=== PATIENT | male | born 1945 | race Caucasian/White ===

== ENCOUNTER 2020-08-18 21:23 | Emergency (ER) | payer MEDICARE, SELFPAY ==
[2020-03-16 08:31] VITALS: BMI 34.7
[2020-08-18 21:24] VITALS: BP 112/66; PULSE 85; RESP 18; TEMP 36.1; O2SAT 96; BMI 34.0
--- NOTE | 2020-08-18 22:04 | CT_ITS ---
STUDY: CT BRAIN WITHOUT CONTRAST REASON FOR EXAM: Male, 75 years old. Pain RADIATION DOSAGE (If Supplied By Facility): CTDIvol = ( 44.99 ) mGy, DLP = ( 914.22 ) mGycm TECHNIQUE: Transaxial CT imaging of the brain was performed without administration of intravenous contrast material. Individualized dose optimization techniques were used for this CT. COMPARISON: No relevant priors. FINDINGS: Normal soft tissue structures. Status post left-sided craniotomy. There is mild cerebral atrophy with widening of the extra-axial spaces and ventricular dilatation. There are areas of decreased attenuation within the white matter tracts of the supratentorial brain, consistent with microvascular disease changes. A small focus of encephalomalacia at the level of the left temporal lobe which may be related to prior surgery. Normal basal ganglia and thalami. Normal brainstem. Normal cerebellum. There is no intracranial hemorrhage. There are no findings of an acute ischemic infarction. There is near complete opacification of the sphenoid sinuses with mucosal thickening of the right maxillary sinus suggestive of sequela of sinusitis. CT/Brain/Head without Contrast IMPRESSION: Chronic changes as described. No acute intracranial hemorrhage or space-occupying lesion. Electronically Signed: Sandra Escobedo MD at 23:13 EDT , Service support ,
[2020-08-18] MEDS: Metoclopramide 10 MG/2 ML Vial IV (23:04)
[2020-08-18] MEDS: 0.9% Normal Saline 1,000 ML 999 ML IV (23:04)
[2020-08-18] MEDS: DiphenhydrAMINE 50 MG/ML Syringe 25 MG IV (23:04)
[2020-08-18] MEDS: Morphine 4 MG/ML Syringe IV (23:32)
[2020-08-18 23:33] VITALS: PULSE 80; RESP 16; O2SAT 95
--- NOTE | 2020-08-19 00:19 | ED.VISSUMM ---
- ER Visit Summary Date of Service: 08/19/20 Chief Complaint: Headache History of Present Illness: The patient is a 75 M [place] with a headache that has been getting worse over the past week. Patient states she is scheduled for an outpatient CT scan next week. Patient states that his primary care physician told him that if his headache gets too severe to come to the emergency department. Patient describes his headache as throbbing. Patient states it is a generalized headache. Patient denies any fevers or chills. Patient denies any nausea or vomiting. Patient denies any sore throat or sinus pressure. Patient denies any visual changes. Patient does admit to some mild photophobia. Patient also admits to recent cough. Physical Examination: Vital signs are stable. Patient is afebrile. Patient is in no acute distress. Oral mucosa is pink and moist. Neck is supple. Trachea is midline. There is no JVD noted. Heart was regular rate and rhythm. Lungs are clear and equal bilaterally. Abdomen is soft. Bowel sounds are normal. There is no tenderness. There is no rebound or guarding noted. Skin is warm dry. Cranial nerves II through XII are intact. There are no focal motor or sensory deficits noted. Test Results: CT scan of the brain was obtained. There is no acute intracranial abnormality. This was interpreted by the radiologist and reviewed by myself. Emergency Department Course and Treatment: Patient was given IV fluids, Reglan, and Benadryl. Patient had minimal relief of his headache with this. Patient was given a dose of morphine. Patient states his headache improved after this. Patient was instructed to rest in a dark quiet room. Patient was instructed to follow-up with his primary care physician in 3 to 5 days. Patient understood and was agreeable with the plan. All questions were answered. Disposition: Discharge home Impression: 1. Headache This note was generated with [employer] software. It may contain incorrect words, spelling, and punctuation that were not noted in review of the chart prior to signing ED Disposition - Plan for ED Patient: Disposition: Home or Assisted Living Diagnosis: Headache Instructions: ED Headache Unspecified Referrals: Damien Harman MD [Primary Care Provider] - 3-5 Days
[2020-08-19 00:31] VITALS: RESP 16
== END 2020-08-19 00:32 | disposition home or self-care (01) ==
PROVIDERS: Emergency Provider Emergency Medicine; PCP Internal Medicine
DX: R51.9 Headache, unspecified (principal); M54.2 Cervicalgia; M54.9 Dorsalgia, unspecified; R05 Cough; E11.9 Type 2 diabetes mellitus without complications; I10 Essential (primary) hypertension; Z87.820 Personal history of traumatic brain injury
CPT/HCPCS: 70450; 96361; 96374; 96375; 99282; J7030; A4216

== ENCOUNTER → 2020-11-01 05:41 | Outpatient (CLI) | payer MEDICARE, SELFPAY ==
[2020-10-25 09:12] VITALS: BMI 34.0
--- NOTE | 2020-11-01 05:59 | ECHOCS_ITS ---
Reason For Study: Chest Pain Procedure This was a 2D Doppler, Color Flow transthoracic echocardiogram. Contrast injection was performed. Exam performed in department. Left Ventricle Normal LV size. Left ventricular systolic function is normal. The estimated ejection fraction is 60 %. Stage 1 diastolic dysfunction. No regional wall motion abnormalities noted. Right Ventricle Normal RV size. Normal systolic function. Atria Normal left atrium. Normal right atrium. Mitral Valve Normal mitral valve. Tricuspid Valve Normal tricuspid valve. Mild (1+) tricuspid valve insufficiency. Pulmonary artery systolic pressure is 40 mmHg. Aortic Valve Trisinus/trileaflet aortic valve. Mild focal aortic valve calcification. Pulmonic Valve Normal pulmonic valve. Great Vessels Normal aortic root. The pulmonary artery is normal size. Normal inferior vena cava. Pericardium/Pleural No pericardial effusion. Medication Diluted definity 3ml given slow IV push to enhance endocardial definition. MMode/2D Measurements & Calculations LVIDd: 4.6 cm IVSd: 1.3 cm Ao root diam: 3.2 cm LVIDs: 3.3 cm LVPWd: 1.1 cm RVDd: 4.4 cm FS: 29.0 % LAV(MOD-bp): 51.2 ml LVAd ap4: 30.2 cm2 SV(MOD-sp4): 63.9 ml LAV(MOD-bp) Indexed: 23.0 ml/m2 LVLd ap4: 7.6 cm LAV(MOD-sp2): 50.3 ml EDV(MOD-sp4): 98.1 ml LAV(MOD-sp4): 51.0 ml EDV(sp4-el): 101.7 ml LVAs ap4: 16.6 cm2 LVLs ap4: 6.9 cm ESV(MOD-sp4): 34.2 ml ESV(sp4-el): 33.9 ml EF(MOD-sp4): 65.1 % EF(sp4-el): 66.7 % SV(sp4-el): 67.8 ml LA A4 area: 19.2 cm2 LA dimension(2D): 5.2 cm RA A4 area: 15.7 cm2 Doppler Measurements & Calculations MV E max ernie: 96.6 cm/sec Lat Peak E' Ernie: 8.7 cm/sec Med Peak E' Ernie: 4.8 cm/sec MV A max ernie: 126.1 cm/sec E/E' lat: 11.1 E/E' med: 20.0 MV E/A: 0.77 Ao V2 max: 165.5 cm/sec LV V1 max: 108.7 cm/sec PA V2 max: 126.2 cm/sec Ao max P.0 mmHg LV V1 max P.7 mmHg Ao V2 mean: 115.4 cm/sec Ao mean P.9 mmHg Ao V2 VTI: 35.3 cm TR max ernie: 295.9 cm/sec TR max P.0 mmHg ECHO/Echo Complete W/ Contrast Interpretation Summary Normal LV size. Left ventricular systolic function is normal. The estimated ejection fraction is 60 %. Stage 1 diastolic dysfunction. Contrast injection was performed. Ordering Physician: Damien Harman Referring Physician: Damien Harman Performed By: Yary Garcia, KENYA, RVT
--- NOTE | 2020-11-01 17:29 | STRESSREP_ITS ---
Stress Test Report Pharmacologic myocardial perfusion stress test. 75-year-old man with a history of chest pain. Stress protocol: Resting EKG demonstrates normal sinus rhythm with a rate of 68 bpm. Normal blood pressure is 142/78 mmHg. 0.4 mg of regadenoson was infused per usual protocol followed by rapid intravenous saline flush injection. The maximum hea rt rate attained was 90 bpm which was 62% of maximum predicted heart rate the maximum workload was 1 metabolic equivalent. At rest there were no ST or T wave changes noted to suggest ischemia and at peak infusion nonspecific ST changes were noted with did not meet the criteria for ischemia. No clinical angina was noted. Myocardial perfusion protocol. 14.5 mCi of technetium 99m sestamibi was injected at rest. 0.4 mg of regadenoson was infused per usual protocol. At peak infusion 44.7 mCi of technetium 99m sestamibi was injected stress images were obtained stress and resting images were reconstructed and compared in the short axis vertical long and horizontal long axis. Gated images were also obtained. Perfusion SPECT analysis: Review of the stress images demonstrate normal uptake of tracer noted in all areas of the myocardium. The resting images similarly demonstrate normal uptake of tracer noted in all areas of the myocardium. No evidence of reversibility is noted to suggest ischemia and no previous infarct is noted. Gated SPECT analysis: The gated ejection fraction is 70%. Conclusion: Normal pharmacologic myocardial perfusion stress test. Preserved ejection fraction.
== END ==
PROVIDERS: PCP Internal Medicine; Referring Provider Internal Medicine; Visit Provider Internal Medicine
DX: R06.02 Shortness of breath (principal); R07.9 Chest pain, unspecified
CPT/HCPCS: 78452; 93017; 93306; A9500; Q9957; A4216; C8929; J2785; J3490

== ENCOUNTER → 2020-11-04 09:57 | Outpatient (CLI) | payer MEDICARE, SELFPAY ==
[2020-10-25 09:12] VITALS: BMI 34.0
--- NOTE | 2020-11-04 09:58 | US_ITS ---
EXAM: US ABDOMEN COMPLETE CLINICAL INDICATION: INCREASED ABD PAIN -- RULE OUT HERNIA AND ASCITES, HAS GLOBULAR ABD TECHNIQUE: Real-time ultrasound of the abdomen with image documentation. This report was created using [employer] report generation technology. COMPARISON: None. FINDINGS: LIVER: Liver is enlarged measuring 24 cm with diffusely increased echogenicity. No intrahepatic biliary ductal dilation. GALLBLADDER: Multiple gallstones measure up to 1.1 cm. No gallbladder wall thickening is demonstrated. No pericholecystic fluid. Negative sonographic Diaz''s sign. COMMON BILE DUCT: Unremarkable as visualized. The proximal common bile duct is within normal limits for the patient''s age. PANCREAS: Unremarkable as visualized. No focal abnormality is demonstrated in the pancreas. No pancreatic ductal dilatation. KIDNEYS: Unremarkable. There is no hydronephrosis. No shadowing calculus. No focal lesion or perinephric collection is demonstrated. SPLEEN: Unremarkable. The spleen is normal in size (12.3 cm) and homogeneous in echotexture. AORTA: See below. INFERIOR VENA CAVA: Limited evaluation of the IVC and aorta due to bowel gas. SOFT TISSUES: No abdominal wall hernia demonstrated. FREE FLUID: There is no free fluid. US/Abdomen Complete IMPRESSION: 1. Hepatomegaly. Increased echogenicity of the liver is nonspecific but most commonly associated with hepatic steatosis. 2. Cholelithiasis. Electronically Signed: Marcio Jose MD ([place]) at 18:42 EDT , Service support ,
== END ==
PROVIDERS: PCP Internal Medicine
DX: R19.8 Other specified symptoms and signs involving the digestive system and abdomen (principal)
CPT/HCPCS: 76700

== ENCOUNTER → 2020-12-09 08:09 | Outpatient (CLI) | payer MEDICARE, SELFPAY ==
[2020-10-25 09:12] VITALS: BMI 34.0
[2020-12-09 08:51] LABS: Absolute Lymphocyte Count 1.78 X10^3/uL (0.83-4.51); Basophil# 0.04 X10^3/uL; Basophil% 0.5 % (0-1); Eosinophil# 0.17 X10^3/uL; Hematocrit 38.6 % (40-54); Lymphocyte # 1.78 X10^3/ul (0.83-4.51); Lymphocyte % 20.5 % (19-41); Mean Corp Hgb Conc 33.7 g/dL (32-36); Mean Corpuscular Hgb 29.8 pg (27.0-32.0); Mean Corpuscular Volume 88.5 fL (80-94); Mean Platelet Vol. 9.8 fl (6.2-12.0); Monocyte# 0.67 X10^3/uL; Monocyte% 7.7 % (0-10); NRBC Flagged by Analyzer 0 % (0-5); Neutrophil # 5.96 X10^3/uL (2.7-7.7); Neutrophil % 68.5 % (47-70); Platelet Count 311 K/mm3 (150-450); RBC Distribution Width CV 13.7 % (11.6-14.6); RBC Distribution Width SD 44.6 fl (35.1-43.9); Red Blood Count 4.36 M/mm3 (4.6-6.2); White Blood Count 8.7 K/mm3 (4.4-11.0)
[2020-12-09 09:23] LABS: AST(SGOT) 9 U/L (15-37); Alanine Aminotransfer ALT/SGPT 25 U/L (16-61); Albumin, Serum 3.8 g/dL (3.2-5.0); Alkaline Phosphatase 80 U/L (45-117); Anion Gap 8 (5-15); BUN 16 mg/dL (7-18); Chloride 102 mmol/L (98-107); Creatinine, Serum 1.14 mg/dL (0.70-1.30); EST Glomerular Filtration Rate 66 mL/min (>60); Est Glom Filt Rate - Afr Amer 80 mL/min (>60); Globulin 3.7 g/dL (2.2-4.2); Glucose 221 mg/dL (74-106); PSA,Total- Diagnostic 5.64 ng/mL (0.0-4.0); Potassium 3.8 mmol/L (3.5-5.1); Protein, Total 7.5 g/dL (6.4-8.2); Sodium Level 135 mmol/L (136-145); Thyroid Stim Hormone (TSH) 1.04 uIU/mL (0.358-3.74)
[2020-12-11 09:36] LABS: Vitamin B12 405 pg/mL (211-911)
== END ==
PROVIDERS: PCP Internal Medicine; Referring Provider Internal Medicine; Visit Provider Internal Medicine
DX: R53.83 Other fatigue (principal); R97.20 Elevated prostate specific antigen [PSA]
CPT/HCPCS: 36415; 80053; 82607; 84153; 84443; 85025

== ENCOUNTER → 2021-02-23 08:52 | Outpatient (CLI) | payer MEDICARE, SELFPAY ==
[2021-02-23 09:53] LABS: PSA,Total - Annual Screen 7.37 ng/mL (0.00-4.00)
--- NOTE | 2021-02-23 15:48 | PFTCOMP ---
COMPLETE PULMONARY FUNCTION TEST INTERPRETATION Brief HPI: Patient is a 75 year old male, currently under the care of Dr. Harman, who presents to [facility] for complete pulmonary function tests secondary to diagnosis of dyspnea. Respiratory therapist reports good effort and reproducible results. Interpretation: Forced expiration spirometry shows no large airways obstructive ventilatory defect with an FEV1 of 75% predicted. There is no significant bronchodilator response by strict ATS criteria. Spirograms are of poor quality and plateau slowly, indicating slowly emptying areas of the lungs. Patient did have significant improvement in exhalation time on postbronchodilator response leading to an artificially elevated FVC. The respiratory flow volume loop shows decreased expiratory flow rates at high lung volumes consistent with small airways obstruction. Lung volumes by body plethysmography show a normal total lung capacity at 5.74 L, 96% predicted. All other lung volumes are within normal limits. Diffusion capacity by carbon monoxide is normal at 75% predicted. The airway resistance is elevated. No previous pulmonary function tests were available for review. Impression: Grossly normal pulmonary function testing with some stigmata of small airways disease
== END ==
PROVIDERS: PCP Internal Medicine; Referring Provider Internal Medicine; Visit Provider Internal Medicine
DX: R06.00 Dyspnea, unspecified (principal); Z12.5 Encounter for screening for malignant neoplasm of prostate
CPT/HCPCS: 36415; 84153; 94060; 94726; 94729; G0103

== ENCOUNTER → 2021-03-12 16:24 | Outpatient (CLI) | payer MEDICARE, SELFPAY ==
[2021-03-12 17:16] LABS: Absolute Neutrophil Count 7.6 X10^3/uL (2.0-7.7); Basophil# 0.06 X10^3/uL; Basophil% 0.5 % (0-1); Eosinophil# 0.23 X10^3/uL; Eosinophils% 2.1 % (0-5); Hematocrit 39.2 % (40-54); Hemoglobin 13.2 g/dL (13.0-16.5); Lymphocyte % 18.3 % (19-41); Mean Corp Hgb Conc 33.7 g/dL (32-36); Mean Corpuscular Hgb 29.6 pg (27.0-32.0); Mean Corpuscular Volume 87.9 fL (80-94); Mean Platelet Vol. 10.1 fl (6.2-12.0); Monocyte# 0.91 X10^3/uL; Monocyte% 8.3 % (0-10); NRBC Flagged by Analyzer 0 % (0-5); Neutrophil # 7.57 X10^3/uL (2.7-7.7); Neutrophil % 69.4 % (47-70); Platelet Count 356 K/mm3 (150-450); RBC Distribution Width CV 14.6 % (11.6-14.6); RBC Distribution Width SD 47.4 fl (35.1-43.9); Red Blood Count 4.46 M/mm3 (4.6-6.2); White Blood Count 10.9 K/mm3 (4.4-11.0)
[2021-03-12 17:36] LABS: ALB/GLOB Ratio 0.8 RATIO (0.9-2.4); AST(SGOT) 7 U/L (15-37); Alanine Aminotransfer ALT/SGPT 19 U/L (16-61); Albumin, Serum 3.7 g/dL (3.2-5.0); Alkaline Phosphatase 122 U/L (45-117); Anion Gap 7 (5-15); BUN 30 mg/dL (7-18); BUN/Creat Ratio 21.1 RATIO (10-20); Calcium,Total 9.4 mg/dL (8.5-10.1); Chloride 103 mmol/L (98-107); Creatinine, Serum 1.42 mg/dL (0.70-1.30); EST Glomerular Filtration Rate 52 mL/min (>60); Est Glom Filt Rate - Afr Amer 62 mL/min (>60); Globulin 4.4 g/dL (2.2-4.2); Glucose 192 mg/dL (74-106); Potassium 4.1 mmol/L (3.5-5.1); Protein, Total 8.1 g/dL (6.4-8.2); Sodium Level 133 mmol/L (136-145); Thyroid Stim Hormone (TSH) 2.06 uIU/mL (0.358-3.74)
[2021-03-13 09:13] LABS: Hepatitis C Antibody Non-Reactive (Nonreactive)
== END ==
PROVIDERS: PCP Family Medicine Geriatric Medicine; Visit Provider Family Medicine Geriatric Medicine
DX: R53.83 Other fatigue (principal); Z13.89 Encounter for screening for other disorder
CPT/HCPCS: 36415; 80053; 84443; 85025; 86803

== ENCOUNTER 2021-05-17 10:10 | Outpatient (CLI) | payer MEDICARE, SELFPAY ==
[2021-05-17 11:41] LABS: Absolute Lymphocyte Count 1.76 X10^3/uL (0.83-4.51); Absolute Neutrophil Count 6.6 X10^3/uL (2.0-7.7); Basophil# 0.03 X10^3/uL; Basophil% 0.3 % (0-1); Eosinophil# 0.17 X10^3/uL; Eosinophils% 1.8 % (0-5); Hematocrit 42.4 % (40-54); Hemoglobin 13.9 g/dL (13.0-16.5); Lymphocyte # 1.76 X10^3/ul (0.83-4.51); Lymphocyte % 18.9 % (19-41); Mean Corp Hgb Conc 32.8 g/dL (32-36); Mean Corpuscular Volume 85.5 fL (80-94); Mean Platelet Vol. 10.1 fl (6.2-12.0); Monocyte# 0.71 X10^3/uL; Monocyte% 7.6 % (0-10); NRBC Flagged by Analyzer 0 % (0-5); Neutrophil # 6.59 X10^3/uL (2.7-7.7); Neutrophil % 70.8 % (47-70); Platelet Count 336 K/mm3 (150-450); RBC Distribution Width CV 15.2 % (11.6-14.6); RBC Distribution Width SD 47.8 fl (35.1-43.9); Red Blood Count 4.96 M/mm3 (4.6-6.2); White Blood Count 9.3 K/mm3 (4.4-11.0)
[2021-05-17 11:53] LABS: Anion Gap 7 (5-15); BUN 17 mg/dL (7-18); BUN/Creat Ratio 15.6 RATIO (10-20); Calcium,Total 9.6 mg/dL (8.5-10.1); Chloride 101 mmol/L (98-107); Creatinine, Serum 1.09 mg/dL (0.70-1.30); EST Glomerular Filtration Rate 70 mL/min (>60); Est Glom Filt Rate - Afr Amer 85 mL/min (>60); Glucose 258 mg/dL (74-106); Potassium 4.3 mmol/L (3.5-5.1); Sodium Level 134 mmol/L (136-145)
[2021-05-17 11:55] LABS: BNP,B-Type NATRIURETIC PEPTIDE 144.8 pg/mL (0-100)
== END 2021-05-17 23:59 | disposition short-term general hospital (02) ==
LOC: POLAB3 10:15
PROVIDERS: PCP Family Medicine Geriatric Medicine; Visit Provider Family Medicine Geriatric Medicine
DX: R06.02 Shortness of breath (principal)
CPT/HCPCS: 36415; 80048; 83880; 85025

== ENCOUNTER 2021-05-29 13:12 | Outpatient (CLI) | payer MEDICARE, SELFPAY ==
--- NOTE | 2021-05-29 13:31 | ECHOCS_ITS ---
Reason For Study: SOB Procedure This was a 2D Doppler, Color Flow transthoracic echocardiogram. The study was technically difficult. Due to body habitus. Contrast injection was performed. Exam performed in department. Left Ventricle Normal LV size. Left ventricular systolic function is normal. The estimated ejection fraction is 65 %. Septal bounce. Diastolic function is indeterminate. Right Ventricle Based upon the 2D echocardiographic and contrast enhanced images obtained there appears to be grossly normal right ventricular size and systolic function. Atria The left atrium is mildly enlarged. Normal right atrium. No doppler evidence for ASD. Mitral Valve There is no mitral annular calcification. Normal mitral valve. Trivial mitral valve insufficiency. Tricuspid Valve Normal tricuspid valve. Trivial tricuspid valve insufficiency. Unable to estimate RV systolic pressure/pulmonary artery pressure due to technically difficult study. Aortic Valve Trisinus/trileaflet aortic valve. Moderate focal aortic valve calcification. Pulmonic Valve The pulmonic valve is not well visualized. Great Vessels Calcified aortic root. Pericardium/Pleural No pericardial effusion. Medication 22 gauge I.V. with prn adaptor inserted into right arm. Diluted definity 3.0ml given slow IV push to enhance endocardial definition. MMode/2D Measurements & Calculations LVIDd: 5.2 cm IVSd: 1.1 cm Ao root diam: 3.9 cm LVIDs: 3.4 cm LVPWd: 1.1 cm FS: 34.7 % LAV(MOD-bp): 53.3 ml LA A4 area: 19.3 cm2 LA dimension(2D): 5.0 cm LAV(MOD-bp) Indexed: 64.7 ml/m2 LAV(MOD-sp2): 54.7 ml LAV(MOD-sp4): 52.5 ml RA A4 area: 14.8 cm2 Time Measurements MV dec time: 0.22 sec Doppler Measurements & Calculations MV E max ernie: 57.7 cm/sec Lat Peak E' Ernie: 10.4 cm/sec Med Peak E' Ernie: 4.5 cm/sec MV A max ernie: 118.0 cm/sec E/E' lat: 5.6 E/E' med: 13.0 MV E/A: 0.49 Ao V2 max: 151.7 cm/sec LV V1 max: 89.9 cm/sec PA V2 max: 125.4 cm/sec Ao max P.2 mmHg LV V1 max P.2 mmHg ECHO/Echo Complete W/ Contrast Interpretation Summary The study was technically difficult. Contrast injection was performed. Left ventricular systolic function is normal. The estimated ejection fraction is 65 %. Septal bounce. The left atrium is mildly enlarged. Trivial mitral valve insufficiency. Trivial tricuspid valve insufficiency. Moderate focal aortic valve calcification. Calcified aortic root. Unable to estimate RV systolic pressure/pulmonary artery pressure due to techni irish difficult study. Diastolic function is indeterminate. Ordering Physician: Frankie Shaver Referring Physician: Frankie Shaver Chi Performed By: Jolene Hylton, KENYA, RVT
== END 2021-05-29 23:59 | disposition short-term general hospital (02) ==
PROVIDERS: PCP Family Medicine Geriatric Medicine; Referring Provider Family Medicine Geriatric Medicine; Visit Provider Family Medicine Geriatric Medicine
DX: R06.02 Shortness of breath (principal)
CPT/HCPCS: 93306; Q9957; A4216; C8929

== ENCOUNTER 2021-06-13 09:24 | Outpatient (CLI) | payer MEDICARE, SELFPAY ==
[2021-06-13 12:42] LABS: Absolute Lymphocyte Count 2.15 X10^3/uL (0.83-4.51); Absolute Neutrophil Count 7.5 X10^3/uL (2.0-7.7); Basophil# 0.05 X10^3/uL; Basophil% 0.5 % (0-1); Eosinophil# 0.18 X10^3/uL; Eosinophils% 1.7 % (0-5); Hematocrit 40.9 % (40-54); Hemoglobin 13.5 g/dL (13.0-16.5); Lymphocyte # 2.15 X10^3/ul (0.83-4.51); Lymphocyte % 19.7 % (19-41); Mean Corpuscular Hgb 28.3 pg (27.0-32.0); Mean Corpuscular Volume 85.7 fL (80-94); Mean Platelet Vol. 10.1 fl (6.2-12.0); Monocyte# 0.93 X10^3/uL; Monocyte% 8.5 % (0-10); NRBC Flagged by Analyzer 0 % (0-5); Neutrophil # 7.49 X10^3/uL (2.7-7.7); Neutrophil % 68.8 % (47-70); Platelet Count 393 K/mm3 (150-450); RBC Distribution Width SD 47.2 fl (35.1-43.9); Red Blood Count 4.77 M/mm3 (4.6-6.2); White Blood Count 10.9 K/mm3 (4.4-11.0)
[2021-06-13 13:07] LABS: ALB/GLOB Ratio 0.8 RATIO (0.9-2.4); AST(SGOT) 11 U/L (15-37); Alanine Aminotransfer ALT/SGPT 20 U/L (16-61); Albumin, Serum 3.4 g/dL (3.2-5.0); Alkaline Phosphatase 132 U/L (45-117); Anion Gap 10 (5-15); BUN 22 mg/dL (7-18); BUN/Creat Ratio 16.8 RATIO (10-20); Calcium,Total 9.4 mg/dL (8.5-10.1); Chloride 100 mmol/L (98-107); Creatinine, Serum 1.31 mg/dL (0.70-1.30); EST Glomerular Filtration Rate 57 mL/min (>60); Est Glom Filt Rate - Afr Amer 68 mL/min (>60); Globulin 4.4 g/dL (2.2-4.2); Glucose 276 mg/dL (74-106); Potassium 4.5 mmol/L (3.5-5.1); Protein, Total 7.8 g/dL (6.4-8.2); Sodium Level 134 mmol/L (136-145); Thyroid Stim Hormone (TSH) 1.44 uIU/mL (0.358-3.74)
== END 2021-06-13 23:59 | disposition short-term general hospital (02) ==
LOC: POLAB3 09:25
PROVIDERS: PCP Family Medicine Geriatric Medicine; Visit Provider Family Medicine Geriatric Medicine
DX: E11.65 Type 2 diabetes mellitus with hyperglycemia (principal); I10 Essential (primary) hypertension
CPT/HCPCS: 36415; 80053; 84443; 85025

== ENCOUNTER → 2021-09-03 | Outpatient (CLI) | payer MEDICARE, SELFPAY ==
--- NOTE | 2021-09-03 14:04 | RAD_ITS ---
INDICATION: LOW BACK PAIN EXAMINATION/TECHNIQUE: X-RAY - XR Spine Lumbar Min 4 Views COMPARISON: CT abdomen and pelvis from 05/16/2011 FINDINGS/ RAD/L/S Spine Min 4 Views IMPRESSION: Large multilevel flowing degenerative anterior and lateral syndesmophytes. Multilevel degenerative disc disease most prominent at L5-S1. Multilevel facet arthropathy is most prominent with moderate changes at the L4-L5 and severe changes at the L5-S1 level. No acute fracture or malalignment. Bilateral sacroiliac joints are unremarkable. Normal nonobstructive bowel gas pattern in the partially visualized abdomen. No radiopaque foreign bodies. Electronically Signed: Paramjit Whalen, at 16:28 EDT ,
== END | disposition home or self-care (01) ==
LOC: RAD 13:52
PROVIDERS: PCP Family Medicine Geriatric Medicine; Referring Provider Family Medicine Geriatric Medicine; Visit Provider Family Medicine Geriatric Medicine
DX: M54.50 Low back pain, unspecified (principal)
CPT/HCPCS: 72110

== ENCOUNTER 2021-09-08 14:35 | Emergency (ER) | payer MEDICARE, SELFPAY ==
[2021-09-08 14:35] VITALS: BP 129/69; PULSE 104; RESP 16; TEMP 36; O2SAT 96; BMI 36.2
--- NOTE | 2021-09-08 15:06 | ED.VIS.GI ---
HPI HPI - GI History of Present Illness Chief Complaint: GI Bleed Informant: patient and spouse/S.O. Narrative Narrative: Patient presents with bright red blood per rectum. Patient states that he had a bowel movement yesterday that was normal. Today he moved his bowels. Does sound like he had bright red blood separate from the stool. He has had a couple episodes of this. He does not feel lightheaded weak or dizzy. He takes aspirin but no other anticoagulation. He has had no fevers chills. He has had some mild discomfort in his left lateral abdomen for about 2 weeks. But he has been eating and drinking normally and generally moving his bowels well. He does have a history of diverticulitis. 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 No further problems. He has a history of heart disease but is not having chest pain or palpitations. He has had CABG also. [facility] Medical History Adjustment disorder with depressed mood CAD (coronary artery disease) Chewing tobacco use Disturbance of memory DM w/o complication type II Essential hypertension Generalized osteoarthritis Heartburn Obstructive sleep apnea Pain in thoracic spine Peripheral vascular disease, unspecified Pure hypercholesterolemia, unspecified Transient cerebral ischemic attack, unspecified Home Medications aspirin 81 mg tablet,delayed release 81 mg PO DAILY 09/15/19 [History Last Taken Unknown] atorvastatin 40 mg tablet 40 mg PO DAILY 09/15/19 [History Last Taken Unknown] furosemide 20 mg tablet 20 mg PO QAM 09/15/19 [History Last Taken Unknown] glipizide 10 mg tablet 10 mg PO BID 09/15/19 [History Last Taken Unknown] isosorbide mononitrate 30 mg tablet,extended release 24 hr 30 mg PO DAILY 09/15/19 [History Last Taken Unknown] lisinopril 40 mg tablet 40 mg PO DAILY 09/15/19 [History Last Taken Unknown] metformin 1,000 mg tablet 1,000 mg PO BID 09/15/19 [History Last Taken Unknown] omeprazole 40 mg capsule,delayed release 40 mg PO DAILY 09/15/19 [History Last Taken Unknown] sertraline 100 mg tablet 100 mg PO DAILY 09/15/19 [History Last Taken Unknown] amlodipine 10 mg tablet 5 mg PO DAILY tab 11/11/19 [History Last Taken Unknown] carvedilol 25 mg tablet 12.5 mg PO BID tab 10/25/20 [History Last Taken Unknown] folic acid 1 mg tablet ea PO 10/25/20 [History Last Taken Unknown] vitamin B complex 1 tab PO DAILY 10/25/20 [History Last Taken Unknown] amlodipine 5 mg tablet 5 mg PO DAILY tab 12/28/20 [History Last Taken Unknown] dapagliflozin 10 mg tablet 10 mg PO DAILY #90 tab 12/28/20 [Rx Last Taken Unknown] glipizide 10 mg tablet, extended release 24 hr 10 mg PO BID tab 12/28/20 [History Last Taken Unknown] nitroglycerin 0.4 mg sublingual tablet 0.4 mg BUCCAL ONCE tab 12/28/20 [History Last Taken Unknown] Allergy/AdvReac Type Severity Reaction Status Date / Time No Known Allergies Allergy Unverified 12/28/20 09:01 Family History Mother Heart disease Father Heart disease Surgical History H/O coronary artery bypass surgery Social History Smoking Status: Never smoker Smokeless tobacco user: chewing tobacco alcohol intake: former year quit: h/o substance use type: does not use ROS ROS ED Constitutional Constitutional ED: Denies chills or fever(s) ENT ENT ED: Denies rhinorrhea Cardiovascular Cardiovascular: Denies chest pain or palpitations Respiratory/Chest Respiratory/Chest: Denies cough or dyspnea Gastrointestinal Gastrointestinal: Reports abdominal pain and other Details: See history of present illness. ; Denies constipation, diarrhea, melena or nausea Genitourinary Genitourinary ED: Denies hematuria Musculoskeletal Musculoskeletal: Denies myalgias Integumentary Denies rash Neurologic Neurologic: Denies headache(s), paresthesias or weakness Endocrine Endocrinology: Denies polydipsia or polyuria Hematologic/Lymphatic Hematologic/Lymphatic: Denies easy bleeding or easy bruising Allergic/Immunologic Allergic/Immunologic ED: Denies urticaria EXAM Physical Exam Const Vital Signs: 09/08/21 14:35 09/08/21 17:16 Temperature 96.8 F L Temperature Source Temporal Pulse Rate 104 H Pulse Rate [Lying] 94 Pulse Rate [Sitting (for 1 minute prior to obtaining)] 100 Pulse Rate [Standing (for 1 minute prior to obtaining)] 100 Respiratory Rate 16 Blood Pressure 129/69 H Blood Pressure [Lying] 118/70 Blood Pressure [Sitting (for 1 minute prior to obtaining)] 134/71 H Blood Pressure [Standing (for 1 minute prior to obtaining)] 108/71 Blood Pressure Mean 89 Blood Pressure Mean [Lying] 86 Blood Pressure Mean [Sitting (for 1 minute prior to obtaining)] 92 Blood Pressure Mean [Standing (for 1 minute prior to obtaining)] 83 Pulse Ox 96 Oxygen Delivery Method Room Air Positive well nourished and well developed General Appearance ED: well developed and NAD; Negative for pallor HEENT Reports moist mucous membranes normocephalic Eyes General Eye ED: Negative for pale conjunctiva or scleral icterus Neck no JVD Resp normal respiratory effort and clear to auscultation bilaterally Cardio regular rate and regular rhythm GI non-tender and non-distended Palpation: soft Back/Spine no CVA tenderness Neuro moves all extremities Sensorium / Orientation: alert; Negative for confused, lethargic or stuporous Psych mental status grossly normal Skin Skin Narrative: No petechiae or purpura. General Skin Exam: Negative for jaundice or pallor Rashes: no rashes MDM MDM MDM Narrative Medical decision making narrative: Patient's blood work showed minimal elevation of white count. He has a minimally low hemoglobin. Platelets are normal. Coagulation studies are normal. Electrolytes show mild elevation in creatinine at 1.6. Glucose is 289 but this is not uncommon for him. Lactate is minimally elevated. CAT scan is not showing any acute abnormality. Patient had a bowel movement a little after 6 AM was some red blood. Had another 1 shortly after that. He had a third 1 at 1 but had much less blood. He has not had any for the last 5 hours. Patient does not want to stay in the hospital. He really wants to go home. He feels well. We got him up and walked and he feels fine. We stood him. There is no massive change in blood pressure or heart rate. Patient does live with his of 58 years. They are comfortable going home. I explained that I have concerns with his age level of illness, lactate and being on aspirin. But he is not having any further bleeding at this time. He states he will come back if he has any other bleeding or problems. I explained if he has fevers pain lightheadedness or any symptoms he should have a low threshold to return. Because of his overall age and medical illness aspirin I would certainly be willing to admit him to the hospital for further observation. He does not want to stay in the hospital. So we have talked about the best options and reasons to return. We will also have him hold his aspirin for a few days. He already has an appointment with his primary physician on Friday or Friday. I will give him the phone number for gastroenterology. Lab Data Attestation: I reviewed the patient's lab results. Labs: Laboratory Results - last 24 hr 09/08/21 09/08/21 09/08/21 15:15 15:15 15:15 WBC 12.9 H RBC 4.04 L Hgb 12.0 L Hct 35.1 L MCV 86.9 MCH 29.7 MCHC 34.2 RDW Std Deviation 49.8 H RDW Coeff of Myron 15.6 H Plt Count 363 MPV 9.8 Immature Gran % (Auto) 2.400 H Neut % (Auto) 66.4 Lymph % (Auto) 19.3 [place] % (Auto) 10.6 H Eos % (Auto) 0.9 Baso % (Auto) 0.4 Absolute Neuts (auto) 8.5 H Absolute Lymphs (auto) 2.48 Nucleated RBC % 0 PT 13.7 INR 1.1 APTT 33.0 Sodium 132 L Potassium 4.2 Chloride 99 Carbon Dioxide 24.0 Anion Gap 9 BUN 36 H Creatinine 1.64 H Estim Creat Clear Calc 37.07 Est GFR (MDRD) Af Amer 53 L Est GFR (MDRD) Non-Af 44 L BUN/Creatinine Ratio 22.0 H Glucose 289 H Lactic Acid Calcium 8.8 Total Bilirubin 0.70 AST 10 L ALT 20 Alkaline Phosphatase 97 Total Protein 6.6 Albumin 3.5 Globulin 3.1 Albumin/Globulin Ratio 1.1 09/08/21 15:15 WBC RBC Hgb Hct MCV MCH MCHC RDW Std Deviation RDW Coeff of Myron Plt Count MPV Immature Gran % (Auto) Neut % (Auto) Lymph % (Auto) [place] % (Auto) Eos % (Auto) Baso % (Auto) Absolute Neuts (auto) Absolute Lymphs (auto) Nucleated RBC % PT INR APTT Sodium Potassium Chloride Carbon Dioxide Anion Gap BUN Creatinine Estim Creat Clear Calc Est GFR (MDRD) Af Amer Est GFR (MDRD) Non-Af BUN/Creatinine Ratio Glucose Lactic Acid 2.2 H* Calcium Total Bilirubin AST ALT Alkaline Phosphatase Total Protein Albumin Globulin Albumin/Globulin Ratio Radiography Diagnostic Testing: Clinical Impression(s) from Imaging Studies Abdomen/Pelvis CT 09/08/21 16:15 IMPRESSION: 1. Small left pleural effusion with some left lower lobe atelectasis. 2. Cholelithiasis. 3. Diverticulosis without diverticulitis. Electronically Signed: Freddy Omer MD at 17:12 EDT , Discharge Plan Triage Chief Complaint: GI Bleed ED Provider: Dave Gongora Dx/Rx/DC Orders Clinical Impression: Bright red rectal bleeding, Anemia, mild Instructions: ED Lower GI Bleeding (Stable) Prescriptions: No Action metformin 1,000 mg tablet 1,000 mg PO BID RF: 0 furosemide [Lasix] 20 mg tablet 20 mg PO QAM RF: 0 atorvastatin 40 mg tablet 40 mg PO DAILY RF: 0 lisinopril 40 mg tablet 40 mg PO DAILY RF: 0 glipizide 10 mg tablet 10 mg PO BID RF: 0 sertraline 100 mg tablet 100 mg PO DAILY RF: 0 omeprazole 40 mg capsule,delayed release(DR/EC) 40 mg PO DAILY RF: 0 isosorbide mononitrate 30 mg tablet extended release 24 hr 30 mg PO DAILY RF: 0 aspirin 81 mg tablet,delayed release (DR/EC) 81 mg PO DAILY RF: 0 amlodipine 10 mg tablet 5 mg PO DAILY RF: 0 folic acid 1 mg tablet PO RF: 0 vitamin B complex [B Complex-Vitamin B12] Tablet 1 tab PO DAILY RF: 0 carvedilol 25 mg tablet 12.5 mg PO BID RF: 0 amlodipine 5 mg tablet 5 mg PO DAILY RF: 0 glipizide 10 mg tablet extended release 24hr 10 mg PO BID RF: 0 nitroglycerin 0.4 mg tablet, sublingual 0.4 mg buccal ONCE RF: 0 Farxiga 10 mg tablet 10 mg PO DAILY Qty: 90 RF: 1 Primary Care Provider: Frankie Shaver Chi Referrals: Valentin Panda DO [STAFF PHYSICIAN] - As soon as possible Frankie Shaver Chi, MD [Primary Care Provider] - Keep Erik appointment Disposition Disposition: Home, Self Care
[2021-09-08 15:39] LABS: International Normalized Ratio 1.1; Prothrombin Time (Protime)PT. 13.7 SECONDS (11.7-14.9)
[2021-09-08 16:02] LABS: ALB/GLOB Ratio 1.1 RATIO (0.9-2.4); AST(SGOT) 10 U/L (15-37); Absolute Lymphocyte Count 2.48 X10^3/uL (0.83-4.51); Absolute Neutrophil Count 8.5 X10^3/uL (2.0-7.7); Alanine Aminotransfer ALT/SGPT 20 U/L (16-61); Albumin, Serum 3.5 g/dL (3.2-5.0); Alkaline Phosphatase 97 U/L (45-117); Anion Gap 9 (5-15); BUN 36 mg/dL (7-18); Basophil# 0.05 X10^3/uL; Basophil% 0.4 % (0-1); Calcium,Total 8.8 mg/dL (8.5-10.1); Chloride 99 mmol/L (98-107); Creatinine, Serum 1.64 mg/dL (0.70-1.30); EST Glomerular Filtration Rate 44 mL/min (>60); Eosinophil# 0.12 X10^3/uL; Eosinophils% 0.9 % (0-5); Est Glom Filt Rate - Afr Amer 53 mL/min (>60); Estimated Creatinine Clearance 37.07 ml/min; Globulin 3.1 g/dL (2.2-4.2); Glucose 289 mg/dL (74-106); Hematocrit 35.1 % (40-54); Lymphocyte # 2.48 X10^3/ul (0.83-4.51); Lymphocyte % 19.3 % (19-41); Mean Corp Hgb Conc 34.2 g/dL (32-36); Mean Corpuscular Hgb 29.7 pg (27.0-32.0); Mean Corpuscular Volume 86.9 fL (80-94); Mean Platelet Vol. 9.8 fl (6.2-12.0); Monocyte# 1.37 X10^3/uL; Monocyte% 10.6 % (0-10); NRBC Flagged by Analyzer 0 % (0-5); Neutrophil # 8.54 X10^3/uL (2.7-7.7); Neutrophil % 66.4 % (47-70); Platelet Count 363 K/mm3 (150-450); Potassium 4.2 mmol/L (3.5-5.1); Protein, Total 6.6 g/dL (6.4-8.2); RBC Distribution Width CV 15.6 % (11.6-14.6); RBC Distribution Width SD 49.8 fl (35.1-43.9); Red Blood Count 4.04 M/mm3 (4.6-6.2); Sodium Level 132 mmol/L (136-145); White Blood Count 12.9 K/mm3 (4.4-11.0)
[2021-09-08 16:06] LABS: Lactic Acid 2.2 mmol/L (0.4-1.9)
--- NOTE | 2021-09-08 16:15 | CT_ITS ---
STUDY: CT ABDOMEN AND PELVIS WITH CONTRAST REASON FOR EXAM: Male, 76 years old. abd pain RADIATION DOSAGE (If Supplied By Facility): CTDIvol = ( 16.61 ) mGy, DLP = ( 1265.79 ) mGycm TECHNIQUE: Transaxial images were obtained from the dome of the diaphragm to the symphysis pubis without oral contrast. IV 100mL Isovue-300 was administered. Sagittal and coronal images were reconstructed. Individualized dose optimization techniques were used for this CT. COMPARISON: None. FINDINGS: Small left pleural effusion with some left lower lobe atelectasis. The visualized portions of the heart are within normal limits. Normal liver. There are multiple gallstones. Normal spleen. Normal pancreas. Normal bilateral adrenal glands. Normal right kidney. Normal left kidney. Normal visualized stomach. Small diverticulum of second portion the duodenum. There are multiple colonic diverticula consistent with diverticulosis. The appendix is visualized and appears normal. Normal abdominal aorta. Normal inferior vena cava. Normal retroperitoneum. Normal urinary bladder. Normal abdominal wall. There are diffuse degenerative changes of the visualized lumbar spine. CT/Abdomen/Pelvis W IV Cont ONLY IMPRESSION: 1. Small left pleural effusion with some left lower lobe atelectasis. 2. Cholelithiasis. 3. Diverticulosis without diverticulitis. Electronically Signed: Freddy Omer MD at 17:12 EDT ,
[2021-09-08 17:16] VITALS: BP 108/71; BP 118/70; BP 134/71; PULSE 100; PULSE 94
[2021-09-08 18:19] VITALS: PULSE 84
[2021-09-08 19:24] LABS: Reflex Lactate? Y
== END 2021-09-08 18:19 | disposition home or self-care (01) ==
PROVIDERS: Emergency Provider Emergency Medicine; PCP Family Medicine Geriatric Medicine; Visit Provider Emergency Medicine
DX: K92.2 Gastrointestinal hemorrhage, unspecified (principal); E11.9 Type 2 diabetes mellitus without complications; I25.10 Atherosclerotic heart disease of native coronary artery without angina pectoris; I10 Essential (primary) hypertension; E78.00 Pure hypercholesterolemia, unspecified; D64.9 Anemia, unspecified; G47.33 Obstructive sleep apnea (adult) (pediatric); Z86.73 Personal history of transient ischemic attack (TIA), and cerebral infarction without residual deficits; Z79.82 Long term (current) use of aspirin; Z95.1 Presence of aortocoronary bypass graft; K57.30 Diverticulosis of large intestine without perforation or abscess without bleeding; J90 Pleural effusion, not elsewhere classified
CPT/HCPCS: 74177; 80053; 82274; 83605; 85025; 85610; 85730; 99284; J7030; Q9967; A4216

== ENCOUNTER → 2021-09-10 | Outpatient (CLI) | payer MEDICARE, SELFPAY ==
[2021-09-10 12:21] LABS: Absolute Lymphocyte Count 2.11 X10^3/uL (0.83-4.51); Absolute Neutrophil Count 5.7 X10^3/uL (2.0-7.7); Basophil# 0.05 X10^3/uL; Basophil% 0.5 % (0-1); Eosinophil# 0.09 X10^3/uL; Lymphocyte # 2.11 X10^3/ul (0.83-4.51); Mean Corp Hgb Conc 33.3 g/dL (32-36); Mean Corpuscular Hgb 29.3 pg (27.0-32.0); Mean Platelet Vol. 9.9 fl (6.2-12.0); Monocyte# 0.82 X10^3/uL; Monocyte% 8.9 % (0-10); NRBC Flagged by Analyzer 0 % (0-5); Neutrophil # 5.74 X10^3/uL (2.7-7.7); Neutrophil % 62.7 % (47-70); Platelet Count 325 K/mm3 (150-450); RBC Distribution Width SD 50.3 fl (35.1-43.9); Red Blood Count 3.41 M/mm3 (4.6-6.2); White Blood Count 9.2 K/mm3 (4.4-11.0)
[2021-09-10 12:58] LABS: Anion Gap 7 (5-15); BUN 36 mg/dL (7-18); Calcium,Total 9.4 mg/dL (8.5-10.1); Chloride 99 mmol/L (98-107); Creatinine, Serum 1.44 mg/dL (0.70-1.30); EST Glomerular Filtration Rate 51 mL/min (>60); Est Glom Filt Rate - Afr Amer 61 mL/min (>60); Glucose 261 mg/dL (74-106); Potassium 4.5 mmol/L (3.5-5.1); Sodium Level 133 mmol/L (136-145)
== END | disposition home or self-care (01) ==
LOC: POLAB3 12:07
PROVIDERS: PCP Family Medicine Geriatric Medicine; Visit Provider Family Medicine Geriatric Medicine
DX: I10 Essential (primary) hypertension (principal)
CPT/HCPCS: 36415; 80048; 85025

== ENCOUNTER → 2021-09-12 | Outpatient (CLI) | payer MEDICARE, SELFPAY ==
[2021-09-12 12:48] LABS: Absolute Lymphocyte Count 2.32 X10^3/uL (0.83-4.51); Absolute Neutrophil Count 6.7 X10^3/uL (2.0-7.7); Basophil# 0.07 X10^3/uL; Basophil% 0.7 % (0-1); Eosinophil# 0.09 X10^3/uL; Eosinophils% 0.8 % (0-5); Hematocrit 30.7 % (40-54); Hemoglobin 10.2 g/dL (13.0-16.5); Lymphocyte # 2.32 X10^3/ul (0.83-4.51); Lymphocyte % 21.8 % (19-41); Mean Corp Hgb Conc 33.2 g/dL (32-36); Mean Corpuscular Hgb 29.5 pg (27.0-32.0); Mean Corpuscular Volume 88.7 fL (80-94); Mean Platelet Vol. 10.2 fl (6.2-12.0); Monocyte# 0.96 X10^3/uL; NRBC Flagged by Analyzer 0.3 % (0-5); Neutrophil % 62.9 % (47-70); Platelet Count 388 K/mm3 (150-450); RBC Distribution Width CV 16.3 % (11.6-14.6); RBC Distribution Width SD 52.7 fl (35.1-43.9); Red Blood Count 3.46 M/mm3 (4.6-6.2); White Blood Count 10.7 K/mm3 (4.4-11.0)
[2021-09-12 13:03] LABS: Vitamin D,25 Hydroxy 23.2 ng/mL
[2021-09-12 13:13] LABS: ALB/GLOB Ratio 0.9 RATIO (0.9-2.4); AST(SGOT) 10 U/L (15-37); Alanine Aminotransfer ALT/SGPT 22 U/L (16-61); Albumin, Serum 3.7 g/dL (3.2-5.0); Alkaline Phosphatase 101 U/L (45-117); Anion Gap 11 (5-15); BUN 27 mg/dL (7-18); Calcium,Total 9.3 mg/dL (8.5-10.1); Chloride 95 mmol/L (98-107); Creatinine, Serum 1.42 mg/dL (0.70-1.30); EST Glomerular Filtration Rate 52 mL/min (>60); Est Glom Filt Rate - Afr Amer 62 mL/min (>60); Globulin 3.9 g/dL (2.2-4.2); Glucose 216 mg/dL (74-106); Potassium 4.2 mmol/L (3.5-5.1); Protein, Total 7.6 g/dL (6.4-8.2); Sodium Level 132 mmol/L (136-145); Thyroid Stim Hormone (TSH) 3.53 uIU/mL (0.358-3.74)
== END | disposition home or self-care (01) ==
LOC: POLAB3 12:17
PROVIDERS: PCP Family Medicine Geriatric Medicine; Visit Provider Family Medicine Geriatric Medicine
DX: E11.65 Type 2 diabetes mellitus with hyperglycemia (principal); E55.9 Vitamin D deficiency, unspecified; R53.83 Other fatigue
CPT/HCPCS: 36415; 80053; 82306; 84443; 85025

== ENCOUNTER → 2021-09-19 | Outpatient (CLI) | payer MEDICARE, SELFPAY ==
[2021-09-19 12:33] LABS: Absolute Neutrophil Count 7.7 X10^3/uL (2.0-7.7); Basophil# 0.04 X10^3/uL; Basophil% 0.4 % (0-1); Eosinophil# 0.05 X10^3/uL; Eosinophils% 0.5 % (0-5); Hematocrit 32.3 % (40-54); Hemoglobin 10.8 g/dL (13.0-16.5); Lymphocyte % 19.4 % (19-41); Mean Corp Hgb Conc 33.4 g/dL (32-36); Mean Corpuscular Volume 89.7 fL (80-94); Mean Platelet Vol. 9.7 fl (6.2-12.0); Monocyte# 0.85 X10^3/uL; Monocyte% 7.9 % (0-10); NRBC Flagged by Analyzer 0 % (0-5); Neutrophil # 7.66 X10^3/uL (2.7-7.7); Neutrophil % 70.7 % (47-70); Platelet Count 403 K/mm3 (150-450); RBC Distribution Width CV 17.6 % (11.6-14.6); RBC Distribution Width SD 57.4 fl (35.1-43.9); White Blood Count 10.8 K/mm3 (4.4-11.0)
== END | disposition home or self-care (01) ==
LOC: POLAB3 11:15
PROVIDERS: PCP Family Medicine Geriatric Medicine; Visit Provider Family Medicine Geriatric Medicine
DX: D50.9 Iron deficiency anemia, unspecified (principal)
CPT/HCPCS: 36415; 85025

== ENCOUNTER → 2021-11-05 | Outpatient (CLI) | payer MEDICARE, SELFPAY ==
[2021-11-05 12:44] LABS: Absolute Lymphocyte Count 1.92 X10^3/uL (0.83-4.51); Absolute Neutrophil Count 7.1 X10^3/uL (2.0-7.7); Basophil# 0.06 X10^3/uL; Basophil% 0.6 % (0-1); Eosinophil# 0.17 X10^3/uL; Eosinophils% 1.6 % (0-5); Hematocrit 40.1 % (40-54); Hemoglobin 13.3 g/dL (13.0-16.5); Lymphocyte # 1.92 X10^3/ul (0.83-4.51); Lymphocyte % 18.6 % (19-41); Mean Corp Hgb Conc 33.2 g/dL (32-36); Mean Corpuscular Volume 90.3 fL (80-94); Mean Platelet Vol. 9.7 fl (6.2-12.0); Monocyte# 0.88 X10^3/uL; Monocyte% 8.5 % (0-10); NRBC Flagged by Analyzer 0 % (0-5); Neutrophil # 7.12 X10^3/uL (2.7-7.7); Neutrophil % 69.1 % (47-70); Platelet Count 349 K/mm3 (150-450); RBC Distribution Width CV 15.1 % (11.6-14.6); RBC Distribution Width SD 49.9 fl (35.1-43.9); RET-HE 30.9 pg (30-35); Red Blood Count 4.44 M/mm3 (4.6-6.2); Reticulocyte Count 2.29 % (0.5-1.5); White Blood Count 10.3 K/mm3 (4.4-11.0)
[2021-11-05 13:24] LABS: Ferritin 52 ng/mL (26-388); Iron 51 ug/dL (65-175); Iron Binding Capacity,Total 337 ug/dL (250-450); LDH 159 U/L (87-241); PERCENT IRON SATURATION 15.1 % (15.0-55.0)
[2021-11-06 14:08] LABS: Albumin 3.5 g/dL (2.9-4.4); Alpha-1-Globulins 0.2 g/dL (0.0-0.4); Alpha-2-Globulins 1.2 g/dL (0.4-1.0); Gamma Globulin 0.9 g/dL (0.4-1.8); Immunoglobulin A 196 mg/dL (61-437); Immunoglobulin G 915 mg/dL (603-1613); Immunoglobulin M 29 mg/dL (15-143)
[2021-11-08 16:35] LABS: Haptoglobin 331 mg/dL (34-355)
== END | disposition home or self-care (01) ==
LOC: LAB 11:41
PROVIDERS: Internal Medicine Gastroenterology; PCP Family Medicine Geriatric Medicine; Referring Provider Family Medicine Geriatric Medicine; Visit Provider Family Medicine Geriatric Medicine
DX: D50.9 Iron deficiency anemia, unspecified (principal)
CPT/HCPCS: 36415; 82728; 82784; 83010; 83540; 83550; 83615; 84165; 85025; 85045; 86334

== ENCOUNTER → 2021-12-10 | Outpatient (CLI) | payer MEDICARE, SELFPAY ==
[2021-12-10 12:52] LABS: Absolute Lymphocyte Count 2.03 X10^3/uL (0.83-4.51); Absolute Neutrophil Count 6.9 X10^3/uL (2.0-7.7); Basophil# 0.05 X10^3/uL; Basophil% 0.5 % (0-1); Eosinophil# 0.11 X10^3/uL; Eosinophils% 1.1 % (0-5); Hematocrit 40.9 % (40-54); Hemoglobin 13.7 g/dL (13.0-16.5); Lymphocyte # 2.03 X10^3/ul (0.83-4.51); Lymphocyte % 20.4 % (19-41); Mean Corp Hgb Conc 33.5 g/dL (32-36); Mean Corpuscular Hgb 30.2 pg (27.0-32.0); Mean Corpuscular Volume 90.1 fL (80-94); Mean Platelet Vol. 9.9 fl (6.2-12.0); Monocyte# 0.74 X10^3/uL; Monocyte% 7.4 % (0-10); NRBC Flagged by Analyzer 0 % (0-5); Neutrophil # 6.93 X10^3/uL (2.7-7.7); Neutrophil % 69.6 % (47-70); Platelet Count 324 K/mm3 (150-450); RBC Distribution Width CV 15.6 % (11.6-14.6); RBC Distribution Width SD 51.7 fl (35.1-43.9); Red Blood Count 4.54 M/mm3 (4.6-6.2)
[2021-12-10 13:15] LABS: ALB/GLOB Ratio 0.9 RATIO (0.9-2.4); AST(SGOT) 11 U/L (15-37); Alanine Aminotransfer ALT/SGPT 25 U/L (16-61); Albumin, Serum 3.6 g/dL (3.2-5.0); Alkaline Phosphatase 93 U/L (45-117); Anion Gap 9 (5-15); BUN 20 mg/dL (7-18); BUN/Creat Ratio 15.7 RATIO (10-20); Calcium,Total 9.4 mg/dL (8.5-10.1); Chloride 101 mmol/L (98-107); Cholesterol 139 mg/dL (200); Creatinine, Serum 1.27 mg/dL (0.70-1.30); EST Glomerular Filtration Rate 59 mL/min (>60); Est Glom Filt Rate - Afr Amer 71 mL/min (>60); Globulin 3.9 g/dL (2.2-4.2); Glucose 104 mg/dL (74-106); High Density Lipoprotein 31 mg/dL; Potassium 4.1 mmol/L (3.5-5.1); Protein, Total 7.5 g/dL (6.4-8.2); Sodium Level 136 mmol/L (136-145); Thyroid Stim Hormone (TSH) 0.83 uIU/mL (0.358-3.74); Triglycerides 258 mg/dL; Very Low Density Lipoprotein 52 mg/dL (5-40)
== END | disposition home or self-care (01) ==
LOC: POLAB3 09:14
PROVIDERS: PCP Family Medicine Geriatric Medicine; Visit Provider Family Medicine Geriatric Medicine
DX: I10 Essential (primary) hypertension (principal); E11.65 Type 2 diabetes mellitus with hyperglycemia; E78.5 Hyperlipidemia, unspecified; E55.9 Vitamin D deficiency, unspecified
CPT/HCPCS: 36415; 80053; 80061; 82306; 84443; 85025

== ENCOUNTER → 2021-12-27 | Outpatient (CLI) | payer MEDICARE, SELFPAY | END | disposition home or self-care (01) | LOC: PSN 12:34 | PROVIDERS: PCP Family Medicine Geriatric Medicine; Referring Provider Family Medicine Geriatric Medicine; Visit Provider Family Medicine Geriatric Medicine | DX: R68.83 Chills (without fever) (principal) | CPT/HCPCS: 87635; 87804; 87807; C9803; U0003; U0005 ==

== ENCOUNTER → 2022-01-08 | Outpatient (CLI) | payer MEDICARE, SELFPAY ==
[2022-01-08 12:03] LABS: Hemoglobin 13.8 g/dL (13.0-16.5); Mean Corp Hgb Conc 32.9 g/dL (32-36); Mean Corpuscular Hgb 29.9 pg (27.0-32.0); Mean Corpuscular Volume 91.1 fL (80-94); Mean Platelet Vol. 9.9 fl (6.2-12.0); Platelet Count 303 K/mm3 (150-450); RBC Distribution Width CV 15.9 % (11.6-14.6); RBC Distribution Width SD 52.4 fl (35.1-43.9); Red Blood Count 4.61 M/mm3 (4.6-6.2); White Blood Count 10.1 K/mm3 (4.4-11.0)
[2022-01-08 12:17] LABS: Protein, Urine (Random) 64.2 mg/dL (<11.9); Protein:Creat Ratio 472 mg/g CRE (0-200)
[2022-01-08 12:20] LABS: Albumin, Serum 3.7 g/dL (3.2-5.0); BUN 16 mg/dL (7-18); BUN/Creat Ratio 12.8 RATIO (10-20); Chloride 101 mmol/L (98-107); Creatinine, Serum 1.25 mg/dL (0.70-1.30); EST Glomerular Filtration Rate 60 mL/min (>60); Est Glom Filt Rate - Afr Amer 72 mL/min (>60); Ferritin 39 ng/mL (26-388); Glucose 117 mg/dL (74-106); Iron 59 ug/dL (65-175); Iron Binding Capacity,Total 328 ug/dL (250-450); Phosphorus 3.5 mg/dL (2.5-4.9); Potassium 4.6 mmol/L (3.5-5.1); Sodium Level 137 mmol/L (136-145)
== END | disposition home or self-care (01) ==
LOC: POLAB3 10:12
PROVIDERS: PCP Family Medicine Geriatric Medicine; Visit Provider Internal Medicine Nephrology
DX: N18.32 Chronic kidney disease, stage 3b (principal); D50.9 Iron deficiency anemia, unspecified
CPT/HCPCS: 36415; 80069; 82570; 82728; 83540; 83550; 83970; 84156; 85027

== ENCOUNTER 2022-01-10 13:25 | Inpatient (IN) | payer MEDICARE, SELFPAY ==
[2022-01-10] VITALS (7 sets, daily range): BP systolic 135–194; BP diastolic 81–98; PULSE 90–113; RESP 18–22; TEMP 36.4–37.8; O2SAT 91–96; BMI 36.1
--- NOTE | 2022-01-10 13:23 | PCM.HP.STD ---
HPI - General General Date of Admission: 01/10/22 HPI Narrative JONY MELENDEZ, is a 76 M who for acute cholecystitis, reflux. Patient went to [facility] ER this morning due to increased epigastric abdominal pain starting last night about 3 in the morning. Patient eats about 5:55 PM. Patient also admits to having some abdominal pain again epigastric after eating for the last couple days. Patient does have a history of a CVA and is not the best historian but patient is accompanied with by his who helps corroborate the story. Patient is also scheduled see Dr. Panda in February for an upper and lower scope due to previous issue of bright red blood per rectum per family. That has resolved per patient/. Patient ultrasound at [place] called a thickened gallbladder wall at 4.2 mm common bile duct was normal at 4.2 mm no pericholecystic fluid, gallstones were seen. Patient also had a CT abdomen pelvis which again just showed some gallstones no inflammation at the gallbladder. Patient's white blood cell count was 10.9 with starting of a shift. Patient's LFTs were normal. Has has past medical history of hypertension, history of a CABG 2019, diabetes, CVA and is only on aspirin 81 mg for anticoagulation. Previous abdominal surgeries include perforated diverticulitis with Benjamin's and reversal of Benjamin's about 17 years ago. [facility] Medical History (Updated 01/10/22 @ 13:34 by Queenie Guerra) (HFpEF) heart failure with preserved ejection fraction Adjustment disorder with depressed mood Anemia Atherosclerosis of coronary artery without angina pectoris Chewing tobacco use CPAP (continuous positive airway pressure) dependence Disturbance of memory Essential hypertension Generalized osteoarthritis GIB (gastrointestinal bleeding) History of CVA (cerebrovascular accident) (03/31/18) Hyperlipidemia Kidney disease Obstructive sleep apnea Pain in thoracic spine Peripheral vascular disease, unspecified Pure hypercholesterolemia, unspecified Restless legs Seizures Home Medications aspirin 81 mg tablet,delayed release 81 mg PO DAILY 09/15/19 [History Last Taken Unknown] atorvastatin 40 mg tablet 40 mg PO DAILY 09/15/19 [History Last Taken Unknown] isosorbide mononitrate 30 mg tablet,extended release 24 hr 30 mg PO DAILY 09/15/19 [History Last Taken Unknown] metformin 1,000 mg tablet 1,000 mg PO BID 09/15/19 [History Last Taken Unknown] glipizide 10 mg tablet, extended release 24 hr 10 mg PO BID 12/28/20 [History Last Taken Unknown] nitroglycerin 0.4 mg sublingual tablet 0.4 mg sublingual ONCE PRN Chest Pain 12/28/20 [History Last Taken Unknown] furosemide 40 mg tablet 40 mg PO DAILY 11/27/21 [History Last Taken Unknown] potassium chloride 20 mEq tablet,extended release(part/cryst) 20 meq PO DAILY 11/27/21 [History Last Taken Unknown] venlafaxine 75 mg tablet 75 mg PO DAILY 11/27/21 [History Last Taken Unknown] carvedilol 25 mg tablet 25 mg PO BID #90 tabs 11/28/21 [Rx Last Taken Unknown] polysaccharide iron complex 150 mg iron capsule (Ferrex) 150 mg PO DAILY 11/28/21 [History Last Taken Unknown] semaglutide 14 mg tablet (Rybelsus) 14 mg PO DAILY 11/28/21 [History Last Taken Unknown] Allergy/AdvReac Type Severity Reaction Status Date / Time dapagliflozin [From [facility]] Allergy Rash Verified 11/28/21 09:13 Family History Mother Heart disease Father Heart disease Surgical History H/O arthroscopic knee surgery H/O coronary artery bypass surgery (10/25/18) H/O resection of small bowel H/O varicose vein ligation History of appendectomy History of cataract surgery History of colonoscopy History of craniotomy (1990) History of left heart catheterization (10/13/18) Social History Smoking Status: Never smoker Smokeless tobacco user: chewing tobacco alcohol intake: former year quit: h/o substance use type: does not use ROS Constitutional Constitutional: Reports anorexia; Denies fever(s) Cardiovascular Cardiovascular: Denies chest pain Respiratory/Chest Respiratory/Chest: Denies cough Gastrointestinal Gastrointestinal: Reports abdominal pain, anorexia and heartburn; Denies melena or rectal bleeding Genitourinary Genitourinary: Denies burning urination Integumentary Integumentary: Denies rash Neurologic Neurologic: Reports other Details: History of CVA Hematologic/Lymphatic Hematologic/Lymphatic: Reports anemia Vital Signs Vital Signs Vital Signs: Weight Weight: 241 lb 2.971 oz Body Mass Index (BMI) 36.1 Physical Exam Const alert, oriented x3 and no apparent distress HEENT normocephalic and head/scalp atraumatic Resp normal respiratory effort Cardio regular rate GI Inspection: abdominal distention, incision other (Well-healed midline incision and previous colostomy site in the left lower quadrant.) and central obesity Palpation: firm and tender epigastric and RUQ; Negative for guarding Extremity General Extremity: Negative for clubbing or cyanosis Skin Rashes: no rashes Neuro CN's II-XII intact bilaterally Psych mental status grossly normal Assessment & Plan Assessment/Plan (1) Cholelithiasis and acute cholecystitis without obstruction: (2) GERD (gastroesophageal reflux disease): (3) Diabetes: QUALIFIERS: Diabetes mellitus complication status: with hyperglycemia Diabetes mellitus senior living insulin use: without senior living use Diabetes mellitus type: type 2 Qualified Code(s): E11.65 - Type 2 diabetes mellitus with hyperglycemia (4) Essential hypertension: PLAN: Plan We will start patient on Protonix as it does also sound like he does have an element of reflux/gastritis. On exam patient also has right upper quadrant pain and does give a story pain after eating months follow-up questions were asked. Patient does have a previous midline incision due to perforated diverticulitis/Benjamin's and reversal. Discussed with patient that surgery may take longer due to adhesions or higher chance of needing to go open as well. Reviewed the anatomy with the patient and discussed the procedure: laparoscopic cholecystectomy with possible cholangiograms, possible open. Review risks including but not limited to bleeding, infection, hernia, bile leak, retained gallstones requiring another procedure ERCP- Endoscopic Retrograde Cholangiopancreatography, injury to another organ (bile ducts, common bile duct, small bowel, etc.) and conversion to an open procedure or subtotal procedure with drain placement. All questions were answered. Sahra Lancaster M.D. Pager: [phone] [facility] [address] [place] [address] [address] [place] [address] Office: [phone] Procedure Criteria Type of Procedure Procedure Type: Elective Elective Risks - COVID COVID Risk Discussion: The surgeon/proceduralist and patient have discussed in detail the risk of exposure to and/or potential harm posed by the COVID-19 virus with having a surgery/procedure at this time versus the risk of delaying the surgery/procedure. It is not possible to know either the risk of delaying the surgery or procedure or chance of getting an infection with perfect accuracy, but a joint decision was made between the patient and the surgeon/proceduralist to proceed at this time with the scheduled surgery/procedure as indicated on the consent form.
--- NOTE | 2022-01-10 13:57 | PN.HOSP_ITS ---
Subjective Subjective 76-year-old male with a history of stroke, diastolic heart failure, CABG, CAD, hypertension, hyperlipidemia presents to the outside hospital with increased abdominal pain. He says that it started around 2 or 3 in the morning. He has noticed that he has been having some abdominal pain after meals for the last several days. He had an ultrasound done at the [facility] that demonstrated a thickened gallbladder wall as well as a normal common bile duct. This is consistent with an acute cholecystitis so general surgery admitted the patient and is requesting medicine assistance. He currently is denying any chest pain or shortness of breath and given the acuity of his symptoms would recommend proceeding with laparoscopic cholecystectomy if appropriate. 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 HEENT: Atraumatic, PERRLA, EOMI, Normocephalic Oral: Moist Mucosa Neck: Supple, No JVD Lungs: Clear to auscultation, Normal air movement, No rhonchi, No wheeze, No rales Cardiovascular: Regular rate, Regular Rhythm, Normal S1, Normal S2, No murmurs Abdomen: Soft, RUQ tender, Non-Distended, No Hepato-splenomegaly, obese Extremities: No edema, Capillary Refill Less than 3 Seconds Skin: No rashes, No breakdown Musculoskeletal: No Tenderness to Palpation of Joints or Extremities Neurological: Cranial nerves II-XII grossly intact, Motor Exam 5/5 strength throughout, Sensory exam intact to light touch and pain Psych/Mental Status: Normal Affect, Appropriate Assessment & Plan Assessment/Plan (1) Cholelithiasis and acute cholecystitis without obstruction: PLAN: Plan 1. Acute cholecystitis with cholelithiasis ? Pain management per primary ? Plan for operative treatment ? Given his history of diastolic heart failure and his other cardiac illnesses would provide gentle hydration ? Given his medical history he is likely moderate risk for surgery, he does have significant obstructive sleep apnea that he wears a CPAP for 2. CAD status post CABG/HTN/HLD/chronic diastolic CHF ?Continue with his home oral medications while n.p.o. okay to hold his aspirin ? Would hold his Lasix given the IV fluids ? He did have an echo in May of this year with an EF of 65% unfortunately diastolic dysfunction and pulmonary artery pressures were not obtainable 3. DM2 ? Hold metformin, glipizide and semaglutide ? Place him on sliding scale insulin ? We will monitor and make adjustments 4. Anxiety/depression ? Stable ? continue with Effexor 5. GERD/history of a GI bleed ? Continue with his iron replacement as well as a PPI ? She will need to follow-up with GI in February as previously scheduled for an upper and lower scope secondary to bright red blood per rectum even though this has resolved DVT: Per primary Charges/Coding Visit Charges Inpatient E&M: 16197 Subs Hosp L3
[2022-01-10] MEDS: 0.9% Saline Lock 10 ML Syringe IV ×2 (14:27→22:28)
[2022-01-10] MEDS: 0.9% Normal Saline 1,000 ML 120 ML IV (14:27)
--- NOTE | 2022-01-10 14:38 | CPS ---
Pt wears a CPAP at home which family will bring in tomorrow akaykay James did let pt know he could use one of [facility] CPAP's tonight if he'd like and if not, will put some O2 via [place] on him @.
[2022-01-10] MEDS: Carvedilol 25 MG Tablet PO (17:10)
[2022-01-10 17:41] LABS: Bedside Glucose 111 mg/dL (74-106)
--- NOTE | 2022-01-10 20:00 | CPS ---
Pt stated that his family will bring in his home CPAP machine tomorrow, and that he's OK with using just oxygen for tonight.
[2022-01-10 23:01] LABS: Bedside Glucose 123 mg/dL (74-106)
[2022-01-10] MEDS: 0.9% Normal Saline 1,000 ML 100 ML IV (23:40)
[2022-01-11] VITALS (14 sets, daily range): BP systolic 88–157; BP diastolic 62–81; PULSE 93–110; RESP 17–20; TEMP 36.5–37.2; O2SAT 91–95; BMI 36.1
--- NOTE | 2022-01-11 | GALL_PTH ---
PATIENT: JONY MELENDEZ LOC: MS3 U#:[id number] AGE/SX: 76/M ROOM: IA321 RE01/10/[address]: Dr. Sahra Lancaster MD : 1945 BED: 1 DIS: 01/16/2022 SPEC #: [id number] RECD: 01/11/22 17:38 STATUS: VERO GONZALEZ #: [id number] JUVENAL: 01/11/22 00:[address]: Sahra Lancaster DEPT: SURGICAL PATHOLOGY RECD BY: Noel Trivedi ENTERED: 01/15/22 08:48 SP TYPE: LO AGUIRRE DR: MD Dr. Frankie Lawson Chi, MD Tissues: Gallbladder, NOS Procedures: Surgery Specimen Level III HEADER OPERATION: Laparoscopic cholecystectomy PRE-OP DIAGNOSIS: Cholelithiasis and acute cholecystitis TISSUE SUBMITTED: Gallbladder and gallstones MICROSCOPIC DIAGNOSIS Gallbladder and contents, cholecystectomy: Acute and chronic ulcerated and hemorrhagic cholecystitis and cholelithiasis. LEOLA:angel 01/16/2022 MICROSCOPIC DESCRIPTION Slides are reviewed. GROSS DESCRIPTION Received is one container labeled with the patient's name and designated gallbladder and contents. The specimen consists of a previously opened gallbladder measuring 8.5 cm in length and 3.5 cm in diameter. No obvious cystic duct is noted. Also present in the container are Two detached pieces of soft tissue measuring 1 x 0.5 x 0.2 cm and 1.5 x 1 x 0.5 cm. The gallbladder contains a small amount of hemorrhagic material. Present in the container are two fragments of brownish-black stone measuring 0.6 and 1 cm in greatest dimension. Sludge material is also noted in the container. The mucosa is congested and hemorrhagic. The gallbladder wall measures up to 0.8 cm in thickness. Commercial Real Estate Paralegal sections from the gallbladder are submitted in two cassettes including detached fragments of tissue. / LEOLA:angel 01/15/2022 TC:2 CPT: 64993
[2022-01-11] MEDS: Morphine 2 MG/ML Syringe IV ×3 (04:11→08:23)
[2022-01-11 06:15] LABS: Absolute Lymphocyte Count 1.13 X10^3/uL (0.83-4.51); Basophil# 0.04 X10^3/uL; Basophil% 0.2 % (0-1); Eosinophil# 0.01 X10^3/uL; Eosinophils% 0.1 % (0-5); Hematocrit 39.7 % (40-54); Hemoglobin 13.1 g/dL (13.0-16.5); Lymphocyte # 1.13 X10^3/ul (0.83-4.51); Mean Corpuscular Hgb 29.8 pg (27.0-32.0); Mean Corpuscular Volume 90.2 fL (80-94); Mean Platelet Vol. 9.8 fl (6.2-12.0); Monocyte% 7.9 % (0-10); NRBC Flagged by Analyzer 0 % (0-5); Neutrophil # 16.01 X10^3/uL (2.7-7.7); Neutrophil % 84.6 % (47-70); Platelet Count 255 K/mm3 (150-450); RBC Distribution Width CV 16.2 % (11.6-14.6); RBC Distribution Width SD 53.5 fl (35.1-43.9); White Blood Count 18.9 K/mm3 (4.4-11.0)
[2022-01-11] MEDS: 0.9% Saline Lock 10 ML Syringe IV (06:18)
[2022-01-11 06:45] LABS: Bedside Glucose 129 mg/dL (74-106)
[2022-01-11 06:46] LABS: AST(SGOT) 31 U/L (15-37); Alanine Aminotransfer ALT/SGPT 23 U/L (16-61); Albumin, Serum 2.9 g/dL (3.2-5.0); Alkaline Phosphatase 73 U/L (45-117); Anion Gap 7 (5-15); BUN 16 mg/dL (7-18); BUN/Creat Ratio 11.2 RATIO (10-20); Bilirubin, Direct 0.12 mg/dL (0.00-0.30); Calcium,Total 8.6 mg/dL (8.5-10.1); Chloride 107 mmol/L (98-107); Creatinine, Serum 1.43 mg/dL (0.70-1.30); EST Glomerular Filtration Rate 51 mL/min (>60); Est Glom Filt Rate - Afr Amer 62 mL/min (>60); Estimated Creatinine Clearance 42.52 ml/min; Glucose 134 mg/dL (74-106); Potassium 4.4 mmol/L (3.5-5.1); Protein, Total 6.9 g/dL (6.4-8.2); Sodium Level 138 mmol/L (136-145)
[2022-01-11 07:42] LABS: Hemoglobin A1c 6.6 % (3.8-5.6)
--- NOTE | 2022-01-11 07:56 | PN.SURG_ITS ---
Subjective Subjective Patient complains of right upper quadrant pain. Patient's white blood count increased to 19. Patient is on IV Zosyn. Objective Data Objective Data Vital Signs: Vital Signs Temp Pulse Resp BP Pulse Ox O2 Del Method O2 Flow Rate 98.1 F 103 H 20 H 157/81 H 94 Nasal Cannula 2 01/11/22 03:41 01/11/22 03:41 01/11/22 03:41 01/11/22 03:41 01/11/22 03:41 01/11/22 03:41 01/11/22 03:41 Oxygen Flow Rate (L/min) 2 Oxygen Delivery Method Nasal Cannula Weight: 241 lb 2.971 oz Body Mass Index (BMI) 36.1 Intake & Output: Intake and Output for Last 24 Hours 01/09/22 01/10/22 01/11/22 23:59 23:59 23:59 Intake Total 1207.17 / 1240.50 731.33 / 731.33 Balance 1207.17 / 1240.50 731.33 / 731.33 Lab / Micro Data Result Diagrams: 01/11/22 05:55 01/11/22 05:55 Labs: Laboratory Results - last 24 hr 01/10/22 16:57: POC Glucose 111 H 01/10/22 22:25: POC Glucose 123 H 01/11/22 05:55: Hemoglobin A1c 6.6 H 01/11/22 05:55: WBC 18.9 H, RBC 4.40 L, Hgb 13.1, Hct 39.7 L, MCV 90.2, MCH 29.8, MCHC 33.0, RDW Std Deviation 53.5 H, RDW Coeff of Myron 16.2 H, Plt Count 255, MPV 9.8, Immature Gran % (Auto) 1.200 H, Neut % (Auto) 84.6 H, Lymph % (Auto) 6.0 L, [place] % (Auto) 7.9, Eos % (Auto) 0.1, Baso % (Auto) 0.2, Absolute Neuts (auto) 16.0 H, Absolute Lymphs (auto) 1.13, Nucleated RBC % 0 01/11/22 05:55: Sodium 138, Potassium 4.4, Chloride 107, Carbon Dioxide 24.0, Anion Gap 7, BUN 16, Creatinine 1.43 H, Estim Creat Clear Calc 42.52, Est GFR (MDRD) Af Amer 62, Est GFR (MDRD) Non-Af 51 L, BUN/Creatinine Ratio 11.2, Glucose 134 H, Calcium 8.6, Total Bilirubin 1.40 H, Direct Bilirubin 0.12, AST 31, ALT 23, Alkaline Phosphatase 73, Total Protein 6.9, Albumin 2.9 L, Globulin 4.0 01/11/22 06:21: POC Glucose 129 H Physical Exam Const oriented x3 Resp normal respiratory effort Cardio regular rate GI GI Narrative: Tender right upper quadrant -no guarding equivocal rebound, soft, mild distention Assessment & Plan Assessment/Plan (1) Cholelithiasis and acute cholecystitis without obstruction: (2) GERD (gastroesophageal reflux disease): (3) Diabetes: QUALIFIERS: Diabetes mellitus complication status: with hyperglycemia Diabetes mellitus retirement insulin use: without retirement use Diabetes mellitus type: type 2 Qualified Code(s): E11.65 - Type 2 diabetes mellitus with hyperglycemia (4) Essential hypertension: PLAN: Plan Patient is also aware that due to his sleep apnea there could be a chance of him staying intubated depending on anesthesia postoperatively and he would go to the ICU if that were to be the case. Reviewed the anatomy with the patient and discussed the procedure: laparoscopic cholecystectomy with possible cholangiograms, possible open. Review risks including but not limited to bleeding, infection, hernia, bile leak, retained gallstones requiring another procedure ERCP- Endoscopic Retrograde Cholangiopancreatography, injury to another organ (bile ducts, common bile duct, small bowel, etc.) and conversion to an open procedure or subtotal procedure with drain placement. All questions were answered. Sahra Lancaster M.D. Pager: [phone] [facility] [address] [place] [address], [address] [place] [address] Office: [phone]
[2022-01-11] MEDS: 0.9% Normal Saline 1,000 ML 100 ML IV ×2 (08:07→18:28)
[2022-01-11] MEDS: Carvedilol 25 MG Tablet PO (08:08)
[2022-01-11] MEDS: Ondansetron 4 MG/2 ML Vial IV (08:23)
--- NOTE | 2022-01-11 09:23 | PN.HOSP_ITS ---
Subjective Subjective Continues to have right upper quadrant abdominal pain. Plan for operative repair today. No issues overnight his will bring in his CPAP tonight Objective Data Objective Data Vital Signs: Vital Signs Temp Pulse Resp BP Pulse Ox O2 Del Method O2 Flow Rate 98.1 F 103 H 20 H 157/81 H 94 Nasal Cannula 2 01/11/22 03:41 01/11/22 03:41 01/11/22 03:41 01/11/22 03:41 01/11/22 03:41 01/11/22 03:41 01/11/22 03:41 Oxygen Flow Rate (L/min) 2 Oxygen Delivery Method Nasal Cannula Weight: 241 lb 2.971 oz Body Mass Index (BMI) 36.1 Intake & Output: Intake and Output for Last 24 Hours 01/10/22 01/11/22 01/12/22 03:59 03:59 03:59 Intake Total 1290.50 / 1290.50 859.67 / 859.67 Balance 1290.50 / 1290.50 859.67 / 859.67 Lab / Micro Data Result Diagrams: 01/11/22 05:55 01/11/22 05:55 Labs: Laboratory Results - last 24 hr 01/10/22 16:57: POC Glucose 111 H 01/10/22 22:25: POC Glucose 123 H 01/11/22 05:55: Hemoglobin A1c 6.6 H 01/11/22 05:55: WBC 18.9 H, RBC 4.40 L, Hgb 13.1, Hct 39.7 L, MCV 90.2, MCH 29.8, MCHC 33.0, RDW Std Deviation 53.5 H, RDW Coeff of Myron 16.2 H, Plt Count 255, MPV 9.8, Immature Gran % (Auto) 1.200 H, Neut % (Auto) 84.6 H, Lymph % (Auto) 6.0 L, [place] % (Auto) 7.9, Eos % (Auto) 0.1, Baso % (Auto) 0.2, Absolute Neuts (auto) 16.0 H, Absolute Lymphs (auto) 1.13, Nucleated RBC % 0 01/11/22 05:55: Sodium 138, Potassium 4.4, Chloride 107, Carbon Dioxide 24.0, Anion Gap 7, BUN 16, Creatinine 1.43 H, Estim Creat Clear Calc 42.52, Est GFR (MDRD) Af Amer 62, Est GFR (MDRD) Non-Af 51 L, BUN/Creatinine Ratio 11.2, Glucose 134 H, Calcium 8.6, Total Bilirubin 1.40 H, Direct Bilirubin 0.12, AST 31, ALT 23, Alkaline Phosphatase 73, Total Protein 6.9, Albumin 2.9 L, Globulin 4.0 01/11/22 06:21: POC Glucose 129 H Physical Exam Narrative General: Alert, Oriented x3, Cooperative, No apparent distress, responses are little bit slow but this is 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 HEENT: Atraumatic, PERRLA, EOMI, Normocephalic Oral: Moist Mucosa Neck: Supple, No JVD Lungs: Diminished, Normal air movement, No rhonchi, No wheeze, No rales Cardiovascular: Regular rate, Regular Rhythm, Normal S1, Normal S2, No murmurs Abdomen: Soft, RUQ tender, Non-Distended, No Hepato-splenomegaly, obese Extremities: No edema, Capillary Refill Less than 3 Seconds Skin: No rashes, No breakdown Musculoskeletal: No Tenderness to Palpation of Joints or Extremities Neurological: Cranial nerves II-XII grossly intact, Motor Exam 5/5 strength throughout, Sensory exam intact to light touch and pain Psych/Mental Status: Flat affect, Appropriate Assessment & Plan Assessment/Plan (1) Cholelithiasis and acute cholecystitis without obstruction: PLAN: Plan 1. Acute cholecystitis with cholelithiasis ? Pain management per primary ? Plan for operative treatment ? Given his history of diastolic heart failure and his other cardiac illnesses would provide gentle hydration ? Given his medical history he is likely moderate risk for surgery, he does have significant obstructive sleep apnea that he wears a CPAP for 2. CAD status post CABG/HTN/HLD/chronic diastolic CHF ?Continue with his home oral medications while n.p.o. okay to hold his aspirin ? Would hold his Lasix given the IV fluids ? He did have an echo in May of this year with an EF of 65% unfortunately diastolic dysfunction and pulmonary artery pressures were not obtainable 3. DM2 ? Hold metformin, glipizide and semaglutide ? Place him on sliding scale insulin ? We will monitor and make adjustments 4. Anxiety/depression ? Stable ? continue with Effexor 5. GERD/history of a GI bleed ? Continue with his iron replacement as well as a PPI ? She will need to follow-up with GI in February as previously scheduled for an upper and lower scope secondary to bright red blood per rectum even though this has resolved DVT: Per primary Charges/Coding Visit Charges Inpatient E&M: 23927 Subs Hosp L2
--- NOTE | 2022-01-11 11:30 | CASEMGMT ---
RN CM [employer]O SELF SERVICE STATION ATTENDANT CM to room to meet with patient for initial transition planning/care coordination assessment. Pt sleepin soundly. Pt's and dtr, Halie, @ bedside. RN VILLA introduced self and role at [facility]. Family agreeable to talking w/RN VILLA for assessment. Care providers, pharmacy, and demographics verified/updated at this time. PCP: Dr Shaver Specialists: Dr Bruno-cardiology, Dr Bowers-nephrology, Dr Panda-GI Preferred [facility]acy: [facility] Insurance: [employer] [facility] Prescription Benefit: Yes Living Will/HPOA: Pt does not currently have LW/HCPOA LNOK: Kathie. One daughter, Halie Living Arrangements: Lives w/ in one-story home w/3 steps to enter. assists pt w/shower (SBA) and dressing. Pt able to shave himself and checks his own blood sugars. manages home mgmt tasks and pt's medications and appts. Transportation: DME: States has the following DME: comfort height commode, functioning glucometer w/supplies, lift chair, CPAP Pt states no need for further DME at this time. HHC/SNF: No hx of SNF. thinks pt has had HHC in the past, but is unsure. Discussed HHC and homebound requirements. Pt is not homebound at this time. and dtr made aware, if in the future he would be homebound and if they are interested in HHC, to discuss this w/pt's PCP. They voice understanding. wishes for pt to return home and states has no concerns with him going home at time of discharge. CM to follow for any further discharge planning/needs. and dtr voice no further concerns/needs at this time. Advised them to ask for CM if any further questions/concerns/needs arise. They voice understanding. PLAN: Home w/family support and discharge plans in place. Ariel CLAYTON RN, CM
[2022-01-11 12:20] LABS: Bedside Glucose 146 mg/dL (74-106)
[2022-01-11] MEDS: Bupivacaine 0.25% 30 ML Vial (14:09)
--- NOTE | 2022-01-11 14:31 | CHAPLAIN ---
Type of Pastoral Visit ___ Initial Visit ___ Follow-up Visit ___ On-call Visit ___ General Patient Visit ___ Spiritual Assessment ___ Family Conference ___ Bereavement ___ Rapid Response ___ Code Blue ___ Other (describe below) Pastoral Care Referral From ___ Patient ___ Family ___ Nurse ___ Physician ___ Bulb Assembler ___ Pony Ride Operator ___ Other (describe below) Sacrament/Intervention ___ Active listening ___ Anointing ___ Church ___ Bereavement ___ Communion ___ Debra exploration ___ ___ Life review ___ Prayer ___ Reconciliation ___ Sacrament of Sick ___ Supportive presence ___ Wedding ___ Other (describe below) Pastoral Comments patient and bed were not in the room; left a calling card
--- NOTE | 2022-01-11 16:00 | PCM.OPRPT ---
Report of Operation Date of Procedure: 01/11/22 Pre-Operative Diagnosis: Acute cholecystitis, cholelithiasis Post-Operative Diagnosis: Acute necrotizing cholecystitis, cholelithiasis Surgery/Procedure Performed:: Laparoscopic subtotal cholecystectomy with 15 Kyrgyz HOWARD drain placement Surgeon: Sahra Lancaster quarry equipment operator: Kitty Rapp Type of Anesthesia: General/Supplemental Anesthesiologist: Douglas Rangel Special Medications: Zosyn 3.375 g IV x1 Specimen's removed: Gallbladder wall and stones Drains: 15 Kyrgyz HOWARD right upper quadrant Estimated Blood Loss (mL): 20 cc Fluids Replaced: Per anesthesia Description of Procedure: Indications: this is a 76 year-old [] who developed abdominal pain/nausea/vomiting and on workup was found to have acute cholecystitis, cholelithiasis, with a normal common bile duct. Laparoscopic cholecystectomy was elected. Description procedure: The patient was placed on operating table in supine position. A timeout was completed verifying correct patient, procedure, site, position and special equipment prior to beginning procedure. General Anesthesia was induced. The abdomen was prepped and draped in usual sterile fashion. An incision was made in the natural skin line above the umbilicus. The fascia was elevated and incised. The peritoneum was elevated and incised. Entry into the peritoneum was confirmed visually and colon was noted near the incision however there is no injury to the colon as the finger was placed in the abdomen to gently take down adhesions. Tavares trocar was placed. The abdomen was insufflated with carbon dioxide to a pressure of 12-15 mmHg. Patient tolerated insufflation well. The laparoscope was then inserted and abdomen inspected. No injuries from initial trocar placement were noted. Additional trochars were then inserted in the following locations 5 mm trocar in the epigastrium and 2 more 5 mm trochars along the right costal margin. The abdomen was inspected no abnormalities were found. The table is placed in reverse Trendelenburg position with the right side up. Thick adhesions were able to be peeled back from the gallbladder from the omentum. Due to the tense and firm gallbladder aspiration needle was used to decompress. The dome of the gallbladder was grasped with atraumatic grasper passed through the lateral port and retracted over the dome of the liver. Infundibulum was then grasped with atraumatic grasper through the midclavicular port and retracted to the right lower quadrant. Due to dense adhesions cystic duct was not able to be clearly visualized as along with the cystic artery. Laparoscopic subtotal cholecystectomy was elected. Harmonic scalpel was used to divide the gallbladder wall near the neck and remove the anterior portion of the gallbladder wall. Gallbladder wall and stones were placed in endoscopic retrieval bag through the umbilical port. All stones were removed from the gallbladder. The [place] was used to coagulate the remaining posterior wall/neck gallbladder mucosa. No bile was seen. A 15 Kyrgyz round HOWARD was left in the gallbladder fossa and secured with 3-0 nylon to the skin. Secondary trochars removed under direct vision. No bleeding was noted the trocar sites. The laparoscope was withdrawn and umbilical trocar removed. The abdomen was allowed to collapse. The fascia of the 12 mm trocar was closed with a [id number] 0 Vicryl suture. The skin was closed with sutures of 4-0 Monocryl and Steri-Strips. The patient was extubated. The patient tolerated procedure well and was taken to the postanesthesia care unit in stable condition. Complications none
[2022-01-11 17:11] LABS: Bedside Glucose 198 mg/dL (74-106)
[2022-01-11] MEDS: oxyCODONE 5 MG Tablet PO (22:13)
[2022-01-11] MEDS: Acetaminophen 325 MG Tablet 650 MG PO (22:13)
[2022-01-11 22:20] LABS: Bedside Glucose 180 mg/dL (74-106)
[2022-01-12] VITALS (8 sets, daily range): BP systolic 119–141; BP diastolic 64–75; PULSE 88–94; RESP 16–18; TEMP 36.7–37.2; O2SAT 92–96
[2022-01-12] MEDS: 0.9% Normal Saline 1,000 ML 100 ML IV ×3 (04:47→21:09)
[2022-01-12] MEDS: oxyCODONE 5 MG Tablet PO ×3 (04:56→21:08)
[2022-01-12] MEDS: Acetaminophen 325 MG Tablet 650 MG PO ×2 (04:57→18:40)
[2022-01-12 06:26] LABS: Bedside Glucose 162 mg/dL (74-106)
[2022-01-12 07:29] LABS: Anion Gap 9 (5-15); BUN 20 mg/dL (7-18); BUN/Creat Ratio 13.5 RATIO (10-20); Calcium,Total 7.7 mg/dL (8.5-10.1); Chloride 108 mmol/L (98-107); Creatinine, Serum 1.48 mg/dL (0.70-1.30); EST Glomerular Filtration Rate 49 mL/min (>60); Est Glom Filt Rate - Afr Amer 59 mL/min (>60); Estimated Creatinine Clearance 41.08 ml/min; Glucose 169 mg/dL (74-106); Potassium 3.7 mmol/L (3.5-5.1); Sodium Level 139 mmol/L (136-145)
[2022-01-12] MEDS: Isosorbide Mononitrate 30 MG Tablet PO (09:07)
[2022-01-12] MEDS: Atorvastatin Calcium 40 MG Tablet PO (09:08)
[2022-01-12] MEDS: Venlafaxine HCl 75 MG Tablet PO (09:08)
[2022-01-12] MEDS: Carvedilol 25 MG Tablet PO ×2 (09:08→16:45)
--- NOTE | 2022-01-12 09:13 | PCM.PN.SRG ---
Subjective Subjective Patient still has significant amount of discomfort in his abdomen generally. No nausea or vomiting Objective Data Objective Data Obese abdomen no peritoneal signs are identified HOWARD drain is in place and has serous fluid in it Vital Signs: Vital Signs Temp Pulse Resp BP Pulse Ox O2 Del Method O2 Flow Rate 98.1 F 91 16 129/64 H 96 Nasal Cannula 5 01/12/22 08:58 01/12/22 08:58 01/12/22 08:58 01/12/22 08:58 01/12/22 08:58 01/12/22 08:58 01/12/22 08:58 Oxygen Flow Rate (L/min) 5 Oxygen Delivery Method Nasal Cannula Weight: 241 lb 2.971 oz Body Mass Index (BMI) 36.1 Intake & Output: Intake and Output for Last 24 Hours 01/10/22 01/11/22 01/12/22 23:59 23:59 23:59 Intake Total 1207.17 / 1240.50 3153.00 / 3153.00 1050 / 1050 Output Total 620 / 620 Balance 1207.17 / 1240.50 3133.00 / 3133.00 430 / 430 Lab / Micro Data Result Diagrams: 01/11/22 05:55 01/12/22 06:20 Labs: Laboratory Results - last 24 hr 01/11/22 11:55: POC Glucose 146 H 01/11/22 16:49: POC Glucose 198 H 01/11/22 20:22: POC Glucose 180 H 01/12/22 04:56: POC Glucose 162 H 01/12/22 06:20: Sodium 139, Potassium 3.7, Chloride 108 H, Carbon Dioxide 22.0, Anion Gap 9, BUN 20 H, Creatinine 1.48 H, Estim Creat Clear Calc 41.08, Est GFR (MDRD) Af Amer 59 L, Est GFR (MDRD) Non-Af 49 L, BUN/Creatinine Ratio 13.5, Glucose 169 H, Calcium 7.7 L Assessment & Plan Assessment/Plan (1) Cholelithiasis and acute cholecystitis without obstruction: PLAN: Postoperative day 1 Will encourage ambulation labs are not back as of yet. Wait for GI function. HOWARD drain working.
--- NOTE | 2022-01-12 09:23 | PN.HOSP_ITS ---
Subjective Subjective Doing well, tolerated surgery, still having some pain in his right upper quadrant but this is likely postsurgical. Drain is in place Objective Data Objective Data Vital Signs: Vital Signs Temp Pulse Resp BP Pulse Ox O2 Del Method O2 Flow Rate 98.1 F 91 16 129/64 H 96 Nasal Cannula 5 01/12/22 08:58 01/12/22 08:58 01/12/22 08:58 01/12/22 08:58 01/12/22 08:58 01/12/22 08:58 01/12/22 08:58 Oxygen Flow Rate (L/min) 5 Oxygen Delivery Method Nasal Cannula Weight: 241 lb 2.971 oz Body Mass Index (BMI) 36.1 Intake & Output: Intake and Output for Last 24 Hours 01/11/22 01/12/22 01/13/22 03:59 03:59 03:59 Intake Total 1290.50 / 1290.50 3119.67 / 3119.67 1000 / 1000 Output Total 620 / 620 Balance 1290.50 / 1290.50 3099.67 / 3099.67 380 / 380 Lab / Micro Data Result Diagrams: 01/11/22 05:55 01/12/22 06:20 Labs: Laboratory Results - last 24 hr 01/11/22 11:55: POC Glucose 146 H 01/11/22 16:49: POC Glucose 198 H 01/11/22 20:22: POC Glucose 180 H 01/12/22 04:56: POC Glucose 162 H 01/12/22 06:20: Sodium 139, Potassium 3.7, Chloride 108 H, Carbon Dioxide 22.0, Anion Gap 9, BUN 20 H, Creatinine 1.48 H, Estim Creat Clear Calc 41.08, Est GFR (MDRD) Af Amer 59 L, Est GFR (MDRD) Non-Af 49 L, BUN/Creatinine Ratio 13.5, Glucose 169 H, Calcium 7.7 L Physical Exam Narrative General: Alert, Oriented x3, Cooperative, No apparent distress, responses are little bit slow but this is 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 HEENT: Atraumatic, PERRLA, EOMI, Normocephalic Oral: Moist Mucosa Neck: Supple, No JVD Lungs: Diminished, Normal air movement, No rhonchi, No wheeze, No rales Cardiovascular: Regular rate, Regular Rhythm, Normal S1, Normal S2, No murmurs Abdomen: Soft, RUQ tender, HOWARD drain in place, Non-Distended, No Hepato- splenomegaly, obese Extremities: No edema, Capillary Refill Less than 3 Seconds Skin: No rashes, No breakdown Musculoskeletal: No Tenderness to Palpation of Joints or Extremities Neurological: Cranial nerves II-XII grossly intact, Motor Exam 5/5 strength throughout, Sensory exam intact to light touch and pain Psych/Mental Status: Flat affect, Appropriate Assessment & Plan Assessment/Plan (1) Cholelithiasis and acute cholecystitis without obstruction: PLAN: Plan 1. Acute cholecystitis with cholelithiasis status post lap cholecystectomy on 01/11/2022 ? Pain management per primary ? Given his history of diastolic heart failure and his other cardiac illnesses would provide gentle hydration ? Given his medical history he is likely moderate risk for surgery, he does have significant obstructive sleep apnea that he wears a CPAP for and given his obstructive sleep apnea would recommend wearing his CPAP whenever he sleeps during the day 2. CAD status post CABG/HTN/HLD/chronic diastolic CHF ?Continue with his home oral medications while n.p.o. okay to hold his aspirin ? Would hold his Lasix given the IV fluids ? He did have an echo in May of this year with an EF of 65% unfortunately diastolic dysfunction and pulmonary artery pressures were not obtainable 3. DM2 ? Hold metformin, glipizide and semaglutide ? Place him on sliding scale insulin ? We will monitor and make adjustments 4. Anxiety/depression ? Stable ? continue with Effexor 5. GERD/history of a GI bleed ? Continue with his iron replacement as well as a PPI ? She will need to follow-up with GI in February as previously scheduled for an upper and lower scope secondary to bright red blood per rectum even though this has resolved DVT: Per primary Charges/Coding Visit Charges Inpatient E&M: 39546 Subs Hosp L2
[2022-01-12] MEDS: Insulin Lispro 100 UNIT/ML INSULN.PEN SC ×3 (11:45→21:07)
[2022-01-12 12:05] LABS: Bedside Glucose 177 mg/dL (74-106)
[2022-01-12 12:30] LABS: Absolute Lymphocyte Count 1.17 X10^3/uL (0.83-4.51); Absolute Neutrophil Count 12.3 X10^3/uL (2.0-7.7); Basophil# 0.04 X10^3/uL; Basophil% 0.3 % (0-1); Eosinophil# 0.08 X10^3/uL; Eosinophils% 0.5 % (0-5); Hematocrit 35.9 % (40-54); Hemoglobin 11.4 g/dL (13.0-16.5); Lymphocyte # 1.17 X10^3/ul (0.83-4.51); Lymphocyte % 7.8 % (19-41); Mean Corp Hgb Conc 31.8 g/dL (32-36); Mean Corpuscular Hgb 29.7 pg (27.0-32.0); Mean Corpuscular Volume 93.5 fL (80-94); Mean Platelet Vol. 10.2 fl (6.2-12.0); Monocyte# 1.32 X10^3/uL; Monocyte% 8.8 % (0-10); NRBC Flagged by Analyzer 0 % (0-5); Neutrophil # 12.26 X10^3/uL (2.7-7.7); Neutrophil % 81.9 % (47-70); POSITIVE MORPHOLOGY YES; Platelet Count 229 K/mm3 (150-450); RBC Distribution Width CV 16.8 % (11.6-14.6); RBC Distribution Width SD 57.8 fl (35.1-43.9); Red Blood Count 3.84 M/mm3 (4.6-6.2)
[2022-01-12 12:47] LABS: Differential Indicated SCAN CRITERIA MET
[2022-01-12 13:47] LABS: Differential Comment SCANNED
[2022-01-12 17:30] LABS: Bedside Glucose 179 mg/dL (74-106)
[2022-01-12 21:50] LABS: Bedside Glucose 204 mg/dL (74-106)
[2022-01-13] VITALS (8 sets, daily range): BP systolic 117–146; BP diastolic 68–86; PULSE 78–88; RESP 18–20; TEMP 36.5–36.9; O2SAT 93–96
[2022-01-13] MEDS: Acetaminophen 325 MG Tablet 650 MG PO ×2 (03:27→14:34)
[2022-01-13] MEDS: 0.9% Normal Saline 1,000 ML 100 ML IV ×2 (05:31→14:49)
[2022-01-13 06:16] LABS: Bedside Glucose 132 mg/dL (74-106)
[2022-01-13 06:55] LABS: Absolute Lymphocyte Count 1.18 X10^3/uL (0.83-4.51); Absolute Neutrophil Count 7.1 X10^3/uL (2.0-7.7); Basophil# 0.02 X10^3/uL; Basophil% 0.2 % (0-1); Eosinophil# 0.15 X10^3/uL; Eosinophils% 1.6 % (0-5); Hematocrit 32.7 % (40-54); Hemoglobin 10.7 g/dL (13.0-16.5); Lymphocyte # 1.18 X10^3/ul (0.83-4.51); Lymphocyte % 12.7 % (19-41); Mean Corp Hgb Conc 32.7 g/dL (32-36); Mean Corpuscular Hgb 30.1 pg (27.0-32.0); Mean Corpuscular Volume 92.1 fL (80-94); Mean Platelet Vol. 9.9 fl (6.2-12.0); Monocyte% 8.6 % (0-10); NRBC Flagged by Analyzer 0 % (0-5); Neutrophil # 7.07 X10^3/uL (2.7-7.7); Neutrophil % 76.4 % (47-70); Platelet Count 235 K/mm3 (150-450); RBC Distribution Width CV 16.9 % (11.6-14.6); RBC Distribution Width SD 57.6 fl (35.1-43.9); Red Blood Count 3.55 M/mm3 (4.6-6.2); White Blood Count 9.3 K/mm3 (4.4-11.0)
--- NOTE | 2022-01-13 07:25 | PCM.PN.SRG ---
Subjective Subjective Feels significantly better today. Still no flatus or bowel movement as of yet. HOWARD drain still functioning with serous fluid. Objective Data Objective Data Distended abdomen hypoactive bowel sounds Less tender but still appropriately tender in the right upper quadrant with HOWARD drain. Vital Signs: Vital Signs Temp Pulse Resp BP Pulse Ox O2 Del Method O2 Flow Rate 98.4 F 88 18 143/76 H 93 Nasal Cannula 2 01/13/22 03:21 01/13/22 05:32 01/13/22 05:32 01/13/22 03:21 01/13/22 05:32 01/13/22 05:32 01/13/22 05:32 Oxygen Flow Rate (L/min) 2 Oxygen Delivery Method Nasal Cannula Weight: 241 lb 2.971 oz Body Mass Index (BMI) 36.1 Intake & Output: Intake and Output for Last 24 Hours 01/11/22 01/12/22 01/13/22 23:59 23:59 23:59 Intake Total 3153.00 / 3153.00 3536.66 / 3536.66 886.67 / 886.67 Output Total 640 / 640 Balance 3133.00 / 3133.00 2896.66 / 2896.66 866.67 / 866.67 Lab / Micro Data Result Diagrams: 01/13/22 06:10 01/12/22 06:20 Labs: Laboratory Results - last 24 hr 01/12/22 06:20: WBC 15.0 H, RBC 3.84 L, Hgb 11.4 L, Hct 35.9 L, MCV 93.5, MCH 29.7, MCHC 31.8 L, RDW Std Deviation 57.8 H, RDW Coeff of Myron 16.8 H, Plt Count 229, MPV 10.2, Immature Gran % (Auto) 0.700, Neut % (Auto) 81.9 H, Lymph % (Auto) 7.8 L, [place] % (Auto) 8.8, Eos % (Auto) 0.5, Baso % (Auto) 0.3, Absolute Neuts (auto) 12.3 H, Absolute Lymphs (auto) 1.17, Nucleated RBC % 0, Differential Comment SCANNED 01/12/22 06:20: Sodium 139, Potassium 3.7, Chloride 108 H, Carbon Dioxide 22.0, Anion Gap 9, BUN 20 H, Creatinine 1.48 H, Estim Creat Clear Calc 41.08, Est GFR (MDRD) Af Amer 59 L, Est GFR (MDRD) Non-Af 49 L, BUN/Creatinine Ratio 13.5, Glucose 169 H, Calcium 7.7 L 01/12/22 11:39: POC Glucose 177 H 01/12/22 16:39: POC Glucose 179 H 01/12/22 21:06: POC Glucose 204 H 01/13/22 05:30: POC Glucose 132 H 01/13/22 06:10: WBC 9.3, RBC 3.55 L, Hgb 10.7 L, Hct 32.7 L, MCV 92.1, MCH 30.1, MCHC 32.7, RDW Std Deviation 57.6 H, RDW Coeff of Myron 16.9 H, Plt Count 235, MPV 9.9, Immature Gran % (Auto) 0.500, Neut % (Auto) 76.4 H, Lymph % (Auto) 12.7 L, [place] % (Auto) 8.6, Eos % (Auto) 1.6, Baso % (Auto) 0.2, Absolute Neuts (auto) 7.1, Absolute Lymphs (auto) 1.18, Nucleated RBC % 0 Assessment & Plan Assessment/Plan (1) Cholelithiasis and acute cholecystitis without obstruction: PLAN: White count is encouragingly coming down. Await GI function. We will leave HOWARD in today. Patient not ready for discharge.
[2022-01-13 07:27] LABS: Anion Gap 7 (5-15); BUN 21 mg/dL (7-18); BUN/Creat Ratio 15.1 RATIO (10-20); Calcium,Total 7.8 mg/dL (8.5-10.1); Chloride 111 mmol/L (98-107); Creatinine, Serum 1.39 mg/dL (0.70-1.30); EST Glomerular Filtration Rate 53 mL/min (>60); Est Glom Filt Rate - Afr Amer 64 mL/min (>60); Estimated Creatinine Clearance 43.74 ml/min; Glucose 140 mg/dL (74-106); Potassium 3.6 mmol/L (3.5-5.1); Sodium Level 139 mmol/L (136-145)
[2022-01-13] MEDS: Atorvastatin Calcium 40 MG Tablet PO (08:00)
[2022-01-13] MEDS: Carvedilol 25 MG Tablet PO ×2 (08:00→17:52)
[2022-01-13] MEDS: Isosorbide Mononitrate 30 MG Tablet PO (08:00)
[2022-01-13] MEDS: Venlafaxine HCl 75 MG Tablet PO (08:00)
--- NOTE | 2022-01-13 08:38 | NURSING ---
Pt dangled at the edge of the bed and then walked to the doorway and back to the chair. Sitting in the chair at this time.
[2022-01-13] MEDS: Insulin Lispro 100 UNIT/ML INSULN.PEN SC ×3 (11:14→21:00)
[2022-01-13 12:20] LABS: Bedside Glucose 239 mg/dL (74-106)
[2022-01-13 16:45] LABS: Bedside Glucose 159 mg/dL (74-106)
[2022-01-13 22:21] LABS: Bedside Glucose 177 mg/dL (74-106)
--- NOTE | 2022-01-13 22:30 | DCINST_ITS ---
Discharge Instructions Diet Discharge Diet: Light diet - advance as tolerated Activity Discharge Activity: May Not Drive (while taking narcotic pain medications.) May shower in (days): 1 Lifting Restrictions: no lifting >20 lbs x 2 wks, no strenuous exercise for 4 wks Dressing / Incision Call your doctor if your incision/area has: Continuous Slow Oozing, Sudden Increased Bleeding, Increased Pain/ Swelling, Increased Redness, Foul Smelling Discharge and Swelling at the incision site Call your doctor if you observe: Fever of 101 or Higher Remove Dressing in: 2 days Cleanse incision/area with: Soap & Water Additional Dressing/Incision Instructions:: Steri-Strips will fall off in 7 to 10 days, if they do not fall off okay to remove after 10 days. Follow Up Care Please Follow Up With: Sahra Lancaster MD When: Call the office for a follow-up appointment 1 weeks; after 5 PM and on the weekends call [phone] with any concerns. Test Results: Test results from this visit will be discussed in further detail at your follow- up appointment, if applicable. Discharge Plan Admission Admit Date/Time: 01/10/22 13:25 Attending Provider: Sahra Lancaster Primary Care Provider: Frankie Shaver Chi Consulting Providers: Gene Mccarty Discharge Orders/Prescriptions Prescriptions: No Action metformin 1,000 mg tablet 1,000 mg PO BID atorvastatin 40 mg tablet 40 mg PO DAILY isosorbide mononitrate 30 mg tablet extended release 24 hr 30 mg PO DAILY aspirin 81 mg tablet,delayed release (DR/EC) 81 mg PO DAILY glipizide 10 mg tablet extended release 24hr 10 mg PO BID Label Comments: TAKE 1 TABLET BY MOUTH TWICE DAILY nitroglycerin 0.4 mg tablet, sublingual 0.4 mg sublingual ONCE PRN (Reason: Chest Pain) furosemide 40 mg tablet 40 mg PO DAILY Label Comments: TAKE 1 TABLET BY MOUTH ONCE DAILY IN THE MORNING FOR 30 DAYS venlafaxine 75 mg tablet 75 mg PO DAILY potassium chloride 20 mEq tablet,ER particles/crystals 20 meq PO DAILY Rybelsus 14 mg tablet 14 mg PO DAILY polysaccharide iron complex [Ferrex 150] 150 mg iron capsule 150 mg PO DAILY carvedilol 25 mg tablet 25 mg PO BID Qty: 90 3RF Rx Instructions: must administer with a meal/food Referrals / Follow Up: Frankie Shaver Chi, MD [Primary Care Provider] - Disposition Disposition (needs filled in before D/C Order can be placed): Home, Self Care
[2022-01-14] VITALS (7 sets, daily range): BP systolic 154–193; BP diastolic 80–90; PULSE 70–81; RESP 18–20; TEMP 35.7–37.1; O2SAT 93–97
[2022-01-14] MEDS: oxyCODONE 5 MG Tablet PO ×2 (05:27→22:20)
[2022-01-14] MEDS: Insulin Lispro 100 UNIT/ML INSULN.PEN SC ×2 (06:21→21:57)
[2022-01-14 06:56] LABS: Bedside Glucose 168 mg/dL (74-106)
--- NOTE | 2022-01-14 08:31 | PCM.PN.SRG ---
Subjective Subjective Patient sitting up in the chair this morning. Still states he has had no bowel movement very little if any flatus. Feels slightly distended. No nausea or vomiting. Starting to drink some prune juice. Objective Data Objective Data Obese distended dressings are dry. HOWARD drain is intact and draining serous fluid. Vital Signs: Vital Signs Temp Pulse Resp BP Pulse Ox O2 Del Method O2 Flow Rate 98.2 F 76 18 154/80 H 94 Nasal Cannula 2 01/14/22 03:25 01/14/22 03:25 01/14/22 03:25 01/14/22 03:25 01/14/22 03:25 01/14/22 03:25 01/14/22 03:25 Oxygen Flow Rate (L/min) 2 Oxygen Delivery Method Nasal Cannula Weight: 241 lb 2.971 oz Body Mass Index (BMI) 36.1 Intake & Output: Intake and Output for Last 24 Hours 01/12/22 01/13/22 01/14/22 23:59 23:59 23:59 Intake Total 3536.66 / 3536.66 2686.67 / 2686.67 1550 / 1550 Output Total 640 / 640 328 / 328 5 / 5 Balance 2896.66 / 2896.66 2358.67 / 2358.67 1545 / 1545 Lab / Micro Data Result Diagrams: 01/13/22 06:10 01/13/22 06:10 Labs: Laboratory Results - last 24 hr 01/13/22 11:12: POC Glucose 239 H 01/13/22 16:21: POC Glucose 159 H 01/13/22 20:59: POC Glucose 177 H 01/14/22 06:18: POC Glucose 168 H Assessment & Plan Assessment/Plan (1) Cholelithiasis and acute cholecystitis without obstruction: PLAN: Continues to make slow improvement. HOWARD drain has significantly slowed down. I think it is best we leave it in until he really starts to pass flatus and have bowel movements. He will need to stay another day but I anticipate probable discharge within 24 to 36 hours.
[2022-01-14] MEDS: Atorvastatin Calcium 40 MG Tablet PO (08:37)
[2022-01-14] MEDS: 0.9% Normal Saline 1,000 ML 100 ML IV (08:38)
[2022-01-14] MEDS: Carvedilol 25 MG Tablet PO ×2 (08:38→17:11)
[2022-01-14] MEDS: Isosorbide Mononitrate 30 MG Tablet PO (08:38)
[2022-01-14] MEDS: Venlafaxine HCl 75 MG Tablet PO (08:38)
[2022-01-14] MEDS: Polyethylene Glycol 3350 17 GM PACKET 34 GM PO (11:29)
[2022-01-14 12:30] LABS: Bedside Glucose 142 mg/dL (74-106)
[2022-01-14] MEDS: 0.9% Saline Lock 10 ML Syringe IV (13:57)
[2022-01-14 16:31] LABS: Bedside Glucose 145 mg/dL (74-106)
[2022-01-14] MEDS: Acetaminophen 325 MG Tablet 650 MG PO (22:20)
[2022-01-14 23:15] LABS: Bedside Glucose 171 mg/dL (74-106)
[2022-01-14] MEDS: hydrALAZINE 20 MG/ML Vial 5 MG IV (23:19)
[2022-01-15] VITALS (15 sets, daily range): BP systolic 139–176; BP diastolic 70–88; PULSE 68–76; RESP 16–20; TEMP 36.6–36.7; O2SAT 92–98; BMI 36.1
[2022-01-15 06:08] LABS: Anion Gap 8 (5-15); BUN 12 mg/dL (7-18); BUN/Creat Ratio 12.1 RATIO (10-20); Calcium,Total 8.2 mg/dL (8.5-10.1); Chloride 109 mmol/L (98-107); Creatinine, Serum 0.99 mg/dL (0.70-1.30); EST Glomerular Filtration Rate 78 mL/min (>60); Est Glom Filt Rate - Afr Amer 95 mL/min (>60); Estimated Creatinine Clearance 61.41 ml/min; Glucose 163 mg/dL (74-106); Potassium 3.4 mmol/L (3.5-5.1); Sodium Level 139 mmol/L (136-145)
[2022-01-15 06:41] LABS: Bedside Glucose 146 mg/dL (74-106)
--- NOTE | 2022-01-15 08:19 | PCM.PN.SRG ---
Subjective Subjective HOWARD bilious this AM Objective Data Objective Data Vital Signs: Vital Signs Temp Pulse Resp BP Pulse Ox O2 Del Method O2 Flow Rate 97.8 F 73 18 156/88 H 96 Nasal Cannula 2 01/15/22 03:41 01/15/22 03:41 01/15/22 03:41 01/15/22 03:41 01/15/22 03:41 01/15/22 03:44 01/15/22 03:44 Oxygen Flow Rate (L/min) 2 Oxygen Delivery Method Nasal Cannula Weight: 241 lb 2.971 oz Body Mass Index (BMI) 36.1 Intake & Output: Intake and Output for Last 24 Hours 01/13/22 01/14/22 01/15/22 23:59 23:59 23:59 Intake Total 2686.67 / 2686.67 3137.42 / 3137.42 116 / 116 Output Total 328 / 328 405 / 405 610 / 610 Balance 2358.67 / 2358.67 2732.42 / 2732.42 -494 / -494 Lab / Micro Data Result Diagrams: 01/13/22 06:10 01/15/22 05:00 Labs: Laboratory Results - last 24 hr 01/14/22 11:27: POC Glucose 142 H 01/14/22 15:57: POC Glucose 145 H 01/14/22 21:56: POC Glucose 171 H 01/15/22 05:00: Sodium 139, Potassium 3.4 L, Chloride 109 H, Carbon Dioxide 22.0, Anion Gap 8, BUN 12, Creatinine 0.99, Estim Creat Clear Calc 61.41, Est GFR (MDRD) Af Amer 95, Est GFR (MDRD) Non-Af 78, BUN/Creatinine Ratio 12.1, Glucose 163 H, Calcium 8.2 L 01/15/22 06:16: POC Glucose 146 H Physical Exam Resp normal respiratory effort Cardio regular rate GI GI Narrative: Abdomen: Soft, mild distended, tender near incision's dressed clean dry and intact, no peritoneal signs, HOWARD bilious Assessment & Plan Assessment/Plan (1) S/P laparoscopic cholecystectomy: (2) Bile leak, postoperative: PLAN: Plan Patient will go for an ERCP today with Dr. Panda. Continue HOWARD to suction. Encourage ambulation and continue pain control. Appreciate hospitalist assistance with medical management Sahra Lancaster M.D. Pager: [phone] [facility] [address] [place] [address], [address] [place] [address] Office: [phone]
--- NOTE | 2022-01-15 08:27 | PCM.CONS.GEN ---
Assessment & Plan Assessment/Plan (1) Bile leak, postoperative: PLAN: I went over risk and benefits of ERCP with the patient at the bedside. He will likely need stenting along with his sphincterotomy. Him and his were explained alternatives, risk and the benefits including not withstanding bleeding, infection, sepsis, perforation, need for emergent surgery . He will not need antibiotic therapy because he is on Zosyn. He will have an ASA of 3. HPI Consult Data Date of Consult: 01/15/22 HPI Narrative Reason for Consultation: bile leak HPI Narrative: JONY MELENDEZ, is a 76 M who presented with worsening abdominal pain 4 days ago. He has multiple medical problems including a history of diabetes, hypertension, obesity, hypercholesterolemia, CVA with short-term memory deficit. I saw him recently in the clinic for an episode of acute GI bleeding. He takes aspirin for CAD prophylaxis because of history of coronary artery bypass grafting in the past. His last echo showed ejection fraction of 65%. He was from an outside hospital with worsening abdominal pain that began after eating. He was diagnosed with acute cholecystitis. He had a CT scan of the abdomen pelvis which had shown gallstones but a normal CBD at 4.2 mm. He underwent a laparoscopic cholecystectomy of the gallbladder was noted to be removed due to multiple density lesions from multiple previous bowel surgeries. I was asked to see him for endoscopic treatment of a bile leak. At this time he is not have any abdominal pain. He is having some abdominal distention. He has been given stool softeners but he has not had much results. All other 16 review of systems are negative except those pertinent positive mentioned HPI. [facility] Medical History (Updated 01/15/22 @ 08:[address] Sahra Lancaster MD) (HFpEF) heart failure with preserved ejection fraction Adjustment disorder with depressed mood Anemia Atherosclerosis of coronary artery without angina pectoris Chewing tobacco use CPAP (continuous positive airway pressure) dependence Disturbance of memory Essential hypertension Generalized osteoarthritis GIB (gastrointestinal bleeding) History of CVA (cerebrovascular accident) (03/31/18) Hyperlipidemia Kidney disease Obstructive sleep apnea Pain in thoracic spine Peripheral vascular disease, unspecified Pure hypercholesterolemia, unspecified Restless legs Seizures Home Medications aspirin 81 mg tablet,delayed release 81 mg PO DAILY 09/15/19 [History Last Taken Unknown] atorvastatin 40 mg tablet 40 mg PO DAILY 09/15/19 [History Last Taken Unknown] isosorbide mononitrate 30 mg tablet,extended release 24 hr 30 mg PO DAILY 09/15/19 [History Last Taken Unknown] metformin 1,000 mg tablet 1,000 mg PO BID 09/15/19 [History Last Taken Unknown] glipizide 10 mg tablet, extended release 24 hr 10 mg PO BID 12/28/20 [History Last Taken Unknown] nitroglycerin 0.4 mg sublingual tablet 0.4 mg sublingual ONCE PRN Chest Pain 12/28/20 [History Last Taken Unknown] furosemide 40 mg tablet 40 mg PO DAILY 11/27/21 [History Last Taken Unknown] potassium chloride 20 mEq tablet,extended release(part/cryst) 20 meq PO DAILY 11/27/21 [History Last Taken Unknown] venlafaxine 75 mg tablet 75 mg PO DAILY 11/27/21 [History Last Taken Unknown] carvedilol 25 mg tablet 25 mg PO BID #90 tabs 11/28/21 [Rx Last Taken Unknown] polysaccharide iron complex 150 mg iron capsule (Ferrex) 150 mg PO DAILY 11/28/21 [History Last Taken Unknown] semaglutide 14 mg tablet (Rybelsus) 14 mg PO DAILY 11/28/21 [History Last Taken Unknown] Allergy/AdvReac Type Severity Reaction Status Date / Time dapagliflozin [From [facility]] Allergy Rash Verified 11/28/21 09:13 Family History Mother Heart disease Father Heart disease Surgical History (Updated 01/15/22 @ 08:[address] Sahra Lancaster MD) H/O arthroscopic knee surgery H/O coronary artery bypass surgery (10/25/18) H/O resection of small bowel H/O varicose vein ligation History of appendectomy History of cataract surgery History of colonoscopy History of craniotomy (1990) History of left heart catheterization (10/13/18) S/P laparoscopic cholecystectomy Social History Smoking Status: Never smoker Smokeless tobacco user: chewing tobacco alcohol intake: former year quit: h/o substance use type: does not use ROS Constitutional Constitutional: Reports anorexia; Denies fever(s) Cardiovascular Cardiovascular: Denies chest pain Respiratory/Chest Respiratory/Chest: Denies cough Gastrointestinal Gastrointestinal: Reports abdominal pain, anorexia and heartburn; Denies melena or rectal bleeding Genitourinary Genitourinary: Denies burning urination Integumentary Integumentary: Denies rash Neurologic Neurologic: Reports other Details: History of CVA Hematologic/Lymphatic Hematologic/Lymphatic: Reports anemia Physical Exam Resp normal respiratory effort Cardio regular rate GI GI Narrative: Abdomen: Soft, mild distended, tender near incision's dressed clean dry and intact, no peritoneal signs, HOWARD bilious Lab / Micro Data Result Diagrams: 01/13/22 06:10 01/15/22 05:00 Labs: Laboratory Results - last 24 hr 01/14/22 11:27: POC Glucose 142 H 01/14/22 15:57: POC Glucose 145 H 01/14/22 21:56: POC Glucose 171 H 01/15/22 05:00: Sodium 139, Potassium 3.4 L, Chloride 109 H, Carbon Dioxide 22.0, Anion Gap 8, BUN 12, Creatinine 0.99, Estim Creat Clear Calc 61.41, Est GFR (MDRD) Af Amer 95, Est GFR (MDRD) Non-Af 78, BUN/Creatinine Ratio 12.1, Glucose 163 H, Calcium 8.2 L 01/15/22 06:16: POC Glucose 146 H Charges/Coding Visit Charges Inpatient E&M: 23476 Init Hosp L2
[2022-01-15] MEDS: Potassium Chloride 10mEq/100mL 10 MEQ/100 ML IV.SOLN. 90 MEQ IV BOLUS (10:48)
[2022-01-15] MEDS: hydrALAZINE 20 MG/ML Vial 5 MG IV (11:31)
[2022-01-15] MEDS: 0.9% Saline Lock 10 ML Syringe IV (11:31)
[2022-01-15] MEDS: Furosemide 40 MG/4 ML Vial IV (12:00)
[2022-01-15] MEDS: 0.9% Normal Saline 1,000 ML 100 ML IV (12:00)
[2022-01-15 12:10] LABS: Bedside Glucose 155 mg/dL (74-106)
[2022-01-15] MEDS: Potassium Chloride 10mEq/100mL 10 MEQ/100 ML IV.SOLN. 80 MEQ IV BOLUS (12:54)
[2022-01-15] MEDS: Menthol/Lanolin/Calamine/Znox 113 GM Tube 1 APPLIC TOPICAL ×2 (12:56→21:38)
--- NOTE | 2022-01-15 14:53 | CASEMGMT ---
Social Work SW met with pt, pt and pt dgt to discuss discharge plan. SW reviewed pt's functional ability with therapy this morning. Pt's states she was here for therapy and feels pt moved better than he has in a while. adamantly refusing SNF placement and feels she can care for pt at home. SW discussed home health services with pt and and they are agreeable to this. A list of home health providers including quality and resource use data and consistent with the patient's preferred geographic region, medical needs, and insurance network were provided to pt from the [employer] Guide. Family requesting time to consider options. Pt does not have a walker at home and would need one. RNCM updated. SW returned to pt room a short time later and pt, and dgt out of room as pt went for a procedure. SW will followup for home health choice. NAYELY Coleman
--- NOTE | 2022-01-15 15:30 | CHAPLAIN ---
Type of Pastoral Visit _x__ Initial Visit ___ Follow-up Visit ___ On-call Visit ___ General Patient Visit ___ Spiritual Assessment ___ Family Conference ___ Bereavement ___ Rapid Response ___ Code Blue ___ Other (describe below) Pastoral Care Referral From _x__ Patient _x__ Family ___ Nurse ___ Physician ___ Chemical Plant Worker ___ Laundry Route Driver ___ Other (describe below) Sacrament/Intervention _x__ Active listening ___ Anointing ___ Rastafarian ___ Bereavement ___ Communion ___ Debra exploration ___ ___ Life review _x__ Prayer ___ Reconciliation ___ Sacrament of Sick _x__ Supportive presence ___ Wedding ___ Other (describe below) Pastoral Comments patient, spouse, and daughter in room; pt is to have second procedure today; pt states that he has been here longer than he expected or wanted; pt says he has no other concerns; pt's spouse says that prayer would be good and prayer is given;
--- NOTE | 2022-01-15 17:00 | RAD_ITS ---
ERCP UNDER FLUOROSCOPY OF 1712 HOURS ON 01/15/2022 CLINICAL: 76-year-old male with right upper quadrant pain. PROCEDURE: A single view ERCP was performed per protocol. FINDINGS: There is no dilatation of the intrahepatic biliary system. There is mild dilatation of distal common bile duct. There is an irregular rounded density in the distal common duct. RAD/ERCP Biliary Only IMPRESSION: 1. Normal intrahepatic persistent and proximal mid common duct. 2. Mild dilatation of distal common duct. 3. Irregular rounded density at distal common duct. Electronically Signed: Ventura Mccurdy MD at 2:01 EDT ,
--- NOTE | 2022-01-15 17:36 | OP.ERCP_ITS ---
Patient Name: Tor Longoria Procedure Date: 01/15/2022 4:27 PM Date of : 1945 Age: 76 Procedure: ERCP Indications: Bile leak Providers: Valentin Panda DO Medicines: Propofol per Anesthesia Patient Profile: This is a 76 year old male. Refer to note in patient chart for documentation of history and physical. Patient has symptoms of acute right upper quadrant abdominal pain and acute nausea. Complications: No immediate complications. Procedure: Pre-Anesthesia Assessment: - Prior to the procedure, a History and Physical was performed, and patient medications and allergies were reviewed. The risks and benefits of the procedure and the sedation options and risks were discussed with the patient. All questions were answered and informed consent was obtained. Patient identification and proposed procedure were verified by the physician in the pre-procedure area. Mental Status Examination: alert and oriented. Airway Examination: normal oropharyngeal airway and neck mobility. Respiratory Examination: clear to auscultation. CV Examination: normal. Prophylactic Antibiotics: The patient does not require prophylactic antibiotics. Prior Anticoagulants: The patient has taken no previous anticoagulant or antiplatelet agents. ASA Grade Assessment: II - A patient with mild systemic disease. After reviewing the risks and benefits, the patient was deemed in satisfactory condition to undergo the procedure. The anesthesia plan was to use moderate sedation / analgesia (conscious sedation). Immediately prior to administration of medications, the patient was re-assessed for adequacy to receive sedatives. The heart rate, respiratory rate, oxygen saturations, blood pressure, adequacy of pulmonary ventilation, and response to care were monitored throughout the procedure. The physical status of the patient was re-assessed after the procedure. After obtaining informed consent, the scope was passed under direct vision. Throughout the procedure, the patient's blood pressure, pulse, and oxygen saturations were monitored continuously. The Duodenoscope was introduced through the mouth, and advanced to the duodenum and used to inject contrast into the bile duct. The ERCP was accomplished without difficulty. The patient tolerated the procedure well. Scope In: 5:06:00 PM Scope Out: 5:25:36 PM Total Procedure Duration Time 0 hours 19 minutes 36 seconds Findings: The insurance sales agent film was normal. The esophagus was successfully intubated under direct vision. The scope was advanced to a normal major papilla in the descending duodenum without detailed examination of the pharynx, larynx and associated structures, and upper GI tract. The upper GI tract was grossly normal. The bile duct was deeply cannulated with the short-nosed traction sphincterotome. Contrast was injected. I personally interpreted the bile duct images. There was brisk flow of contrast through the ducts. The common bile duct contained two stones, the largest of which was 6 mm in diameter. The main bile duct was normal. A 0.025 inch x 450 cm angled Visiglide wire was passed into the biliary tree. A 5 mm biliary sphincterotomy was made with a monofilament traction (standard) sphincterotome using ERBE electrocautery. There was no post-sphincterotomy bleeding. The biliary tree was swept with a 15 mm balloon starting at the bifurcation. Sludge was swept from the duct. All stones were removed. Dilation of the common bile duct with a 6-7-8 mm balloon dilator was successful. One 10 Fr by 5 cm temporary stent with two external flaps and two internal flaps was placed 5 cm into the common bile duct. Bile flowed through the stent. The stent was in good position. Impression: - Choledocholithiasis was found. Complete removal was accomplished by biliary sphincterotomy and balloon extraction. - A biliary sphincterotomy was performed. - The biliary tree was swept. Procedure Code(s): --- Professional --- 97410, Endoscopic retrograde cholangiopancreatography (ERCP); with placement of endoscopic stent into biliary or pancreatic duct, including pre- and post-dilation and guide wire passage, when performed, including sphincterotomy, when performed, each stent 08115, Endoscopic retrograde cholangiopancreatography (ERCP); with removal of calculi/debris from biliary/pancreatic duct(s) 10239, 26, Endoscopic catheterization of the biliary ductal system, radiological supervision and interpretation CPT copyright 2017 [employer]. All rights reserved. The codes documented in this report are preliminary and upon terrazzo mechanic review may be revised to meet current compliance requirements. Valentin Panda DO 01/15/2022 5:35:45 PM This report has been signed electronically. Number of Addenda: 0 Note Initiated On: 01/15/2022 4:27 PM
--- NOTE | 2022-01-15 17:37 | OP.CCLET_ITS ---
01/15/2022 Frankie Shaver MD [address] [place] [address] Re : ERCP procedure for Tor Longoria Dear Dr. Shaver This procedure was performed on Saturday, January 15, 2022. My impressions and recommendations are as follows: Impressions : - Choledocholithiasis was found. Complete removal was accomplished by biliary sphincterotomy and balloon extraction. - A biliary sphincterotomy was performed. - The biliary tree was swept. Recommendations : My findings are described in the full procedure note, which is enclosed. If I can be of further assistance, please feel free to contact me at . Sincerely, Valentin Panda, 01/15/2022 5:35:45 PM This report has been signed electronically.
[2022-01-15 18:36] LABS: Bedside Glucose 156 mg/dL (74-106)
[2022-01-15] MEDS: Carvedilol 25 MG Tablet PO (18:43)
[2022-01-15] MEDS: Insulin Lispro 100 UNIT/ML INSULN.PEN SC (21:41)
[2022-01-15 22:16] LABS: Bedside Glucose 158 mg/dL (74-106)
[2022-01-16] VITALS (8 sets, daily range): BP systolic 134–180; BP diastolic 68–94; PULSE 70–81; RESP 16–18; TEMP 36.6–36.8; O2SAT 94–97; BMI 36.1
[2022-01-16] MEDS: hydrALAZINE 20 MG/ML Vial 5 MG IV (03:44)
[2022-01-16] MEDS: 0.9% Saline Lock 10 ML Syringe IV (03:45)
[2022-01-16 06:27] LABS: Absolute Lymphocyte Count 1.29 X10^3/uL (0.83-4.51); Absolute Neutrophil Count 5.7 X10^3/uL (2.0-7.7); Basophil# 0.03 X10^3/uL; Basophil% 0.4 % (0-1); Eosinophil# 0.12 X10^3/uL; Eosinophils% 1.5 % (0-5); Hematocrit 37.2 % (40-54); Hemoglobin 12.5 g/dL (13.0-16.5); Lymphocyte # 1.29 X10^3/ul (0.83-4.51); Lymphocyte % 16.2 % (19-41); Mean Corp Hgb Conc 33.6 g/dL (32-36); Mean Corpuscular Hgb 29.8 pg (27.0-32.0); Mean Corpuscular Volume 88.6 fL (80-94); Mean Platelet Vol. 9.7 fl (6.2-12.0); Monocyte# 0.73 X10^3/uL; Monocyte% 9.2 % (0-10); NRBC Flagged by Analyzer 0 % (0-5); Neutrophil # 5.72 X10^3/uL (2.7-7.7); Neutrophil % 71.8 % (47-70); Platelet Count 367 K/mm3 (150-450); RBC Distribution Width CV 16.1 % (11.6-14.6)
[2022-01-16] MEDS: Insulin Lispro 100 UNIT/ML INSULN.PEN SC ×2 (06:29→11:50)
[2022-01-16 07:04] LABS: AST(SGOT) 20 U/L (15-37); Alanine Aminotransfer ALT/SGPT 35 U/L (16-61); Albumin, Serum 2.5 g/dL (3.2-5.0); Alkaline Phosphatase 96 U/L (45-117); Anion Gap 13 (5-15); BUN 12 mg/dL (7-18); BUN/Creat Ratio 11.9 RATIO (10-20); Bilirubin, Direct 0.19 mg/dL (0.00-0.30); Calcium,Total 8.7 mg/dL (8.5-10.1); Chloride 103 mmol/L (98-107); Creatinine, Serum 1.01 mg/dL (0.70-1.30); EST Glomerular Filtration Rate 76 mL/min (>60); Est Glom Filt Rate - Afr Amer 92 mL/min (>60); Globulin 4.7 g/dL (2.2-4.2); Glucose 153 mg/dL (74-106); Potassium 2.9 mmol/L (3.5-5.1); Protein, Total 7.2 g/dL (6.4-8.2); Sodium Level 138 mmol/L (136-145)
--- NOTE | 2022-01-16 07:15 | PN.SURG_ITS ---
Subjective Subjective s/p ERCP-HOWARD is serous, pt is having issues with anxiety and wants to go home, jonathan clears, denies pain Objective Data Objective Data Vital Signs: Vital Signs Temp Pulse Resp BP Pulse Ox O2 Del Method O2 Flow Rate 97.9 F 79 16 157/78 H 94 Room Air 2 01/16/22 03:33 01/16/22 03:44 01/16/22 03:33 01/16/22 05:05 01/16/22 03:33 01/16/22 03:45 01/15/22 20:30 Oxygen Flow Rate (L/min) 2 Oxygen Delivery Method Room Air Weight: 241 lb 2.971 oz Body Mass Index (BMI) 36.1 Intake & Output: Intake and Output for Last 24 Hours 01/14/22 01/15/22 01/16/22 23:59 23:59 23:59 Intake Total 3137.42 / 3137.42 1526 / 1526 250 / 250 Output Total 405 / 405 5330 / 6530 1700 / 1700 Balance 2732.42 / 2732.42 -3804 / -5004 -1450 / -1450 Lab / Micro Data Result Diagrams: 01/16/22 05:30 01/16/22 05:30 Labs: Laboratory Results - last 24 hr 01/15/22 11:50: POC Glucose 155 H 01/15/22 18:14: POC Glucose 156 H 01/15/22 21:37: POC Glucose 158 H 01/16/22 05:30: WBC 8.0, RBC 4.20 L, Hgb 12.5 L, Hct 37.2 L, MCV 88.6, MCH 29.8, MCHC 33.6, RDW Std Deviation 52.0 H, RDW Coeff of Myron 16.1 H, Plt Count 367, MPV 9.7, Immature Gran % (Auto) 0.900, Neut % (Auto) 71.8 H, Lymph % (Auto) 16.2 L, [place] % (Auto) 9.2, Eos % (Auto) 1.5, Baso % (Auto) 0.4, Absolute Neuts (auto) 5.7, Absolute Lymphs (auto) 1.29, Nucleated RBC % 0 01/16/22 05:30: Sodium 138, Potassium 2.9 L, Chloride 103, Carbon Dioxide 22.0, Anion Gap 13, BUN 12, Creatinine 1.01, Estim Creat Clear Calc 60.20, Est GFR (MDRD) Af Amer 92, Est GFR (MDRD) Non-Af 76, BUN/Creatinine Ratio 11.9, Glucose 153 H, Calcium 8.7, Total Bilirubin 0.80, Direct Bilirubin 0.19, AST 20, ALT 35, Alkaline Phosphatase 96, Total Protein 7.2, Albumin 2.5 L, Globulin 4.7 H Radiography Diagnostic Testing: Radiology Impression ERCP X-Ray 01/15/22 17:00 IMPRESSION: 1. Normal intrahepatic persistent and proximal mid common duct. 2. Mild dilatation of distal common duct. 3. Irregular rounded density at distal common duct. Electronically Signed: Ventura Mccurdy MD at 2:01 EDT , Physical Exam Resp normal respiratory effort Cardio regular rate GI GI Narrative: Abdomen: Soft, mild distended, tender near incision's dressed clean dry and intact, no peritoneal signs, HOWARD serous Assessment & Plan Assessment/Plan (1) S/P ERCP: (2) S/P laparoscopic cholecystectomy: (3) Bile leak, postoperative: PLAN: Plan HOWARD back to serous--jonathan clears, will advance to diabetic for lunch if jonathan will d/c HOWARD if still serous and d/c home will stop zosyn continue pain control.
[2022-01-16 07:20] LABS: Bedside Glucose 157 mg/dL (74-106)
[2022-01-16] MEDS: Potassium Chloride Oral Tablet 20 MEQ 60 MEQ PO (08:31)
[2022-01-16] MEDS: Carvedilol 25 MG Tablet PO (08:34)
[2022-01-16] MEDS: Isosorbide Mononitrate 30 MG Tablet PO (08:35)
[2022-01-16] MEDS: Atorvastatin Calcium 40 MG Tablet PO (08:35)
[2022-01-16] MEDS: Venlafaxine HCl 75 MG Tablet PO (08:35)
[2022-01-16] MEDS: Furosemide 40 MG Tablet PO (08:35)
[2022-01-16] MEDS: Polyethylene Glycol 3350 17 GM PACKET 34 GM PO (08:35)
--- NOTE | 2022-01-16 09:58 | DS.PCM_ITS ---
Providers Date of Admission: 01/10/22 Primary Care Physician: Dr. Frankie Shaver MD Consultations 01/10/22 13:33 Consult: Hospitalist Routine Consulting Provider: Gene Mccarty Reason for Consult: med management EMERGENT Consult: No MD Notified: Yes Date Notified: 01/10/22 Time Notified: 13:26 Method of Notification: Verbal 01/15/22 8:00 Consult: Dr. Panda for ERCP Reason For Visit: ACUTE CHOLECYSTITIS Diagnosis Discharge Diagnosis (1) S/P ERCP: Status: Acute Code(s): Z98.890 - Other specified postprocedural states (2) S/P laparoscopic cholecystectomy: Status: Acute Code(s): Z90.49 - Acquired absence of other specified parts of digestive tract (3) Bile leak, postoperative: Status: Resolved Code(s): K91.89 - Other postprocedural complications and disorders of digestive system; K83.8 - Other specified diseases of biliary tract Plan HOWARD back to serous--jonathan clears, will advance to diabetic for lunch if jonathan will d/c HOWARD if still serous and d/c home will stop zosyn continue pain control. Medications at Discharge Home Medications aspirin 81 mg tablet,delayed release 81 mg PO DAILY 09/15/19 atorvastatin 40 mg tablet 40 mg PO DAILY 09/15/19 isosorbide mononitrate 30 mg tablet,extended release 24 hr 30 mg PO DAILY 09/15/19 metformin 1,000 mg tablet 1,000 mg PO BID 09/15/19 glipizide 10 mg tablet, extended release 24 hr 10 mg PO BID 12/28/20 nitroglycerin 0.4 mg sublingual tablet 0.4 mg sublingual ONCE PRN Chest Pain furosemide 40 mg tablet 40 mg PO DAILY 11/27/21 potassium chloride 20 mEq tablet,extended release(part/cryst) 20 meq PO DAILY 11/27/21 venlafaxine 75 mg tablet 75 mg PO DAILY 11/27/21 carvedilol 25 mg tablet 25 mg PO BID #90 tabs 11/28/21 polysaccharide iron complex 150 mg iron capsule (Ferrex) 150 mg PO DAILY 11/28/21 semaglutide 14 mg tablet (Rybelsus) 14 mg PO DAILY 11/28/21 oxycodone-acetaminophen 5 mg-325 mg tablet 1 tab PO Q6H PRN pain 3 days #7 tabs 01/16/22 pantoprazole 40 mg tablet,delayed release (Protonix) 40 mg PO DAILY #30 tabs 01/16/22 Hospital Course Operations cholecystecomy (lap subtotal 01/11) and ERCP (01/15/22) Procedures None Summary of Care Provided Minutes Spent on Discharge: 15 Hospital Course: Pt was transferred from [place] ER per pt request for acute cholecystitis, placed on zosyn IV/NPO/IVF. 01/11 pt underwent lap subtotal cholecystectomy with HOWARD placement. Post op pt took a couple of days for BF and then diet was advanced. 01/15 HOWARD became bilious and pt underwent ERCP with stones removed and stent placed by Dr. Panda. Pt HOWARD went back to serous and pt diet was able to be advanced and HOWARD removed at bedside. Pt was kept on home meds and hospitalists assisted with medical management. Physical Exam Const alert and no apparent distress Resp normal respiratory effort Cardio regular rate GI GI Narrative: Abdomen: Soft, mild distended, tender near incision's dressed clean dry and intact, no peritoneal signs, HOWARD serous Weight / BMI Weight Weight: 241 lb 2.971 oz Body Mass Index (BMI) 36.1 ABG / Lab / Microbiology Data Result Diagrams: 01/16/22 05:30 01/16/22 05:30 Laboratory: Laboratory Results - last 24 hr 01/15/22 11:50: POC Glucose 155 H 01/15/22 18:14: POC Glucose 156 H 01/15/22 21:37: POC Glucose 158 H 01/16/22 05:30: WBC 8.0, RBC 4.20 L, Hgb 12.5 L, Hct 37.2 L, MCV 88.6, MCH 29.8, MCHC 33.6, RDW Std Deviation 52.0 H, RDW Coeff of Myron 16.1 H, Plt Count 367, MPV 9.7, Immature Gran % (Auto) 0.900, Neut % (Auto) 71.8 H, Lymph % (Auto) 16.2 L, [place] % (Auto) 9.2, Eos % (Auto) 1.5, Baso % (Auto) 0.4, Absolute Neuts (auto) 5.7, Absolute Lymphs (auto) 1.29, Nucleated RBC % 0 01/16/22 05:30: Sodium 138, Potassium 2.9 L, Chloride 103, Carbon Dioxide 22.0, Anion Gap 13, BUN 12, Creatinine 1.01, Estim Creat Clear Calc 60.20, Est GFR (MDRD) Af Amer 92, Est GFR (MDRD) Non-Af 76, BUN/Creatinine Ratio 11.9, Glucose 153 H, Calcium 8.7, Total Bilirubin 0.80, Direct Bilirubin 0.19, AST 20, ALT 35, Alkaline Phosphatase 96, Total Protein 7.2, Albumin 2.5 L, Globulin 4.7 H 01/16/22 06:28: POC Glucose 157 H Radiography Diagnostic Testing: Radiology Impression ERCP X-Ray 01/15/22 17:00 IMPRESSION: 1. Normal intrahepatic persistent and proximal mid common duct. 2. Mild dilatation of distal common duct. 3. Irregular rounded density at distal common duct. Electronically Signed: Ventura Mccurdy MD at 2:01 EDT Reading Location ID and State: [facility] / [place] Tel , Service support , D/C Instructions Discharge Diet: Light diet - advance as tolerated (diabetic) Discharge Activity: May Shower Lifting Restrictions: no lifting >20 lb for 2 weeks Call your doctor if your incision/area has: Continuous Slow Oozing, Sudden Increased Bleeding, Increased Pain/ Swelling, Increased Redness, Foul Smelling Discharge and Swelling at the incision site Call your doctor if you observe: Fever of 101 or Higher Cleanse incision/area with: Soap & Water Additional Dressing/Incision Instructions: Steri-Strips will fall off in 7 to 10 days, if they do not fall off okay to remove after 10 days. Please Follow Up With: Sahra Lancaster MD When: Call the office for a follow-up appointment 1 weeks; after 5 PM and on the weekends call [phone] with any concerns. Meaningful Use Info Meaningful Use Diagnoses (Choose all that apply): None applicable Discharge Plan Admission Admit Date/Time: 01/10/22 13:25 Attending Provider: Sahra Lancaster Primary Care Provider: Frankie Shaver Chi Consulting Providers: Gene Mccarty Discharge Orders/Prescriptions Prescriptions: New oxycodone-acetaminophen 5-325 mg tablet 1 tab PO Q6H PRN (Reason: pain) 3 Days Qty: 7 0RF pantoprazole [Protonix] 40 mg tablet,delayed release (DR/EC) 40 mg PO DAILY Qty: 30 1RF Continued metformin 1,000 mg tablet 1,000 mg PO BID atorvastatin 40 mg tablet 40 mg PO DAILY isosorbide mononitrate 30 mg tablet extended release 24 hr 30 mg PO DAILY aspirin 81 mg tablet,delayed release (DR/EC) 81 mg PO DAILY glipizide 10 mg tablet extended release 24hr 10 mg PO BID Label Comments: TAKE 1 TABLET BY MOUTH TWICE DAILY nitroglycerin 0.4 mg tablet, sublingual 0.4 mg sublingual ONCE PRN (Reason: Chest Pain) furosemide 40 mg tablet 40 mg PO DAILY Label Comments: TAKE 1 TABLET BY MOUTH ONCE DAILY IN THE MORNING FOR 30 DAYS venlafaxine 75 mg tablet 75 mg PO DAILY potassium chloride 20 mEq tablet,ER particles/crystals 20 meq PO DAILY Rybelsus 14 mg tablet 14 mg PO DAILY polysaccharide iron complex [Ferrex 150] 150 mg iron capsule 150 mg PO DAILY carvedilol 25 mg tablet 25 mg PO BID Qty: 90 3RF Rx Instructions: must administer with a meal/food Referrals / Follow Up: Frankie Shaver Chi, MD [Primary Care Provider] - FriendValentin DO [Med Staff - Active Staff] - (Call office for F/U in 2 weeks) Disposition Disposition (needs filled in before D/C Order can be placed): Home, Self Care
--- NOTE | 2022-01-16 10:41 | CASEMGMT ---
Addendum entered by Aaliyah Gilmore 01/16/22 16:41: [id number] to [facility] to obtain answer for acceptance. Per staff member, all intake goes through a separate line. Made aware this line has already been called by STEFNAIE with no answer back. She states usually a message has to be left and a call will be returned. Received message via [employer] that the referral is out of service area and to contact the [place] or [place] branch. TC to Felicitas Caballero liagayle, left message to return call. TC to [place] at [place] who states they do not service [place]. SOLANGE DRIVER to continue to set up C tomorrow. Addendum entered by Aaliyah Gilmore 01/16/22 11:59: Referral for [facility] sent to [facility] via [employer], emailed liaison as well. Addendum entered by Aaliyah Gilmore 01/16/22 11:15: TC to pt second choice, [facility], they do not service [place], [place]. Addendum entered by Aaliyah Gilmore 01/16/22 11:07: Received tc back from [facility] at [facility], they cannot accept pt as the patient is out of their service area. Original Note: SOLANGE DRIVER in to pt room, pt present. They have chosen [facility] for the homecare. Discussed having SN, PT and OT. Pt and agreeable. Discussed HHC expectations. Discussed local in network options for DME and pt chose [facility] for [facility]. Referral sent to [facility] via [employer] at this time.
[2022-01-16] MEDS: Menthol/Lanolin/Calamine/Znox 113 GM Tube 1 APPLIC TOPICAL (10:44)
[2022-01-16] MEDS: Potassium Chloride Oral Tablet 20 MEQ PO (10:52)
--- NOTE | 2022-01-16 11:09 | CASEMGMT ---
Addendum entered by Kaur Alvarenga 01/16/22 14:48: SW placed called to [facility] and [facility] HH agencies to follow up on referrals. [facility] sent communication via [facility], not able to accept pt. SW called [facility] once again and left second message requesting call back. NAYELY Hutson Addendum entered by Kaur Alvarenga 01/16/22 11:46: SW in to inform choices given are unable to accept pt as the distance to travel for HH providers is to great. SW reviewed list with pt and pt once again. Pt and informed their second two preferred providers are [facility] and [facility]. Pt and stated no preference between either provider. SW sent referral to both agencies to await determination of acceptance. NAYELY Hutson Original Note: Social Work Sw in to pt room to discuss HHC choices. Pt stated choices are [facility] and second choice is [facility]. NAYELY Hutson
[2022-01-16 12:15] LABS: Bedside Glucose 273 mg/dL (74-106)
--- NOTE | 2022-01-16 15:38 | PHA.DC.MR ---
Pharmacy Service has performed discharge medication reconciliation for this patient. The patient's discharge medication list was reviewed for discrepancies and discrepancies were resolved. 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 Home Medications aspirin 81 mg tablet,delayed release 81 mg PO DAILY 09/15/19 atorvastatin 40 mg tablet 40 mg PO DAILY 09/15/19 isosorbide mononitrate 30 mg tablet,extended release 24 hr 30 mg PO DAILY 09/15/19 metformin 1,000 mg tablet 1,000 mg PO BID 09/15/19 glipizide 10 mg tablet, extended release 24 hr 10 mg PO BID 12/28/20 nitroglycerin 0.4 mg sublingual tablet 0.4 mg sublingual ONCE PRN Chest Pain 12/28/20 furosemide 40 mg tablet 40 mg PO DAILY 11/27/21 potassium chloride 20 mEq tablet,extended release(part/cryst) 20 meq PO DAILY 11/27/21 venlafaxine 75 mg tablet 75 mg PO DAILY 11/27/21 carvedilol 25 mg tablet 25 mg PO BID #90 tabs 11/28/21 polysaccharide iron complex 150 mg iron capsule (Ferrex) 150 mg PO DAILY 11/28/21 semaglutide 14 mg tablet (Rybelsus) 14 mg PO DAILY 11/28/21 oxycodone-acetaminophen 5 mg-325 mg tablet 1 tab PO Q6H PRN pain 3 days #7 tabs 01/16/22 pantoprazole 40 mg tablet,delayed release (Protonix) 40 mg PO DAILY #30 tabs 01/16/22
--- NOTE | 2022-01-17 15:08 | CASEMGMT ---
Referral sent to [facility] via [employer]. Received tc from Fanny at [facility] who accepts pt for services. TC to pt , she is aware of the info and denies further needs.
== END 2022-01-16 14:25 | disposition home health service (06) | DRG 418 ==
PROVIDERS: Anesthesiology; Family Medicine; Internal Medicine Gastroenterology; Admitting Provider Surgery; PCP Family Medicine Geriatric Medicine; Visit Provider Surgery
PROC: 0FB44ZZ Excision of Gallbladder, Percutaneous Endoscopic Approach (ICD-10-PCS; CPT 47610; principal; 2022-01-11 14:10)
PROC: 0FC98ZZ Extirpation of Matter from Common Bile Duct, Via Natural or Artificial Opening Endoscopic (ICD-10-PCS; CPT 43260; principal; 2022-01-15 15:40)
DX: K80.62 Calculus of gallbladder and bile duct with acute cholecystitis without obstruction (principal); I50.32 Chronic diastolic (congestive) heart failure; K91.89 Other postprocedural complications and disorders of digestive system; E11.51 Type 2 diabetes mellitus with diabetic peripheral angiopathy without gangrene; I11.0 Hypertensive heart disease with heart failure; E11.65 Type 2 diabetes mellitus with hyperglycemia; K83.8 Other specified diseases of biliary tract; E78.5 Hyperlipidemia, unspecified; K82.8 Other specified diseases of gallbladder; E78.00 Pure hypercholesterolemia, unspecified; K21.9 Gastro-esophageal reflux disease without esophagitis; I25.10 Atherosclerotic heart disease of native coronary artery without angina pectoris; G47.30 Sleep apnea, unspecified; G47.33 Obstructive sleep apnea (adult) (pediatric); F41.9 Anxiety disorder, unspecified; K80.00 Calculus of gallbladder with acute cholecystitis without obstruction; F32.A Depression, unspecified; Z86.73 Personal history of transient ischemic attack (TIA), and cerebral infarction without residual deficits; Z79.82 Long term (current) use of aspirin; Z53.39 Other specified procedure converted to open procedure; Z79.84 Long term (current) use of oral hypoglycemic drugs
CPT/HCPCS: 36415; 74328; 76000; 80048; 80069; 80076; 82570; 82728; 82962; 83036; 83540; 83550; 83970; 84156; 85025; 85027; 88304; 97110; 97116; 97162; 97166; 97530; 97535; 99251; 99406; J7030; J7050; A4216; G0463; J1940; J2405

== ENCOUNTER → 2022-01-21 | Outpatient (CLI) | payer MEDICARE, SELFPAY ==
--- NOTE | 2022-01-21 10:18 | RAD_ITS ---
EXAM: XR ABDOMEN, 2 VIEWS CLINICAL INDICATION: ABDOMINAL PAIN TECHNIQUE: Frontal view of the abdomen/pelvis with upright view of the abdomen. This report was created using [employer] report generation technology. COMPARISON: None. FINDINGS: LOWER THORAX: See below. INTRAPERITONEAL SPACE: No free air. GASTROINTESTINAL TRACT: Unremarkable. Non-obstructive. No bowel or stomach distention. ORGANS: There are multiple metallic clips in the right upper quadrant. This is consistent for a cholecystectomy. No organomegaly. No abnormal calcifications. BONES/JOINTS: Multiple median sternotomy wires are noted consistent for cardiac surgery. Degenerative findings in the lumbar spine. SOFT TISSUES: No acute pathology. VASCULATURE: Biliary stent in place. RAD/Abd Inc Decub and/or Erect IMPRESSION: No acute findings in the abdomen or pelvis. Electronically Signed: Morales Kelly MD at 19:35 EDT ,
== END | disposition home or self-care (01) ==
PROVIDERS: PCP Family Medicine Geriatric Medicine; Referring Provider Family Medicine Geriatric Medicine; Visit Provider Family Medicine Geriatric Medicine
DX: N39.0 Urinary tract infection, site not specified (principal); R10.9 Unspecified abdominal pain
CPT/HCPCS: 74019; 87086; 87088

== ENCOUNTER → 2022-02-06 | Outpatient (CLI) | payer MEDICARE, SELFPAY ==
--- NOTE | 2022-02-06 15:51 | RAD_ITS ---
EXAM: XR ABDOMEN, 2 VIEWS CLINICAL INDICATION: DECREASED APPETITE TECHNIQUE: Frontal view of the abdomen/pelvis with upright view of the abdomen. This report was created using [employer] report generation technology. COMPARISON: None. FINDINGS: LOWER THORAX: No acute pathology. INTRAPERITONEAL SPACE: No free air. GASTROINTESTINAL TRACT: Mild stool burden within the large bowel. ORGANS: Cholecystectomy clips are in place. No organomegaly. No abnormal calcifications. BONES/JOINTS: No acute abnormality. SOFT TISSUES: No acute pathology. TUBES, LINES AND DEVICES: Endobiliary stent catheter in place. RAD/Abd Inc Decub and/or Erect IMPRESSION: No acute abnormality. Postop changes. Electronically Signed: Amador Parish MD at 16:46 EDT ,
[2022-02-06 16:27] LABS: Absolute Lymphocyte Count 2.17 X10^3/uL (0.83-4.51); Absolute Neutrophil Count 7.4 X10^3/uL (2.0-7.7); Basophil# 0.06 X10^3/uL; Basophil% 0.6 % (0-1); Eosinophil# 0.24 X10^3/uL; Eosinophils% 2.2 % (0-5); Hematocrit 37.4 % (40-54); Hemoglobin 12.6 g/dL (13.0-16.5); Lymphocyte # 2.17 X10^3/ul (0.83-4.51); Lymphocyte % 19.9 % (19-41); Mean Corp Hgb Conc 33.7 g/dL (32-36); Mean Corpuscular Hgb 29.6 pg (27.0-32.0); Mean Corpuscular Volume 87.8 fL (80-94); Mean Platelet Vol. 10.3 fl (6.2-12.0); Monocyte# 0.78 X10^3/uL; Monocyte% 7.2 % (0-10); NRBC Flagged by Analyzer 0 % (0-5); Neutrophil # 7.41 X10^3/uL (2.7-7.7); Neutrophil % 67.9 % (47-70); Platelet Count 358 K/mm3 (150-450); RBC Distribution Width CV 15.6 % (11.6-14.6); RBC Distribution Width SD 49.5 fl (35.1-43.9); Red Blood Count 4.26 M/mm3 (4.6-6.2); White Blood Count 10.9 K/mm3 (4.4-11.0)
[2022-02-06 16:43] LABS: ALB/GLOB Ratio 0.7 RATIO (0.9-2.4); AST(SGOT) 9 U/L (15-37); Alanine Aminotransfer ALT/SGPT 22 U/L (16-61); Albumin, Serum 3.2 g/dL (3.2-5.0); Alkaline Phosphatase 118 U/L (45-117); Anion Gap 9 (5-15); BUN 22 mg/dL (7-18); BUN/Creat Ratio 17.9 RATIO (10-20); Calcium,Total 9.5 mg/dL (8.5-10.1); Chloride 100 mmol/L (98-107); Creatinine, Serum 1.23 mg/dL (0.70-1.30); EST Glomerular Filtration Rate 61 mL/min (>60); Est Glom Filt Rate - Afr Amer 73 mL/min (>60); Globulin 4.4 g/dL (2.2-4.2); Glucose 253 mg/dL (74-106); Potassium 4.3 mmol/L (3.5-5.1); Protein, Total 7.6 g/dL (6.4-8.2); Sodium Level 135 mmol/L (136-145)
== END | disposition home or self-care (01) ==
PROVIDERS: PCP Family Medicine Geriatric Medicine; Referring Provider Family Medicine Geriatric Medicine; Visit Provider Family Medicine Geriatric Medicine
DX: R53.1 Weakness (principal); R63.8 Other symptoms and signs concerning food and fluid intake
CPT/HCPCS: 36415; 74019; 80053; 85025

== ENCOUNTER → 2022-02-11 | Outpatient (CLI) | payer MEDICARE, SELFPAY ==
--- NOTE | 2022-02-11 12:23 | CT_ITS ---
STUDY: CT ABDOMEN AND PELVIS WITH CONTRAST REASON FOR EXAM: Male, 76 years old. ABDOMINAL PAIN. Status post cholecystectomy and postoperative bile leak. RADIATION DOSAGE (If Supplied By Facility): CTDIvol = ( 17.84 ) mGy, DLP = ( 1329.86 ) mGycm TECHNIQUE: Transaxial images were obtained from the dome of the diaphragm to the symphysis pubis with oral contrast. Oral and amp;amp; IV Gastrografin and amp;amp; 100mL Isovue-300 was administered. Sagittal and coronal images were reconstructed. Individualized dose optimization techniques were used for this CT. COMPARISON: Comparison is made with prior examination dated 09/08/2021. FINDINGS: Stable small left pleural effusion with left basilar atelectasis. The visualized portions of the heart are within normal limits. There is decreased attenuation of the liver consistent with steatosis. There are surgical clips in the gallbladder fossa consistent with a prior cholecystectomy. Minimal soft tissue density is seen in the gallbladder fossa in keeping with prior cholecystectomy. A stent is seen within the common bile duct. Normal spleen. Normal pancreas. Normal bilateral adrenal glands. Normal right kidney. Normal left kidney. Normal visualized stomach. Normal small intestine. There are multiple colonic diverticula consistent with diverticulosis. The patient is status post appendectomy. There is diffuse atherosclerotic calcification of the abdominal aorta and its major visceral branches, without a demonstrated aneurysm. Normal inferior vena cava. Normal retroperitoneum. Normal urinary bladder. There is enlargement of the prostate gland. It measures 4.3 cm x 4.5 cm. This causes indentation at the bladder base. Normal abdominal wall. There are diffuse degenerative changes of the visualized lumbar spine. CT/Abdomen/Pelvis WITH Contrast IMPRESSION: Status post cholecystectomy with postoperative changes in the gallbladder fossa. A biliary stent is seen within the common bile duct. Stable small left pleural effusion with the left basilar atelectasis. Fatty infiltration of the liver. Electronically Signed: Amanuel Day MD at 15:38 EDT ,
== END | disposition home or self-care (01) ==
LOC: CT 12:22
PROVIDERS: PCP Family Medicine Geriatric Medicine; Referring Provider Family Medicine Geriatric Medicine; Visit Provider Family Medicine Geriatric Medicine
DX: R10.9 Unspecified abdominal pain (principal)
CPT/HCPCS: 74177; Q9967

== ENCOUNTER → 2022-03-13 | Outpatient (CLI) | payer MEDICARE, SELFPAY ==
[2022-03-13 11:26] LABS: Absolute Lymphocyte Count 1.99 X10^3/uL (0.83-4.51); Absolute Neutrophil Count 7.3 X10^3/uL (2.0-7.7); Basophil# 0.05 X10^3/uL; Basophil% 0.5 % (0-1); Eosinophil# 0.09 X10^3/uL; Eosinophils% 0.9 % (0-5); Hematocrit 38.7 % (40-54); Hemoglobin 13.4 g/dL (13.0-16.5); Lymphocyte # 1.99 X10^3/ul (0.83-4.51); Lymphocyte % 19.3 % (19-41); Mean Corp Hgb Conc 34.6 g/dL (32-36); Mean Corpuscular Hgb 30.5 pg (27.0-32.0); Mean Corpuscular Volume 88.2 fL (80-94); Mean Platelet Vol. 10.3 fl (6.2-12.0); Monocyte% 7.8 % (0-10); NRBC Flagged by Analyzer 0 % (0-5); Neutrophil # 7.29 X10^3/uL (2.7-7.7); Neutrophil % 70.6 % (47-70); Platelet Count 350 K/mm3 (150-450); RBC Distribution Width CV 15.9 % (11.6-14.6); RBC Distribution Width SD 51.7 fl (35.1-43.9); Red Blood Count 4.39 M/mm3 (4.6-6.2); White Blood Count 10.3 K/mm3 (4.4-11.0)
[2022-03-13 12:49] LABS: ALB/GLOB Ratio 0.9 RATIO (0.9-2.4); AST(SGOT) 13 U/L (15-37); Alanine Aminotransfer ALT/SGPT 24 U/L (16-61); Albumin, Serum 3.5 g/dL (3.2-5.0); Alkaline Phosphatase 109 U/L (45-117); Anion Gap 12 (5-15); BUN 15 mg/dL (7-18); Calcium,Total 9.2 mg/dL (8.5-10.1); Chloride 100 mmol/L (98-107); Creatinine, Serum 1.07 mg/dL (0.70-1.30); EST Glomerular Filtration Rate 71 mL/min (>60); Est Glom Filt Rate - Afr Amer 86 mL/min (>60); Globulin 3.9 g/dL (2.2-4.2); Glucose 203 mg/dL (74-106); Potassium 3.9 mmol/L (3.5-5.1); Protein, Total 7.4 g/dL (6.4-8.2); Sodium Level 134 mmol/L (136-145); Thyroid Stim Hormone (TSH) 0.98 uIU/mL (0.358-3.74)
== END | disposition home or self-care (01) ==
LOC: POLAB3 10:39
PROVIDERS: PCP Family Medicine Geriatric Medicine; Visit Provider Family Medicine Geriatric Medicine
DX: I10 Essential (primary) hypertension (principal); E55.9 Vitamin D deficiency, unspecified
CPT/HCPCS: 36415; 80053; 82306; 84443; 85025

== ENCOUNTER 2022-05-01 09:08 | Day surgery (SDC) | payer MEDICARE, SELFPAY ==
--- NOTE | 2022-05-01 09:24 | HP.PCM_ITS ---
History and Physical Date of Admission: 05/01/22 JUAN A MELENDEZ, is a 76 M who presents to the office today for Follow up. Tor established with this clinic 11.01.21 following [facility] ED presentation 09.08.21 for evaluation of bright red blood from rectum with mild abdominal discomfort; takes aspirin. CT scan performed without acute abnormality. Hemoglobin 12.0. He was instructed to hold aspirin for several days, follow up with PCP as scheduled and call gastroenterology and was discharged in stable condition. Following visit PCP stopped aspirin and antibiotic and has not had any bleeding since. He has been taking aspirin for many years for open heart surgery many years past. Colonic surgery 17 years prior to address perforated diverticulum with surgery and diverting colostomy that was reversed [address] scan 09.08.21 finding cholelithiasis; diverticulosis without diverticulitis; small left pleural effusion with lower lobe atelectasis. Biochemical workup ferritin, iron binding, LDH, CBC, haptoglobin, GAME, globulin without pertinent abnormals. Retic H2.29, immature retic H25.60, Iron L51, [id number] WINDY H1.2 ED presentation 01.10.22 for abdominal/epigastric pain. contacted [facility] Dr. Lancaster who admitted him to [facility]. US at noted thickened gallbladder wall with normal CBD, no pericholecystic fluid or gallstones. CT did show gallstones. Dr. Lancaster performed laparoscopic cholecystectomy. Gastroenterology consulted 01.15.22 and performed ERCP with temporary stent placed. He was discharged 01.16.22. ERCP 01.15.22 noting choledocholithiasis with successful biliary sphincterotomy and balloon extraction; temporary stent placed in CBD to address bile leak. Plan last visit 11.01.21: GIB ? biochemical workup; EGD and colonoscopy. CAD ? ok to restart aspirin from gastroenterology standpoint. Continues to have fatigue with a decreased energy level since his cardiac surgery. Will have some intermittent weakness with cold sweat. Endoscopy delayed due to recent cholecystectomy. PCP prescribed Linzess for constipation; this is being taken thirty minutes prior to first meal. New LLQ pain. Denies bloody stools ROS Const Constitutional: No malaise, night sweats, weight change, sleep problems, abnormal sleep pattern or change in appetite ENT ENT: No difficulty swallowing, hoarseness or sore throat Cardio Cardiology: No chest pain at rest Gastro GI: No abdominal pain, belching, bloating, change in bowel habits, change in stool character, coffee ground emesis, cramping, diarrhea, heartburn, difficulty swallowing, feeling full early, excessive flatus, incontinent of stools, Vomiting blood/hematemesis, Blood in stool, loose stools, Black,tarry stools, nausea/dyspepsia, pain with swallowing, vomiting or other Musc Musculoskeletal: No joint pain Skin Skin: No yellowing of the eye or itchy eyes Neuro Neurology: No behavioral changes Psych Psychiatric: No abnormal sleep pattern, No anxiety, No behavioral changes, No change in appetite and No depression Endo Endocrine: No weight change Aller/Imm Allergy/Immunologic: No itchy eyes Vaughn/Lymp Hematologic/Lymphatic: No easy bleeding or easy bruising Exam Const General: cooperative, healthy appearing, comfortable and no acute distress Nutritional Appearance: obese Orientation: alert, awake and oriented x3 HENMT Head: normal to inspection Ears: hearing grossly normal bilaterally Eyes General: appearance normal, both eyes and all related structures Alignment and Position: alignment normal Sclera: sclerae normal Neck Neck: normal visual inspection and full ROM Neck mass: No Chest Chest palpation & inspection: normal inspection of the chest Resp Effort & Inspection: normal respiratory effort, able to speak in complete sentences, symmetric chest movement, no audible wheezes and no cough Auscultation: Bilateral: Clear to Auscultation Cardio Palpation: normal PMI Rate: regular rate Rhythm: regular rhythm Heart Sounds: S1 normal and S2 normal Bruits: no carotid bruits GI Inspection: normal to inspection Musc Cervical Spine: normal cervical lordosis Thoracic/Lumbar Spine: thoracic and lumbar spine normal to inspection Skin General: no rashes or lesions noted Lesions: no lesions Rashes: no rashes Trauma: no lacerations or abrasions Wounds: no wounds Neuro General: patient alert Cognition: normal cognition Speech: speech normal Gait: normal gait Extrem General: normal to inspection, full ROM and no pedal edema Psych Appearance: grossly normal Mental Status: mental status grossly normal Mood: congruent mood Affect: normal affect Speech and Movement: speech and movement normal Attitude: cooperative Thought Process: normal Thought Content: normal Judgment: judgment good Quality Reporting Tobacco Screening ([facility] 138) Smoking Status: Never smoker Assessment and Plan Assessment and Plan (1) GIB (gastrointestinal bleeding): Status: Chronic Plan: GI bleed secondary to peptic ulcer disease. Need to recheck his hemoglobin and iron studies including CBC, reticulocyte count, LDH, ferritin, iron, TIBC and reticulocyte count (2) Bile leak: Status: Chronic Plan: Complicated cholecystitis status post partial cholecystectomy with ERCP sphincterotomy and stent placement. He had multiple stones removed which I think contributed to bile leak. He will have repeat ERCP with stent removal or exchange. (3) S/P ERCP: Status: Chronic I have examined the patient and the H&P has been reviewed. There are no clinical changes since date of exam.
[2022-05-01 10:09] VITALS: BP 139/72; PULSE 88; RESP 18; TEMP 36.3; O2SAT 98; BMI 36.1
[2022-05-01] MEDS: Lactated Ringers 1,000 ML 15 ML IV (10:15)
[2022-05-01 10:36] LABS: Bedside Glucose 225 mg/dL (74-106)
--- NOTE | 2022-05-01 11:42 | RAD_ITS ---
STUDY: ERCP. REASON FOR EXAM: Male, 77 years old. STENT REMOVAL FLUOROSCOPY TIME (if supplied): ( 29.4 seconds ) minutes/seconds. 7 images were submitted. TECHNIQUE: An ERCP was performed by the diabetes education coordinator. Imaging was provided. COMPARISON: None. FINDINGS: Contrast was injected. The intra and extrahepatic biliary ducts are unremarkable. Biliary stent removal. RAD/ERCP Biliary Only IMPRESSION: Biliary stent removal. Electronically Signed: Amanuel Day MD at 9:45 EST ,
--- NOTE | 2022-05-01 12:27 | OP.ERCP_ITS ---
Patient Name: Tor Longoria Procedure Date: 05/01/2022 11:35 AM Date of : 1945 Age: 77 Procedure: ERCP Indications: Biliary stent removal Providers: Valentin Panda DO Referring MD: Frankie Shaver Md Medicines: Monitored Anesthesia Care Patient Profile: This is a 77 year old male. Refer to note in patient chart for documentation of history and physical. Patient has symptoms of acute right upper quadrant abdominal pain. Complications: No immediate complications. Procedure: Pre-Anesthesia Assessment: - Prior to the procedure, a History and Physical was performed, and patient medications and allergies were reviewed. The patient is competent. The risks and benefits of the procedure and the sedation options and risks were discussed with the patient. All questions were answered and informed consent was obtained. Patient identification and proposed procedure were verified by the physician in the pre-procedure area. Mental Status Examination: alert and oriented. Airway Examination: normal oropharyngeal airway and neck mobility. Respiratory Examination: clear to auscultation. CV Examination: normal. Prophylactic Antibiotics: The patient does not require prophylactic antibiotics. Prior Anticoagulants: The patient has taken no previous anticoagulant or antiplatelet agents. ASA Grade Assessment: II - A patient with mild systemic disease. After reviewing the risks and benefits, the patient was deemed in satisfactory condition to undergo the procedure. The anesthesia plan was to use monitored anesthesia care (MAC). Immediately prior to administration of medications, the patient was re-assessed for adequacy to receive sedatives. The heart rate, respiratory rate, oxygen saturations, blood pressure, adequacy of pulmonary ventilation, and response to care were monitored throughout the procedure. The physical status of the patient was re-assessed after the procedure. After obtaining informed consent, the scope was passed under direct vision. Throughout the procedure, the patient's blood pressure, pulse, and oxygen saturations were monitored continuously. The Duodenoscope was introduced through the mouth, and advanced to the duodenum and used to cannulate the bile duct. The ERCP was accomplished without difficulty. The patient tolerated the procedure well. Scope In: 11:53:07 AM Scope Out: 12:05:36 PM Total Procedure Duration Time 0 hours 12 minutes 29 seconds Findings: The maintenance trainer film was normal. The esophagus was successfully intubated under direct vision. The scope was advanced to a normal major papilla in the descending duodenum without detailed examination of the pharynx, larynx and associated structures, and upper GI tract. The upper GI tract was grossly normal. The bile duct was deeply cannulated with the 15 mm balloon. Contrast was injected. I personally interpreted the bile duct images. There was brisk flow of contrast through the ducts. Image quality was excellent. Placement of a 0.035 inch x 260 cm angled Hydra Jagwire into the biliary tree was attempted. This passed successfully. A 5 mm biliary sphincterotomy was made with a monofilament traction (standard) sphincterotome using ERBE electrocautery. The sphincterotomy oozed blood. The biliary tree was swept with a 15 mm balloon starting at the bifurcation. One stone was removed. One stone remained. One stent was removed from the biliary tree using a snare. The stent was found to be patent via the water column test. Impression: - Choledocholithiasis was found. Partial removal was accomplished by biliary sphincterotomy; no stent was inserted. - A biliary sphincterotomy was performed. - The biliary tree was swept. - One stent was removed from the biliary tree. Procedure Code(s): --- Professional --- 66947, Endoscopic retrograde cholangiopancreatography (ERCP); with removal of foreign body(s) or stent(s) from biliary/pancreatic duct(s) 88209, Endoscopic retrograde cholangiopancreatography (ERCP); with removal of calculi/debris from biliary/pancreatic duct(s) 65812, Endoscopic retrograde cholangiopancreatography (ERCP); with sphincterotomy/papillotomy 88024, Endoscopic catheterization of the biliary ductal system, radiological supervision and interpretation CPT copyright 2017 [employer]. All rights reserved. The codes documented in this report are preliminary and upon tenant coordinator review may be revised to meet current compliance requirements. Valentin Panda DO 05/01/2022 12:27:06 PM This report has been signed electronically. Number of Addenda: 0 Note Initiated On: 05/01/2022 11:35 AM
--- NOTE | 2022-05-01 12:28 | OP.CCLET_ITS ---
05/01/2022 Frankie Shaver MD [address] [place] [address] Re : ERCP procedure for Tor Longoria Dear Dr. Shaver This procedure was performed on Sunday, May 01, 2022. My impressions and recommendations are as follows: Impressions : - Choledocholithiasis was found. Partial removal was accomplished by biliary sphincterotomy; no stent was inserted. - A biliary sphincterotomy was performed. - The biliary tree was swept. - One stent was removed from the biliary tree. Recommendations : My findings are described in the full procedure note, which is enclosed. If I can be of further assistance, please feel free to contact me at . Sincerely, Valentin Panda, 05/01/2022 12:27:06 PM This report has been signed electronically.
[2022-05-01 12:30] VITALS: BP 139/72; BP 157/96; PULSE 94; RESP 16; TEMP 36.3; O2SAT 97
[2022-05-01 12:45] VITALS: BP 137/89; BP 139/72; PULSE 99; RESP 16; O2SAT 95
[2022-05-01 12:52] VITALS: BP 139/72; BP 142/94; PULSE 104; RESP 16; TEMP 36.2; O2SAT 94
[2022-05-01 13:40] VITALS: BP 139/72
== END 2022-05-01 13:56 | disposition home or self-care (01) ==
LOC: EN 09:13 → AC 09:13
PROVIDERS: PCP Family Medicine Geriatric Medicine; Referring Provider Family Medicine Geriatric Medicine; Visit Provider Internal Medicine Gastroenterology
PROC: (CPT 43260; principal; 2022-05-01 10:25)
DX: K80.50 Calculus of bile duct without cholangitis or cholecystitis without obstruction (principal); R53.83 Other fatigue; Z90.49 Acquired absence of other specified parts of digestive tract; Z79.82 Long term (current) use of aspirin
CPT/HCPCS: 43264; 43275; 43262; 74328; 76000; 82962; J7120; J2405

== ENCOUNTER → 2022-05-21 | Outpatient (CLI) | payer MEDICARE, SELFPAY ==
[2022-05-21 12:29] LABS: Absolute Lymphocyte Count 1.86 X10^3/uL (0.83-4.51); Absolute Neutrophil Count 5.7 X10^3/uL (2.0-7.7); Basophil# 0.04 X10^3/uL; Basophil% 0.5 % (0-1); Eosinophil# 0.09 X10^3/uL; Eosinophils% 1.1 % (0-5); Hematocrit 36.4 % (40-54); Hemoglobin 12.6 g/dL (13.0-16.5); Lymphocyte # 1.86 X10^3/ul (0.83-4.51); Lymphocyte % 22.1 % (19-41); Mean Corp Hgb Conc 34.6 g/dL (32-36); Mean Corpuscular Hgb 30.5 pg (27.0-32.0); Mean Corpuscular Volume 88.1 fL (80-94); Mean Platelet Vol. 9.8 fl (6.2-12.0); Monocyte% 8.3 % (0-10); NRBC Flagged by Analyzer 0 % (0-5); Neutrophil # 5.67 X10^3/uL (2.7-7.7); Neutrophil % 67.4 % (47-70); Platelet Count 346 K/mm3 (150-450); RBC Distribution Width SD 48.4 fl (35.1-43.9); Red Blood Count 4.13 M/mm3 (4.6-6.2); White Blood Count 8.4 K/mm3 (4.4-11.0)
[2022-05-21 13:00] LABS: BNP,B-Type NATRIURETIC PEPTIDE 98.5 pg/mL (0-100)
[2022-05-21 13:03] LABS: Anion Gap 11 (5-15); BUN 14 mg/dL (7-18); BUN/Creat Ratio 12.3 RATIO (10-20); Calcium,Total 8.9 mg/dL (8.5-10.1); Chloride 100 mmol/L (98-107); Creatinine, Serum 1.14 mg/dL (0.70-1.30); EST Glomerular Filtration Rate 66 mL/min (>60); Est Glom Filt Rate - Afr Amer 80 mL/min (>60); Glucose 175 mg/dL (74-106); Potassium 3.6 mmol/L (3.5-5.1); Sodium Level 135 mmol/L (136-145)
== END | disposition home or self-care (01) ==
LOC: LAB 11:38
PROVIDERS: PCP Family Medicine Geriatric Medicine; Referring Provider Nurse Practitioner Gerontology; Visit Provider Nurse Practitioner Gerontology
DX: R53.83 Other fatigue (principal); I50.30 Unspecified diastolic (congestive) heart failure
CPT/HCPCS: 36415; 80048; 83880; 85025

== ENCOUNTER → 2022-05-27 | Outpatient (CLI) | payer MEDICARE, SELFPAY ==
[2022-05-27 11:30] LABS: Absolute Lymphocyte Count 1.73 X10^3/uL (0.83-4.51); Absolute Neutrophil Count 5.4 X10^3/uL (2.0-7.7); Basophil# 0.03 X10^3/uL; Basophil% 0.4 % (0-1); Eosinophils% 1.2 % (0-5); Hematocrit 37.8 % (40-54); Hemoglobin 12.6 g/dL (13.0-16.5); Lymphocyte # 1.73 X10^3/ul (0.83-4.51); Lymphocyte % 21.4 % (19-41); Mean Corp Hgb Conc 33.3 g/dL (32-36); Mean Corpuscular Hgb 29.9 pg (27.0-32.0); Mean Corpuscular Volume 89.8 fL (80-94); Monocyte# 0.69 X10^3/uL; Monocyte% 8.6 % (0-10); NRBC Flagged by Analyzer 0 % (0-5); Neutrophil # 5.44 X10^3/uL (2.7-7.7); Neutrophil % 67.4 % (47-70); Platelet Count 327 K/mm3 (150-450); RBC Distribution Width CV 14.8 % (11.6-14.6); Red Blood Count 4.21 M/mm3 (4.6-6.2); White Blood Count 8.1 K/mm3 (4.4-11.0)
[2022-05-27 12:04] LABS: Vitamin B12 503 pg/mL (211-911)
[2022-05-27 12:49] LABS: ALB/GLOB Ratio 0.9 RATIO (0.9-2.4); AST(SGOT) 14 U/L (15-37); Alanine Aminotransfer ALT/SGPT 27 U/L (16-61); Albumin, Serum 3.5 g/dL (3.2-5.0); Alkaline Phosphatase 101 U/L (45-117); Anion Gap 15 (5-15); BUN 12 mg/dL (7-18); BUN/Creat Ratio 11.1 RATIO (10-20); Calcium,Total 8.8 mg/dL (8.5-10.1); Chloride 100 mmol/L (98-107); Creatinine, Serum 1.08 mg/dL (0.70-1.30); EST Glomerular Filtration Rate 71 mL/min (>60); Est Glom Filt Rate - Afr Amer 85 mL/min (>60); Globulin 3.7 g/dL (2.2-4.2); Glucose 159 mg/dL (74-106); Potassium 3.3 mmol/L (3.5-5.1); Protein, Total 7.2 g/dL (6.4-8.2); Sodium Level 140 mmol/L (136-145)
[2022-05-29 16:49] LABS: Vitamin D 1,25-Dihydroxy 33.1 pg/mL (24.8-81.5)
== END | disposition home or self-care (01) ==
LOC: LAB 10:33
PROVIDERS: PCP Family Medicine Geriatric Medicine; Referring Provider Internal Medicine Gastroenterology; Visit Provider Internal Medicine Gastroenterology
DX: I10 Essential (primary) hypertension (principal); K83.9 Disease of biliary tract, unspecified
CPT/HCPCS: 36415; 80053; 82607; 82652; 82746; 85025

== ENCOUNTER → 2022-06-12 | Outpatient (CLI) | payer MEDICARE, SELFPAY ==
--- NOTE | 2022-06-12 11:34 | RAD_ITS ---
STUDY: X-RAY - ABDOMEN/PELVIS REASON FOR EXAM: Male, 77 years old. FECAL IMPACTION TECHNIQUE: Frontal views COMPARISON: None. FINDINGS: Normal visualized lung bases. There is an unremarkable bowel gas pattern. There is no demonstrated free abdominal air. The visualized liver, spleen and kidneys are grossly normal in size and morphology. Normal soft tissue structures. Degenerative vertebral changes. RAD/Abdomen Single View IMPRESSION: No acute pathology of the abdomen and pelvis. Electronically Signed: Trent Quinones DO at 22:24 EST ,
[2022-06-12 13:10] LABS: Absolute Lymphocyte Count 1.81 X10^3/uL (0.83-4.51); Basophil# 0.04 X10^3/uL; Basophil% 0.4 % (0-1); Eosinophil# 0.11 X10^3/uL; Eosinophils% 1.1 % (0-5); Hemoglobin 13.1 g/dL (13.0-16.5); Lymphocyte # 1.81 X10^3/ul (0.83-4.51); Lymphocyte % 18.5 % (19-41); Mean Corp Hgb Conc 33.6 g/dL (32-36); Mean Corpuscular Hgb 29.6 pg (27.0-32.0); Mean Corpuscular Volume 88.2 fL (80-94); Mean Platelet Vol. 10.4 fl (6.2-12.0); Monocyte# 0.79 X10^3/uL; Monocyte% 8.1 % (0-10); NRBC Flagged by Analyzer 0 % (0-5); Neutrophil # 6.98 X10^3/uL (2.7-7.7); Neutrophil % 71.1 % (47-70); Platelet Count 348 K/mm3 (150-450); RBC Distribution Width CV 14.6 % (11.6-14.6); RBC Distribution Width SD 47.3 fl (35.1-43.9); Red Blood Count 4.42 M/mm3 (4.6-6.2); White Blood Count 9.8 K/mm3 (4.4-11.0)
[2022-06-12 13:25] LABS: Vitamin D,25 Hydroxy 31.8 ng/mL
[2022-06-12 13:34] LABS: ALB/GLOB Ratio 0.9 RATIO (0.9-2.4); AST(SGOT) 14 U/L (15-37); Alanine Aminotransfer ALT/SGPT 21 U/L (16-61); Albumin, Serum 3.5 g/dL (3.2-5.0); Alkaline Phosphatase 100 U/L (45-117); Anion Gap 14 (5-15); BUN 14 mg/dL (7-18); BUN/Creat Ratio 13.2 RATIO (10-20); Calcium,Total 8.8 mg/dL (8.5-10.1); Chloride 99 mmol/L (98-107); Cholesterol 146 mg/dL (200); Creatinine, Serum 1.06 mg/dL (0.70-1.30); EST Glomerular Filtration Rate 72 mL/min (>60); Est Glom Filt Rate - Afr Amer 87 mL/min (>60); Globulin 3.9 g/dL (2.2-4.2); Glucose 170 mg/dL (74-106); High Density Lipoprotein 36 mg/dL; Potassium 3.1 mmol/L (3.5-5.1); Protein, Total 7.4 g/dL (6.4-8.2); Sodium Level 136 mmol/L (136-145); Thyroid Stim Hormone (TSH) 1.34 uIU/mL (0.358-3.74); Triglycerides 350 mg/dL; Very Low Density Lipoprotein 70 mg/dL (5-40)
== END | disposition home or self-care (01) ==
PROVIDERS: PCP Family Medicine Geriatric Medicine; Visit Provider Family Medicine Geriatric Medicine
DX: K56.41 Fecal impaction (principal); E11.65 Type 2 diabetes mellitus with hyperglycemia; E55.9 Vitamin D deficiency, unspecified; I10 Essential (primary) hypertension
CPT/HCPCS: 36415; 74018; 80053; 80061; 82306; 84443; 85025

== ENCOUNTER → 2022-06-20 | Outpatient (CLI) | payer MEDICARE, SELFPAY ==
[2022-06-20 13:43] LABS: Anion Gap 11 (5-15); BUN 13 mg/dL (7-18); BUN/Creat Ratio 10.9 RATIO (10-20); Calcium,Total 9.2 mg/dL (8.5-10.1); Chloride 102 mmol/L (98-107); Creatinine, Serum 1.19 mg/dL (0.70-1.30); EST Glomerular Filtration Rate 63 mL/min (>60); Est Glom Filt Rate - Afr Amer 76 mL/min (>60); Glucose 165 mg/dL (74-106); Potassium 3.6 mmol/L (3.5-5.1); Sodium Level 137 mmol/L (136-145)
== END | disposition home or self-care (01) ==
LOC: POLAB3 10:54
PROVIDERS: PCP Family Medicine Geriatric Medicine; Visit Provider Family Medicine Geriatric Medicine
DX: E87.6 Hypokalemia (principal)
CPT/HCPCS: 36415; 80048

== ENCOUNTER → 2022-09-18 | Outpatient (CLI) | payer MEDICARE, SELFPAY ==
[2022-09-18 12:08] LABS: Absolute Lymphocyte Count 1.64 X10^3/uL (0.83-4.51); Basophil# 0.04 X10^3/uL; Basophil% 0.5 % (0-1); Eosinophil# 0.09 X10^3/uL; Eosinophils% 1.1 % (0-5); Hematocrit 38.9 % (40-54); Hemoglobin 12.8 g/dL (13.0-16.5); Lymphocyte # 1.64 X10^3/ul (0.83-4.51); Lymphocyte % 19.2 % (19-41); Mean Corp Hgb Conc 32.9 g/dL (32-36); Mean Corpuscular Hgb 29.6 pg (27.0-32.0); Mean Corpuscular Volume 89.8 fL (80-94); Mean Platelet Vol. 9.9 fl (6.2-12.0); Monocyte# 0.73 X10^3/uL; Monocyte% 8.6 % (0-10); NRBC Flagged by Analyzer 0 % (0-5); Neutrophil # 5.96 X10^3/uL (2.7-7.7); Neutrophil % 69.9 % (47-70); Platelet Count 311 K/mm3 (150-450); RBC Distribution Width CV 15.2 % (11.6-14.6); RBC Distribution Width SD 49.8 fl (35.1-43.9); Red Blood Count 4.33 M/mm3 (4.6-6.2); White Blood Count 8.5 K/mm3 (4.4-11.0)
[2022-09-18 12:24] LABS: ALB/GLOB Ratio 0.9 RATIO (0.9-2.4); AST(SGOT) 11 U/L (15-37); Alanine Aminotransfer ALT/SGPT 23 U/L (16-61); Albumin, Serum 3.5 g/dL (3.2-5.0); Alkaline Phosphatase 100 U/L (45-117); Anion Gap 9 (5-15); BUN 18 mg/dL (7-18); BUN/Creat Ratio 15.3 RATIO (10-20); Calcium,Total 9.1 mg/dL (8.5-10.1); Chloride 102 mmol/L (98-107); Cholesterol 139 mg/dL (200); Creatinine, Serum 1.18 mg/dL (0.70-1.30); EST Glomerular Filtration Rate 64 mL/min (>60); Est Glom Filt Rate - Afr Amer 77 mL/min (>60); Glucose 213 mg/dL (74-106); High Density Lipoprotein 32 mg/dL; Potassium 3.9 mmol/L (3.5-5.1); Protein, Total 7.5 g/dL (6.4-8.2); Sodium Level 134 mmol/L (136-145); Thyroid Stim Hormone (TSH) 1.51 uIU/mL (0.358-3.74); Triglycerides 295 mg/dL; Very Low Density Lipoprotein 59 mg/dL (5-40)
== END | disposition home or self-care (01) ==
LOC: POLAB3 10:23
PROVIDERS: PCP Family Medicine Geriatric Medicine; Visit Provider Family Medicine Geriatric Medicine
DX: E11.65 Type 2 diabetes mellitus with hyperglycemia (principal); I10 Essential (primary) hypertension; E55.9 Vitamin D deficiency, unspecified
CPT/HCPCS: 36415; 80053; 80061; 82306; 84443; 85025

== ENCOUNTER → 2022-11-20 | Outpatient (CLI) | payer MEDICARE, SELFPAY ==
[2022-11-20 11:23] LABS: Absolute Lymphocyte Count 1.86 X10^3/uL (0.83-4.51); Absolute Neutrophil Count 6.5 X10^3/uL (2.0-7.7); Basophil# 0.04 X10^3/uL; Basophil% 0.4 % (0-1); Eosinophil# 0.12 X10^3/uL; Eosinophils% 1.3 % (0-5); Hematocrit 39.1 % (40-54); Hemoglobin 12.5 g/dL (13.0-16.5); Lymphocyte # 1.86 X10^3/ul (0.83-4.51); Lymphocyte % 19.8 % (19-41); Mean Corpuscular Hgb 28.9 pg (27.0-32.0); Mean Corpuscular Volume 90.5 fL (80-94); Monocyte# 0.78 X10^3/uL; Monocyte% 8.3 % (0-10); NRBC Flagged by Analyzer 0 % (0-5); Neutrophil # 6.52 X10^3/uL (2.7-7.7); Neutrophil % 69.5 % (47-70); Platelet Count 338 K/mm3 (150-450); RBC Distribution Width CV 15.2 % (11.6-14.6); RBC Distribution Width SD 50.8 fl (35.1-43.9); Red Blood Count 4.32 M/mm3 (4.6-6.2); White Blood Count 9.4 K/mm3 (4.4-11.0)
[2022-11-20 11:59] LABS: Anion Gap 8 (5-15); BNP,B-Type NATRIURETIC PEPTIDE 55.1 pg/mL (0-100); BUN 16 mg/dL (7-18); BUN/Creat Ratio 13.3 RATIO (10-20); Calcium,Total 9.3 mg/dL (8.5-10.1); Chloride 103 mmol/L (98-107); EST Glomerular Filtration Rate 62 mL/min (>60); Est Glom Filt Rate - Afr Amer 75 mL/min (>60); Glucose 152 mg/dL (74-106); Sodium Level 135 mmol/L (136-145)
== END | disposition home or self-care (01) ==
LOC: LAB 10:35
PROVIDERS: PCP Family Medicine Geriatric Medicine; Referring Provider Nurse Practitioner Gerontology; Visit Provider Nurse Practitioner Gerontology
DX: R06.09 Other forms of dyspnea (principal); I50.30 Unspecified diastolic (congestive) heart failure
CPT/HCPCS: 36415; 80048; 83880; 85025

== ENCOUNTER → 2022-11-28 | Outpatient (CLI) | payer MEDICARE, SELFPAY ==
--- NOTE | 2022-11-28 12:17 | STRESSREP ---
Stress Test Report Pharmacologic myocardial perfusion stress test. 77-year-old man man with a history of chest pain Resting EKG demonstrates sinus rhythm with a rate of 75 bpm. Resting blood pressure is 128/80 mmHg. 0.4 mg of regadenoson was infused per usual protocol followed by rapid intravenous saline flush injection. Continuous EKG monitoring was performed. The maximum heart rate was 107 bpm which was 74% of max impacted heart rate the maximum workload was 1 metabolic equivalent. At rest there were no ST or T wave changes noted to suggest ischemia and at peak infusion nonspecific ST changes were noted which did not meet the criteria for ischemia. No clinical angina is noted. The final blood pressure was 142/82 mmHg. Myocardial perfusion protocol. 14.9 mCi of technetium 99m sestamibi was injected at rest. 0.4 mg of regadenoson was infused per usual protocol. At peak infusion 45 mCi of technetium 99m sestamibi was injected stress images were obtained stress and rest images were reconstructed and compared in the short axis vertical long and horizontal long axis. Gated images were also obtained. Perfusion SPECT analysis: Review of the stress images demonstrate normal uptake of tracer noted in all areas of the myocardium. The resting images similar demonstrated normal uptake of tracer noted in all areas of the myocardium. No areas of reversibility are noted to suggest ischemia and no previous infarct is noted. Gated SPECT analysis: The gated ejection fraction is 74%. Conclusion: Normal pharmacologic myocardial perfusion stress test. Preserved ejection fraction.
== END | disposition home or self-care (01) ==
PROVIDERS: PCP Family Medicine Geriatric Medicine; Referring Provider Nurse Practitioner Gerontology; Visit Provider Nurse Practitioner Gerontology
DX: R07.9 Chest pain, unspecified (principal)
CPT/HCPCS: 78452; 93017; A9500; A4216; J2785

== ENCOUNTER → 2022-12-18 | Outpatient (CLI) | payer MEDICARE, SELFPAY ==
[2022-12-18 12:07] LABS: Absolute Neutrophil Count 7.7 X10^3/uL (2.0-7.7); Basophil# 0.03 X10^3/uL; Basophil% 0.3 % (0-1); Eosinophil# 0.09 X10^3/uL; Eosinophils% 0.9 % (0-5); Hematocrit 37.4 % (40-54); Hemoglobin 12.7 g/dL (13.0-16.5); Lymphocyte % 17.3 % (19-41); Mean Corpuscular Volume 88.4 fL (80-94); Monocyte# 0.72 X10^3/uL; Monocyte% 6.9 % (0-10); NRBC Flagged by Analyzer 0 % (0-5); Neutrophil # 7.66 X10^3/uL (2.7-7.7); Neutrophil % 73.8 % (47-70); Platelet Count 334 K/mm3 (150-450); RBC Distribution Width CV 15.5 % (11.6-14.6); RBC Distribution Width SD 49.6 fl (35.1-43.9); Red Blood Count 4.23 M/mm3 (4.6-6.2); White Blood Count 10.4 K/mm3 (4.4-11.0)
[2022-12-18 12:50] LABS: Vitamin D,25 Hydroxy 28.9 ng/mL
[2022-12-18 12:59] LABS: ALB/GLOB Ratio 0.9 RATIO (0.9-2.4); AST(SGOT) 9 U/L (15-37); Alanine Aminotransfer ALT/SGPT 18 U/L (16-61); Albumin, Serum 3.4 g/dL (3.2-5.0); Alkaline Phosphatase 93 U/L (45-117); Anion Gap 11 (5-15); BUN 17 mg/dL (7-18); BUN/Creat Ratio 13.6 RATIO (10-20); Calcium,Total 9.2 mg/dL (8.5-10.1); Chloride 101 mmol/L (98-107); Cholesterol 123 mg/dL (200); Creatinine, Serum 1.25 mg/dL (0.70-1.30); EST Glomerular Filtration Rate 59 mL/min (>60); Est Glom Filt Rate - Afr Amer 72 mL/min (>60); Globulin 3.8 g/dL (2.2-4.2); Glucose 186 mg/dL (74-106); High Density Lipoprotein 33 mg/dL; Protein, Total 7.2 g/dL (6.4-8.2); Sodium Level 136 mmol/L (136-145); Thyroid Stim Hormone (TSH) 1.28 uIU/mL (0.358-3.74); Triglycerides 266 mg/dL; Very Low Density Lipoprotein 53 mg/dL (5-40)
== END | disposition home or self-care (01) ==
PROVIDERS: PCP Family Medicine Geriatric Medicine; Referring Provider Family Medicine Geriatric Medicine; Visit Provider Family Medicine Geriatric Medicine
DX: E11.65 Type 2 diabetes mellitus with hyperglycemia (principal); I10 Essential (primary) hypertension; E55.9 Vitamin D deficiency, unspecified
CPT/HCPCS: 36415; 80053; 80061; 82306; 84443; 85025

== ENCOUNTER 2022-12-25 10:01 | Observation (INO) | payer MEDICARE, SELFPAY ==
[2022-12-25 10:02] VITALS: BP 175/86; PULSE 88; RESP 14; TEMP 36.2; O2SAT 98; BMI 37.0
--- NOTE | 2022-12-25 10:19 | CT_ITS ---
STUDY: CT ABDOMEN AND PELVIS WITH CONTRAST REASON FOR EXAM: Male, 77 years old. gi bleeding RADIATION DOSAGE (If Supplied By Facility): CTDIvol = ( 20.02 ) mGy, DLP = ( 1233.94 ) mGycm TECHNIQUE: Transaxial images were obtained from the dome of the diaphragm to the symphysis pubis without oral contrast. IV 100mL Isovue-300 was administered. Sagittal and coronal images were reconstructed. Individualized dose optimization techniques were used for this CT. COMPARISON: Comparison is made with prior study February 11, 2022. FINDINGS: Small left pleural effusion with left basilar atelectasis. Prior CABG. Coronary artery calcification. There is decreased attenuation of the liver consistent with steatosis. There are surgical clips in the gallbladder fossa consistent with a prior cholecystectomy. Normal spleen. Normal pancreas. Normal bilateral adrenal glands. Normal right kidney. Normal left kidney. Normal visualized stomach. Normal small intestine. There are scattered colonic diverticula consistent with diverticulosis. There are surgical clips in the region of the appendix consistent with a prior appendectomy. There is diffuse atherosclerotic calcification of the abdominal aorta and its major visceral branches, without a demonstrated aneurysm. Normal inferior vena cava. Normal retroperitoneum. Normal urinary bladder. There is enlargement of the prostate gland. It measures 5.2 cm x 4.8 cm. This causes indentation at the bladder base. Normal abdominal wall. There are diffuse degenerative changes of the visualized lumbar spine. CT/Abdomen/Pelvis W IV Cont ONLY IMPRESSION: Stable small left pleural effusion with left basilar atelectasis. Fatty infiltration of the liver. Status post cholecystectomy. Scattered similar diverticula. Enlarged prostate. Electronically Signed: Amanuel Day MD at 11:23 EDT ,
--- NOTE | 2022-12-25 10:22 | EDS_ITS ---
HPI HPI - GI History of Present Illness Chief Complaint: GI Bleed Narrative Narrative: 77-year-old male presenting with 4 episodes of bright red bleeding per rectum. He states that after this he became a little bit darker. Patient states that all 4 happened this morning. He denies abdominal pain. He is on daily aspirin 81 mg but denies any other blood thinners. Patient has history of GI bleed in the past which resolved spontaneously. He cannot recall last time he had a colonoscopy. Patient with mild lightheadedness, mild weakness. He has not fallen. PFSH [facility] Medical History (HFpEF) heart failure with preserved ejection fraction Adjustment disorder with depressed mood Anemia Atherosclerosis of coronary artery without angina pectoris Cardiology follow-up encounter Chewing tobacco use CPAP (continuous positive airway pressure) dependence Disturbance of memory Essential hypertension Generalized osteoarthritis GIB (gastrointestinal bleeding) History of CVA (cerebrovascular accident) (03/31/18) History of echocardiogram History of stress test Hyperlipidemia Kidney disease Loss of hearing Pain in thoracic spine Peripheral vascular disease, unspecified Pure hypercholesterolemia, unspecified Restless legs Seizures Wears dentures Home Medications aspirin 81 mg tablet,delayed release 81 mg PO DAILY 09/15/19 [History Last Taken 04/27/22] atorvastatin 40 mg tablet 40 mg PO DAILY 09/15/19 [History Last Taken Unknown] isosorbide mononitrate 30 mg tablet,extended release 24 hr 30 mg PO DAILY 09/15/19 [History Last Taken 05/01/22] metformin 1,000 mg tablet 1,000 mg PO BID 09/15/19 [History Last Taken Unknown] glipizide 10 mg tablet, extended release 24 hr 10 mg PO BID 12/28/20 [History Last Taken Unknown] furosemide 40 mg tablet 40 mg PO DAILY 11/27/21 [History Last Taken Unknown] venlafaxine 75 mg tablet 75 mg PO DAILY 11/27/21 [History Last Taken Unknown] albuterol sulfate 90 mcg/actuation aerosol inhaler 2 puff inhalation Q6H PRN 05/21/22 [History Last Taken Unknown] insulin glargine U-300 conc 300 unit/mL (3 mL) subcutaneous pen (Toujeo Max U-300 SoloStar) 36 unit subcut DAILY 11/20/22 [History Last Taken Unknown] losartan 50 mg tablet 50 mg PO DAILY #30 tabs 11/20/22 [Rx Last Taken Unknown] nitroglycerin 0.4 mg sublingual tablet 0.4 mg sublingual Q5-15M PRN Chest Pain #25 tabs 11/20/22 [Rx Last Taken Unknown] carvedilol 12.5 mg tablet 12.5 mg PO BID #180 tabs 12/17/22 [Rx Last Taken Unknown] Allergy/AdvReac Type Severity Reaction Status Date / Time dapagliflozin [From [facility]] Allergy Rash Verified 12/25/22 10:02 Family History Mother Heart disease Father Heart disease Surgical History H/O arthroscopic knee surgery H/O coronary artery bypass surgery (10/25/18) H/O resection of small bowel H/O varicose vein ligation History of appendectomy History of cataract surgery History of colonoscopy History of craniotomy (1990) History of ERCP History of left heart catheterization (10/13/18) Hx laparoscopic cholecystectomy S/P ERCP S/P laparoscopic cholecystectomy (~01/2022) Social History Smoking Status: Current every day smoker tobacco type: smokeless tobacco Smokeless tobacco user: chewing tobacco alcohol intake: former year quit: h/o substance use type: does not use ROS ROS ED Constitutional Constitutional ED: Denies chills, fever(s) or sweats Eyes Eyes: Denies blurry vision or change in vision ENT ENT ED: Denies ear pain or sore throat Cardiovascular Cardiovascular: Denies chest pain, palpitations or racing heartbeat Respiratory/Chest Respiratory/Chest: Denies cough, dyspnea or sputum Gastrointestinal Gastrointestinal: Reports other Details: Bright red bleeding per rectum ; Denies constipation, diarrhea, nausea or vomiting Genitourinary Genitourinary ED: Denies dysuria, hematuria or urinary frequency Musculoskeletal Musculoskeletal: Denies arthralgias, myalgias or neck pain Integumentary Denies abscess, Abrasions or rash Neurologic Neurologic: Denies headache(s), paresthesias or weakness Psychiatric Psychiatric: Denies anxiety, depression, suicidal ideation or suicidal thoughts Endocrine Endocrinology: Denies polydipsia or polyuria EXAM Physical Exam Const Vital Signs: 12/25/22 10:02 Temperature 97.2 F L Temperature Source Temporal Pulse Rate 88 Respiratory Rate 14 Blood Pressure 175/86 H Blood Pressure Mean 115 Pulse Ox 98 Oxygen Delivery Method Room Air Positive well nourished General Appearance ED: NAD HEENT Reports moist mucous membranes normocephalic and atraumatic Eyes PERRL and EOMs intact bilaterally General Eye ED: Yes pale conjunctiva; Negative for scleral icterus Resp normal respiratory effort and clear to auscultation bilaterally Auscultation: Negative for rales, rhonchi or wheezes Cardio regular rate and regular rhythm GI non-tender and non-distended GI Narrative: No obvious bleeding hemorrhoids on exam. No blood is visible. Neuro CN's II-XII intact bilaterally, moves all extremities and no sensory deficits noted Sensorium / Orientation: alert Motor Exam: strength 5/5 throughout Psych mental status grossly normal Skin no wounds MDM MDM MDM Narrative Medical decision making narrative: 77-year-old male with just mild weakness, mild lightheadedness, 4 episodes of bright red bleeding per rectum. Differential includes diverticulitis, diverticular bleed, acute blood loss anemia, dehydration, electrolyte abno rmalities, UTI. CBC was obtained to assess white blood cell count, hemoglobin, platelets. CMP to assess liver function, renal function, electrolytes. Urinalysis to assess for UTI. Patient was typed and screened. No bleeding on rectal exam. We will obtain a CT of the abdomen pelvis with IV contrast as well. CBC shows normal white blood cell count 9.7. Hemoglobin slightly lower at 11.9 when it was previously 12.7 about a week and a half ago. Platelets within normal limits. Renal function electrolytes unremarkable. Glucose 207 without anion gap. LFTs are normal. CT abdomen pelvis with IV contrast shows a small pleural effusion but otherwise nothing in the abdomen. Discussed with Dr. Lancaster as is no GI on-call today. She states that she will cover the GI bleed tonight. She states that Dr. Panda will be back tomorrow and likely since this is his patient he will do the colonoscopy. Will talk to the hospitalist for admission. Impression: 1. Lower Gi bleed 2. Acute blood loss anemia 3. generalized weakness Lab Data Attestation: I reviewed the patient's lab results. Labs: Laboratory Results - last 24 hr 12/25/22 12/25/22 10:23 11:30 WBC 9.7 RBC 4.03 L Hgb 11.9 L Hct 36.5 L MCV 90.6 MCH 29.5 MCHC 32.6 RDW Std Deviation 50.4 H RDW Coeff of Myron 15.3 H Plt Count 308 MPV 10.0 Immature Gran % (Auto) 0.600 Neut % (Auto) 69.0 Lymph % (Auto) 20.8 Harmon % (Auto) 7.9 Eos % (Auto) 1.3 Baso % (Auto) 0.4 Absolute Neuts (auto) 6.7 Absolute Lymphs (auto) 2.02 Nucleated RBC % 0 Sodium 135 L Potassium 3.6 Chloride 103 Carbon Dioxide 25.0 Anion Gap 7 BUN 19 H Creatinine 1.10 Estim Creat Clear Calc 54.41 Est GFR (MDRD) Af Amer 83 Est GFR (MDRD) Non-Af 69 BUN/Creatinine Ratio 17.3 Glucose 207 H Calcium 9.0 Total Bilirubin 0.70 AST 6 L ALT 16 Alkaline Phosphatase 92 Total Protein 7.1 Albumin 3.4 Globulin 3.7 Albumin/Globulin Ratio 0.9 Urine Color Yellow Urine Clarity Clear Urine pH 6.0 Ur Specific [place] 1.010 Urine Protein 100 H Urine Glucose (UA) Normal Urine Ketones Negative Urine Occult Blood Negative Urine Nitrite Negative Urine Bilirubin Negative Urine Urobilinogen Normal Ur Leukocyte Esterase Negative Urine RBC 0 SEEN Urine WBC 0 SEEN Ur Squamous Epith Cells 0 SEEN Urine Bacteria 0 SEEN Urine Mucus 0 SEEN Blood Type O POSITIVE Antibody Screen NEGATIVE Radiography Diagnostic Testing: Clinical Impression(s) from Imaging Studies Abdomen/Pelvis CT 12/25/22 10:19 IMPRESSION: Stable small left pleural effusion with left basilar atelectasis. Fatty infiltration of the liver. Status post cholecystectomy. Scattered similar diverticula. Enlarged prostate. Electronically Signed: Amanuel Day MD at 11:23 EDT , Discharge Plan Triage Chief Complaint: GI Bleed ED Provider: Linden Taylor Dx/Rx/DC Orders Prescriptions: No Action metformin 1,000 mg tablet 1,000 mg PO BID atorvastatin 40 mg tablet 40 mg PO DAILY isosorbide mononitrate 30 mg tablet extended release 24 hr 30 mg PO DAILY aspirin 81 mg tablet,delayed release (DR/EC) 81 mg PO DAILY glipizide 10 mg tablet extended release 24hr 10 mg PO BID Patient Comments: TAKE 1 TABLET BY MOUTH TWICE DAILY furosemide 40 mg tablet 40 mg PO DAILY Patient Comments: TAKE 1 TABLET BY MOUTH ONCE DAILY IN THE MORNING FOR 30 DAYS venlafaxine 75 mg tablet 75 mg PO DAILY albuterol sulfate 90 mcg/actuation HFA aerosol inhaler 2 puff inhalation Q6H PRN Toujeo Max U-300 SoloStar 300 unit/mL (3 mL) insulin pen 36 unit subcut DAILY nitroglycerin 0.4 mg tablet, sublingual 0.4 mg sublingual Q5-15M PRN (Reason: Chest Pain) Qty: 25 3RF losartan 50 mg tablet 50 mg PO DAILY Qty: 30 11RF carvedilol 12.5 mg tablet 12.5 mg PO BID Qty: 180 3RF Rx Instructions: must administer with a meal/food Primary Care Provider: Frankie Shaver Chi Referrals: Frankie Shaver Chi, MD [Primary Care Provider] -
[2022-12-25] MEDS: 0.9% Normal Saline 1,000 ML 1000 ML IV (10:31)
[2022-12-25 10:33] LABS: Absolute Lymphocyte Count 2.02 X10^3/uL (0.83-4.51); Absolute Neutrophil Count 6.7 X10^3/uL (2.0-7.7); Basophil# 0.04 X10^3/uL; Basophil% 0.4 % (0-1); Eosinophil# 0.13 X10^3/uL; Eosinophils% 1.3 % (0-5); Hematocrit 36.5 % (40-54); Hemoglobin 11.9 g/dL (13.0-16.5); Lymphocyte # 2.02 X10^3/ul (0.83-4.51); Lymphocyte % 20.8 % (19-41); Mean Corp Hgb Conc 32.6 g/dL (32-36); Mean Corpuscular Hgb 29.5 pg (27.0-32.0); Mean Corpuscular Volume 90.6 fL (80-94); Monocyte# 0.77 X10^3/uL; Monocyte% 7.9 % (0-10); NRBC Flagged by Analyzer 0 % (0-5); Platelet Count 308 K/mm3 (150-450); RBC Distribution Width CV 15.3 % (11.6-14.6); RBC Distribution Width SD 50.4 fl (35.1-43.9); Red Blood Count 4.03 M/mm3 (4.6-6.2); White Blood Count 9.7 K/mm3 (4.4-11.0)
[2022-12-25 10:52] LABS: ALB/GLOB Ratio 0.9 RATIO (0.9-2.4); AST(SGOT) 6 U/L (15-37); Alanine Aminotransfer ALT/SGPT 16 U/L (16-61); Albumin, Serum 3.4 g/dL (3.2-5.0); Alkaline Phosphatase 92 U/L (45-117); Anion Gap 7 (5-15); BUN 19 mg/dL (7-18); BUN/Creat Ratio 17.3 RATIO (10-20); Chloride 103 mmol/L (98-107); EST Glomerular Filtration Rate 69 mL/min (>60); Est Glom Filt Rate - Afr Amer 83 mL/min (>60); Estimated Creatinine Clearance 54.41 ml/min; Globulin 3.7 g/dL (2.2-4.2); Glucose 207 mg/dL (74-106); Potassium 3.6 mmol/L (3.5-5.1); Protein, Total 7.1 g/dL (6.4-8.2); Sodium Level 135 mmol/L (136-145)
[2022-12-25 11:38] LABS: Bacteria 0 SEEN /hpf (None Seen); Color, Urine Yellow (Yellow); Glucose, Dipstick Normal (Normal); Ketone-Dipstick Negative (Negative); Leukocyte Esterase-Dipstick Negative /ul (Negative); Mucous, Urine 0 SEEN /hpf (<or=2+); Nitrite-Dipstick Negative (Negative); Occult Blood-Urine Negative /ul (Negative); Protein-Dipstick 100 mg/dl (Negative); Red Blood Cells-Urine 0 SEEN /hpf (0-5); Squamous Epithelial Cells - UA 0 SEEN /hpf (0-5); Urine Bilirubin Dipstick Negative (Negative); Urine Clarity Clear (Clear); Urine Urobilinogen Normal (Normal); White Blood Cells 0 SEEN /hpf (0-5)
--- NOTE | 2022-12-25 12:00 | NURSING ---
DR PAINTER FOR DR MORGAN
--- NOTE | 2022-12-25 12:13 | NURSING ---
MED SURG TERELETSWI GI BLEED
[2022-12-25] MEDS: Albuterol Sulfate 8 gm Inhaler (60 puffs) 2 PUFF INHALATION (12:34)
[2022-12-25 12:40] VITALS: BP 154/94; PULSE 75; RESP 20; TEMP 36.4; O2SAT 95
[2022-12-25 13:05] VITALS: BMI 37.3
[2022-12-25 13:19] LABS: Hematocrit 35.5 % (40-54); Hemoglobin 11.4 g/dL (13.0-16.5)
[2022-12-25 13:30] VITALS: BP 157/66; PULSE 76; RESP 18; TEMP 36.7; O2SAT 95
[2022-12-25] MEDS: 0.9% Normal Saline 1,000 ML 75 ML IV (13:47)
[2022-12-25] MEDS: Bisacodyl 5 MG Tablet 20 MG PO (14:41)
[2022-12-25] MEDS: Polyethylene Glycol 3350 BOWEL PREP PO (15:53)
[2022-12-25 16:56] LABS: Hemoglobin 11.5 g/dL (13.0-16.5)
[2022-12-25 17:15] VITALS: BP 169/73; PULSE 85; RESP 18; TEMP 36.6; O2SAT 93
--- NOTE | 2022-12-25 17:23 | PCM.HP.STD ---
HPI - General General Date of Admission: 12/25/22 Date of Service: 12/25/22 Chief Complaint: Bright red rectal bleeding HPI Narrative This 77-year-old white male was seen in the emergency room at [facility] with complaints of bright red rectal bleeding which started early this morning, he stated the rectal bleeding was painless, he denies any abdominal discomfort. Patient had approximately 5 episodes of bleeding including one during the time he was in the emergency room today. Evaluation in the emergency room included a CBC which was remarkable for a hemoglobin of 11.5, patient's chemistry panel was remarkable for a sodium of 135 and a BUN of 19. Glucose was 207. Patient's urinalysis was unremarkable. Patient will be placed in observation status on PCU, serial H&H's will be monitored, he will be seen in consultation by general surgery and prepped for a colonoscopy tomorrow. I will place the patient on IV Protonix, blood sugars will be monitored and sliding scale insulin will be given as needed. [facility] Medical History (HFpEF) heart failure with preserved ejection fraction Adjustment disorder with depressed mood Anemia Atherosclerosis of coronary artery without angina pectoris Cardiology follow-up encounter Chewing tobacco use CPAP (continuous positive airway pressure) dependence Disturbance of memory Essential hypertension Generalized osteoarthritis GIB (gastrointestinal bleeding) History of CVA (cerebrovascular accident) (03/31/18) History of echocardiogram History of stress test Hyperlipidemia Kidney disease Loss of hearing Pain in thoracic spine Peripheral vascular disease, unspecified Pure hypercholesterolemia, unspecified Restless legs Seizures Wears dentures Home Medications aspirin 81 mg tablet,delayed release 81 mg PO DAILY 09/15/19 [History Last Taken 12/24/22] atorvastatin 40 mg tablet 40 mg PO DAILY 09/15/19 [History Last Taken 12/24/22] isosorbide mononitrate 30 mg tablet,extended release 24 hr 30 mg PO DAILY 09/15/19 [History Last Taken 12/24/22] metformin 1,000 mg tablet 1,000 mg PO BID 09/15/19 [History Last Taken 12/24/22] glipizide 10 mg tablet, extended release 24 hr 10 mg PO DAILY 12/28/20 [History Last Taken 12/24/22] furosemide 40 mg tablet 40 mg PO DAILY 11/27/21 [History Last Taken 12/24/22] venlafaxine 75 mg tablet 75 mg PO DAILY 11/27/21 [History Last Taken 12/24/22] albuterol sulfate 90 mcg/actuation aerosol inhaler 2 puff inhalation Q6H PRN shortness of breath or wheezing 05/21/22 [History Last Taken 12/23/22] insulin glargine U-300 conc 300 unit/mL (3 mL) subcutaneous pen (Toujeo Max U-300 SoloStar) 36 unit subcut DAILY 11/20/22 [History Last Taken 12/25/22] losartan 50 mg tablet 50 mg PO DAILY #30 tabs 11/20/22 [Rx Last Taken 12/24/22] nitroglycerin 0.4 mg sublingual tablet 0.4 mg sublingual Q5-15M PRN Chest Pain #25 tabs 11/20/22 [Rx Last Taken Unknown] carvedilol 12.5 mg tablet 12.5 mg PO BID #180 tabs 12/17/22 [Rx Last Taken 12/24/22] potassium chloride 20 mEq tablet,extended release(part/cryst) 20 meq PO DAILY 12/25/22 [History Last Taken 12/24/22] ursodiol 250 mg tablet mg PO BID cirrhosis 12/25/22 [History Last Taken 12/24/22] Allergy/AdvReac Type Severity Reaction Status Date / Time dapagliflozin [From [facility]] Allergy Rash Verified 12/25/22 10:02 Family History Mother Heart disease Father Heart disease Surgical History H/O arthroscopic knee surgery H/O coronary artery bypass surgery (10/25/18) H/O resection of small bowel H/O varicose vein ligation History of appendectomy History of cataract surgery History of colonoscopy History of craniotomy (1990) History of ERCP History of left heart catheterization (10/13/18) Hx laparoscopic cholecystectomy S/P ERCP S/P laparoscopic cholecystectomy (~01/2022) Social History Smoking Status: Current every day smoker tobacco type: smokeless tobacco Smokeless tobacco user: chewing tobacco alcohol intake: former year quit: h/o substance use type: does not use ROS Constitutional Constitutional: Denies anorexia, change in weight, chills, fatigue, fever(s), malaise, night sweats or weakness Eyes Eyes: Denies blurry vision, change in vision, discharge from eye(s) or eye pain Cardiovascular Cardiovascular: Denies chest pain, claudication, edema or palpitations Respiratory/Chest Respiratory/Chest: Denies cough, hemoptysis, shortness of breath at rest or shortness of breath with exertion Gastrointestinal Gastrointestinal: Reports hematochezia; Denies abdominal pain, coffee ground emesis, constipation, diarrhea, dyspepsia, hematemesis, melena, nausea or vomiting Genitourinary Genitourinary: Denies dysuria, hematuria, nocturia, urinary frequency, urinary hesitancy, urinary incontinence or urinary urgency Musculoskeletal Musculoskeletal: Denies back pain, joint pain, joint stiffness, joint swelling, myalgias or neck pain Neurologic Neurologic: Denies abnormal gait, abnormal speech, dizziness, focal weakness, headache(s), loss of vision, numbness, other visual disturbances, paresthesias, syncope or tingling Psychiatric Psychiatric: Denies anxiety, cognitive impairment, depression, irritability, mood swings or suicidal ideation Endocrine Endocrinology: Denies change in body appearance, cold intolerance, excessive sweating, heat intolerance, polydipsia or polyuria Hematologic/Lymphatic Hematologic/Lymphatic: Denies none, anemia, easy bleeding, easy bruising or lymphadenopathy Allergic/Immunologic Allergic/Immunologic: Denies rhinitis, urticaria, eczemia or asthma Vital Signs Vital Signs Vital Signs: 12/25/22 10:02 12/25/22 12:40 12/25/22 13:30 Temperature 97.2 F L 97.5 F L 98.1 F Temperature Source Temporal Temporal Oral Pulse Rate 88 75 76 Respiratory Rate 14 20 H 18 Respiratory Effort Respiratory Depth Respiratory Pattern Blood Pressure 175/86 H 154/94 H 157/66 H Blood Pressure Mean 115 114 96 Blood Pressure Source Monitor Blood Pressure Position Sitting Blood Pressure Location Left Arm Pulse Ox 98 95 95 Oxygen Delivery Method Room Air Room Air Room Air 12/25/22 16:15 12/25/22 17:15 Temperature 97.8 F Temperature Source Oral Pulse Rate 85 Respiratory Rate 18 Respiratory Effort Normal Non-Labored Respiratory Depth Normal Respiratory Pattern Normal Blood Pressure 169/73 H Blood Pressure Mean 105 Blood Pressure Source Monitor Blood Pressure Position Semi-Fowlers Blood Pressure Location Left Arm Pulse Ox 93 Oxygen Delivery Method Room Air Room Air Weight Weight: 111.4 kg Body Mass Index (BMI) 37.3 Physical Exam Const alert, oriented x3 and no apparent distress Constitutional Narrative: Patient appears older than his stated age General Appearance: cooperative, well kempt and well developed Orientation / Consciousness: awake, oriented to person, oriented to place and oriented to time HEENT normocephalic, head/scalp atraumatic, hearing grossly normal bilaterally and moist oral mucous membranes Eyes PERRL, EOMs intact bilaterally and conjunctivae normal Neck supple, no JVD, thyroid normal and no carotid bruits General: trachea midline Resp normal respiratory effort, no retractions, no use of accessory muscles and clear to auscultation bilaterally Auscultation: Negative for rales, rhonchi or wheezes Cardio regular rate, regular rhythm, S1 normal heart sound, S2 normal heart sound, no murmurs, no rub and no gallops GI normal to inspection, nondistended, normoactive bowel sounds, soft to palpation, non-tender and non-distended Extremity no clubbing, cyanosis or edema Skin no rashes or lesions noted General Skin Exam: no breakdown Neuro oriented x3, CN's II-XII intact bilaterally, moves all extremities, no focal motor deficits and no sensory deficits noted Sensorium / Orientation: awake, alert, oriented to person, oriented to place and oriented to time Speech: speech normal Psych affect normal Results Lab / Micro Data 12/25/22 16:46 12/25/22 10:23 Labs: Laboratory Results - last 24 hr 12/25/22 10:23: WBC 9.7, RBC 4.03 L, Hgb 11.9 L, Hct 36.5 L, MCV 90.6, MCH 29.5, MCHC 32.6, RDW Std Deviation 50.4 H, RDW Coeff of Myron 15.3 H, Plt Count 308, MPV 10.0, Immature Gran % (Auto) 0.600, Neut % (Auto) 69.0, Lymph % (Auto) 20.8, [place] % (Auto) 7.9, Eos % (Auto) 1.3, Baso % (Auto) 0.4, Absolute Neuts (auto) 6.7, Absolute Lymphs (auto) 2.02, Nucleated RBC % 0, Sodium 135 L, Potassium 3.6, Chloride 103, Carbon Dioxide 25.0, Anion Gap 7, BUN 19 H, Creatinine 1.10, Estim Creat Clear Calc 54.41, Est GFR (MDRD) Af Amer 83, Est GFR (MDRD) Non-Af 69, BUN/Creatinine Ratio 17.3, Glucose 207 H, Calcium 9.0, Total Bilirubin 0.70, AST 6 L, ALT 16, Alkaline Phosphatase 92, Total Protein 7.1, Albumin 3.4, Globulin 3.7, Albumin/Globulin Ratio 0.9, Blood Type O POSITIVE, Antibody Screen NEGATIVE 12/25/22 11:30: Urine Color Yellow, Urine Clarity Clear, Urine pH 6.0, Ur Specific [place] 1.010, Urine Protein 100 H, Urine Glucose (UA) Normal, Urine Ketones Negative, Urine Occult Blood Negative, Urine Nitrite Negative, Urine Bilirubin Negative, Urine Urobilinogen Normal, Ur Leukocyte Esterase Negative, Urine RBC 0 SEEN, Urine WBC 0 SEEN, Ur Squamous Epith Cells 0 SEEN, Urine Bacteria 0 SEEN, Urine Mucus 0 SEEN 12/25/22 13:05: Hgb 11.4 L, Hct 35.5 L 12/25/22 16:46: Hgb 11.5 L, Hct 36.0 L Radiology Impression Abdomen/Pelvis CT 12/25/22 10:19 IMPRESSION: Stable small left pleural effusion with left basilar atelectasis. Fatty infiltration of the liver. Status post cholecystectomy. Scattered similar diverticula. Enlarged prostate. Electronically Signed: Amanuel Day MD at 11:23 EDT , Assessment & Plan Assessment/Plan (1) Bright red rectal bleeding: PLAN: Plan #1. Bright red rectal bleeding-patient was placed into observation status on PCU, serial H&H's will be obtained, he will be prepped for a colonoscopy tomorrow and possibly an EGD. Patient will be placed on IV Protonix. #2 Atherosclerotic heart disease-complicates care, medical course, recovery and prognosis #3 type 2 diabetes-patient's basal insulin will be held at this time, sliding scale insulin will be given based on fingerstick blood sugars. #4 chronic depression-patient is on Effexor #5 essential hypertension-patient will remain on Coreg and losartan Total clinical time spent by myself addressing the patient's medical issues, reviewing all of his data, and collaborating with patient's care team: 55 minutes Charges/Coding Visit Charges Inpatient E&M: 68067 Init Hosp L2
[2022-12-25 17:26] LABS: Bedside Glucose 121 mg/dL (74-106)
[2022-12-25 20:47] LABS: Hematocrit 32.3 % (40-54); Hemoglobin 10.4 g/dL (13.0-16.5)
[2022-12-25] MEDS: Carvedilol 12.5 MG Tablet PO (21:41)
[2022-12-25] MEDS: Atorvastatin Calcium 40 MG Tablet PO (21:41)
[2022-12-25 21:56] VITALS: BP 155/71; PULSE 81; RESP 18; TEMP 36.6; O2SAT 96
--- NOTE | 2022-12-25 23:00 | EX.PCM.CON.G ---
HPI Consult Data Date of Consult: 12/26/22 HPI Narrative Reason for Consultation: Lower GI bleeding HPI Narrative: JONY MELENDEZ, is a 77 M who presented to the emergency room at [facility] with complaints of bright red rectal bleeding which started early this morning, he stated the rectal bleeding was painless. He denies any abdominal discomfort. Patient had approximately 5 episodes of bleeding including one during the time he was in the emergency room today. Evaluation in the emergency room included a CBC which was remarkable for a hemoglobin of 11.5, patient's chemistry panel was remarkable for a sodium of 135 and a BUN of 19. Glucose was 207. Patient's urinalysis was unremarkable. [facility] Medical History (HFpEF) heart failure with preserved ejection fraction Adjustment disorder with depressed mood Anemia Atherosclerosis of coronary artery without angina pectoris Cardiology follow-up encounter Chewing tobacco use CPAP (continuous positive airway pressure) dependence Disturbance of memory Essential hypertension Generalized osteoarthritis GIB (gastrointestinal bleeding) History of CVA (cerebrovascular accident) (03/31/18) History of echocardiogram History of stress test Hyperlipidemia Kidney disease Loss of hearing Pain in thoracic spine Peripheral vascular disease, unspecified Pure hypercholesterolemia, unspecified Restless legs Seizures Wears dentures Home Medications aspirin 81 mg tablet,delayed release 81 mg PO DAILY 09/15/19 [History Last Taken 12/24/22] atorvastatin 40 mg tablet 40 mg PO DAILY 09/15/19 [History Last Taken 12/24/22] isosorbide mononitrate 30 mg tablet,extended release 24 hr 30 mg PO DAILY 09/15/19 [History Last Taken 12/24/22] metformin 1,000 mg tablet 1,000 mg PO BID 09/15/19 [History Last Taken 12/24/22] glipizide 10 mg tablet, extended release 24 hr 10 mg PO DAILY 12/28/20 [History Last Taken 12/24/22] furosemide 40 mg tablet 40 mg PO DAILY 11/27/21 [History Last Taken 12/24/22] venlafaxine 75 mg tablet 75 mg PO DAILY 11/27/21 [History Last Taken 12/24/22] albuterol sulfate 90 mcg/actuation aerosol inhaler 2 puff inhalation Q6H PRN shortness of breath or wheezing 05/21/22 [History Last Taken 12/23/22] insulin glargine U-300 conc 300 unit/mL (3 mL) subcutaneous pen (Toujeo Max U-300 SoloStar) 36 unit subcut DAILY 11/20/22 [History Last Taken 12/25/22] losartan 50 mg tablet 50 mg PO DAILY #30 tabs 11/20/22 [Rx Last Taken 12/24/22] nitroglycerin 0.4 mg sublingual tablet 0.4 mg sublingual Q5-15M PRN Chest Pain #25 tabs 11/20/22 [Rx Last Taken Unknown] carvedilol 12.5 mg tablet 12.5 mg PO BID #180 tabs 12/17/22 [Rx Last Taken 12/24/22] potassium chloride 20 mEq tablet,extended release(part/cryst) 20 meq PO DAILY 12/25/22 [History Last Taken 12/24/22] ursodiol 250 mg tablet mg PO BID cirrhosis 12/25/22 [History Last Taken 12/24/22] pantoprazole 40 mg tablet,delayed release (Protonix) 40 mg PO DAILY #30 tabs 12/26/22 [Rx Last Taken Unknown] Allergy/AdvReac Type Severity Reaction Status Date / Time dapagliflozin [From [facility]] Allergy Rash Verified 12/25/22 10:02 Family History Mother Heart disease Father Heart disease Surgical History H/O arthroscopic knee surgery H/O coronary artery bypass surgery (10/25/18) H/O resection of small bowel H/O varicose vein ligation History of appendectomy History of cataract surgery History of colonoscopy History of craniotomy (1990) History of ERCP History of left heart catheterization (10/13/18) Hx laparoscopic cholecystectomy S/P ERCP S/P laparoscopic cholecystectomy (~01/2022) Social History Smoking Status: Current every day smoker tobacco type: smokeless tobacco Smokeless tobacco user: chewing tobacco alcohol intake: former year quit: h/o substance use type: does not use ROS Constitutional Constitutional: Denies anorexia, change in weight, chills, fatigue, fever(s), malaise, night sweats or weakness Eyes Eyes: Denies blurry vision, change in vision, discharge from eye(s) or eye pain Cardiovascular Cardiovascular: Denies chest pain, claudication, edema or palpitations Respiratory/Chest Respiratory/Chest: Denies cough, hemoptysis, shortness of breath at rest or shortness of breath with exertion Gastrointestinal Gastrointestinal: Reports hematochezia; Denies abdominal pain, coffee ground emesis, constipation, diarrhea, dyspepsia, hematemesis, melena, nausea or vomiting Genitourinary Genitourinary: Denies dysuria, hematuria, nocturia, urinary frequency, urinary hesitancy, urinary incontinence or urinary urgency Musculoskeletal Musculoskeletal: Denies back pain, joint pain, joint stiffness, joint swelling, myalgias or neck pain Neurologic Neurologic: Denies abnormal gait, abnormal speech, dizziness, focal weakness, headache(s), loss of vision, numbness, other visual disturbances, paresthesias, syncope or tingling Psychiatric Psychiatric: Denies anxiety, cognitive impairment, depression, irritability, mood swings or suicidal ideation Endocrine Endocrinology: Denies change in body appearance, cold intolerance, excessive sweating, heat intolerance, polydipsia or polyuria Hematologic/Lymphatic Hematologic/Lymphatic: Denies none, anemia, easy bleeding, easy bruising or lymphadenopathy Allergic/Immunologic Allergic/Immunologic: Denies rhinitis, urticaria, eczemia or asthma Physical Exam Narrative General: Alert, Oriented x3, Cooperative, morbid obesity BMI 37.3 kg/m?. HEENT: Atraumatic, PERRLA, EOMI, Normocephalic. Craniectomy scar. Oral: Oral mucosa moist. No Gingival or Mucosal Lesions/ Ulcerations Neck: Supple, No JVD, Negative Carotid Bruits Lungs: Air entry diminished in bilateral lung bases. No crepitation/rhonchi Cardiovascular: Regular rate, Regular Rhythm, Normal S1, Normal S2, systolic murmur. Abdomen: Abdominal scar from previous surgery. Bowel Sounds Present, Soft, Non Tender, Non-Distended : No renal angle tenderness. No suprapubic tenderness. Extremities: No edema, Capillary Refill Less than 3 Seconds Skin: No rashes, No breakdown Musculoskeletal: No Tenderness to Palpation of Joints or Extremities Neurological: Cranial nerves II-XII grossly intact, DTR 2+/4. No acute focal neurological deficit. Psych/Mental Status: Normal Affect, Appropriate. Lab / Micro Data 12/26/22 06:55 12/26/22 06:55 Labs: Laboratory Results - last 24 hr 12/25/22 17:07: POC Glucose 121 H 12/25/22 20:40: Hgb 10.4 L, Hct 32.3 L 12/25/22 21:54: POC Glucose 100 12/26/22 06:27: POC Glucose 146 H 12/26/22 06:55: WBC 8.1, RBC 3.46 L, Hgb 10.3 L, Hct 31.3 L, MCV 90.5, MCH 29.8, MCHC 32.9, RDW Std Deviation 51.8 H, RDW Coeff of Myron 15.9 H, Plt Count 279, MPV 9.6, Immature Gran % (Auto) 0.600, Neut % (Auto) 65.3, Lymph % (Auto) 24.9, [place] % (Auto) 7.6, Eos % (Auto) 1.2, Baso % (Auto) 0.4, Absolute Neuts (auto) 5.3, Absolute Lymphs (auto) 2.03, Nucleated RBC % 0, PT 14.4, INR 1.1, APTT 42.3 H, Sodium 139, Potassium 3.4 L, Chloride 107, Carbon Dioxide 24.0, Anion Gap 8, BUN 14, Creatinine 1.15, Estim Creat Clear Calc 52.04, Est GFR (MDRD) Af Amer 79, Est GFR (MDRD) Non-Af 65, BUN/Creatinine Ratio 12.2, Glucose 142 H, Calcium 8.6, AST 14 L, ALT 18 Assessment & Plan Assessment/Plan (1) Bright red rectal bleeding: PLAN: Plan Bright red rectal bleeding-patient was placed into observation status on PCU, serial H&H's will be obtained, he will be prepped for a colonoscopy tomorrow. Patient also will be placed on IV Protonix. Charges/Coding Visit Charges Inpatient E&M: 42564 Init Hosp L3
[2022-12-25 23:08] LABS: Bedside Glucose 100 mg/dL (74-106)
[2022-12-26] VITALS (10 sets, daily range): BP systolic 92–183; BP diastolic 39–81; PULSE 74–83; RESP 16–18; TEMP 36.1–36.9; O2SAT 93–98; BMI 37.3
--- NOTE | 2022-12-26 | COLBX_PTH ---
PATIENT: JONY MELENDEZ LOC: [facility] U#:[id number] AGE/SX: 77/M ROOM: [facility] RE12/25/[address]: Dr. Yon Penn MD : 1945 BED: 1 DIS: 12/26/2022 SPEC #: [id number] RECD: 12/26/22 14:09 STATUS: VERO REBeba #: [id number] JUVENAL: 12/26/22 00:[address]: Valentin Panda DEPT: SURGICAL PATHOLOGY RECD BY: Noel Trivedi ENTERED: 12/27/22 07:57 SP TYPE: COLON BX OTHR DR: DO Dr. Yon Obrien MD Dr. Tai Chi Kwok, MD Tissues: A - Ileum, NOS B - Rectum, NOS Procedures: Surgery Specimen Level IV Comments: @ Ordering doctor for SUIV edited from to @ by KAELYN at 12/27/22 [id number] @ Submitting doctor edited from to @ by RGOOD at 12/27/22 1135 HEADER OPERATION: Colonoscopy with biopsy and polypectomy PRE-OP DIAGNOSIS: Bright red rectal bleeding TISSUE SUBMITTED: A - Terminal ileum biopsy, B - Rectal polyp MICROSCOPIC DIAGNOSIS A. Terminal ileum, biopsy: No pathologic change. B. Rectal polyp, biopsy: Tubular adenoma. AM:angel 12/30/2022 MICROSCOPIC DESCRIPTION Slides are reviewed. GROSS DESCRIPTION A - Received in fixative is one container labeled with the patient's name and designated terminal ileum biopsy. The specimen consists of multiple irregular fragments of light cho soft tissue that in aggregate measure 1.0 x 0.2 x 0.1 cm. The specimen is totally submitted in one cassette. B - Received in fixative is one container labeled with the patient's name and designated rectal polyp. The specimen consists of one irregular fragment of light cho soft tissue that measures 1.0 x 0.5 x 0.3 cm. The specimen is totally submitted in one cassette. / AM:angel 12/27/2022 TC:5 [facility]: [id number] x2
--- NOTE | 2022-12-26 05:55 | EKG12_ITS ---
Test Reason : PRE OP Blood Pressure : / mmHG Vent. Rate : 080 BPM Atrial Rate : 080 BPM P-R Int : 146 ms QRS Dur : 102 ms QT Int : 424 ms P-R-T Axes : 032 -39 061 degrees QTc Int : 489 ms Normal sinus rhythm Left axis deviation Prolonged QT Abnormal ECG When compared with ECG of 16-MAY-2011 19:37, Premature ventricular complexes are no longer Present Confirmed by RODRIGUE PELAYO ([id number]), photographic editor LILA JOHN ([id number]) on 12/31/2022 9:36:49 AM Referred By: Confirmed By:RODRIGUE PELAYO
[2022-12-26 07:10] LABS: Bedside Glucose 146 mg/dL (74-106)
[2022-12-26 07:14] LABS: Absolute Lymphocyte Count 2.03 X10^3/uL (0.83-4.51); Absolute Neutrophil Count 5.3 X10^3/uL (2.0-7.7); Basophil# 0.03 X10^3/uL; Basophil% 0.4 % (0-1); Eosinophils% 1.2 % (0-5); Hematocrit 31.3 % (40-54); Hemoglobin 10.3 g/dL (13.0-16.5); Lymphocyte # 2.03 X10^3/ul (0.83-4.51); Lymphocyte % 24.9 % (19-41); Mean Corp Hgb Conc 32.9 g/dL (32-36); Mean Corpuscular Hgb 29.8 pg (27.0-32.0); Mean Corpuscular Volume 90.5 fL (80-94); Mean Platelet Vol. 9.6 fl (6.2-12.0); Monocyte# 0.62 X10^3/uL; Monocyte% 7.6 % (0-10); NRBC Flagged by Analyzer 0 % (0-5); Neutrophil # 5.31 X10^3/uL (2.7-7.7); Neutrophil % 65.3 % (47-70); Platelet Count 279 K/mm3 (150-450); RBC Distribution Width CV 15.9 % (11.6-14.6); RBC Distribution Width SD 51.8 fl (35.1-43.9); Red Blood Count 3.46 M/mm3 (4.6-6.2); White Blood Count 8.1 K/mm3 (4.4-11.0)
[2022-12-26 07:52] LABS: AST(SGOT) 14 U/L (15-37); Alanine Aminotransfer ALT/SGPT 18 U/L (16-61); Anion Gap 8 (5-15); BUN 14 mg/dL (7-18); BUN/Creat Ratio 12.2 RATIO (10-20); Calcium,Total 8.6 mg/dL (8.5-10.1); Chloride 107 mmol/L (98-107); Creatinine, Serum 1.15 mg/dL (0.70-1.30); EST Glomerular Filtration Rate 65 mL/min (>60); Est Glom Filt Rate - Afr Amer 79 mL/min (>60); Estimated Creatinine Clearance 52.04 ml/min; Glucose 142 mg/dL (74-106); Potassium 3.4 mmol/L (3.5-5.1); Sodium Level 139 mmol/L (136-145)
[2022-12-26 08:22] LABS: International Normalized Ratio 1.1; Prothrombin Time (Protime)PT. 14.4 SECONDS (11.7-14.9)
[2022-12-26 08:23] LABS: Partial Thromboplast Time 42.3 Seconds (24.1-36.2)
[2022-12-26] MEDS: 0.9% Saline Lock 10 ML Syringe IV (08:27)
[2022-12-26] MEDS: 0.9% Normal Saline 1,000 ML 15 ML IV (10:32)
--- NOTE | 2022-12-26 12:39 | OP.CCLET_ITS ---
12/26/2022 Frankie Shaver MD [address] [place] [address] Re : Colonoscopy procedure for Tor Long[place] Dear Dr. Shaver This procedure was performed on December. My impressions and recommendations are as follows: Impressions : - Hemorrhoids found on perianal exam. - Non-bleeding internal hemorrhoids. - One 8 mm polyp in the sigmoid colon, removed with a hot snare. Resected and retrieved. - Diverticulosis in the recto-sigmoid colon, in the sigmoid colon and in the descending colon. Tattooed. - Stool in the rectum, in the sigmoid colon and in the cecum. - Mild inflammation was found in the ileum secondary to ileitis. Biopsied. Recommendations : - Discharge patient to home. - Resume regular diet. - Continue present medications. - Await pathology results. - Repeat colonoscopy in 5 years for surveillance. My findings are described in the full procedure note, which is enclosed. If I can be of further assistance, please feel free to contact me at . Sincerely, Valentin Panda, 12/26/2022 12:38:57 PM This report has been signed electronically.
--- NOTE | 2022-12-26 12:39 | OP.COLON_ITS ---
Patient Name: Tor Longoria Procedure Date: 12/26/2022 12:01 PM Date of : 1945 Age: 77 Procedure: Colonoscopy Indications: Hematochezia Providers: Valentin Panda DO Medicines: Monitored Anesthesia Care Patient Profile: This is a 77 year old male. Refer to note in patient chart for documentation of history and physical. Last Colonoscopy: date unknown. Unable to locate last colonoscopy report. Complications: No immediate complications. Procedure: Pre-Anesthesia Assessment: - Prior to the procedure, a History and Physical was performed, and patient medications and allergies were reviewed. The patient is competent. The risks and benefits of the procedure and the sedation options and risks were discussed with the patient. All questions were answered and informed consent was obtained. Patient identification and proposed procedure were verified by the physician. Mental Status Examination: alert and oriented. Airway Examination: normal oropharyngeal airway and neck mobility. Respiratory Examination: clear to auscultation. CV Examination: normal. Prophylactic Antibiotics: The patient does not require prophylactic antibiotics. Prior Anticoagulants: The patient has taken no anticoagulant or antiplatelet agents. ASA Grade Assessment: II - A patient with mild systemic disease. After reviewing the risks and benefits, the patient was deemed in satisfactory condition to undergo the procedure. The anesthesia plan was to use monitored anesthesia care (MAC). Immediately prior to administration of medications, the patient was re-assessed for adequacy to receive sedatives. The heart rate, respiratory rate, oxygen saturations, blood pressure, adequacy of pulmonary ventilation, and response to care were monitored throughout the procedure. The physical status of the patient was re-assessed after the procedure. After I obtained informed consent, the scope was passed under direct vision. Throughout the procedure, the patient's blood pressure, pulse, and oxygen saturations were monitored continuously. The colonoscope was introduced through the anus and advanced to the cecum, identified by appendiceal orifice and ileocecal valve. The terminal ileum, ileocecal valve, appendiceal orifice, and rectum were photographed. Scope In: 12:15:41 PM Scope Withdrawal Time 0 hours 10 minutes 52 seconds Scope Out: 12:28:30 PM Total Procedure Duration Time 0 hours 12 minutes 49 seconds Findings: Hemorrhoids were found on perianal exam. Non-bleeding internal hemorrhoids were found during retroflexion. The hemorrhoids were Grade II (internal hemorrhoids that prolapse but reduce spontaneously). An 8 mm polyp was found in the sigmoid colon. The polyp was sessile. The polyp was removed with a hot snare. Resection and retrieval were complete. Verification of patient identification for the specimen was done. Estimated blood loss was minimal. Multiple small and large-mouthed diverticula were found in the recto-sigmoid colon, sigmoid colon and descending colon. Area was tattooed with an injection of 2 mL of [place] ink. Stool was found in the rectum, in the sigmoid colon and in the cecum. Localized mild inflammation characterized by congestion (edema) was found in the terminal ileum. Biopsies were taken with a cold forceps for histology. Verification of patient identification for the specimen was done. Estimated blood loss was minimal. Impression: - Hemorrhoids found on perianal exam. - Non-bleeding internal hemorrhoids. - One 8 mm polyp in the sigmoid colon, removed with a hot snare. Resected and retrieved. - Diverticulosis in the recto-sigmoid colon, in the sigmoid colon and in the descending colon. Tattooed. - Stool in the rectum, in the sigmoid colon and in the cecum. - Mild inflammation was found in the ileum secondary to ileitis. Biopsied. Recommendation: - Discharge patient to home. - Resume regular diet. - Continue present medications. - Await pathology results. - Repeat colonoscopy in 5 years for surveillance. Procedure Code(s): --- Professional --- 49878, Colonoscopy, flexible; with removal of tumor(s), polyp(s), or other lesion(s) by snare technique 89057, 59, Colonoscopy, flexible; with biopsy, single or multiple 83414, Colonoscopy, flexible; with directed submucosal injection(s), any substance CPT copyright 2021 [employer]. All rights reserved. The codes documented in this report are preliminary and upon torpedo worker review may be revised to meet current compliance requirements. Valentin Panda DO 12/26/2022 12:38:57 PM This report has been signed electronically. Number of Addenda: 0 Note Initiated On: 12/26/2022 12:01 PM
--- NOTE | 2022-12-26 14:52 | CASEMGMT ---
Met with patient to complete STOCK form. STOCK form explained to patient who voiced understanding and signed form. Original form placed in pt?s chart and copy provided to patient. Loretta Faust, Discharge Planning Asst.
--- NOTE | 2022-12-26 14:59 | DCINST_ITS ---
Discharge Instructions Diet Discharge Diet: Light diet - advance as tolerated (Advanced in 3 days to 1800 ADA diet) Activity Discharge Activity: Return to Normal Activity Weight Bearing Status: Weight bearing as tolerated Dressing / Incision Call your doctor if you observe: Fever of 101 or Higher, Coldness, Increased Pain, Numbness or Tingling, Change in Color, Inability to urinate, Inability to have a bowel movement, Shortness of breath, Dizziness, Fainting spells, Swelling in the ankles, Chest pain, Prolonged hiccupping, Increased palpitations (irregular heartbeat) and Calf discomfort Follow Up Care When: IN 2 WEEKS Test Results: Test results from this visit will be discussed in further detail at your follow- up appointment, if applicable. Discharge Plan Admission Admit Date/Time: 12/25/22 12:05 Attending Provider: Yon Penn Primary Care Provider: Frankie Shaver Chi Consulting Providers: Hernando Merchant Instructions Additional Instructions / Restrictions: Advise CBC on 12/30/2022 and follow-up with PCP before resumption of aspirin Discharge Orders/Prescriptions Prescriptions: Continued metformin 1,000 mg tablet 1,000 mg PO BID atorvastatin 40 mg tablet 40 mg PO DAILY isosorbide mononitrate 30 mg tablet extended release 24 hr 30 mg PO DAILY glipizide 10 mg tablet extended release 24hr 10 mg PO DAILY Patient Comments: TAKE 1 TABLET BY MOUTH TWICE DAILY furosemide 40 mg tablet 40 mg PO DAILY Patient Comments: TAKE 1 TABLET BY MOUTH ONCE DAILY IN THE MORNING FOR 30 DAYS venlafaxine 75 mg tablet 75 mg PO DAILY albuterol sulfate 90 mcg/actuation HFA aerosol inhaler 2 puff inhalation Q6H PRN (Reason: shortness of breath or wheezing) Toujeo Max U-300 SoloStar 300 unit/mL (3 mL) insulin pen 36 unit subcut DAILY nitroglycerin 0.4 mg tablet, sublingual 0.4 mg sublingual Q5-15M PRN (Reason: Chest Pain) Qty: 25 3RF losartan 50 mg tablet 50 mg PO DAILY Qty: 30 11RF potassium chloride 20 mEq tablet,ER particles/crystals 20 meq PO DAILY Patient Comments: TAKE 1 TABLET BY MOUTH ONCE DAILY ursodiol 250 mg tablet PO BID Patient Comments: TAKE 1 TABLET BY MOUTH TWICE DAILY carvedilol 12.5 mg tablet 12.5 mg PO BID Qty: 180 3RF Rx Instructions: must administer with a meal/food Held aspirin 81 mg tablet,delayed release (DR/EC) 81 mg PO DAILY Hold Instructions: Hold for 5 days. Referrals / Follow Up: Valentin Panda DO [Med Staff - Active Staff] - Within 2 Weeks (Follow-up for colonoscopy biopsy) Frankie Shaver Chi, MD [Primary Care Provider] - Within 2 Weeks Disposition Disposition (needs filled in before D/C Order can be placed): Home, Self Care
[2022-12-26] MEDS: Carvedilol 12.5 MG Tablet PO (15:07)
[2022-12-26] MEDS: Losartan Potassium 50 MG Tablet PO (15:08)
[2022-12-26] MEDS: Venlafaxine HCl 75 MG Tablet PO (15:08)
[2022-12-26] MEDS: Isosorbide Mononitrate 30 MG Tablet PO (15:08)
--- NOTE | 2022-12-26 15:08 | PCM.DC.SUM ---
Providers Date of Admission: 12/25/22 Date of Discharge: 12/26/22 Primary Care Physician: Dr. Frankie Shaver MD Consultations 12/25/22 19:09 Consult: Gastroenterology Routine Consulting Provider: [facility] Reason for Consult: Lower GI bleed EMERGENT Consult: No MD Notified: Yes Date Notified: 12/25/22 Time Notified: 19:09 Method of Notification: Verbal Reason For Visit: RECTAL BLEEDING Diagnosis Discharge Diagnosis (1) Bright red rectal bleeding: Status: Inactive Code(s): K62.5 - Hemorrhage of anus and rectum Plan 77-year-old gentleman was admitted with bright rectal bleeding in the lyric writer on the day of presentation. Hemoglobin was 11.5. Patient was further admitted in PCU. Sand Cutter Operator was consulted. #1. Bright red rectal bleeding-patient was placed into observation status on PCU, serial H&H's will be obtained, he will be prepped for a colonoscopy tomorrow and possibly an EGD. Patient was started on IV Protonix. Patient had colonoscopy and reported as follows Impressions : - Hemorrhoids found on perianal exam. - Non-bleeding internal hemorrhoids. - One 8 mm polyp in the sigmoid colon, removed with a hot snare. Resected and retrieved. - Diverticulosis in the recto-sigmoid colon, in the sigmoid colon and in the descending colon. Tattooed. - Stool in the rectum, in the sigmoid colon and in the cecum. - Mild inflammation was found in the ileum secondary to ileitis. Biopsied. Recommendations : - Discharge patient to home. - Resume regular diet. - Continue present medications. - Await pathology results. - Repeat colonoscopy in 5 years for surveillance. Patient advised follow-up with Dr. Panda in 2 weeks 2. Anemia of chronic disease: Patient hemoglobin on admission 11.9 grams did not change significantly the last hemoglobin 10.3 Atherosclerotic heart disease-patient has history of coronary artery status post CABG in 2019, history of chronic HFpEF and peripheral vascular disease: Home medications complicates care, medical course, recovery and prognosis #3 type 2 diabetes-patient's basal insulin will be held at this time, sliding scale insulin will be given based on fingerstick blood sugars. #4 chronic depression-patient is on Effexor #5 essential hypertension-patient on Coreg and losartan 6. 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 Discharge medication reconciliation done. Discharge follow-up instructions completed. Discharge process discussed with the patient and all questions were answered to patient's satisfaction. Total time spent, exact 35 minutes on discharge meds reconciliation, examination, coordination of care with nurses and ancillary staff, review of imaging and blood test and discussion with the patient on follow-up instructions. Medications at Discharge Home Medications aspirin 81 mg tablet,delayed release 81 mg PO DAILY 09/15/19 atorvastatin 40 mg tablet 40 mg PO DAILY 09/15/19 isosorbide mononitrate 30 mg tablet,extended release 24 hr 30 mg PO DAILY 09/15/19 metformin 1,000 mg tablet 1,000 mg PO BID 09/15/19 glipizide 10 mg tablet, extended release 24 hr 10 mg PO DAILY 12/28/20 furosemide 40 mg tablet 40 mg PO DAILY 11/27/21 venlafaxine 75 mg tablet 75 mg PO DAILY 11/27/21 albuterol sulfate 90 mcg/actuation aerosol inhaler 2 puff inhalation Q6H PRN shortness of breath or wheezing 05/21/22 insulin glargine U-300 conc 300 unit/mL (3 mL) subcutaneous pen (Toujeo Max U-300 SoloStar) 36 unit subcut DAILY 11/20/22 losartan 50 mg tablet 50 mg PO DAILY #30 tabs 11/20/22 nitroglycerin 0.4 mg sublingual tablet 0.4 mg sublingual Q5-15M PRN Chest Pain #25 tabs 11/20/22 carvedilol 12.5 mg tablet 12.5 mg PO BID #180 tabs 12/17/22 potassium chloride 20 mEq tablet,extended release(part/cryst) 20 meq PO DAILY 12/25/22 ursodiol 250 mg tablet mg PO BID cirrhosis 12/25/22 Physical Exam Narrative General: Alert, Oriented x3, Cooperative, morbid obesity BMI 37.3 kg/m?. HEENT: Atraumatic, PERRLA, EOMI, Normocephalic. Craniectomy scar. Oral: Oral mucosa moist. No Gingival or Mucosal Lesions/ Ulcerations Neck: Supple, No JVD, Negative Carotid Bruits Lungs: Air entry diminished in bilateral lung bases. No crepitation/rhonchi Cardiovascular: Regular rate, Regular Rhythm, Normal S1, Normal S2, systolic murmur. Abdomen: Abdominal scar from previous surgery. Bowel Sounds Present, Soft, Non Tender, Non-Distended : No renal angle tenderness. No suprapubic tenderness. Extremities: No edema, Capillary Refill Less than 3 Seconds Skin: No rashes, No breakdown Musculoskeletal: No Tenderness to Palpation of Joints or Extremities Neurological: Cranial nerves II-XII grossly intact, DTR 2+/4. No acute focal neurological deficit. Psych/Mental Status: Normal Affect, Appropriate. Weight / BMI Weight Weight: 245 lb 9.519 oz Body Mass Index (BMI) 37.3 ABG / Lab / Microbiology Data 12/26/22 06:55 12/26/22 06:55 Laboratory: Laboratory Results - last 24 hr 12/25/22 16:46: Hgb 11.5 L, Hct 36.0 L 12/25/22 17:07: POC Glucose 121 H 12/25/22 20:40: Hgb 10.4 L, Hct 32.3 L 12/25/22 21:54: POC Glucose 100 12/26/22 06:27: POC Glucose 146 H 12/26/22 06:55: WBC 8.1, RBC 3.46 L, Hgb 10.3 L, Hct 31.3 L, MCV 90.5, MCH 29.8, MCHC 32.9, RDW Std Deviation 51.8 H, RDW Coeff of Myron 15.9 H, Plt Count 279, MPV 9.6, Immature Gran % (Auto) 0.600, Neut % (Auto) 65.3, Lymph % (Auto) 24.9, [place] % (Auto) 7.6, Eos % (Auto) 1.2, Baso % (Auto) 0.4, Absolute Neuts (auto) 5.3, Absolute Lymphs (auto) 2.03, Nucleated RBC % 0, PT 14.4, INR 1.1, APTT 42.3 H, Sodium 139, Potassium 3.4 L, Chloride 107, Carbon Dioxide 24.0, Anion Gap 8, BUN 14, Creatinine 1.15, Estim Creat Clear Calc 52.04, Est GFR (MDRD) Af Amer 79, Est GFR (MDRD) Non-Af 65, BUN/Creatinine Ratio 12.2, Glucose 142 H, Calcium 8.6, AST 14 L, ALT 18 D/C Instructions Discharge Diet: Light diet - advance as tolerated (Advanced in 3 days to 1800 ADA diet) Weight Bearing Status: Weight bearing as tolerated Call your doctor if you observe: Fever of 101 or Higher, Coldness, Increased Pain, Numbness or Tingling, Change in Color, Inability to urinate, Inability to have a bowel movement, Shortness of breath, Dizziness, Fainting spells, Swelling in the ankles, Chest pain, Prolonged hiccupping, Increased palpitations (irregular heartbeat) and Calf discomfort When: IN 2 WEEKS Meaningful Use Info Meaningful Use Diagnoses (Choose all that apply): None applicable Discharge Plan Admission Admit Date/Time: 12/25/22 12:05 Attending Provider: Yon Penn Primary Care Provider: Frankie Shaver Chi Consulting Providers: Hernando Merchant Instructions Additional Instructions / Restrictions: Advise CBC on 12/30/2022 and follow-up with PCP before resumption of aspirin Discharge Orders/Prescriptions Prescriptions: Continued metformin 1,000 mg tablet 1,000 mg PO BID atorvastatin 40 mg tablet 40 mg PO DAILY isosorbide mononitrate 30 mg tablet extended release 24 hr 30 mg PO DAILY glipizide 10 mg tablet extended release 24hr 10 mg PO DAILY Patient Comments: TAKE 1 TABLET BY MOUTH TWICE DAILY furosemide 40 mg tablet 40 mg PO DAILY Patient Comments: TAKE 1 TABLET BY MOUTH ONCE DAILY IN THE MORNING FOR 30 DAYS venlafaxine 75 mg tablet 75 mg PO DAILY albuterol sulfate 90 mcg/actuation HFA aerosol inhaler 2 puff inhalation Q6H PRN (Reason: shortness of breath or wheezing) Toujeo Max U-300 SoloStar 300 unit/mL (3 mL) insulin pen 36 unit subcut DAILY nitroglycerin 0.4 mg tablet, sublingual 0.4 mg sublingual Q5-15M PRN (Reason: Chest Pain) Qty: 25 3RF losartan 50 mg tablet 50 mg PO DAILY Qty: 30 11RF potassium chloride 20 mEq tablet,ER particles/crystals 20 meq PO DAILY Patient Comments: TAKE 1 TABLET BY MOUTH ONCE DAILY ursodiol 250 mg tablet PO BID Patient Comments: TAKE 1 TABLET BY MOUTH TWICE DAILY carvedilol 12.5 mg tablet 12.5 mg PO BID Qty: 180 3RF Rx Instructions: must administer with a meal/food Held aspirin 81 mg tablet,delayed release (DR/EC) 81 mg PO DAILY Hold Instructions: Hold for 5 days. Referrals / Follow Up: Valentin Panda DO [Med Staff - Active Staff] - Within 2 Weeks (Follow-up for colonoscopy biopsy) Frankie Shaver Chi, MD [Primary Care Provider] - Within 2 Weeks Disposition Disposition (needs filled in before D/C Order can be placed): Home, Self Care Charges/Coding Visit Charges Inpatient E&M: 89641 Disch Hosp >30min
--- NOTE | 2022-12-26 15:58 | CASEMGMT ---
Patient has order for discharge. RN CM in to discuss needs at discharge. Patient denies needs at discharge. Patient has no further questions or concerns at this time.
== END 2022-12-26 15:08 | disposition home or self-care (01) ==
LOC: ED 10:27 → PCU 12:47
PROVIDERS: Anesthesiology; Internal Medicine Gastroenterology; Admitting Provider Internal Medicine; Emergency Provider Student in an Organized Health Care Education/Training Program; PCP Family Medicine Geriatric Medicine; Visit Provider Internal Medicine
PROC: 0DJD8ZZ Inspection of Lower Intestinal Tract, Via Natural or Artificial Opening Endoscopic (ICD-10-PCS; CPT 45378; principal; 2022-12-26 11:10)
DX: K62.5 Hemorrhage of anus and rectum (principal); E11.51 Type 2 diabetes mellitus with diabetic peripheral angiopathy without gangrene; I11.0 Hypertensive heart disease with heart failure; I50.32 Chronic diastolic (congestive) heart failure; Z79.82 Long term (current) use of aspirin; F17.220 Nicotine dependence, chewing tobacco, uncomplicated; E78.00 Pure hypercholesterolemia, unspecified; K64.1 Second degree hemorrhoids; D63.8 Anemia in other chronic diseases classified elsewhere; K57.30 Diverticulosis of large intestine without perforation or abscess without bleeding; I25.10 Atherosclerotic heart disease of native coronary artery without angina pectoris; R42 Dizziness and giddiness; D12.8 Benign neoplasm of rectum; Z79.899 Other long term (current) drug therapy; Z79.84 Long term (current) use of oral hypoglycemic drugs; R06.09 Other forms of dyspnea; R53.83 Other fatigue; Z95.1 Presence of aortocoronary bypass graft; Z86.73 Personal history of transient ischemic attack (TIA), and cerebral infarction without residual deficits; E66.9 Obesity, unspecified; Z68.37 Body mass index [BMI] 37.0-37.9, adult; F32.A Depression, unspecified
CPT/HCPCS: 45385; 45381; 45380; 36415; 74177; 80048; 80053; 81001; 82962; 84450; 84460; 85014; 85018; 85025; 85610; 85730; 86850; 86900; 86901; 88305; 93005; 96361; 96365; 96366; 99221; 99283; J7030; J7120; Q9967; A4216; G0378; J2405

== ENCOUNTER → 2022-12-30 | Outpatient (CLI) | payer MEDICARE, SELFPAY ==
[2022-12-30 17:33] LABS: Absolute Lymphocyte Count 2.13 X10^3/uL (0.83-4.51); Absolute Neutrophil Count 6.1 X10^3/uL (2.0-7.7); Basophil# 0.03 X10^3/uL; Basophil% 0.3 % (0-1); Eosinophil# 0.13 X10^3/uL; Eosinophils% 1.4 % (0-5); Hematocrit 32.4 % (40-54); Hemoglobin 10.4 g/dL (13.0-16.5); Lymphocyte # 2.13 X10^3/ul (0.83-4.51); Lymphocyte % 23.1 % (19-41); Mean Corp Hgb Conc 32.1 g/dL (32-36); Mean Corpuscular Hgb 29.3 pg (27.0-32.0); Mean Corpuscular Volume 91.3 fL (80-94); Mean Platelet Vol. 10.5 fl (6.2-12.0); Monocyte# 0.76 X10^3/uL; Monocyte% 8.3 % (0-10); NRBC Flagged by Analyzer 0 % (0-5); Neutrophil # 6.09 X10^3/uL (2.7-7.7); Neutrophil % 66.1 % (47-70); Platelet Count 388 K/mm3 (150-450); RBC Distribution Width CV 15.9 % (11.6-14.6); RBC Distribution Width SD 52.3 fl (35.1-43.9); Red Blood Count 3.55 M/mm3 (4.6-6.2); White Blood Count 9.2 K/mm3 (4.4-11.0)
== END | disposition home or self-care (01) ==
PROVIDERS: PCP Family Medicine Geriatric Medicine; Visit Provider Family Medicine Geriatric Medicine
DX: D64.9 Anemia, unspecified (principal)
CPT/HCPCS: 36415; 85025

== ENCOUNTER → 2023-03-20 | Outpatient (CLI) | payer MEDICARE, SELFPAY ==
[2023-03-20 13:33] LABS: Absolute Lymphocyte Count 1.61 X10^3/uL (0.83-4.51); Absolute Neutrophil Count 6.4 X10^3/uL (2.0-7.7); Basophil# 0.03 X10^3/uL; Basophil% 0.3 % (0-1); Eosinophil# 0.08 X10^3/uL; Eosinophils% 0.9 % (0-5); Hematocrit 39.7 % (40-54); Lymphocyte # 1.61 X10^3/ul (0.83-4.51); Mean Corp Hgb Conc 30.2 g/dL (32-36); Mean Corpuscular Hgb 26.5 pg (27.0-32.0); Mean Corpuscular Volume 87.8 fL (80-94); Mean Platelet Vol. 10.3 fl (6.2-12.0); Monocyte# 0.67 X10^3/uL; Monocyte% 7.5 % (0-10); NRBC Flagged by Analyzer 0 % (0-5); Neutrophil # 6.44 X10^3/uL (2.7-7.7); Neutrophil % 72.3 % (47-70); Platelet Count 403 K/mm3 (150-450); RBC Distribution Width CV 16.7 % (11.6-14.6); RBC Distribution Width SD 53.6 fl (35.1-43.9); Red Blood Count 4.52 M/mm3 (4.6-6.2); White Blood Count 8.9 K/mm3 (4.4-11.0)
[2023-03-20 13:48] LABS: ALB/GLOB Ratio 0.8 RATIO (0.9-2.4); AST(SGOT) 12 U/L (15-37); Alanine Aminotransfer ALT/SGPT 22 U/L (16-61); Albumin, Serum 3.5 g/dL (3.2-5.0); Alkaline Phosphatase 114 U/L (45-117); Anion Gap 7 (5-15); BUN 17 mg/dL (7-18); BUN/Creat Ratio 14.8 RATIO (10-20); Calcium,Total 9.4 mg/dL (8.5-10.1); Chloride 99 mmol/L (98-107); Cholesterol 144 mg/dL (200); Creatinine, Serum 1.15 mg/dL (0.70-1.30); EST Glomerular Filtration Rate 65 mL/min (>60); Est Glom Filt Rate - Afr Amer 79 mL/min (>60); Globulin 4.3 g/dL (2.2-4.2); Glucose 164 mg/dL (74-106); High Density Lipoprotein 33 mg/dL; Protein, Total 7.8 g/dL (6.4-8.2); Sodium Level 133 mmol/L (136-145); Triglycerides 206 mg/dL; Very Low Density Lipoprotein 41 mg/dL (5-40)
[2023-03-20 13:50] LABS: Vitamin D,25 Hydroxy 35.1 ng/mL
[2023-03-20 14:52] LABS: Thyroid Stim Hormone (TSH) 1.34 uIU/mL (0.358-3.74)
== END | disposition home or self-care (01) ==
LOC: POLAB3 09:57
PROVIDERS: PCP Family Medicine Geriatric Medicine; Visit Provider Family Medicine Geriatric Medicine
DX: E11.65 Type 2 diabetes mellitus with hyperglycemia (principal); I10 Essential (primary) hypertension; E78.5 Hyperlipidemia, unspecified; E55.9 Vitamin D deficiency, unspecified
CPT/HCPCS: 36415; 80053; 80061; 82306; 84443; 85025

== ENCOUNTER → 2023-04-14 | Outpatient (CLI) | payer MEDICARE, SELFPAY ==
--- NOTE | 2023-04-14 09:28 | ECHOCS_ITS ---
Reason For Study: ASHD Procedure This was a 2D Doppler, Color Flow transthoracic echocardiogram. The study was technically difficult. Due to body habitus. Contrast injection was performed. Exam performed in department. Left Ventricle Normal LV size. Left ventricular systolic function is normal. The estimated ejection fraction is 60 %. Stage 1 diastolic dysfunction. No regional wall motion abnormalities noted. Right Ventricle Normal RV size. Normal systolic function. Atria Normal left atrium. Normal right atrium. Mitral Valve Mitral valve not well visualized. Tricuspid Valve Normal tricuspid valve. Mild (1+) tricuspid valve insufficiency. Pulmonary artery systolic pressure is 30 mmHg. Aortic Valve The aortic valve is not well visualized. Pulmonic Valve Normal pulmonic valve. Mild (1+) pulmonic valve insufficiency. Great Vessels Normal aortic root. The pulmonary is not well visualized. Normal inferior vena cava. Pericardium/Pleural No pericardial effusion. Medication 22 gauge I.V. with prn adaptor inserted into left arm. Diluted definity 3.5ml given slow IV push to enhance endocardial definition. MMode/2D Measurements & Calculations LVIDd: 4.4 cm IVSd: 1.1 cm LVOT diam: 2.1 cm LVIDs: 3.3 cm LVPWd: 1.2 cm RVDd: 3.3 cm FS: 26.0 % LVOT area: 3.3 cm2 Ao root diam: 3.8 cm LAV(MOD-bp): 72.5 ml LVAd ap4: 23.0 cm2 LAV(MOD-bp) Indexed: 32.5 ml/m2 LVLd ap4: 8.1 cm LAV(MOD-sp2): 94.6 ml EDV(MOD-sp4): 53.3 ml LAV(MOD-sp4): 53.7 ml EDV(sp4-el): 55.6 ml LVAs ap4: 12.6 cm2 LVLs ap4: 6.5 cm ESV(MOD-sp4): 20.6 ml ESV(sp4-el): 20.8 ml EF(MOD-sp4): 61.3 % EF(sp4-el): 62.6 % SV(MOD-sp4): 32.7 ml SV(sp4-el): 34.8 ml LA A4 area: 19.1 cm2 LA dimension(2D): 5.4 cm RA A4 area: 18.9 cm2 TAPSE: 1.7 cm Time Measurements MV dec time: 0.31 sec Doppler Measurements & Calculations MV E max ernie: 73.8 cm/sec Lat Peak E' Ernie: 9.8 cm/sec Med Peak E' Ernie: 7.1 cm/sec MV A max ernie: 118.1 cm/sec E/E' lat: 7.5 E/E' med: 10.4 MV E/A: 0.62 MV V2 max: 120.4 cm/sec MV P1/2t max ernie: 82.6 cm/sec Ao V2 max: 195.5 cm/sec MV max P.8 mmHg MV P1/2t: 98.9 msec Ao max P.3 mmHg MV V2 mean: 73.5 cm/sec MV dec slope: 244.9 cm/sec2 Ao V2 mean: 122.6 cm/sec MV mean P.4 mmHg MVA(P1/2t): 2.2 cm2 Ao mean P.7 mmHg MV V2 VTI: 28.6 cm Ao V2 VTI: 36.6 cm MVA(VTI): 2.4 cm2 AV (velocity ratio): 0.57 COLEEN(I,D): 1.9 cm2 COLEEN(V,D): 1.8 cm2 LV V1 max: 106.6 cm/sec SV(LVOT): 68.9 ml PA V2 max: 112.7 cm/sec LV V1 max P.5 mmHg PA V2 mean: 77.0 cm/sec LV V1 mean P.1 mmHg LV V1 mean: 68.4 cm/sec LV V1 VTI: 20.7 cm TR max ernie: 250.5 cm/sec TR max P.1 mmHg ECHO/Echo Complete W/ Contrast Interpretation Summary Normal LV size. Left ventricular systolic function is normal. The estimated ejection fraction is 60 %. Stage 1 diastolic dysfunction. Pulmonary artery systolic pressure is 30 mmHg. Contrast injection was performed. Ordering Physician: Irene Shelton Referring Physician: Sivakumar, Frankie Chi Performed By: Jolene Hylton, KENYA, RVT
== END | disposition home or self-care (01) ==
PROVIDERS: PCP Family Medicine Geriatric Medicine; Referring Provider Physician Assistant Medical; Visit Provider Physician Assistant Medical
DX: I25.10 Atherosclerotic heart disease of native coronary artery without angina pectoris (principal)
CPT/HCPCS: 93306; Q9957; A4216; C8929

== ENCOUNTER → 2023-05-27 | Outpatient (CLI) | payer MEDICARE, SELFPAY ==
--- NOTE | 2023-05-27 15:33 | RAD_ITS ---
EXAM: XR LUMBOSACRAL SPINE, 4 OR 5 VIEWS CLINICAL INDICATION: LUMBAR DISC DISEASE/LOW BACK PAIN TECHNIQUE: Frontal, lateral and bilateral oblique views of the lumbar spine. COMPARISON: No relevant prior studies available. FINDINGS: VERTEBRAE: Unremarkable. Preserved vertebral body height. No fracture. No spondylolisthesis. Preservation of the normal lumbar lordosis. No significant facet arthropathy. DISC SPACES: There are degenerative changes with large anterior osteophyte formation from L1 through L4. There is disc space narrowing at L1-2. GASTROINTESTINAL TRACT: Unremarkable as visualized. Included bowel gas pattern is non-obstructive. RAD/L/S Spine Min 4 Views IMPRESSION: 1. No acute osseous abnormalities. 2. Degenerative changes with disc space narrowing and osteophyte formation. Electronically Signed: Patel Irene MD at 18:30 EST ,
--- OUTSIDE RECORDS SUMMARY | 2023-05-27 17:09 | XMS RPT_ITS | CCD ---
Author Name Unknown Address [address] [place] [id number] Organization [facility] Care Team Providers Care Immigration Judge Name Role Phone OSVALDO COHEN MD Primary Care Unavailable OSVALDO COHEN MD Admitting Unavailable OSVALDO COHEN MD Attending Unavailable MANE WARD MD Consulting Unavailable PROVIDER, UNKNOWN Consulting Unavailable PROVIDER, UNKNOWN Consulting Unavailable ALVARADO HUTSON DO Attending Unavailable ALVARADO HUTSON DO Primary Care Unavailable ALVARADO HUTSON DO Admitting Unavailable KINZA BARON MD Referring Unavailable KINZA BARON MD Consulting Unavailable PROVIDER, UNKNOWN Consulting Unavailable PROVIDER, UNKNOWN Consulting Unavailable PROVIDER, UNKNOWN Consulting Unavailable Problems Problem Classification Problem Date Documented Date Episodic/Chronic Acute and unspecified renal failure (1 source) Acute kidney failure, unspecified; Translations: [Acute kidney failure, unspecified] Onset: 05-03-2022 Episodic Chronic kidney disease (1 source) Chronic kidney disease, unspecified; Translations: [Chronic kidney disease, unspecified] Onset: 05-03-2022 Chronic Coronary atherosclerosis and other heart disease (1 source) Atherosclerotic heart disease of [place] coronary artery without angina pectoris; Translations: [Atherosclerotic heart disease of [place] coronary artery without angina pectoris] Onset: 05-03-2022 Chronic Diabetes mellitus with complications (1 source) Type 2 diabetes mellitus with diabetic chronic kidney disease; Translations: [Type 2 diabetes mellitus with diabetic chronic kidney disease] Onset: 05-03-2022 Chronic Disorders of lipid metabolism (1 source) Hyperlipidemia, unspecified; Translations: [Hyperlipidemia, unspecified] Onset: 05-03-2022 Chronic Esophageal disorders (1 source) Gastro-esophageal reflux disease without esophagitis; Translations: [Gastro-esophageal reflux disease without esophagitis] Onset: 05-03-2022 Chronic Fluid and electrolyte disorders (2 sources) Dehydration; Translations: [Hypokalemia] Onset: 05-03-2022 Episodic Hypertension with complications and secondary hypertension (1 source) Hypertensive chronic kidney disease with stage 1 through stage 4 chronic kidney disease, or unspecified chronic kidney disease; Translations: [Hypertensive chronic kidney disease with stage 1 through stage 4 chronic kidney disease, or unspecified chronic kidney disease] Onset: 05-03-2022 Chronic Malaise and fatigue (2 sources) Weakness; Translations: [Weakness] Onset: 05-03-2022 Episodic Nutritional deficiencies (1 source) Vitamin D deficiency, unspecified; Translations: [Vitamin D deficiency, unspecified] Onset: 05-03-2022 Chronic Nutritional deficiencies (1 source) Deficiency of other specified B group vitamins; Translations: [Deficiency of other specified B group vitamins] Onset: 05-03-2022 Episodic Other aftercare (1 source) MCC (current) use of oral hypoglycemic drugs; Translations: [MCC (current) use of oral hypoglycemic drugs] Onset: 05-03-2022 Episodic Other aftercare (1 source) M[facility] (current) use of insulin; 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] Onset: 05-03-2022 Episodic Other nervous system disorders (1 source) Metabolic encephalopathy; Translations: [Metabolic encephalopathy] Onset: 05-03-2022 Chronic Other nutritional; endocrine; and metabolic disorders (1 source) Gilbert syndrome; Translations: [Gilbert syndrome] Onset: 05-03-2022 Chronic Other nutritional; endocrine; and metabolic disorders (1 source) Obesity, unspecified; Translations: [Obesity, unspecified] Onset: 05-03-2022 Chronic Other nutritional; endocrine; and metabolic disorders (1 source) Body mass index (BMI) 35.0-35.9, adult; Translations: [Body mass index [BMI] 35.0-35.9, adult] Onset: 05-03-2022 Chronic Transient cerebral ischemia (1 source) Transient cerebral ischemic attack, unspecified; Translations: [Transient cerebral ischemic attack, unspecified] Onset: 05-03-2022 Chronic Results Test Name Value Interpretation Reference Range Facil ity Encounters Encounter Date Encounter Type Care Provider Facility Start: 05-03-2022 End: 05-07-2022 ambulatory OSVALDO Joseph [facility] Start: 01-10-2022 End: 01-10-2022 Emergency department patient visit ALVARADO DO OMLEY [facility] Procedures Date Procedure Procedure Detail Performing Clinician Start: 05-03-2022 Urinalysis OSVALDO OMR AN Payers Date Payer Category Payer Unknown [id number] 1945 Unknown [id number] Medicare [id number] Clinical Note 05-09-2022 Note Date & Type Note Facility 05-09-2022 Note . MICRO - Microbiology PROCEDURE: Blood Culture (bacterial) [*1] SOURCE: Blood BODY SITE: COLLECTED DATE/TIME: 05/03/2022 13:11 EST RECEIVED DATE/TIME: 05/03/2022 21:39 EST START DATE/TIME: 05/03/2022 21:40 EST FREE TEXT SOURCE: FINAL REPORTS Final Report [] Verified Date/Time/Personnel: 05/08/2022 21:59 EST Blood Culture: No Growth at 5 days. PRELIMINARY REPORTS Preliminary Report [] Verified Date/Time/Personnel: 05/03/2022 23:00 EST Culture has been received in lab and is no growth to date. Routine cultures are held for 5 days. Performing Locations *1: This test was performed at: [address], [address] [place] [address] ([place]) Clinical Note 05-08-2022 Note Date & Type Note Facility 05-08-2022 Note . MICRO - Microbiology PROCEDURE: Blood Culture (bacterial) [*1] SOURCE: Blood BODY SITE: COLLECTED DATE/TIME: 05/03/2022 12:40 EST RECEIVED DATE/TIME: 05/03/2022 21:39 EST START DATE/TIME: 05/03/2022 21:40 EST FREE TEXT SOURCE: FINAL REPORTS Final Report [] Verified Date/Time/Personnel: 05/08/2022 21:59 EST Blood Culture: No Growth at 5 days. PRELIMINARY REPORTS Preliminary Report [] Verified Date/Time/Personnel: 05/03/2022 23:00 EST Culture has been received in lab and is no growth to date. Routine cultures are held for 5 days. Performing Locations *1: This test was performed at: [facility], [address] [place] [address], [facility] ([place]) Clinical Note 05-07-2022 Note Date & Type Note Facility 05-07-2022 Note [facility] PROGRESS NOTE NAME ACCOUNT SEX AGE ADMIT DISCHARGE PT MED. RECORD# NUMBER DATE DATE TYPE AL [id number] M 77 05/03/22 1 JONY Jocelyn [id number] ROOM: 303MO DATE OF : 1945 DICTATING PHYSICIAN: Osvaldo Cohen DATE OF SERVICE: May 05, 2022 SUBJECTIVE: Mr. Longoria is doing fairly well. He denies any complaints. OBJECTIVE: VITAL SIGNS: Blood pressure 134/68, respirations 18, heart rate 88. He is afebrile. HEENT: Unremarkable. NECK: Supple. LUNGS: Clear. HEART: Regular. ABDOMEN: Soft. EXTREMITIES: No edema. DIAGNOSTIC DATA: WBC 7.8, hemoglobin 12.7, hematocrit 27 and 37.4. Sodium 136, potassium 3.2, BUN 18, creatinine 1.14. ASSESSMENT: 1. Possible CVA. MRI pending tomorrow. Hard to lie truly flat, so I will give him Lorazepam one hour prior to test. 2. Relative vitamin B12 deficiency due to progress drop in level. 3. Vitamin D deficiency. 4. Folate deficiency. The patient is already on vitamin replacement. According to the , he is starting to feel and act his normal self. 5. Diabetes, appears to be stable. 6. Right leg weakness with generalized weakness, improving with the above measures 7. Hypokalemia. We will correct orally today. PLAN: Continue current treatment and diagnostic testing. Dictated By: Osvaldo Cohen MD 05/05/22 11:44 JOB #: [id number] Transcribed By: [facility] 05/05/22 13:16 Electronically signed by: E-Sign: OSVALDO COHEN MD 05/07/22 14:25 Page 1 of 2 JONY LONGORIA Progress Note JONY LONGORIA : 1945 Page 2 of 2 JONY LONGORIA Progress Note [facility] Clinical Note 05-07-2022 Note Date & Type Note Facility 05-07-2022 Note [facility] PROGRESS NOTE NAME ACCOUNT SEX AGE ADMIT DISCHARGE PT MED. RECORD# NUMBER DATE DATE TYPE AL [id number] Brandee 77 05/03/22 Sabina Banks [id number] ROOM: 303MO DATE OF : 1945 DICTATING PHYSICIAN: Osvaldo Cohen DATE OF SERVICE: May 04, 2022. SUBJECTIVE: Mr. Longoria is feeling slightly better today. He continued to be weak and he is still slightly weak. He denied any headache. OBJECTIVE: VITAL SIGNS: Blood pressure 156/77, heart rate 86. He afebrile. Room air saturation 93%. HEENT: Normocephalic, atraumatic. Pupils round, equal, reactive. Tongue to midline. NECK: Supple. LUNGS: Clear bilaterally. HEART: Regular. ABDOMEN: Soft. EXTREMITIES: No edema. NEUROLOGIC: A little bit discoordination on his left side. DIAGNOSTIC DATA: Lab data today has revealed the following; his white count is 8.3, hemoglobin 12.6. Sodium 133, potassium 3, BUN is 15, creatinine 1.22, which has improved from yesterday. His vitamin D came back at 18.3. Folate 7.6 and vitamin B 12 was 201. This is the lower range of normal. ASSESSMENT/PLAN: 1. Possible cerebrovascular accident. The patient still has some symptoms related to the weakness and discoordination. 2. Hypokalemia. Will correct orally. 3. Vitamin B 12 deficiency. The patient's number is on the lower range of normal, considering he had neurological symptoms and now they are below 400, will go ahead and initiate B 12 therapy. 4. Vitamin D deficiency. Will initiate vitamin D. 5. Folate deficiency. Will initiate folic acid. 6. Diabetes. The patient is on Toujeo which I was not aware of. Will start him on Lantus at the low dose. We do want to avoid hypoglycemic reactions. Dictated By: Osvaldo Cohen MD 05/04/22 13:09 JOB #: [id number] Transcribed By: sp 05/04/22 13:53 Electronically signed by: E-Sign: OSVALDO COHEN MD 05/07/22 14:25 Page 1 of 2 JONY LONGORIA Progress Note JONY LONGORIA : 1945 Page 2 of 2 JONY LONGORIA Progress Note [facility] History and physical note 05-07-2022 Note Date & Type Note Facility 05-07-2022 [facility] HISTORY & PHYSICAL NAME ACCOUNT SEX AGE ADMIT DISCHARGE PT MED. RECORD# NUMBER DATE DATE TYPE AL [id number] M 77 05/03/22 1 JONY Banks [id number] ROOM: 303MO DATE OF : [birth year] DICTATING PHYSICIAN: Osvaldo Cohen ADMITTING DIAGNOSIS: Possible CVA. CHIEF COMPLAINT: Weakness. HISTORY OF PRESENT ILLNESS: The patient is a 77-year-old gentleman with a history of diabetes and coronary artery disease. The patient for the last 2 to 3 days was noted to be more confused than usual by the . She noted him also to be weak. It is hard for him to ambulate. Usually he ambulates with only the assist of a cane. He did exhibit to her some right leg weakness. According to her, he is more forgetful. Today, he got so weak it was hard for him to get up, and he was brought to the emergency room for evaluation. I did see him then in the emergency room. In the emergency room, the patient was awake and alert. He did not complain about any specific symptoms, and the was present and she did help me delineate his weaknesses. He was able to wiggle his legs, but it was hard for him to keep either one in the air for a significant amount of time. The patient denied any fever or chills. No chest pain. The patient had recent removal of a stent from his common bile duct 2 days ago, which went without any significant event. Today, his liver function tests are normal except for slight rise in the bilirubin, but the patient has known Gilbert syndrome as per GI. With the above and after discussion with the patient and his , we agreed that we should probably go ahead and admit him and treat him as a stroke. They are agreeable with the above plan. PAST MEDICAL HISTORY: Remarkable for (1) Diabetes. (2) Coronary artery disease. (3) Hyperlipidemia. (4) Gilbert syndrome. (5) History of diverticulitis. 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 (7) History of cholecystitis. PAST SURGICAL HISTORY: (1) The patient has had evacuation of hematoma from the frontal area in 1989. 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 (3) Bypass surgery for coronary artery disease. (4) Stent placement for acute cholecystitis with recent removal of the stent. (5) Page 1 of 4 JONY LONGORIA History & Physical ALJONY :1945 Anxiety. MEDICATIONS: Current medications: The patient is currently on the following medications: (1) Atorvastatin 40 mg daily. (2) Coreg 25 mg twice daily. (3) Glipizide 10 mg daily. (4) Lasix 20 mg daily. (5) Linzess 72 mcg daily. (6) Metformin 100 mg twice a day. (7) Venlafaxine 75 mg daily. ALLERGIES: The patient has no known drug allergies. FAMILY HISTORY: Positive for both parents having atherosclerotic vascular disease, as well as a brother and a sister. There is also a family history of diabetes in his mother, brother, and sister. SOCIAL HISTORY: The patient is , has attentive . He does not smoke. He used to chew tobacco. He does not drink alcohol. REVIEW OF SYSTEMS: The patient is sitting up, pleasant, cooperative. He denied any pain. He is not having any fever or chills or night sweats. He denied headache, blurry vision, earache, or sore throat. No neck pain or chest pain. No shortness of breath. He has a mild nonproductive cough. No nausea or vomiting, abdominal pain, diarrhea. No difficulty with urination. No skin rashes. PHYSICAL EXAMINATION GENERAL APPEARANCE: This is a 77-year-old gentleman lying in bed comfortable at the time of assessment. VITAL SIGNS: Vital signs has revealed the following: Blood pressure is 158/83, saturation on room air is 94, pulse 97. HEENT: Normocephalic and atraumatic. He does have previous craniotomy in the frontal area. The tongue to midline. NECK: Neck is supple. LUNGS: Clear bilaterally. HEART: Regular. ABDOMEN: Soft. EXTREMITIES: Revealed no edema. NEUROLOGIC: The patient is alert, somewhat disoriented to the last few events, but he does appear not as sharp as he used to be according to the , and not as responsive. Page 2 of 4 JONY LONGORIA History & Physical JONY LONGORIA :1945 There were no focal deficits on the cranial nerves. On motor power, there is more weakness on the right leg with inability to hold it up in the air for a significant period of time. DIAGNOSTIC DATA: Laboratory data has revealed the following: The patient's white count is 9.5, hemoglobin 13.4, hematocrit 39.8. His BUN was 16, creatinine 1.59, which is higher than his baseline of around 1.1. Bilirubin was 1.7. Lactate is 3. IMPRESSION: 1. Mental status changes with some minimal deficit on the right leg. This could be compatible with a stroke, which needs to be treated and evaluated as such. The patient is already on a statin. 2. Diabetes. Last hemo (more content not included)... [facility] History and physical note 05-07-2022 Note Date & Type Note Facility 05-07-2022 [facility] HISTORY & PHYSICAL NAME ACCOUNT SEX AGE ADMIT DISCHARGE PT MED. RECORD# NUMBER DATE DATE TYPE AL [id number] M 77 05/03/22 1 JONY Banks [id number] ROOM: ER DATE OF : 45 DICTATING PHYSICIAN: Osvaldo Cohen ADMITTING DIAGNOSIS: Possible CVA. DICTATION ENDS HERE Dictated By: Osvaldo Cohen MD 05/03/22 17:38 JOB #: [id number] Transcribed By: am 05/03/22 18:47 Electronically signed by: E-Sign: OSVALDO COHEN MD 05/07/22 14:11 Update to H&P: [ ] No changes: I have examined the patient and reviewed the H&P and there are no changes. [ ] As previously dictated with the following changes: PHYSICIAN SIGNATURE: TIME: DATE: Page 1 of 1 JONY LONGORIA History & Physical [facility] Summary Purpose Family History No Family History Records FoundNo Family History Records FoundNo Family History Records Found Advance Directives No Advanced Directives Records FoundNo Advanced Directives Records FoundNo Advanced Directives Records Found Additional Source Comments (unrecognized sect ion and content) No Status Records FoundNo Status Records FoundNo Status Records Found INFORMATION SOURCE (unrecogn ized section and content) DATE CREATED AUTHOR AUTHOR'S ORGANIZ ATION 05/09/2022 [facility] ([place]) DATE CREATED AUTHOR AUTHOR'S ORGANIZ ATION 05/14/2022 [facility] FOR RECORDS PERTAINING TO PATIENTS WHO ARE OR HAVE BEEN ENROLLED IN A CHEMICAL DEPENDENCY/SUBSTANCEABUSE PROGRAM, SOME INFORMATION MAY BE OMITTED. This clinical summary was aggregated from multiple sources. Caution should be exercised in using it in the provision of clinical care. This summary normalizes information from multiple sources, and as a consequence, information in this document may materially change the coding, format and clinical context of patient data. In addition, data may be omitted in some cases. CLINICAL DECISIONS SHOULD BE BASED ON THE PRIMARY CLINICAL RECORDS. [facility]. provides no warranty or guarantee of the accuracy or completeness of information in this document.
== END | disposition home or self-care (01) ==
LOC: RAD 15:20
PROVIDERS: PCP Family Medicine Geriatric Medicine; Referring Provider Family Medicine Geriatric Medicine; Visit Provider Family Medicine Geriatric Medicine
DX: M51.9 Unspecified thoracic, thoracolumbar and lumbosacral intervertebral disc disorder (principal); M54.50 Low back pain, unspecified
CPT/HCPCS: 72110

== ENCOUNTER → 2023-06-16 | Outpatient (CLI) | payer MEDICARE, SELFPAY ==
[2023-06-16 10:40] LABS: Absolute Lymphocyte Count 1.38 X10^3/uL (0.83-4.51); Absolute Neutrophil Count 5.6 X10^3/uL (2.0-7.7); Basophil# 0.03 X10^3/uL; Basophil% 0.4 % (0-1); Eosinophil# 0.08 X10^3/uL; Hematocrit 37.4 % (40-54); Hemoglobin 11.9 g/dL (13.0-16.5); Lymphocyte # 1.38 X10^3/ul (0.83-4.51); Mean Corp Hgb Conc 31.8 g/dL (32-36); Mean Corpuscular Hgb 27.1 pg (27.0-32.0); Mean Corpuscular Volume 85.2 fL (80-94); Mean Platelet Vol. 9.9 fl (6.2-12.0); Monocyte# 0.55 X10^3/uL; Monocyte% 7.2 % (0-10); NRBC Flagged by Analyzer 0 % (0-5); Neutrophil # 5.56 X10^3/uL (2.7-7.7); Neutrophil % 72.7 % (47-70); Platelet Count 290 K/mm3 (150-450); RBC Distribution Width CV 17.4 % (11.6-14.6); RBC Distribution Width SD 53.2 fl (35.1-43.9); Red Blood Count 4.39 M/mm3 (4.6-6.2); White Blood Count 7.7 K/mm3 (4.4-11.0)
[2023-06-16 11:16] LABS: AST(SGOT) 5 U/L (15-37); Alanine Aminotransfer ALT/SGPT 20 U/L (16-61); Albumin, Serum 3.3 g/dL (3.2-5.0); Alkaline Phosphatase 99 U/L (45-117); Anion Gap 6 (5-15); BUN 21 mg/dL (7-18); BUN/Creat Ratio 16.9 RATIO (10-20); Chloride 100 mmol/L (98-107); Cholesterol 151 mg/dL (200); Creatinine, Serum 1.24 mg/dL (0.70-1.30); EST Glomerular Filtration Rate 60 mL/min (>60); Est Glom Filt Rate - Afr Amer 73 mL/min (>60); Globulin 3.4 g/dL (2.2-4.2); Glucose 217 mg/dL (74-106); High Density Lipoprotein 38 mg/dL; Potassium 4.1 mmol/L (3.5-5.1); Protein, Total 6.7 g/dL (6.4-8.2); Sodium Level 132 mmol/L (136-145); Thyroid Stim Hormone (TSH) 1.41 uIU/mL (0.358-3.74); Triglycerides 234 mg/dL; Very Low Density Lipoprotein 47 mg/dL (5-40)
[2023-06-16 11:26] LABS: Vitamin D,25 Hydroxy 21.7 ng/mL
== END | disposition home or self-care (01) ==
LOC: POLAB3 09:43
PROVIDERS: PCP Family Medicine Geriatric Medicine; Visit Provider Family Medicine Geriatric Medicine
DX: D64.9 Anemia, unspecified (principal); E11.65 Type 2 diabetes mellitus with hyperglycemia; I10 Essential (primary) hypertension; E78.5 Hyperlipidemia, unspecified; E55.9 Vitamin D deficiency, unspecified
CPT/HCPCS: 36415; 80053; 80061; 82306; 84443; 85025

== ENCOUNTER 2023-06-26 00:30 | Emergency (ER) | payer MEDICARE, SELFPAY ==
[2023-06-26 00:31] VITALS: BP 181/84; PULSE 104; RESP 19; TEMP 36.3; O2SAT 95; BMI 36.1
--- NOTE | 2023-06-26 00:50 | CT_ITS ---
EXAM: CT ANGIOGRAPHY ABDOMEN AND PELVIS WITHOUT AND WITH INTRAVENOUS CONTRAST CLINICAL INDICATION: GI bleed TECHNIQUE: Helically acquired angiography images were obtained of the abdomen and pelvis without and with intravenous contrast. Arterial phase images only. This CT exam was performed using one or more of the following dose reduction techniques: automated exposure control, adjustment of the mA and/or kV according to patient size, and/or use of iterative reconstruction technique. MIP reconstructed images were created and reviewed. CONTRAST: 100 cc of Isovue 370 IV. RADIATION DOSE: CTDIvol = 33.25 mGy, DLP = 1432.58 mGy-cm COMPARISON: 12/25/2022. FINDINGS: LIMITATIONS: The exam is limited due to arterial phase images only. VASCULATURE: AORTA: No acute findings. Normal caliber abdominal aorta. No dissection. CELIAC TRUNK AND MESENTERIC ARTERIES: No acute findings. No occlusion or significant stenosis. No dissection. RENAL ARTERIES: No acute findings. No occlusion or significant stenosis. No dissection. ILIAC ARTERIES: No acute findings. No occlusion or significant stenosis. No dissection. LOWER THORAX: Coronary artery calcifications. Slight loculated left pleural effusion. No cardiomegaly. ABDOMEN: LIVER: There is diffuse low-attenuation of the liver. GALLBLADDER AND BILE DUCTS: Cholecystectomy. No intra- or extrahepatic biliary ductal dilation. PANCREAS: Unremarkable. No focal cystic or solid mass. SPLEEN: Unremarkable. Normal size without focal cystic or solid mass. ADRENALS: Unremarkable. No nodules. KIDNEYS AND URETERS: Unremarkable. Normal renal size and position. No hydronephrosis. STOMACH AND BOWEL: Numerous diverticula without diverticulitis. No stomach or bowel distention. PELVIS: APPENDIX: No evidence of acute appendicitis. BLADDER: Unremarkable. REPRODUCTIVE: Unremarkable as visualized. No mass. ABDOMEN and PELVIS: INTRAPERITONEAL SPACE: Unremarkable. No ascites or other fluid collection. No free air. BONES/JOINTS: Unremarkable. No suspicious lytic or blastic abnormality. SOFT TISSUES: Unremarkable. No discrete abdominal or pelvic wall hernia. LYMPH NODES: Unremarkable. No enlarged lymph nodes. CT/CTA Abd/Pelvis W/WO Contrast IMPRESSION: 1. No GI bleeding identified. 2. Coronary artery disease. 3. Slight loculated left pleural effusion. 4. Cholecystectomy. 5. Fatty liver. 6. Numerous diverticula without diverticulitis. Electronically Signed: Isaac Mahmood MD at 2:07 EST ,
--- OUTSIDE RECORDS SUMMARY | 2023-06-26 00:58 | XMS RPT_ITS | CCD ---
Author Name Unknown Address [facility] [place] [address] Organization [facility] Care Team Providers Care Purchase Order Checker Name Role Phone DYLON SAMSON MD Attending Unavailable DYLON SAMSON MD Primary Care Unavailable DYLON SAMSON MD Admitting Unavailable Results Test Name Value Interpretation Reference Range Facil ity Encounters Encounter Date Encounter Type Care Provider Facility Start: 06-23-2023 ambulatory DYLON SAMSON [facility] Payers Date Payer Category Payer Unknown [id number] Medicare [id number] Clinical Note 05-09-2022 Note Date & Type [...] Locations *1: This test was performed at: [facility], [address] [place] [address], [id number] , [facility] ([place]) Clinical Note 05-08-2022 Note Date & Type [...] Locations *1: This test was performed at: [facility], [address] [place] [address], [facility] , [facility] ([place]) Summary Purpose Family History No Family History [...] DATE CREATED AUTHOR AUTHOR'S ORGANIZ ATION 05/09/2022 [facility] ([place]) DATE CREATED AUTHOR AUTHOR'S ORGANIZ ATION 06/24/2023 [facility] FOR RECORDS PERTAINING TO PATIENTS WHO ARE [...] BE BASED ON THE PRIMARY CLINICAL RECORDS. [employer]. provides no warranty or guarantee of the accuracy or completeness of information in this document.
[2023-06-26] MEDS: Ondansetron 4 MG/2 ML Vial IV (01:10)
[2023-06-26] MEDS: 0.9% Normal Saline (500mL Bag) 500 ML 999 ML IV (01:10)
[2023-06-26] MEDS: Morphine 2 MG/ML Syringe IV (01:10)
[2023-06-26 01:13] VITALS: BP 148/75; PULSE 97; RESP 16; O2SAT 98
[2023-06-26 01:15] LABS: Absolute Lymphocyte Count 2.41 X10^3/uL (0.83-4.51); Absolute Neutrophil Count 6.3 X10^3/uL (2.0-7.7); Basophil# 0.05 X10^3/uL; Basophil% 0.5 % (0-1); Eosinophil# 0.16 X10^3/uL; Eosinophils% 1.6 % (0-5); Hematocrit 34.7 % (40-54); Hemoglobin 11.3 g/dL (13.0-16.5); Lymphocyte # 2.41 X10^3/ul (0.83-4.51); Lymphocyte % 24.4 % (19-41); Mean Corp Hgb Conc 32.6 g/dL (32-36); Mean Corpuscular Hgb 27.4 pg (27.0-32.0); Mean Platelet Vol. 9.6 fl (6.2-12.0); Monocyte# 0.77 X10^3/uL; Monocyte% 7.8 % (0-10); NRBC Flagged by Analyzer 0 % (0-5); Neutrophil # 6.33 X10^3/uL (2.7-7.7); Platelet Count 305 K/mm3 (150-450); RBC Distribution Width CV 17.2 % (11.6-14.6); RBC Distribution Width SD 52.9 fl (35.1-43.9); Red Blood Count 4.13 M/mm3 (4.6-6.2); White Blood Count 9.9 K/mm3 (4.4-11.0)
[2023-06-26 01:26] LABS: Prothrombin Time (Protime)PT. 12.9 SECONDS (11.7-14.9)
[2023-06-26 01:28] LABS: Partial Thromboplast Time 37.5 Seconds (24.1-36.2)
[2023-06-26 01:29] LABS: Anion Gap 11 (5-15); BUN 23 mg/dL (7-18); Calcium,Total 9.6 mg/dL (8.5-10.1); Chloride 104 mmol/L (98-107); Creatinine, Serum 1.21 mg/dL (0.70-1.30); EST Glomerular Filtration Rate 62 mL/min (>60); Est Glom Filt Rate - Afr Amer 75 mL/min (>60); Estimated Creatinine Clearance 59.89 ml/min; Glucose 179 mg/dL (74-106); Potassium 3.9 mmol/L (3.5-5.1); Sodium Level 140 mmol/L (136-145)
[2023-06-26 01:45] LABS: Lactic Acid 2.7 mmol/L (0.4-1.9)
[2023-06-26 03:15] VITALS: BP 138/69; RESP 18; O2SAT 96
--- NOTE | 2023-06-26 03:15 | EX.ED.DYSGE1 ---
HPI History of Present Illness Chief Complaint: GI Bleed Informant: patient and spouse/S.O. Narrative Narrative: Patient is a 78-year-old male with past medical history of diabetes hypertension congestive heart failure memory disturbance secondary to history of CVA and previous colon rupture leading to need for emergent surgery with colostomy and reversal. He states that this evening he had 2 bouts of bright red blood per rectum. He states that he takes a baby aspirin but denies any history of bleeding disorder or blood thinner use. He states he contacted his GI doctor secondary to the 2 bouts occurring this evening around 10 PM and was advised to go to the hospital for further evaluation. Patient does admit to lower abdominal pain associated with this [facility] Medical History (HFpEF) heart failure with preserved ejection fraction Adjustment disorder with depressed mood Anemia Atherosclerosis of coronary artery without angina pectoris Cardiology follow-up encounter Chewing tobacco use CPAP (continuous positive airway pressure) dependence Disturbance of memory Essential hypertension Generalized osteoarthritis GIB (gastrointestinal bleeding) History of CVA (cerebrovascular accident) (03/31/18) History of echocardiogram History of stress test Hyperlipidemia Kidney disease Loss of hearing Pain in thoracic spine Peripheral vascular disease, unspecified Pure hypercholesterolemia, unspecified Restless legs Seizures Wears dentures Home Medications aspirin 81 mg tablet,delayed release 81 mg PO DAILY 09/15/19 [History Last Taken 12/24/22] atorvastatin 40 mg tablet 40 mg PO DAILY 09/15/19 [History Last Taken 12/24/22] isosorbide mononitrate 30 mg tablet,extended release 24 hr 30 mg PO DAILY 09/15/19 [History Last Taken 12/24/22] metformin 1,000 mg tablet 1,000 mg PO BID 09/15/19 [History Last Taken 12/24/22] glipizide 10 mg tablet, extended release 24 hr 10 mg PO DAILY 12/28/20 [History Last Taken 12/24/22] furosemide 40 mg tablet 40 mg PO DAILY 11/27/21 [History Last Taken 12/24/22] venlafaxine 75 mg tablet 75 mg PO DAILY 11/27/21 [History Last Taken 12/24/22] albuterol sulfate 90 mcg/actuation aerosol inhaler 2 puff inhalation Q6H PRN shortness of breath or wheezing 05/21/22 [History Last Taken 12/23/22] insulin glargine U-300 conc 300 unit/mL (3 mL) subcutaneous pen (Toujeo Max U-300 SoloStar) 36 unit subcut DAILY 11/20/22 [History Last Taken 12/25/22] losartan 50 mg tablet 50 mg PO DAILY #30 tabs 11/20/22 [Rx Last Taken 12/24/22] nitroglycerin 0.4 mg sublingual tablet 0.4 mg sublingual Q5-15M PRN Chest Pain #25 tabs 11/20/22 [Rx Last Taken Unknown] carvedilol 12.5 mg tablet 12.5 mg PO BID #180 tabs 12/17/22 [Rx Last Taken 12/24/22] potassium chloride 20 mEq tablet,extended release(part/cryst) 20 meq PO DAILY 12/25/22 [History Last Taken 12/24/22] ursodiol 250 mg tablet 250 mg PO BID cirrhosis #60 tabs 06/09/23 [Rx Last Taken Unknown] Allergy/AdvReac Type Severity Reaction Status Date / Time dapagliflozin [From [facility]] Allergy Rash Verified 06/26/23 00:30 Family History Mother Heart disease Father Heart disease Surgical History H/O arthroscopic knee surgery H/O coronary artery bypass surgery (10/25/18) H/O resection of small bowel H/O varicose vein ligation History of appendectomy History of cataract surgery History of colonoscopy History of craniotomy (1990) History of ERCP History of left heart catheterization (10/13/18) Hx laparoscopic cholecystectomy S/P ERCP S/P laparoscopic cholecystectomy (~01/2022) Social History Smoking Status: Current every day smoker tobacco type: smokeless tobacco Smokeless tobacco user: chewing tobacco alcohol intake: former year quit: h/o substance use type: does not use ROS ROS ED Constitutional Constitutional ED: Denies chills or fever(s) Eyes Eyes: Denies change in vision ENT ENT ED: Denies sore throat Cardiovascular Cardiovascular: Denies chest pain, palpitations or racing heartbeat Respiratory/Chest Respiratory/Chest: Denies cough or dyspnea Gastrointestinal Gastrointestinal: Reports abdominal pain, diarrhea and other Details: Positive Hematochezia ; Denies nausea or vomiting Genitourinary Genitourinary ED: Denies dysuria or hematuria Musculoskeletal Musculoskeletal: Denies myalgias Integumentary Denies rash Neurologic Neurologic: Denies headache(s) or weakness Hematologic/Lymphatic Hematologic/Lymphatic: Denies easy bleeding or easy bruising EXAM Physical Exam Const Vital Signs: 06/26/23 00:31 06/26/23 01:13 06/26/23 03:15 Temperature 97.4 F L Temperature Source Temporal Pulse Rate 104 H 97 Respiratory Rate 19 H 16 18 Blood Pressure 181/84 H 148/75 H 138/69 H Blood Pressure Mean 116 99 92 Pulse Ox 95 98 96 Oxygen Delivery Method Room Air Room Air Room Air 06/26/23 03:39 Temperature 97.6 F L Temperature Source Pulse Rate 92 Respiratory Rate 16 Blood Pressure 128/75 H Blood Pressure Mean 92 Pulse Ox 98 Oxygen Delivery Method Positive well nourished, well developed and obese General Appearance ED: well developed and pallor Nutritional Appearance: obese HEENT Reports moist mucous membranes HEENT Narrative: No tongue or lip swelling no oral lesions no airway edema or compromise No signs of infection noted in the posterior pharynx Eyes PERRL and EOMs intact bilaterally General Eye ED: Yes pale conjunctiva; Negative for scleral icterus Neck supple Neck Narrative: No nuchal rigidity or meningeal signs noted Resp normal respiratory effort and clear to auscultation bilaterally Cardio regular rate and regular rhythm Rate: other Other Details: Radial and carotid pulses are equal and symmetric GI non-distended and no masses GI Narrative: Abdomen is obese soft and nondistended with normal active bowel sounds. Patient has mild diffuse pain on palpation across the lower abdomen without voluntary guarding or rigidity. No pulsatile mass or fluid wave Auscultation: normoactive bowel sounds Palpation: soft Narrative: Rectal exam shows a nonbleeding nonthrombosed external hemorrhoid and no anal fissure noted. Rectal tone is normal there is no internal masses palpated and stool is bright red in color Extremity normal to inspection Neuro CN's II-XII intact bilaterally and no sensory deficits noted Neuro Narrative: Patient is At his baseline mental status without focal neurologic deficit noted Sensorium / Orientation: alert Psych mental status grossly normal Skin no rashes or lesions noted Skin Narrative: Skin is pale in color but capillary refills less than 3 seconds General Skin Exam: pallor; Negative for jaundice MDM MDM MDM Narrative Medical decision making narrative: Patient presented to the ER with stable vitals and reported 2 episodes of bright red blood per rectum but is only on an aspirin and does not take any true blood thinner. Differential diagnosis is for acute blood loss anemia versus ischemic colitis versus diverticulitis versus diverticular bleeding versus ruptured internal hemorrhoid versus anal fissure. The patient's physical exam did not show an anal fissure and no internal hemorrhoid was palpated. Lab work showed a stable hemoglobin at 11.3 which is at the patient's baseline. Platelet count is also normal and his bleeding times are within normal limits. His BUN is only slightly elevated going against a upper GI bleed which correlates with the bright red blood per rectum. CTA revealed diverticular disease without active diverticulitis or signs of active bleeding. The case was discussed with his airport sales agent Dr. Panda. He agrees at this time as the patient is not hypotensive as he is not having bouts of syncope and as he is only had a total of 2 episodes at home and 1 episode in the ER over the course of multiple hours and is not consistently leaking from his rectum that he can be evaluated on an outpatient basis. He recommended the patient go on a clear liquid diet as with his lower abdominal pain there is concern he has early diverticulitis that is not showing up on CT scan. These findings were discussed with the patient and his and they are agreeable to this and at this time his vitals are stable and his hemoglobin is normal and there is no need for blood transfusion or signs of systemic infection and his bleeding is not constant he will be discharged home. History & Record Review Discussion w/independent historian: Patient and Significant other Lab Data Labs: Laboratory Results - last 24 hr 06/26/23 01:00 WBC 9.9 RBC 4.13 L Hgb 11.3 L Hct 34.7 L MCV 84.0 MCH 27.4 MCHC 32.6 RDW Std Deviation 52.9 H RDW Coeff of Myron 17.2 H Plt Count 305 MPV 9.6 Immature Gran % (Auto) 1.700 H Neut % (Auto) 64.0 Lymph % (Auto) 24.4 [place] % (Auto) 7.8 Eos % (Auto) 1.6 Baso % (Auto) 0.5 Absolute Neuts (auto) 6.3 Absolute Lymphs (auto) 2.41 Nucleated RBC % 0 PT 12.9 INR 1.0 APTT 37.5 H Sodium 140 Potassium 3.9 Chloride 104 Carbon Dioxide 25.0 Anion Gap 11 BUN 23 H Creatinine 1.21 Estim Creat Clear Calc 59.89 Est GFR (MDRD) Af Amer 75 Est GFR (MDRD) Non-Af 62 BUN/Creatinine Ratio 19.0 Glucose 179 H Lactic Acid 2.7 H* Calcium 9.6 Blood Type O POSITIVE Antibody Screen NEGATIVE Radiography Diagnostic Testing: Clinical Impression(s) from Imaging Studies Abdomen/Pelvis CTA 06/26/23 00:50 IMPRESSION: 1. No GI bleeding identified. 2. Coronary artery disease. 3. Slight loculated left pleural effusion. 4. Cholecystectomy. 5. Fatty liver. 6. Numerous diverticula without diverticulitis. Electronically Signed: Isaac Mahmood MD at 2:07 EST Reading Location ID and State: [facility] / [place] Tel , Service support , Discharge Plan Triage Chief Complaint: GI Bleed ED Provider: [place] Dx/Rx/DC Orders Clinical Impression: GI (gastrointestinal bleed), Colonic diverticular disease, Diabetes, Essential hypertension, History of CVA (cerebrovascular accident), Obesity Instructions: Diverticulosis and Diverticulitis, ED Lower GI Bleeding (Stable) Prescriptions: No Action metformin 1,000 mg tablet 1,000 mg PO BID atorvastatin 40 mg tablet 40 mg PO DAILY isosorbide mononitrate 30 mg tablet extended release 24 hr 30 mg PO DAILY aspirin 81 mg tablet,delayed release (DR/EC) 81 mg PO DAILY Hold Instructions: Hold for 5 days. glipizide 10 mg tablet extended release 24hr 10 mg PO DAILY Patient Comments: TAKE 1 TABLET BY MOUTH TWICE DAILY furosemide 40 mg tablet 40 mg PO DAILY Patient Comments: TAKE 1 TABLET BY MOUTH ONCE DAILY IN THE MORNING FOR 30 DAYS venlafaxine 75 mg tablet 75 mg PO DAILY albuterol sulfate 90 mcg/actuation HFA aerosol inhaler 2 puff inhalation Q6H PRN (Reason: shortness of breath or wheezing) Toujeo Max U-300 SoloStar 300 unit/mL (3 mL) insulin pen 36 unit subcut DAILY nitroglycerin 0.4 mg tablet, sublingual 0.4 mg sublingual Q5-15M PRN (Reason: Chest Pain) Qty: 25 3RF losartan 50 mg tablet 50 mg PO DAILY Qty: 30 11RF potassium chloride 20 mEq tablet,ER particles/crystals 20 meq PO DAILY Patient Comments: TAKE 1 TABLET BY MOUTH ONCE DAILY carvedilol 12.5 mg tablet 12.5 mg PO BID Qty: 180 3RF Rx Instructions: must administer with a meal/food ursodiol 250 mg tablet 250 mg PO BID Qty: 60 5RF Patient Comments: TAKE 1 TABLET BY MOUTH TWICE DAILY Primary Care Provider: Frankie Shaver Chi Referrals: Valentin Panda DO [Med Staff - Active Staff] - Frankie Shaver Chi, MD [Primary Care Provider] - Activity Restrictions/Additional Instructions: Please continue all of your home medications as directed by your doctors. If your bleeding increases where it is constantly leaking out or you are having more than 2 or 3 bloody bowel movements a day or he develop a fever have bouts of passing out or have any further concerns please return for repeat evaluation. Otherwise stay on a clear liquid diet for the next 3 days and follow-up with your airport sales agent to discuss further testing if symptoms persist Disposition Disposition: Home, Self Care Discharge Date/Time: 06/26/23 03:40
[2023-06-26 03:39] VITALS: BP 128/75; PULSE 92; RESP 16; TEMP 36.4; O2SAT 98
[2023-06-26 05:11] LABS: Reflex Lactate? Y
== END 2023-06-26 03:40 | disposition home or self-care (01) ==
PROVIDERS: Emergency Provider Emergency Medicine; PCP Family Medicine Geriatric Medicine; Visit Provider Emergency Medicine
DX: K92.2 Gastrointestinal hemorrhage, unspecified (principal); E11.51 Type 2 diabetes mellitus with diabetic peripheral angiopathy without gangrene; Z86.73 Personal history of transient ischemic attack (TIA), and cerebral infarction without residual deficits; K57.31 Diverticulosis of large intestine without perforation or abscess with bleeding; F17.220 Nicotine dependence, chewing tobacco, uncomplicated; E66.9 Obesity, unspecified; I25.10 Atherosclerotic heart disease of native coronary artery without angina pectoris; I10 Essential (primary) hypertension; E78.5 Hyperlipidemia, unspecified; Z79.82 Long term (current) use of aspirin; Z95.1 Presence of aortocoronary bypass graft
CPT/HCPCS: 74174; 80048; 82274; 83605; 85025; 85610; 85730; 86850; 86900; 86901; 96361; 96374; 96375; 99283; J7040; Q9967; A4216; J2405

== ENCOUNTER 2023-06-30 03:44 | Inpatient (IN) | payer MEDICARE, SELFPAY ==
[2023-06-30] VITALS (13 sets, daily range): BP systolic 122–157; BP diastolic 55–96; PULSE 85–133; RESP 15–18; TEMP 36.2–36.8; O2SAT 95–99; BMI 35.6; BMI 35.7
--- OUTSIDE RECORDS SUMMARY | 2023-06-30 04:07 | XMS RPT_ITS | CCD ---
Author Name Unknown Address [facility] [place] [address] Organization [facility] Care Team Providers Care Real Estate Development Manager Name Role Phone DYLON SAMSON MD Attending Unavailable DYLON SAMSON MD Primary Care Unavailable DYLON SAMSON MD Admitting Unavailable Results Test Name Value Interpretation Reference Range Facil ity Encounters Encounter Date Encounter Type Care Provider Facility Start: 06-23-2023 ambulatory DYLON SAMSON [facility] Payers Date Payer Category Payer Unknown [id number] Medicare [id number] Clinical Note 05-09-2022 Note Date & Type [...] Locations *1: This test was performed at: [facility], [address] [place] [address], [id number] , [facility] ([place]) Clinical Note 05-08-2022 Note Date & Type [...] Locations *1: This test was performed at: [facility], [address] [place] [address], [facility] , [facility] [place] Summary Purpose Family History No Family History [...] DATE CREATED AUTHOR AUTHOR'S ORGANIZ ATION 05/09/2022 [facility] ([place]) DATE CREATED AUTHOR AUTHOR'S ORGANIZ ATION 06/24/2023 [facility] FOR RECORDS PERTAINING TO PATIENTS WHO ARE [...] BE BASED ON THE PRIMARY CLINICAL RECORDS. [email or web address] provides no warranty or guarantee of the accuracy or completeness of information in this document.
--- NOTE | 2023-06-30 04:25 | ED.VIS.GI ---
HPI HPI - GI History of Present Illness Chief Complaint: GI Bleed Informant: patient and spouse/S.O. Nausea/Vomiting/Emesis GI Symptom: Negative for Nausea or Vomiting Diarrhea/Melena/Hematochezia GI Symptom: Positive for Melena and Hematochezia Onset: Days Stool Quality: Positive for Maroon Associated Symptoms Associated Symptoms: Negative for Dysuria, Frequency or Hematuria Narrative Narrative: Patient presents with gastrointestinal bleeding that became worse today. Patient was seen here for this recently and was discharged. Patient states that his stools are dark red. Patient denies any abdominal pain. Patient denies any nausea or vomiting. Patient denies any fevers or chills. Patient states he follows with Dr. Farzad for this. Patient denies any fevers or chills. Patient denies any urinary complaints. [facility] Medical History (HFpEF) heart failure with preserved ejection fraction Adjustment disorder with depressed mood Anemia Atherosclerosis of coronary artery without angina pectoris Cardiology follow-up encounter Chewing tobacco use CPAP (continuous positive airway pressure) dependence Disturbance of memory Essential hypertension Generalized osteoarthritis GIB (gastrointestinal bleeding) History of CVA (cerebrovascular accident) (03/31/18) History of echocardiogram History of stress test Hyperlipidemia Kidney disease Loss of hearing Pain in thoracic spine Peripheral vascular disease, unspecified Pure hypercholesterolemia, unspecified Restless legs Seizures Wears dentures Home Medications aspirin 81 mg tablet,delayed release 81 mg PO DAILY 09/15/19 [History Last Taken 12/24/22] atorvastatin 40 mg tablet 40 mg PO DAILY 09/15/19 [History Last Taken 12/24/22] isosorbide mononitrate 30 mg tablet,extended release 24 hr 30 mg PO DAILY 09/15/19 [History Last Taken 12/24/22] metformin 1,000 mg tablet 1,000 mg PO BID 09/15/19 [History Last Taken 12/24/22] glipizide 10 mg tablet, extended release 24 hr 10 mg PO DAILY 12/28/20 [History Last Taken 12/24/22] furosemide 40 mg tablet 40 mg PO DAILY 11/27/21 [History Last Taken 12/24/22] venlafaxine 75 mg tablet 75 mg PO DAILY 11/27/21 [History Last Taken 12/24/22] albuterol sulfate 90 mcg/actuation aerosol inhaler 2 puff inhalation Q6H PRN shortness of breath or wheezing 05/21/22 [History Last Taken 12/23/22] insulin glargine U-300 conc 300 unit/mL (3 mL) subcutaneous pen (Toujeo Max U-300 SoloStar) 36 unit subcut DAILY 11/20/22 [History Last Taken 12/25/22] losartan 50 mg tablet 50 mg PO DAILY #30 tabs 11/20/22 [Rx Last Taken 12/24/22] nitroglycerin 0.4 mg sublingual tablet 0.4 mg sublingual Q5-15M PRN Chest Pain #25 tabs 11/20/22 [Rx Last Taken Unknown] carvedilol 12.5 mg tablet 12.5 mg PO BID #180 tabs 12/17/22 [Rx Last Taken 12/24/22] potassium chloride 20 mEq tablet,extended release(part/cryst) 20 meq PO DAILY 12/25/22 [History Last Taken 12/24/22] ursodiol 250 mg tablet 250 mg PO BID cirrhosis #60 tabs 06/09/23 [Rx Last Taken Unknown] Allergy/AdvReac Type Severity Reaction Status Date / Time dapagliflozin [From [facility]] Allergy Rash Verified 06/30/23 03:44 Family History Mother Heart disease Father Heart disease Surgical History H/O arthroscopic knee surgery H/O coronary artery bypass surgery (10/25/18) H/O resection of small bowel H/O varicose vein ligation History of appendectomy History of cataract surgery History of colonoscopy History of craniotomy (1990) History of ERCP History of left heart catheterization (10/13/18) Hx laparoscopic cholecystectomy S/P ERCP S/P laparoscopic cholecystectomy (~01/2022) Social History Smoking Status: Current every day smoker tobacco type: smokeless tobacco Smokeless tobacco user: chewing tobacco alcohol intake: former year quit: h/o substance use type: does not use ROS ROS ED Constitutional Constitutional ED: Denies chills or fever(s) Eyes Eyes: Denies blurry vision or change in vision ENT ENT ED: Denies rhinorrhea or sore throat Cardiovascular Cardiovascular: Denies chest pain or palpitations Respiratory/Chest Respiratory/Chest: Reports dyspnea; Denies cough Gastrointestinal Gastrointestinal: Reports melena; Denies nausea or vomiting Genitourinary Genitourinary ED: Denies dysuria or hematuria Musculoskeletal Musculoskeletal: Reports back pain; Denies neck pain Integumentary Denies abscess or rash Neurologic Neurologic: Reports headache(s) and weakness Allergic/Immunologic Allergic/Immunologic ED: Denies mouth swelling or urticaria EXAM Physical Exam Const Vital Signs: 06/30/23 03:44 Temperature 97.6 F L Temperature Source Temporal Pulse Rate 97 Respiratory Rate 18 Blood Pressure 135/96 H Blood Pressure Mean 109 Pulse Ox 98 Oxygen Delivery Method Room Air Positive well nourished, well developed and obese General Appearance ED: well developed and NAD Nutritional Appearance: obese HEENT Reports moist mucous membranes Eyes PERRL and EOMs intact bilaterally Neck supple and no JVD Resp normal respiratory effort and clear to auscultation bilaterally Cardio regular rate and regular rhythm GI non-tender and non-distended Palpation: soft Neuro CN's II-XII intact bilaterally, moves all extremities and no sensory deficits noted Sensorium / Orientation: alert Motor Exam: strength 5/5 throughout MDM MDM MDM Narrative Medical decision making narrative: Differential diagnosis includes upper gastrointestinal bleeding, lower gastrointestinal bleeding, bowel obstruction, perforation, diverticulitis, colitis, and anemia. CBC will be obtained to assess for leukocytosis and anemia. Comprehensive metabolic profile will be obtained to assess for electrolyte abnormality, hepatic function, and renal function. PT was INR and PTT will be obtained to assess for coagulopathy. Urinalysis will be obtained to assess for urinary tract infection and hematuria. History & Record Review Additional record(s) reviewed:: Prior labs Lab Data Attestation: I reviewed the patient's lab results. Lab results narrative: CBC was reviewed. Hemoglobin is 7.3 and hematocrit is 23.3. This is a significant decrease from 4 days ago. Platelets were normal. PT with INR and PTT were reviewed and were within normal limits. Comprehensive metabolic profile was reviewed. BUN was 30 and creatinine was 1.41. These are slightly increased from previous results. Labs: Laboratory Results - last 24 hr 06/30/23 03:59 WBC 11.3 H RBC 2.63 L Hgb 7.3 L Hct 23.3 L MCV 88.6 D MCH 27.8 MCHC 31.3 L RDW Std Deviation 57.3 H RDW Coeff of Myron 18.5 H Plt Count 381 MPV 10.5 Immature Gran % (Auto) 3.300 H Neut % (Auto) 66.5 Lymph % (Auto) 21.9 [place] % (Auto) 6.8 Eos % (Auto) 1.1 Baso % (Auto) 0.4 Absolute Neuts (auto) 7.5 Absolute Lymphs (auto) 2.48 Nucleated RBC % 0 PT 13.8 INR 1.1 APTT 34.0 Sodium 136 Potassium 3.8 Chloride 104 Carbon Dioxide 24.0 Anion Gap 8 BUN 30 H Creatinine 1.41 H Estim Creat Clear Calc 51.03 Est GFR (MDRD) Af Amer 63 Est GFR (MDRD) Non-Af 52 L BUN/Creatinine Ratio 21.3 H Glucose 193 H Calcium 8.5 Total Bilirubin 0.50 AST 12 L ALT 18 Alkaline Phosphatase 73 Total Protein 6.0 L Albumin 3.1 L Globulin 2.9 Albumin/Globulin Ratio 1.1 Management Discussion w/another healthcare provider: Hospitalist Treatment and Re-Evaluation :: Type and screen was obtained. Patient was advised of his findings. Patient was advised of need for hospitalization. Patient and are agreeable with this. Case was discussed with the hospitalist. He will admit the patient to his service. All questions were answered. Discharge Plan Triage Chief Complaint: GI Bleed ED Provider: Douglas Rodriguez Dx/Rx/DC Orders Clinical Impression: Colonic diverticular disease, Acute lower gastrointestinal bleeding Prescriptions: No Action metformin 1,000 mg tablet 1,000 mg PO BID atorvastatin 40 mg tablet 40 mg PO DAILY isosorbide mononitrate 30 mg tablet extended release 24 hr 30 mg PO DAILY aspirin 81 mg tablet,delayed release (DR/EC) 81 mg PO DAILY Hold Instructions: Hold for 5 days. glipizide 10 mg tablet extended release 24hr 10 mg PO DAILY Patient Comments: TAKE 1 TABLET BY MOUTH TWICE DAILY furosemide 40 mg tablet 40 mg PO DAILY Patient Comments: TAKE 1 TABLET BY MOUTH ONCE DAILY IN THE MORNING FOR 30 DAYS venlafaxine 75 mg tablet 75 mg PO DAILY albuterol sulfate 90 mcg/actuation HFA aerosol inhaler 2 puff inhalation Q6H PRN (Reason: shortness of breath or wheezing) Toujeo Max U-300 SoloStar 300 unit/mL (3 mL) insulin pen 36 unit subcut DAILY nitroglycerin 0.4 mg tablet, sublingual 0.4 mg sublingual Q5-15M PRN (Reason: Chest Pain) Qty: 25 3RF losartan 50 mg tablet 50 mg PO DAILY Qty: 30 11RF potassium chloride 20 mEq tablet,ER particles/crystals 20 meq PO DAILY Patient Comments: TAKE 1 TABLET BY MOUTH ONCE DAILY carvedilol 12.5 mg tablet 12.5 mg PO BID Qty: 180 3RF Rx Instructions: must administer with a meal/food ursodiol 250 mg tablet 250 mg PO BID Qty: 60 5RF Patient Comments: TAKE 1 TABLET BY MOUTH TWICE DAILY Primary Care Provider: Frankie Shaver Chi Referrals: Frankie Shaver Chi, MD [Primary Care Provider] - Disposition Disposition: Acute Care Hospital [facility]
[2023-06-30 04:38] LABS: Absolute Lymphocyte Count 2.48 X10^3/uL (0.83-4.51); Absolute Neutrophil Count 7.5 X10^3/uL (2.0-7.7); Basophil# 0.05 X10^3/uL; Basophil% 0.4 % (0-1); Eosinophil# 0.12 X10^3/uL; Eosinophils% 1.1 % (0-5); Hematocrit 23.3 % (40-54); Hemoglobin 7.3 g/dL (13.0-16.5); Lymphocyte # 2.48 X10^3/ul (0.83-4.51); Lymphocyte % 21.9 % (19-41); Mean Corp Hgb Conc 31.3 g/dL (32-36); Mean Corpuscular Hgb 27.8 pg (27.0-32.0); Mean Corpuscular Volume 88.6 fL (80-94); Mean Platelet Vol. 10.5 fl (6.2-12.0); Monocyte# 0.77 X10^3/uL; Monocyte% 6.8 % (0-10); NRBC Flagged by Analyzer 0 % (0-5); Neutrophil # 7.54 X10^3/uL (2.7-7.7); Neutrophil % 66.5 % (47-70); Platelet Count 381 K/mm3 (150-450); RBC Distribution Width CV 18.5 % (11.6-14.6); RBC Distribution Width SD 57.3 fl (35.1-43.9); Red Blood Count 2.63 M/mm3 (4.6-6.2); White Blood Count 11.3 K/mm3 (4.4-11.0)
[2023-06-30 04:55] LABS: ALB/GLOB Ratio 1.1 RATIO (0.9-2.4); AST(SGOT) 12 U/L (15-37); Alanine Aminotransfer ALT/SGPT 18 U/L (16-61); Albumin, Serum 3.1 g/dL (3.2-5.0); Alkaline Phosphatase 73 U/L (45-117); Anion Gap 8 (5-15); BUN 30 mg/dL (7-18); BUN/Creat Ratio 21.3 RATIO (10-20); Calcium,Total 8.5 mg/dL (8.5-10.1); Chloride 104 mmol/L (98-107); Creatinine, Serum 1.41 mg/dL (0.70-1.30); EST Glomerular Filtration Rate 52 mL/min (>60); Est Glom Filt Rate - Afr Amer 63 mL/min (>60); Estimated Creatinine Clearance 51.03 ml/min; Globulin 2.9 g/dL (2.2-4.2); Glucose 193 mg/dL (74-106); Potassium 3.8 mmol/L (3.5-5.1); Sodium Level 136 mmol/L (136-145)
[2023-06-30 05:09] LABS: International Normalized Ratio 1.1; Prothrombin Time (Protime)PT. 13.8 SECONDS (11.7-14.9)
--- NOTE | 2023-06-30 05:39 | PCM.HP.STD ---
[facility] - General General Date of Admission: 06/30/23 Date of Service: 06/30/23 Chief Complaint: LGIB; recurrent. HPI Narrative JONY LONGORIA, is a 78 M with a past medical history of essential hypertension, hyperlipidemia, obesity; with BMI of 35.6 this admission, ZAHIDA; on CPAP, DM-2; of unknown control, CAD; s/p CABG (2018), chronic diastolic CHF; with preserved LVEF, history of craniotomy after trauma with remote history of seizures (1990), history of CVA (2017), chronic anemia, history of tobacco abuse, depression, history of laparoscopic cholecystectomy (2021), history of bile leak; s/p ERCP and history of LGIB due to hemorrhoids; followed by Dr. Panda of gastroenterology who presents to [facility] ER complaining of LGIB. Mr. Longoria reports his symptoms began approximately 4 days ago when he came to the ER after a small amount a of bleeding from his rectal area but because his hemoglobin was stable at 11.3 g/dL he was sent home to follow-up as an outpatient. Unfortunately, on the evening of June 29, 2023 patient developed recurrent lower GI bleed with dark maroon stool with his hemoglobin dropping to 7.3 g/dL. He is only on aspirin but not on any other anticoagulation. He denies associated fever, chills, nausea or vomiting. In the ER he was diagnosed with recurrent lower GI suspected to be diverticular in origin and he was then admitted to the PCU for ongoing care for stay that is expected to be greater than 48 hours. [facility] Medical History (HFpEF) heart failure with preserved ejection fraction Adjustment disorder with depressed mood Anemia Atherosclerosis of coronary artery without angina pectoris Cardiology follow-up encounter Chewing tobacco use CPAP (continuous positive airway pressure) dependence Disturbance of memory Essential hypertension Generalized osteoarthritis GIB (gastrointestinal bleeding) History of CVA (cerebrovascular accident) (03/31/18) History of echocardiogram History of stress test Hyperlipidemia Kidney disease Loss of hearing Pain in thoracic spine Peripheral vascular disease, unspecified Pure hypercholesterolemia, unspecified Restless legs Seizures Wears dentures Home Medications aspirin 81 mg tablet,delayed release 81 mg PO DAILY 09/15/19 [History Last Taken 12/24/22] atorvastatin 40 mg tablet 40 mg PO DAILY 09/15/19 [History Last Taken 12/24/22] isosorbide mononitrate 30 mg tablet,extended release 24 hr 30 mg PO DAILY 09/15/19 [History Last Taken 12/24/22] metformin 1,000 mg tablet 1,000 mg PO BID 09/15/19 [History Last Taken 12/24/22] glipizide 10 mg tablet, extended release 24 hr 10 mg PO DAILY 12/28/20 [History Last Taken 12/24/22] furosemide 40 mg tablet 40 mg PO DAILY 11/27/21 [History Last Taken 12/24/22] venlafaxine 75 mg tablet 75 mg PO DAILY 11/27/21 [History Last Taken 12/24/22] albuterol sulfate 90 mcg/actuation aerosol inhaler 2 puff inhalation Q6H PRN shortness of breath or wheezing 05/21/22 [History Last Taken 12/23/22] insulin glargine U-300 conc 300 unit/mL (3 mL) subcutaneous pen (Toujeo Max U-300 SoloStar) 36 unit subcut DAILY 11/20/22 [History Last Taken 12/25/22] losartan 50 mg tablet 50 mg PO DAILY #30 tabs 11/20/22 [Rx Last Taken 12/24/22] nitroglycerin 0.4 mg sublingual tablet 0.4 mg sublingual Q5-15M PRN Chest Pain #25 tabs 11/20/22 [Rx Last Taken Unknown] carvedilol 12.5 mg tablet 12.5 mg PO BID #180 tabs 12/17/22 [Rx Last Taken 12/24/22] potassium chloride 20 mEq tablet,extended release(part/cryst) 20 meq PO DAILY 12/25/22 [History Last Taken 12/24/22] ursodiol 250 mg tablet 250 mg PO BID cirrhosis #60 tabs 06/09/23 [Rx Last Taken Unknown] Allergy/AdvReac Type Severity Reaction Status Date / Time dapagliflozin [From [facility]] Allergy Rash Verified 06/30/23 03:44 Family History Mother Heart disease Father Heart disease Surgical History H/O arthroscopic knee surgery H/O coronary artery bypass surgery (10/25/18) H/O resection of small bowel H/O varicose vein ligation History of appendectomy History of cataract surgery History of colonoscopy History of craniotomy (1990) History of ERCP History of left heart catheterization (10/13/18) Hx laparoscopic cholecystectomy S/P ERCP S/P laparoscopic cholecystectomy (~01/2022) Social History Smoking Status: Current every day smoker tobacco type: smokeless tobacco Smokeless tobacco user: chewing tobacco alcohol intake: former year quit: h/o substance use type: does not use ROS ROS Narrative Review of systems: General: Patient denies fever or chills HENT: Denies headache, denies stuffy nose, denies sore throat EYES: Denies changes in vision or discharge from eyes Resp: Denies cough, denies shortness of breath Cardiac: Denies chest pain or palpitations GI: Denies abdominal pain, denies changes in bowel, had some nausea : Denies changes in urination Extremity: Denies swelling Musculoskeletal: Feels somewhat generally weak and unwell Neuro: Denies any numbness/tingling, headache or focal neurologic deficits Heme: Patient admits to bleeding from his rectum with maroon-colored blood Skin: Denies rashes Psychiatric: No complaints voiced related to uncontrolled depression or anxiety Endocrine: No polyuria, polydipsia or polyphagia The rest of the 14 point ROS was negative except for positives in HPI. Vital Signs Vital Signs Vital Signs: 06/30/23 03:44 Temperature 97.6 F L Temperature Source Temporal Pulse Rate 97 Respiratory Rate 18 Blood Pressure 135/96 H Blood Pressure Mean 109 Pulse Ox 98 Oxygen Delivery Method Room Air Weight Weight: 234 lb 5.622 oz Body Mass Index (BMI) 35.6 Physical Exam Const alert, oriented x3, no apparent distress, average body habitus and healthy appearing General Appearance: cooperative HEENT normocephalic, head/scalp atraumatic, hearing grossly normal bilaterally and moist oral mucous membranes Eyes PERRL and EOMs intact bilaterally Neck no lymphadenopathy and supple Resp normal respiratory effort, no retractions, no use of accessory muscles and clear to auscultation bilaterally Cardio regular rate and regular rhythm GI normal to inspection, nondistended, normoactive bowel sounds, soft to palpation, non-tender and non-distended Extremity normal to inspection and full ROM Skin Skin Narrative: Patient has no evidence of rash or jaundice at this time. Neuro oriented x3, CN's II-XII intact bilaterally, moves all extremities and no focal motor deficits Sensorium / Orientation: awake, alert, oriented to person, oriented to place and oriented to time Speech: speech normal Motor Exam: strength 5/5 throughout Psych affect normal Results Medical Records Data Attestation: I reviewed the patient's medical records Lab / Micro Data Attestation: I reviewed the patient's lab results. 06/30/23 03:59 06/30/23 03:59 Labs: Laboratory Results - last 24 hr 06/30/23 03:59: WBC 11.3 H, RBC 2.63 L, Hgb 7.3 L, Hct 23.3 L, MCV 88.6 D, MCH 27.8, MCHC 31.3 L, RDW Std Deviation 57.3 H, RDW Coeff of Myron 18.5 H, Plt Count 381, MPV 10.5, Immature Gran % (Auto) 3.300 H, Neut % (Auto) 66.5, Lymph % (Auto) 21.9, [place] % (Auto) 6.8, Eos % (Auto) 1.1, Baso % (Auto) 0.4, Absolute Neuts (auto) 7.5, Absolute Lymphs (auto) 2.48, Nucleated RBC % 0, PT 13.8, INR 1.1, APTT 34.0, Sodium 136, Potassium 3.8, Chloride 104, Carbon Dioxide 24.0, Anion Gap 8, BUN 30 H, Creatinine 1.41 H, Estim Creat Clear Calc 51.03, Est GFR (MDRD) Af Amer 63, Est GFR (MDRD) Non-Af 52 L, BUN/Creatinine Ratio 21.3 H, Glucose 193 H, Calcium 8.5, Total Bilirubin 0.50, AST 12 L, ALT 18, Alkaline Phosphatase 73, Total Protein 6.0 L, Albumin 3.1 L, Globulin 2.9, Albumin/Globulin Ratio 1.1 Micro: Microbiology 06/30/23 05:00 Stool Stool Occult Blood (RENAN) - Final Occult Blood Positive Assessment & Plan Assessment/Plan (1) Acute lower gastrointestinal bleeding: (2) Colonic diverticular disease: PLAN: Plan 1. Acute blood loss anemia with hemoglobin dropping from 11.3 g/dL 4 days ago to 7.3 g/dL today - Admit to PCU. Keep strict NPO. Transfuse 2 units of PRBC's with patient still actively bleeding in ER since his prior labs were drawn. Recheck CBC at noon. 2. Recurrent lower GI suspected to be diverticular in origin causing #1 - Check NM GI bleeding scan to confirm suspicion. 3. History of LGIB due to hemorrhoids (2022) with chronic anemia; followed by Dr. Panda of gastroenterology - Noted. 4. Essential hypertension - Hold scheduled antihypertensives in light of #1. 5. Hyperlipidemia - Resume statin after endoscopic evaluation. 6. Obesity; with BMI of 35.6 this admission - Weight loss will be recommended. 7. ZAHIDA; on CPAP - Continue CPAP as previous. 8. DM-2; of unknown control - Keep NPO for the time being. Fingerstick blood sugars every 6 hours + scale insulin of the lowest intensity. 9. CAD; s/p CABG (2018) - Stable. 10. Chronic diastolic CHF; with preserved LVEF - Stable. Restart home regimen after bleeding has resolved. 11. History of craniotomy after trauma with remote history of seizures (1990) - Noted. 12. History of CVA (2017) - Noted. 13. History of tobacco abuse - Noted. 14. Depression - Continue current treatment with venlafaxine after bleeding has resolved. 15. History of laparoscopic cholecystectomy (2021) - Noted. 16. History of bile leak; s/p ERCP - Noted. 17. DVT prophylaxis - SCD's only with very recent GI bleeding. Total time: Approximately 55 minutes. Charges/Coding Visit Charges Inpatient E&M: 29853 Init Hosp L2
--- OUTSIDE RECORDS SUMMARY | 2023-06-30 06:11 | XMS RPT_ITS | CCD ---
Author Name Unknown Address Formerly [facility] [place] [address] Organization [facility] Care Team Providers Care Network Diagnostic Support Specialist Name Role Phone DYLON SAMSON MD Attending Unavailable DYLON SAMSON MD Primary Care Unavailable DYLON SAMSON MD Admitting Unavailable Results Test Name Value Interpretation Reference Range Facil ity Encounters Encounter Date Encounter Type Care Provider Facility Start: 06-23-2023 ambulatory DYLON SAMSON [facility] Payers Date Payer Category Payer Unknown [id number] Medicare [id number] Clinical Note 05-09-2022 Note Date & Type [...] Locations *1: This test was performed at: [facility], [address] [place] [address], [phone] , [facility]ly [facility] ([place]) Clinical Note 05-08-2022 Note Date & [...] Locations *1: This test was performed at: [facility], [address] [place] [address], [facility] , [facility] ([place]) Summary Purpose Family History No Family History [...] DATE CREATED AUTHOR AUTHOR'S ORGANIZ ATION 05/09/2022 [facility] ([place]) DATE CREATED AUTHOR AUTHOR'S ORGANIZ ATION 06/24/2023 [facility] FOR RECORDS PERTAINING TO PATIENTS WHO [...] BE BASED ON THE PRIMARY CLINICAL RECORDS. [employer] provides no warranty or guarantee of the accuracy or completeness of information in this document.
--- NOTE | 2023-06-30 07:00 | NM_ITS ---
CLINICAL: 78-year-old male with history of gastrointestinal hemorrhage. LABELED BLOOD POOL GASTROINTESTINAL BLEEDING STUDY COMPARISON: None available FINDINGS: Following the intravenous administration of 26.9 mCi of 99m Tc Ultratag labeled RBCs, image acquisitions of the anterior-abdomen and pelvis for a total of 60 minutes reveal: 1. Review of 61 minute acquisitions of the anterior abdomen and pelvis demonstrate no evidence of abnormal increased tracer uptake indicative of acute gastrointestinal hemorrhage. 2. Physiologic uptake is noted in the hepatic, cardiac and splenic blood pool, there is visualization of the left kidney with spontaneous drainage of the collecting system. The urinary bladder and external genitalia are defined. NM/GI Bleed Scan IMPRESSION: 1. NEGATIVE 99m Tc ULTRATAG LABELED BLOOD POOL GASTROINTESTINAL BLEEDING EXAMINATION. 2. There is no definitive scintigraphic evidence of acute gastrointestinal hemorrhage on the current evaluation. Electronically Signed: Freddy Moody DO at 12:32 EST ,
[2023-06-30] MEDS: 0.9% Normal Saline (1000mL) 1,000 ML 100 ML IV (07:09)
--- OUTSIDE RECORDS SUMMARY | 2023-06-30 07:22 | XMS RPT_ITS | CCD ---
Author Name Unknown Address [facility] [place] [address] Organization [facility] Care Team Providers Care Fire Pot Operator Name Role Phone DYLON SAMSON MD Attending Unavailable DYLON SAMSON MD Primary Care Unavailable DYLON SAMSON MD Admitting Unavailable Results Test Name Value Interpretation Reference Range Facil ity Encounters Encounter Date Encounter Type Care Provider Facility Start: 06-23-2023 ambulatory DYLON SAMSON [facility] Payers Date Payer Category Payer Unknown [id number] Medicare [id number] Clinical Note 05-09-2022 Note Date & Type [...] Locations *1: This test was performed at: [facility], [address] [place] [address], [phone] , [facility] ([place]) Clinical Note 05-08-2022 Note Date & Type [...] Locations *1: This test was performed at: [facility], [address] [place] [address], [facility] , [facility] ([place]) Summary Purpose Family History No Family History [...] DATE CREATED AUTHOR AUTHOR'S ORGANIZ ATION 05/09/2022 [facility] ([place]) DATE CREATED AUTHOR AUTHOR'S ORGANIZ ATION 06/24/2023 [facility] FOR RECORDS PERTAINING TO PATIENTS [...] BE BASED ON THE PRIMARY CLINICAL RECORDS. [employer] provides no warranty or guarantee of the accuracy or completeness of information in this document.
[2023-06-30] MEDS: Pantoprazole Sodium 40 MG in 0.9% Normal Saline (100mL MB+) 100 ML 330 MG IV ×2 (11:44→20:42)
[2023-06-30] MEDS: Furosemide 20 MG/2 ML VIAL IV (13:13)
[2023-06-30] MEDS: 0.9% Saline Lock 10 ML Syringe IV (13:14)
--- NOTE | 2023-06-30 13:58 | PN.HOSP_ITS ---
Reason for Visit Reason for Visit: Diagnoses Diverticulosis of large intestine without perforation or abscess without bleedi ng (06/30/23) Gastrointestinal hemorrhage, unspecified (06/30/23) Objective Data Objective Data Vital Signs: Vital Signs Temp Pulse Resp BP Pulse Ox O2 Del Method O2 Flow Rate 97.7 F L 90 18 147/75 H 97 Nasal Cannula 2 06/30/23 13:00 06/30/23 13:00 06/30/23 13:00 06/30/23 13:00 06/30/23 13:00 06/30/23 13:53 06/30/23 13:53 Oxygen Flow Rate (L/min) 2 Oxygen Delivery Method Nasal Cannula Weight: 235 lb 3.732 oz Body Mass Index (BMI) 35.7 Intake & Output: Intake and Output for Last 24 Hours 06/28/23 06/29/23 06/30/23 23:59 23:59 23:59 Intake Total 359.33 / 359.33 Balance 359.33 / 359.33 Lab / Micro Data 06/30/23 03:59 06/30/23 03:59 Labs: Laboratory Results - last 24 hr 06/30/23 03:59: WBC 11.3 H, RBC 2.63 L, Hgb 7.3 L, Hct 23.3 L, MCV 88.6 D, MCH 27.8, MCHC 31.3 L, RDW Std Deviation 57.3 H, RDW Coeff of Myron 18.5 H, Plt Count 381, MPV 10.5, Immature Gran % (Auto) 3.300 H, Neut % (Auto) 66.5, Lymph % (Auto) 21.9, [place] % (Auto) 6.8, Eos % (Auto) 1.1, Baso % (Auto) 0.4, Absolute N euts (auto) 7.5, Absolute Lymphs (auto) 2.48, Nucleated RBC % 0, PT 13.8, INR 1.1, APTT 34.0, Sodium 136, Potassium 3.8, Chloride 104, Carbon Dioxide 24.0, Anion Gap 8, BUN 30 H, Creatinine 1.41 H, Estim Creat Clear Calc 51.03, Est GFR (MDRD) Af Amer 63, Est GFR (MDRD) Non-Af 52 L, BUN/Creatinine Ratio 21.3 H, Glucose 193 H, Calcium 8.5, Total Bilirubin 0.50, AST 12 L, ALT 18, Alkaline Phosphatase 73, Total Protein 6.0 L, Albumin 3.1 L, Globulin 2.9, Albumin/Globulin Ratio 1.1, Blood Type O POSITIVE, Antibody Screen NEGATIVE, Crossmatch See Detail Micro: Microbiology 06/30/23 05:00 Stool Stool Occult Blood (RENAN) - Final Occult Blood Positive Radiography Diagnostic Testing: Radiology Impression GI Bleed Scan Nuclear Medicine 06/30/23 07:00 IMPRESSION: 1. NEGATIVE 99m Tc ULTRATAG LABELED BLOOD POOL GASTROINTESTINAL BLEEDING EXAMINATION. 2. There is no definitive scintigraphic evidence of acute gastrointestinal hemorrhage on the current evaluation. Electronically Signed: Freddy Moody DO at 12:32 EST , Physical Exam Narrative Seen and examined. Patient admitted for GI bleed, dyspnea on exertion due to anemia. Patient also hard of hearing. Plan for bleeding scan Physical exam General: Alert, Oriented x3, Cooperative HEENT: Pale conjunctiva. Atraumatic, PERRLA, EOMI, Normocephalic Oral: Oral mucosa dry. No Gingival or Mucosal Lesions/ Ulcerations Neck: Supple, No JVD, Negative Carotid Bruits Chest wall/Lungs: Air entry diminished in bilateral lung bases. ALFREDO. No crepitation/rhonchi Cardiovascular: CABG scar. Regular rate, Regular Rhythm, Normal S1, Normal S2, No M/G/R Abdomen: Bowel Sounds Present, Soft, Non Tender, Non-Distended : No dysuria. No renal angle tenderness. No suprapubic tenderness. Extremities: Mild 1+ edema, Capillary Refill Less than 3 Seconds Skin: No rashes, No breakdown Musculoskeletal: No Tenderness to Palpation of Joints or Extremities Neurological: Cranial nerves II-XII grossly intact, DTR 2+/4. No acute focal neurological deficit. Psych/Mental Status: Flat affect. Assessment & Plan Assessment/Plan (1) Acute lower gastrointestinal bleeding: (2) Colonic diverticular disease: PLAN: Plan 78-year-old gentleman being admitted for dyspnea on exertion, severe anemia and acute lower GI bleed bright red as described by patient and his . 1. Acute blood loss anemia most likely due to lower GI bleed: Patient is being admitted to PCU. Hemoglobin dropped from 11.3 g to 7.3 g. 2 units of PRBC has been ordered but will transfuse 1 today and check hemoglobin. Keep NPO. 2. Recurrent lower GI suspected to be diverticular: Check NM GI bleeding scan to confirm suspicion. GI is consulted. 3. History of LGIB due to hemorrhoids (2022) with chronic anemia; followed by Dr. Panda of gastroenterology - Noted. 4. Essential hypertension -blood pressure 147/75. Slightly better than admission. Titrate antihypertensive medication. 5. Hyperlipidemia - Resume statin after endoscopic evaluation. 6. Obesity grade 3 with BMI of 35.6 this admission - Weight loss will be recommended. 7. ZAHIDA; on CPAP - Continue CPAP as previous. 8. DM-2; with hyperglycemia- Keep NPO for the time being. Fingerstick blood sugars every 6 hours + scale insulin of the lowest intensity. Glucose 193 in BMP. 9. CAD; s/p CABG (2018) - Stable. 10. Chronic diastolic CHF; with preserved LVEF - Stable. Restart home regimen after bleeding has resolved. 11. History of craniotomy after trauma with remote history of seizures (1990) - Noted. 12. History of CVA (2017) - Noted. 13. History of tobacco abuse - Noted. 14. Depression - Continue current treatment with venlafaxine after bleeding has resolved. 15. History of laparoscopic cholecystectomy (2021) - Noted. 16. History of bile leak; s/p ERCP - Noted. 17. DVT prophylaxis - SCD's only with very recent GI bleeding.
[2023-06-30 17:36] LABS: Bedside Glucose 151 mg/dL (74-106)
[2023-06-30 18:08] LABS: Hematocrit 24.6 % (40-54)
[2023-06-30] MEDS: Carvedilol 12.5 MG Tablet PO (20:42)
[2023-06-30] MEDS: Venlafaxine HCl 75 MG Tablet PO (20:42)
--- NOTE | 2023-06-30 21:12 | EKG12_ITS ---
Test Reason : Blood Pressure : / mmHG Vent. Rate : 132 BPM Atrial Rate : 132 BPM P-R Int : 152 ms QRS Dur : 096 ms QT Int : 304 ms P-R-T Axes : 005 -37 088 degrees QTc Int : 450 ms Sinus tachycardia Left axis deviation Nonspecific ST abnormality Abnormal ECG When compared with ECG of 26-DEC-2022 05:56, Vent. rate has increased BY 52 BPM T wave inversion less evident in Lateral leads Confirmed by ROHIT ANDRADE, ELLIE ([id number]), publication editor CALOS VICTORIA ([id number]) on 07/01/2023 9:47:25 AM Referred By: Confirmed By:ELLIE BEE MD
[2023-07-01] VITALS (11 sets, daily range): BP systolic 100–136; BP diastolic 48–81; PULSE 103–124; RESP 14–18; TEMP 36.2–36.6; O2SAT 94–100; BMI 35.7
[2023-07-01 03:35] LABS: Absolute Lymphocyte Count 3.02 X10^3/uL (0.83-4.51); Absolute Neutrophil Count 11.6 X10^3/uL (2.0-7.7); Basophil# 0.07 X10^3/uL; Basophil% 0.4 % (0-1); Eosinophil# 0.05 X10^3/uL; Eosinophils% 0.3 % (0-5); Hematocrit 22.2 % (40-54); Hemoglobin 7.2 g/dL (13.0-16.5); Lymphocyte # 3.02 X10^3/ul (0.83-4.51); Lymphocyte % 18.7 % (19-41); Mean Corp Hgb Conc 32.4 g/dL (32-36); Mean Corpuscular Hgb 28.6 pg (27.0-32.0); Mean Corpuscular Volume 88.1 fL (80-94); Mean Platelet Vol. 9.6 fl (6.2-12.0); Monocyte# 1.12 X10^3/uL; Monocyte% 6.9 % (0-10); NRBC Flagged by Analyzer 0.3 % (0-5); Neutrophil # 11.55 X10^3/uL (2.7-7.7); Neutrophil % 71.5 % (47-70); Platelet Count 450 K/mm3 (150-450); RBC Distribution Width CV 18.4 % (11.6-14.6); RBC Distribution Width SD 57.6 fl (35.1-43.9); Red Blood Count 2.52 M/mm3 (4.6-6.2); White Blood Count 16.2 K/mm3 (4.4-11.0)
[2023-07-01 03:50] LABS: International Normalized Ratio 1.3; Prothrombin Time (Protime)PT. 15.8 SECONDS (11.7-14.9)
[2023-07-01 03:51] LABS: Partial Thromboplast Time 34.8 Seconds (24.1-36.2)
[2023-07-01 04:06] LABS: ALB/GLOB Ratio 1.1 RATIO (0.9-2.4); AST(SGOT) 10 U/L (15-37); Alanine Aminotransfer ALT/SGPT 17 U/L (16-61); Albumin, Serum 3.1 g/dL (3.2-5.0); Alkaline Phosphatase 75 U/L (45-117); Anion Gap 10 (5-15); BUN 37 mg/dL (7-18); BUN/Creat Ratio 20.9 RATIO (10-20); Calcium,Total 8.3 mg/dL (8.5-10.1); Chloride 107 mmol/L (98-107); Creatinine, Serum 1.77 mg/dL (0.70-1.30); EST Glomerular Filtration Rate 40 mL/min (>60); Est Glom Filt Rate - Afr Amer 48 mL/min (>60); Estimated Creatinine Clearance 40.73 ml/min; Globulin 2.8 g/dL (2.2-4.2); Glucose 223 mg/dL (74-106); Magnesium 1.5 mg/dL (1.6-2.6); Phosphorus 4.6 mg/dL (2.5-4.9); Potassium 4.2 mmol/L (3.5-5.1); Protein, Total 5.9 g/dL (6.4-8.2); Sodium Level 139 mmol/L (136-145); Thyroid Stim Hormone (TSH) 4.93 uIU/mL (0.358-3.74)
[2023-07-01 06:01] LABS: Bedside Glucose 193 mg/dL (74-106)
--- NOTE | 2023-07-01 08:05 | PCM.PN.HOSP ---
Reason for Visit Reason for Visit: Diagnoses Diverticulosis of large intestine without perforation or abscess without bleeding (06/30/23) Gastrointestinal hemorrhage, unspecified (06/30/23) Objective Data Objective Data Vital Signs: Vital Signs Temp Pulse Resp BP Pulse Ox O2 Del Method O2 Flow Rate 97.4 F L 113 H 15 134/60 H 97 Room Air 2 07/01/23 03:15 07/01/23 03:15 07/01/23 03:15 07/01/23 03:15 07/01/23 03:15 07/01/23 04:11 06/30/23 19:41 Oxygen Flow Rate (L/min) 2 Oxygen Delivery Method Room Air Weight: 235 lb 0.204 oz Body Mass Index (BMI) 35.7 Intake & Output: Intake and Output for Last 24 Hours 06/29/23 06/30/23 07/01/23 23:59 23:59 23:59 Intake Total 469.33 / 469.33 Output Total 300 / 300 Balance 169.33 / 169.33 Lab / Micro Data 07/01/23 11:00 07/01/23 03:28 Labs: Laboratory Results - last 24 hr 06/30/23 03:59: Crossmatch See Detail 06/30/23 17:19: POC Glucose 151 H 06/30/23 17:56: Hgb 8.0 L, Hct 24.6 L 07/01/23 03:28: WBC 16.2 H, RBC 2.52 L, Hgb 7.2 L, Hct 22.2 L, MCV 88.1, MCH 28.6, MCHC 32.4, RDW Std Deviation 57.6 H, RDW Coeff of Myron 18.4 H, Plt Count 450, MPV 9.6, Immature Gran % (Auto) 2.200 H, Neut % (Auto) 71.5 H, Lymph % (Auto) 18.7 L, [place] % (Auto) 6.9, Eos % (Auto) 0.3, Baso % (Auto) 0.4, Absolute Neuts (auto) 11.6 H, Absolute Lymphs (auto) 3.02, Nucleated RBC % 0.3, PT 15.8 H, INR 1.3, APTT 34.8, Sodium 139, Potassium 4.2, Chloride 107, Carbon Dioxide 22.0, Anion Gap 10, BUN 37 H, Creatinine 1.77 H, Estim Creat Clear Calc 40.73, Est GFR (MDRD) Af Amer 48 L, Est GFR (MDRD) Non-Af 40 L, BUN/Creatinine Ratio 20.9 H, Glucose 223 H, Calcium 8.3 L, Phosphorus 4.6, Magnesium 1.5 L, Total Bilirubin 0.70, AST 10 L, ALT 17, Alkaline Phosphatase 75, Total Protein 5.9 L, Albumin 3.1 L, Globulin 2.8, Albumin/Globulin Ratio 1.1, TSH 4.93 H 07/01/23 05:38: POC Glucose 193 H Micro: Microbiology 06/30/23 05:00 Stool Stool Occult Blood (RENAN) - Final Occult Blood Positive Radiography Diagnostic Testing: Radiology Impression GI Bleed Scan Nuclear Medicine 06/30/23 07:00 IMPRESSION: 1. NEGATIVE 99m Tc ULTRATAG LABELED BLOOD POOL GASTROINTESTINAL BLEEDING EXAMINATION. 2. There is no definitive scintigraphic evidence of acute gastrointestinal hemorrhage on the current evaluation. Electronically Signed: Freddy DO Fransisco at 12:32 EST , Physical Exam Narrative Seen and examined. Patient admitted for GI bleed, dyspnea on exertion due to anemia. Patient also hard of hearing. Patient had 2 units of PRBC transfusion. Patient is still having GI bleed and had dark of blood in the morning and then large bloody bowel movement. His heart rate also gets high in the 150s. Physical exam General: Alert, Oriented x3, Cooperative HEENT: Pale conjunctiva. Atraumatic, PERRLA, EOMI, Normocephalic Oral: Oral mucosa dry. No Gingival or Mucosal Lesions/ Ulcerations Neck: Supple, No JVD, Negative Carotid Bruits Chest wall/Lungs: Air entry diminished in bilateral lung bases. ALFREDO. No crepitation/rhonchi Cardiovascular: CABG scar. Regular rate, Regular Rhythm, Normal S1, Normal S2, No M/G/R Abdomen: Bowel Sounds Present, Soft, Non Tender, Non-Distended : No dysuria. No renal angle tenderness. No suprapubic tenderness. Extremities: Mild 1+ edema, Capillary Refill Less than 3 Seconds Skin: No rashes, No breakdown Musculoskeletal: No Tenderness to Palpation of Joints or Extremities Neurological: Cranial nerves II-XII grossly intact, DTR 2+/4. No acute focal neurological deficit. Psych/Mental Status: Flat affect. Assessment & Plan Assessment/Plan (1) Acute lower gastrointestinal bleeding: (2) Colonic diverticular disease: PLAN: Plan 78-year-old gentleman being admitted for dyspnea on exertion, severe anemia and acute lower GI bleed bright red as described by patient and his . 1. Acute blood loss anemia most likely due to lower GI bleed: Patient is being admitted to PCU. Hemoglobin dropped from 11.3 g to 7.3 g. 2 units of PRBC has been ordered but will transfuse 1 today and check hemoglobin. Keep NPO. 07/01: Patient is still having lower GI bleed. CBC stat. Discussed with GI admission below. If patient gets hypotensive will need transfer to ICU. 2. Recurrent lower GI suspected to be diverticular: Check NM GI bleeding scan to confirm suspicion. GI is consulted. 07/01: Bleeding scan negative. Plan for colonoscopy tomorrow. Patient was given 1 dose of MiraLAX and started having large blood per rectal with tachycardia walking to bathroom. BP 127/64. Will hold further colon prep as patient has chronic heart disease as mentioned below. 3. History of LGIB due to hemorrhoids (2022) with chronic anemia; followed by Dr. Panda of gastroenterology - Noted. 4. Essential hypertension -blood pressure 147/75. Slightly better than admission. Titrate antihypertensive medication. 5. Hyperlipidemia - Resume statin after endoscopic evaluation. 6. Obesity grade 3 with BMI of 35.6 this admission - Weight loss will be recommended. 7. ZAHIDA; on CPAP - Continue CPAP as previous. 8. DM-2; with hyperglycemia- Keep NPO for the time being. Fingerstick blood sugars every 6 hours + scale insulin of the lowest intensity. Glucose 193 in BMP. 07/01: Glucose is high about 220. Patient put back on glipizide 10 mg daily and Lantus insulin. Hold metformin. Accu-Cheks AC_insulin sliding scale. 9. CAD; s/p CABG (2018) -no chest pain. 10. Chronic diastolic CHF; with preserved LVEF - Stable. Restart home regimen after bleeding has resolved. 07/01: Patient put back on his home medications including carvedilol, Imdur, atorvastatin but will hold baby aspirin because of severe anemia. 07/02: Continue heart medication. Maintain hydration and avoid hypotension and severe anemia. 11. History of craniotomy after trauma with remote history of seizures (1990) - Noted. 12. History of CVA (2017) - Noted. 13. History of tobacco abuse - Noted. 14. Depression - Continue current treatment with venlafaxine after bleeding has resolved. 15. History of laparoscopic cholecystectomy (2021) - Noted. 16. History of bile leak; s/p ERCP - Noted. 17. DVT prophylaxis - SCD's only with very recent GI bleeding. Charges/Coding Addendum Addendum: Total time of the visit including total time spent in counseling or coordination of care, (more than 50% of the total time, spent in obtaining medical information from nurses and other ancillary care providers,explaining to the patient about labs, imaging, diagnosis and management of active complex medical conditions), needs high acuity of care with tachycardia, active GI bleed multiple comorbidities, discussion with asthma educator review of labs and imaging is 50 minutes. Visit Charges Inpatient E&M: 00537 Subs Hosp L3
[2023-07-01] MEDS: Carvedilol 6.25 MG Tablet PO ×2 (09:50→21:16)
[2023-07-01] MEDS: Isosorbide Mononitrate 30 MG Tablet PO (09:50)
[2023-07-01] MEDS: Potassium Chloride Oral Tablet 20 MEQ PO (09:50)
[2023-07-01] MEDS: Ursodiol 250 MG Tablet PO ×2 (09:50→21:16)
[2023-07-01] MEDS: Furosemide 40 MG Tablet PO (09:50)
[2023-07-01] MEDS: Venlafaxine HCl 75 MG Tablet PO (09:51)
[2023-07-01] MEDS: Pantoprazole Sodium 40 MG in 0.9% Normal Saline (100mL MB+) 100 ML 330 MG IV ×2 (09:59→21:16)
[2023-07-01 11:04] LABS: Bedside Glucose 184 mg/dL (74-106)
[2023-07-01 11:07] LABS: Absolute Neutrophil Count 10.2 X10^3/uL (2.0-7.7); Basophil# 0.07 X10^3/uL; Basophil% 0.5 % (0-1); Eosinophil# 0.03 X10^3/uL; Eosinophils% 0.2 % (0-5); Hemoglobin 7.4 g/dL (13.0-16.5); Lymphocyte % 18.3 % (19-41); Mean Corp Hgb Conc 32.2 g/dL (32-36); Mean Corpuscular Hgb 29.1 pg (27.0-32.0); Mean Corpuscular Volume 90.6 fL (80-94); Mean Platelet Vol. 9.9 fl (6.2-12.0); Monocyte# 1.06 X10^3/uL; Monocyte% 7.5 % (0-10); NRBC Flagged by Analyzer 0.5 % (0-5); Neutrophil # 10.19 X10^3/uL (2.7-7.7); Neutrophil % 71.7 % (47-70); Platelet Count 423 K/mm3 (150-450); RBC Distribution Width CV 17.9 % (11.6-14.6); RBC Distribution Width SD 57.1 fl (35.1-43.9); Red Blood Count 2.54 M/mm3 (4.6-6.2); White Blood Count 14.2 K/mm3 (4.4-11.0)
--- NOTE | 2023-07-01 12:20 | CASEMGMT ---
RN CM Face to Face with patient for initial transition planning/care coordination assessment. RN CM introduced self and role at [facility]. Patient lying in bed, alert and oriented, at bedside. Patient willing to participate in assessment and is able to answer all questions appropriately. Care providers, pharmacy, and demographics verified. Patient wishes to discharge home but willing to go to SNF if needed, will monitor progress with therapy. CM to provide list for HHC and SNF. Patient states he has no further needs or concerns at this time. CM to follow for discharge planning needs that may arise. PCP: Sivakumar Specialists: Robinson, public works director; Joao, aircraft machinist; Friend, GI; Rashi, dope firer; Damion, want ad receiver; [facility]erred [facility]acy: [facility] Insurance: [facility] Prescription Benefit: yes Living Will/HPOA: none LNOK: Living Arrangements: Patient lives with in a single story of home with 2 steps and railing. Patient is independent at home with ADLs but assists at times. Transportation: self, DME/HHC: Ptaient has shower chair, grab bars, raised toilet, walker, cpap, and glucometer at home. Patient has had HHC in the past. No previous SNF Disposition Plan: TBD, anticipate HHC vs SNF pending progress with therapy. Eve CLAYTON, RN, CM
--- NOTE | 2023-07-01 13:13 | CASEMGMT ---
Discharge Planning A list of?SNF and HH providers including quality and resource use data and consistent with the patient's preferred geographic region, medical needs, and insurance network was created in [employer] Guide.? This list was provided to the RN CM. Loretta Faust, Discharge Planning Asst.
[2023-07-01] MEDS: Bisacodyl 5 MG Tablet 20 MG PO (14:31)
[2023-07-01 16:02] LABS: Bedside Glucose 223 mg/dL (74-106)
[2023-07-01 16:45] LABS: Absolute Lymphocyte Count 3.05 X10^3/uL (0.83-4.51); Absolute Neutrophil Count 11.4 X10^3/uL (2.0-7.7); Basophil# 0.07 X10^3/uL; Basophil% 0.4 % (0-1); Eosinophil# 0.06 X10^3/uL; Eosinophils% 0.4 % (0-5); Hematocrit 24.3 % (40-54); Hemoglobin 7.8 g/dL (13.0-16.5); Lymphocyte # 3.05 X10^3/ul (0.83-4.51); Lymphocyte % 18.7 % (19-41); Mean Corp Hgb Conc 32.1 g/dL (32-36); Mean Corpuscular Hgb 28.9 pg (27.0-32.0); Mean Platelet Vol. 9.9 fl (6.2-12.0); Monocyte# 1.34 X10^3/uL; Monocyte% 8.2 % (0-10); NRBC Flagged by Analyzer 0.6 % (0-5); Neutrophil # 11.43 X10^3/uL (2.7-7.7); Neutrophil % 70.3 % (47-70); Platelet Count 478 K/mm3 (150-450); RBC Distribution Width CV 17.5 % (11.6-14.6); RBC Distribution Width SD 55.4 fl (35.1-43.9); White Blood Count 16.3 K/mm3 (4.4-11.0)
--- NOTE | 2023-07-01 19:34 | EX.PCM.CON.G ---
HPI Consult Data Date of Consult: 07/01/23 HPI Narrative Reason for Consultation: GI bleeding HPI Narrative: JONY LONGORIA, is a 78 M with a past medical history of essential hypertension, hyperlipidemia, obesity; with BMI of 35.6 this admission, ZAHIDA; on CPAP, DM-2; of unknown control, CAD; s/p CABG (2018), chronic diastolic CHF; with preserved LVEF, history of craniotomy after trauma with remote history of seizures (1990), history of CVA (2017), chronic anemia, history of tobacco abuse, depression, history of laparoscopic cholecystectomy (2021), history of bile leak; s/p ERCP and history of LGIB due to hemorrhoids; Mr. Longoria reports his symptoms began approximately 4 days ago when he came to the ER after a small amount a of bleeding from his rectal area but because his hemoglobin was stable at 11.3 g/dL he was sent home to follow-up as an outpatient. Unfortunately, on the evening of June 29, 2023 patient developed recurrent lower GI bleed with dark maroon stool with his hemoglobin dropping to 7.3 g/dL. He is only on aspirin but not on any other anticoagulation. He denies associated fever, chills, nausea or vomiting. In the ER he was diagnosed with recurrent lower GI suspected to be diverticular in origin and he was then admitted to the PCU for ongoing care for stay that is expected to be greater than 48 hours. [facility] Medical History (HFpEF) heart failure with preserved ejection fraction Adjustment disorder with depressed mood Anemia Atherosclerosis of coronary artery without angina pectoris Cardiology follow-up encounter Chewing tobacco use CPAP (continuous positive airway pressure) dependence Disturbance of memory Essential hypertension Generalized osteoarthritis GIB (gastrointestinal bleeding) History of CVA (cerebrovascular accident) (03/31/18) History of echocardiogram History of stress test Hyperlipidemia Kidney disease Loss of hearing Pain in thoracic spine Peripheral vascular disease, unspecified Pure hypercholesterolemia, unspecified Restless legs Seizures Wears dentures Home Medications aspirin 81 mg tablet,delayed release 81 mg PO DAILY 09/15/19 [History Last Taken 12/24/22] atorvastatin 40 mg tablet 40 mg PO DAILY 09/15/19 [History Last Taken 12/24/22] isosorbide mononitrate 30 mg tablet,extended release 24 hr 30 mg PO DAILY 09/15/19 [History Last Taken 12/24/22] metformin 1,000 mg tablet 1,000 mg PO BID 09/15/19 [History Last Taken 12/24/22] glipizide 10 mg tablet, extended release 24 hr 10 mg PO DAILY 12/28/20 [History Last Taken 12/24/22] furosemide 40 mg tablet 40 mg PO DAILY 11/27/21 [History Last Taken 12/24/22] venlafaxine 75 mg tablet 75 mg PO DAILY 11/27/21 [History Last Taken 12/24/22] albuterol sulfate 90 mcg/actuation aerosol inhaler 2 puff inhalation Q6H PRN shortness of breath or wheezing 05/21/22 [History Last Taken 12/23/22] insulin glargine U-300 conc 300 unit/mL (3 mL) subcutaneous pen (Toujeo Max U-300 SoloStar) 36 unit subcut DAILY 11/20/22 [History Last Taken 12/25/22] losartan 50 mg tablet 50 mg PO DAILY #30 tabs 11/20/22 [Rx Last Taken 12/24/22] nitroglycerin 0.4 mg sublingual tablet 0.4 mg sublingual Q5-15M PRN Chest Pain #25 tabs 11/20/22 [Rx Last Taken Unknown] carvedilol 12.5 mg tablet 12.5 mg PO BID #180 tabs 12/17/22 [Rx Last Taken 12/24/22] potassium chloride 20 mEq tablet,extended release(part/cryst) 20 meq PO DAILY 12/25/22 [History Last Taken 12/24/22] ursodiol 250 mg tablet 250 mg PO BID cirrhosis #60 tabs 06/09/23 [Rx Last Taken Unknown] Allergy/AdvReac Type Severity Reaction Status Date / Time dapagliflozin [From [facility]] Allergy Rash Verified 06/30/23 03:44 Family History Mother Heart disease Father Heart disease Surgical History H/O arthroscopic knee surgery H/O coronary artery bypass surgery (10/25/18) H/O resection of small bowel H/O varicose vein ligation History of appendectomy History of cataract surgery History of colonoscopy History of craniotomy (1990) History of ERCP History of left heart catheterization (10/13/18) Hx laparoscopic cholecystectomy S/P ERCP S/P laparoscopic cholecystectomy (~01/2022) Social History Smoking Status: Current every day smoker tobacco type: smokeless tobacco Smokeless tobacco user: chewing tobacco alcohol intake: former year quit: h/o substance use type: does not use ROS ROS Narrative Review of systems: General: Patient denies fever or chills HENT: Denies headache, denies stuffy nose, denies sore throat EYES: Denies changes in vision or discharge from eyes Resp: Denies cough, denies shortness of breath Cardiac: Denies chest pain or palpitations GI: Denies abdominal pain, denies changes in bowel, had some nausea : Denies changes in urination Extremity: Denies swelling Musculoskeletal: Feels somewhat generally weak and unwell Neuro: Denies any numbness/tingling, headache or focal neurologic deficits Heme: Patient admits to bleeding from his rectum with maroon-colored blood Skin: Denies rashes Psychiatric: No complaints voiced related to uncontrolled depression or anxiety Endocrine: No polyuria, polydipsia or polyphagia The rest of the 14 point ROS was negative except for positives in HPI. Physical Exam Narrative Seen and examined. Patient admitted for GI bleed, dyspnea on exertion due to anemia. Patient also hard of hearing. Patient had 2 units of PRBC transfusion. Patient is still having GI bleed and had dark of blood in the morning and then large bloody bowel movement. His heart rate also gets high in the 150s. Physical exam General: Alert, Oriented x3, Cooperative HEENT: Pale conjunctiva. Atraumatic, PERRLA, EOMI, Normocephalic Oral: Oral mucosa dry. No Gingival or Mucosal Lesions/ Ulcerations Neck: Supple, No JVD, Negative Carotid Bruits Chest wall/Lungs: Air entry diminished in bilateral lung bases. ALFREDO. No crepitation/rhonchi Cardiovascular: CABG scar. Regular rate, Regular Rhythm, Normal S1, Normal S2, No M/G/R Abdomen: Bowel Sounds Present, Soft, Non Tender, Non-Distended : No dysuria. No renal angle tenderness. No suprapubic tenderness. Extremities: Mild 1+ edema, Capillary Refill Less than 3 Seconds Skin: No rashes, No breakdown Musculoskeletal: No Tenderness to Palpation of Joints or Extremities Neurological: Cranial nerves II-XII grossly intact, DTR 2+/4. No acute focal neurological deficit. Psych/Mental Status: Flat affect. Lab / Micro Data 07/01/23 16:30 07/01/23 03:28 Labs: Laboratory Results - last 24 hr 06/30/23 03:59: Crossmatch See Detail 07/01/23 03:28: WBC 16.2 H, RBC 2.52 L, Hgb 7.2 L, Hct 22.2 L, MCV 88.1, MCH 28.6, MCHC 32.4, RDW Std Deviation 57.6 H, RDW Coeff of Myron 18.4 H, Plt Count 450, MPV 9.6, Immature Gran % (Auto) 2.200 H, Neut % (Auto) 71.5 H, Lymph % (Auto) 18.7 L, [place] % (Auto) 6.9, Eos % (Auto) 0.3, Baso % (Auto) 0.4, Absolute Neuts (auto) 11.6 H, Absolute Lymphs (auto) 3.02, Nucleated RBC % 0.3, PT 15.8 H, INR 1.3, APTT 34.8, Sodium 139, Potassium 4.2, Chloride 107, Carbon Dioxide 22.0, Anion Gap 10, BUN 37 H, Creatinine 1.77 H, Estim Creat Clear Calc 40.73, Est GFR (MDRD) Af Amer 48 L, Est GFR (MDRD) Non-Af 40 L, BUN/Creatinine Ratio 20.9 H, Glucose 223 H, Calcium 8.3 L, Phosphorus 4.6, Magnesium 1.5 L, Total Bilirubin 0.70, AST 10 L, ALT 17, Alkaline Phosphatase 75, Total Protein 5.9 L, Albumin 3.1 L, Globulin 2.8, Albumin/Globulin Ratio 1.1, TSH 4.93 H 07/01/23 05:38: POC Glucose 193 H 07/01/23 10:45: POC Glucose 184 H 07/01/23 11:00: WBC 14.2 H, RBC 2.54 L, Hgb 7.4 L, Hct 23.0 L, MCV 90.6, MCH 29.1, MCHC 32.2, RDW Std Deviation 57.1 H, RDW Coeff of Myron 17.9 H, Plt Count 423, MPV 9.9, Immature Gran % (Auto) 1.800 H, Neut % (Auto) 71.7 H, Lymph % (Auto) 18.3 L, [place] % (Auto) 7.5, Eos % (Auto) 0.2, Baso % (Auto) 0.5, Absolute Neuts (auto) 10.2 H, Absolute Lymphs (auto) 2.60, Nucleated RBC % 0.5 07/01/23 15:44: POC Glucose 223 H 07/01/23 16:30: WBC 16.3 H, RBC 2.70 L, Hgb 7.8 L, Hct 24.3 L, MCV 90.0, MCH 28.9, MCHC 32.1, RDW Std Deviation 55.4 H, RDW Coeff of Myron 17.5 H, Plt Count 478 H, MPV 9.9, Immature Gran % (Auto) 2.000 H, Neut % (Auto) 70.3 H, Lymph % (Auto) 18.7 L, [place] % (Auto) 8.2, Eos % (Auto) 0.4, Baso % (Auto) 0.4, Absolute Neuts (auto) 11.4 H, Absolute Lymphs (auto) 3.05, Nucleated RBC % 0.6 Assessment & Plan Assessment/Plan (1) Acute lower gastrointestinal bleeding: (2) Colonic diverticular disease: PLAN: Plan Acute blood loss anemia with hemoglobin dropping from 11.3 g/dL 4 days ago to 7.3 g/dL today.He can have a clear liquid diet. Prep for colonscopy. Transfuse 2 units of PRBC's with patient still actively bleeding since his prior labs were drawn. Recheck CBC at noon. Suspect Diverticular Recurrent lower GI I bleeding although CTA was negative. Charges/Coding Visit Charges Inpatient E&M: 89456 Init Hosp L3
[2023-07-01] MEDS: Atorvastatin Calcium 40 MG Tablet PO (21:16)
[2023-07-01] MEDS: 0.9% Normal Saline (1000mL) 1,000 ML 50 ML IV (21:16)
[2023-07-01] MEDS: Insulin Lispro 100 UNIT/ML INSULN.PEN SC (21:24)
[2023-07-01 22:00] LABS: Bedside Glucose 311 mg/dL (74-106)
[2023-07-02] VITALS (17 sets, daily range): BP systolic 108–145; BP diastolic 49–88; PULSE 87–102; RESP 14–165; TEMP 35.7–37.2; O2SAT 92–98; BMI 35.1
--- NOTE | 2023-07-02 05:55 | EKG12_ITS ---
Test Reason : AM EKG Blood Pressure : / mmHG Vent. Rate : 088 BPM Atrial Rate : 088 BPM P-R Int : 180 ms QRS Dur : 106 ms QT Int : 402 ms P-R-T Axes : 036 -27 104 degrees QTc Int : 486 ms Normal sinus rhythm T wave abnormality, consider lateral ischemia Abnormal ECG Confirmed by ROHIT ANDRADE, ELLIE ([id number]), script editor LILA JOHN ([id number]) on 07/02/2023 9:12:45 AM Referred By: Confirmed By:ELLIE BEE MD
[2023-07-02 06:20] LABS: Bedside Glucose 211 mg/dL (74-106)
[2023-07-02 06:45] LABS: Absolute Lymphocyte Count 1.94 X10^3/uL (0.83-4.51); Absolute Neutrophil Count 8.5 X10^3/uL (2.0-7.7); Basophil# 0.03 X10^3/uL; Basophil% 0.3 % (0-1); Eosinophil# 0.06 X10^3/uL; Eosinophils% 0.5 % (0-5); Hematocrit 19.8 % (40-54); Hemoglobin 6.5 g/dL (13.0-16.5); Lymphocyte # 1.94 X10^3/ul (0.83-4.51); Lymphocyte % 16.6 % (19-41); Mean Corp Hgb Conc 32.8 g/dL (32-36); Mean Corpuscular Hgb 29.7 pg (27.0-32.0); Mean Corpuscular Volume 90.4 fL (80-94); Mean Platelet Vol. 9.7 fl (6.2-12.0); Monocyte# 0.96 X10^3/uL; Monocyte% 8.2 % (0-10); NRBC Flagged by Analyzer 0.3 % (0-5); Neutrophil # 8.54 X10^3/uL (2.7-7.7); Neutrophil % 73.2 % (47-70); Platelet Count 372 K/mm3 (150-450); RBC Distribution Width CV 17.4 % (11.6-14.6); RBC Distribution Width SD 55.8 fl (35.1-43.9); Red Blood Count 2.19 M/mm3 (4.6-6.2); White Blood Count 11.7 K/mm3 (4.4-11.0)
[2023-07-02 07:04] LABS: Anion Gap 4 (5-15); BUN 38 mg/dL (7-18); BUN/Creat Ratio 19.7 RATIO (10-20); Calcium,Total 8.1 mg/dL (8.5-10.1); Chloride 111 mmol/L (98-107); Creatinine, Serum 1.93 mg/dL (0.70-1.30); EST Glomerular Filtration Rate 36 mL/min (>60); Est Glom Filt Rate - Afr Amer 44 mL/min (>60); Glucose 225 mg/dL (74-106); Potassium 3.9 mmol/L (3.5-5.1); Sodium Level 139 mmol/L (136-145)
[2023-07-02] MEDS: Ursodiol 250 MG Tablet PO ×2 (08:38→20:11)
[2023-07-02] MEDS: Isosorbide Mononitrate 30 MG Tablet PO (08:38)
[2023-07-02] MEDS: Venlafaxine HCl 75 MG Tablet PO (08:38)
[2023-07-02] MEDS: Furosemide 40 MG Tablet PO (08:38)
[2023-07-02] MEDS: Pantoprazole Sodium 40 MG in 0.9% Normal Saline (100mL MB+) 100 ML 330 MG IV ×2 (10:08→20:16)
--- NOTE | 2023-07-02 13:36 | OP.CCLET_ITS ---
07/02/2023 Frankie Shaver MD [address] [place] [address] Re : Upper GI endoscopy procedure for Tor Longoria Dear Dr. Shaver This procedure was performed on Sunday, July 02, 2023. My impressions and recommendations are as follows: Impressions : - Normal esophagus. - No gross lesions in the entire stomach. - No gross lesions in the third portion of the duodenum. - No specimens collected. Recommendations : - [facility]. - Resume previous diet. - Continue present medications. My findings are described in the full procedure note, which is enclosed. If I can be of further assistance, please feel free to contact me at . Sincerely, Valentin Panda, 07/02/2023 1:35:51 PM This report has been signed electronically.
--- NOTE | 2023-07-02 13:36 | OP.EGD_ITS ---
Patient Name: Tor Longoria Procedure Date: 07/02/2023 8:02 AM Date of : 1945 Age: 78 Procedure: Upper GI endoscopy Indications: Iron deficiency anemia, Hematochezia, Melena Providers: Valentin Panda DO Medicines: Monitored Anesthesia Care Patient Profile: This is a 78 year old male. Refer to note in patient chart for documentation of history and physical. Patient has symptoms of acute global abdominal pain. Complications: No immediate complications. Procedure: Pre-Anesthesia Assessment: - Prior to the procedure, a History and Physical was performed, and patient medications and allergies were reviewed. The patient is competent. The risks and benefits of the procedure and the sedation options and risks were discussed with the patient. All questions were answered and informed consent was obtained. Patient identification and proposed procedure were verified by the physician in the pre-procedure area. Mental Status Examination: alert and oriented. Airway Examination: normal oropharyngeal airway and neck mobility. Respiratory Examination: clear to auscultation. CV Examination: normal. Prophylactic Antibiotics: The patient does not require prophylactic antibiotics. Prior Anticoagulants: The patient has taken no anticoagulant or antiplatelet agents. ASA Grade Assessment: IV - A patient with severe systemic disease that is a constant threat to life. After reviewing the risks and benefits, the patient was deemed in satisfactory condition to undergo the procedure. The anesthesia plan was to use monitored anesthesia care (MAC). Immediately prior to administration of medications, the patient was re-assessed for adequacy to receive sedatives. The heart rate, respiratory rate, oxygen saturations, blood pressure, adequacy of pulmonary ventilation, and response to care were monitored throughout the procedure. The physical status of the patient was re-assessed after the procedure. After obtaining informed consent, the endoscope was passed under direct vision. Throughout the procedure, the patient's blood pressure, pulse, and oxygen saturations were monitored continuously. The Colonoscope was introduced through the mouth, and advanced to the second part of duodenum. The upper GI endoscopy was accomplished without difficulty. The patient tolerated the procedure well. Scope In: 12:57:44 PM Scope Out: 1:01:21 PM Total Procedure Duration Time 0 hours 3 minutes 37 seconds Findings: The examined esophagus was normal. No gross lesions were noted in the entire examined stomach. No gross lesions were noted in the third portion of the duodenum. Impression: - Normal esophagus. - No gross lesions in the entire stomach. - No gross lesions in the third portion of the duodenum. - No specimens collected. Recommendation: - [facility] care. - Resume previous diet. - Continue present medications. Procedure Code(s): --- Professional --- 14293, Esophagogastroduodenoscopy, flexible, transoral; diagnostic, including collection of specimen(s) by brushing or washing, when performed (separate procedure) CPT copyright 2021 [employer]. All rights reserved. The codes documented in this report are preliminary and upon hims coder review may be revised to meet current compliance requirements. Valentin Panda DO 07/02/2023 1:35:51 PM This report has been signed electronically. Number of Addenda: 0 Note Initiated On: 07/02/2023 8:02 AM
--- NOTE | 2023-07-02 13:39 | OP.COLON_ITS ---
Patient Name: Tor Longoria Procedure Date: 07/02/2023 1:01 PM Date of : 1945 Age: 78 Procedure: Colonoscopy Indications: Hematochezia Providers: Valentin Panda DO Medicines: Monitored Anesthesia Care Patient Profile: This is a 78 year old male. Refer to note in patient chart for documentation of history and physical. Patient has symptoms of acute global abdominal pain. Last Colonoscopy: 1 year ago. Complications: No immediate complications. Procedure: Pre-Anesthesia Assessment: - Prior to the procedure, a History and Physical was performed, and patient medications and allergies were reviewed. The patient is competent. The risks and benefits of the procedure and the sedation options and risks were discussed with the patient. All questions were answered and informed consent was obtained. Patient identification and proposed procedure were verified by the physician in the pre-procedure area. Mental Status Examination: alert and oriented. Airway Examination: normal oropharyngeal airway and neck mobility. Respiratory Examination: clear to auscultation. CV Examination: normal. Prophylactic Antibiotics: The patient does not require prophylactic antibiotics. Prior Anticoagulants: The patient has taken no anticoagulant or antiplatelet agents. ASA Grade Assessment: IV - A patient with severe systemic disease that is a constant threat to life. After reviewing the risks and benefits, the patient was deemed in satisfactory condition to undergo the procedure. The anesthesia plan was to use monitored anesthesia care (MAC). Immediately prior to administration of medications, the patient was re-assessed for adequacy to receive sedatives. The heart rate, respiratory rate, oxygen saturations, blood pressure, adequacy of pulmonary ventilation, and response to care were monitored throughout the procedure. The physical status of the patient was re-assessed after the procedure. After I obtained informed consent, the scope was passed under direct vision. Throughout the procedure, the patient's blood pressure, pulse, and oxygen saturations were monitored continuously. The Colonoscope was introduced through the anus and advanced to the terminal ileum. The colonoscopy was performed without difficulty. The patient tolerated the procedure well. The quality of the bowel preparation was {skip} . No bowel preparation was given prior to the procedure. The quality of visualization was adequate. Scope In: 1:04:26 PM Scope Withdrawal Time 0 hours 17 minutes 44 seconds Scope Out: 1:24:18 PM Total Procedure Duration Time 0 hours 19 minutes 52 seconds Findings: The perianal and digital rectal examinations were normal. Non-bleeding internal hemorrhoids were found during retroflexion. The hemorrhoids were small and Grade I (internal hemorrhoids that do not prolapse). Stool was found in the rectum, in the recto-sigmoid colon, in the sigmoid colon and in the descending colon. Clotted blood was found in the entire colon. Impression: - Non-bleeding internal hemorrhoids. - Stool in the rectum, in the recto-sigmoid colon, in the sigmoid colon and in the descending colon. - Blood in the entire examined colon. - No specimens collected. Recommendation: - Discharge patient to home. - Clear liquid diet. - Continue present medications. - Repeat colonoscopy tomorrow. Procedure Code(s): --- Professional --- 19914, Colonoscopy, flexible; diagnostic, including collection of specimen(s) by brushing or washing, when performed (separate procedure) CPT copyright 2021 [employer]. All rights reserved. The codes documented in this report are preliminary and upon certified procedural coder review may be revised to meet current compliance requirements. Valentin Panda DO 07/02/2023 1:39:13 PM This report has been signed electronically. Number of Addenda: 0 Note Initiated On: 07/02/2023 1:01 PM
--- NOTE | 2023-07-02 13:39 | OP.CCLET_ITS ---
07/02/2023 Frankie Shaver MD [address] [place] [address] Re : Colonoscopy procedure for Tor Longoria Dear Dr. Shaver This procedure was performed on Sunday, July 02, 2023. My impressions and recommendations are as follows: Impressions : - Non-bleeding internal hemorrhoids. - Stool in the rectum, in the recto-sigmoid colon, in the sigmoid colon and in the descending colon. - Blood in the entire examined colon. - No specimens collected. Recommendations : - Discharge patient to home. - Clear liquid diet. - Continue present medications. - Repeat colonoscopy tomorrow. My findings are described in the full procedure note, which is enclosed. If I can be of further assistance, please feel free to contact me at . Sincerely, Valentin Panda, 07/02/2023 1:39:13 PM This report has been signed electronically.
--- NOTE | 2023-07-02 14:32 | PCM.PN.HOSP ---
Reason for Visit Reason for Visit: Diagnoses Diverticulosis of large intestine without perforation or abscess without bleeding (06/30/23) Gastrointestinal hemorrhage, unspecified (06/30/23) Objective Data Objective Data Vital Signs: Vital Signs Temp Pulse Resp BP Pulse Ox O2 Del Method O2 Flow Rate 97.8 F 97 14 123/67 H 94 Nasal Cannula 3 07/02/23 14:20 07/02/23 14:20 07/02/23 14:20 07/02/23 14:20 07/02/23 14:20 07/02/23 14:20 07/02/23 14:20 Oxygen Flow Rate (L/min) 3 Oxygen Delivery Method Nasal Cannula Weight: 230 lb 13.184 oz Body Mass Index (BMI) 35.1 Intake & Output: Intake and Output for Last 24 Hours 06/30/23 07/01/23 07/02/23 23:59 23:59 23:59 Intake Total 469.33 / 469.33 221 / 221 813.33 / 813.33 Output Total 300 / 300 420 / 420 600 / 600 Balance 169.33 / 169.33 -199 / -199 213.33 / 213.33 Lab / Micro Data 07/02/23 06:10 07/02/23 06:10 Labs: Laboratory Results - last 24 hr 06/30/23 03:59: Crossmatch See Detail 07/01/23 15:44: POC Glucose 223 H 07/01/23 16:30: WBC 16.3 H, RBC 2.70 L, Hgb 7.8 L, Hct 24.3 L, MCV 90.0, MCH 28.9, MCHC 32.1, RDW Std Deviation 55.4 H, RDW Coeff of Myron 17.5 H, Plt Count 478 H, MPV 9.9, Immature Gran % (Auto) 2.000 H, Neut % (Auto) 70.3 H, Lymph % (Auto) 18.7 L, [place] % (Auto) 8.2, Eos % (Auto) 0.4, Baso % (Auto) 0.4, Absolute Neuts (auto) 11.4 H, Absolute Lymphs (auto) 3.05, Nucleated RBC % 0.6 07/01/23 21:21: POC Glucose 311 H 07/02/23 05:19: POC Glucose 211 H 07/02/23 06:10: WBC 11.7 H, RBC 2.19 L, Hgb 6.5 L, Hct 19.8 L, MCV 90.4, MCH 29.7, MCHC 32.8, RDW Std Deviation 55.8 H, RDW Coeff of Myron 17.4 H, Plt Count 372, MPV 9.7, Immature Gran % (Auto) 1.200 H, Neut % (Auto) 73.2 H, Lymph % (Auto) 16.6 L, Tate % (Auto) 8.2, Eos % (Auto) 0.5, Baso % (Auto) 0.3, Absolute Neuts (auto) 8.5 H, Absolute Lymphs (auto) 1.94, Nucleated RBC % 0.3, Sodium 139, Potassium 3.9, Chloride 111 H, Carbon Dioxide 24.0, Anion Gap 4 L, BUN 38 H, Creatinine 1.93 H, Estim Creat Clear Calc 37.00, Est GFR (MDRD) Af Amer 44 L, Est GFR (MDRD) Non-Af 36 L, BUN/Creatinine Ratio 19.7, Glucose 225 H, Calcium 8.1 L Micro: Microbiology 06/30/23 05:00 Stool Stool Occult Blood (RENAN) - Final Occult Blood Positive Physical Exam Narrative Seen and examined. Patient admitted for GI bleed, dyspnea on exertion due to anemia on the top of multiple chronic heart disease. Patient also hard of hearing. Patient had 2 units of PRBC transfusion. Patient is still having GI bleed and had dark blood in the stool yesterday. Patient was also hypotensive and tachycardic yesterday Physical exam General: Alert, Oriented x3, Cooperative. Obesity grade 335.1 kg/m? HEENT: Pale conjunctiva. Atraumatic, PERRLA, EOMI, Normocephalic Oral: Oral mucosa dry. No Gingival or Mucosal Lesions/ Ulcerations Neck: Supple, No JVD, Negative Carotid Bruits Chest wall/Lungs: Air entry diminished in bilateral lung bases. ALFREDO. No crepitation/rhonchi Cardiovascular: CABG scar. Regular rate, Regular Rhythm, Normal S1, Normal S2, No M/G/R Abdomen: Bowel Sounds Present, Soft, Non Tender, mild abdominal distention : No dysuria. No renal angle tenderness. No suprapubic tenderness. Extremities:2 pitting + edema, Capillary Refill Less than 3 Seconds Skin: No rashes, No breakdown Musculoskeletal: No Tenderness to Palpation of Joints or Extremities Neurological: Cranial nerves II-XII grossly intact, DTR 2+/4. No acute focal neurological deficit. Psych/Mental Status: Flat affect. Assessment & Plan Assessment/Plan (1) Acute lower gastrointestinal bleeding: (2) Colonic diverticular disease: PLAN: Plan 78-year-old gentleman being admitted for dyspnea on exertion, severe anemia and acute lower GI bleed bright red as described by patient and his . 1. Acute blood loss anemia most likely due to lower GI bleed: Patient is being admitted to PCU. Hemoglobin dropped from 11.3 g to 7.3 g. 2 units of PRBC has been ordered but will transfuse 1 today and check hemoglobin. Keep NPO. 07/01: Patient is still having lower GI bleed. CBC stat. Discussed with GI admission below. If patient gets hypotensive will need transfer to ICU. 07/02: Hemoglobin dropped down to 6.5. 1 unit PRBC ordered. Leukocytosis better. 2. Recurrent lower GI suspected to be diverticular: Check NM GI bleeding scan to confirm suspicion. GI is consulted. 07/01: Bleeding scan negative. Plan for colonoscopy tomorrow. Patient was given 1 dose of MiraLAX and started having large blood per rectal with tachycardia walking to bathroom. BP 127/64. Will hold further colon prep as patient has chronic heart disease as mentioned below. 07/02: Discussed with Dr. Panda. Plan for colonoscopy today although patient is at high risk in view of history of CAD status post CABG, chronic heart failure/HFpEF history of craniotomy, seizures and CVA. Patient is sensitive to hemodynamic fluid shift. 3. History of LGIB due to hemorrhoids (2022) with chronic anemia; followed by Dr. Panda of gastroenterology - Noted. 4. Essential hypertension -blood pressure 147/75. Slightly better than admission. Titrate antihypertensive medication. 5. Hyperlipidemia - Resume statin after endoscopic evaluation. 6. Obesity grade 3 with BMI of 35.6 this admission - Weight loss will be recommended. 7. ZAHIDA; on CPAP - Continue CPAP as previous. 8. DM-2; with hyperglycemia- Keep NPO for the time being. Fingerstick blood sugars every 6 hours + scale insulin of the lowest intensity. Glucose 193 in BMP. 07/01: Glucose is high about 220. Patient put back on glipizide 10 mg daily and Lantus insulin. Hold metformin. Accu-Cheks AC_insulin sliding scale. 9. CAD; s/p CABG (2018) -no chest pain. 10. Chronic diastolic CHF; with preserved LVEF - Stable. Restart home regimen after bleeding has resolved. 07/01: Patient put back on his home medications including carvedilol, Imdur, atorvastatin but will hold baby aspirin because of severe anemia. 07/02: Continue heart medication. Maintain hydration and avoid hypotension and severe anemia. Patient put on IV fluid normal saline 75 mill per hour. 11. RC on CKD stage 3A: Patient baseline creatinine runs around 55 mill per minute. Creatinine increased from 1.41 on admission to 1.93. Hold Lasix, potassium supplement. Monitor kidney function. 12. History of craniotomy after trauma with remote history of seizures (1990), history of CVA (2017) - Noted. 13. History of tobacco abuse - Noted. 14. Depression - Continue current treatment with venlafaxine after bleeding has resolved. 15. History of laparoscopic cholecystectomy (2021) - Noted. 16. History of bile leak; s/p ERCP - Noted. 17. DVT prophylaxis - SCD's only with very recent GI bleeding. Living will/advanced directive/end of life care: Patient does have living will or advanced directive. His is power of patent prosecution attorney for health. After discussion of benefits/risks procedures involved with full code, DNR CC arrest and DNR CC, the patient opted for full code. After discussion to the patient's , patient does want artificial life support including intubation, tube feed, ventilator and/chest compression, central venous catheter, vasopressor and DC shock if needed. Patient is states that she takes care of him at home, doctor's visit and wanted everything possible to restore his health. Total time spent in [id number] encounter in discussion of advanced directive 17 minutes. Charges/Coding Addendum Addendum: Total time of the visit including total time spent in counseling or coordination of care, (more than 50% of the total time, spent in obtaining medical information from nurses and other ancillary care providers,explaining to the patient about labs, imaging, diagnosis and management of active complex medical conditions), discussion with gastroenterology, clinical update given to the patient's , review of labs and imaging is 40 minutes. Visit Charges Inpatient E&M: 19168 Subs Hosp L3
--- NOTE | 2023-07-02 14:55 | CASEMGMT ---
SOLANGE DRIVER reviewed progress with therapy. Patient requiring moderate assist x2. SOLANGE DRIVER in to discuss progress with therapy with patient and and recommendations for SNF at discharge. Patient and agreeable and prefer [facility] after reviewing lists. Patient and had no further questions or concerns. SOLANGE DRIVER updated SW. Discharge planning rn to send referral to [facility]. CM will continue to follow this patient and plan for a safe discharge.
[2023-07-02] MEDS: Bisacodyl 5 MG Tablet 20 MG PO (15:11)
--- NOTE | 2023-07-02 15:41 | CASEMGMT ---
Addendum entered by Loretta Faust 07/03/23 10:25: Patient has been accepted by [facility]. Precert will be submitted today. Loretta Faust, Discharge Planning Asst. Original Note: Discharge Planning Referral sent via [facility] to [facility]. Loretta Faust, Discharge Planning Asst.
[2023-07-02 16:35] LABS: Bedside Glucose 185 mg/dL (74-106)
[2023-07-02] MEDS: Polyethylene Glycol 3350 BOWEL PREP PO (17:22)
[2023-07-02] MEDS: 0.9% Normal Saline (1000mL) 1,000 ML 75 ML IV (17:31)
[2023-07-02] MEDS: 0.9% Saline Lock 10 ML Syringe IV (20:08)
[2023-07-02] MEDS: Atorvastatin Calcium 40 MG Tablet PO (20:11)
[2023-07-02] MEDS: Carvedilol 6.25 MG Tablet PO (20:11)
[2023-07-02 20:45] LABS: Bedside Glucose 173 mg/dL (74-106)
[2023-07-02 20:47] LABS: Hematocrit 21.2 % (40-54); Hemoglobin 6.9 g/dL (13.0-16.5)
--- NOTE | 2023-07-02 21:18 | PCM.HOSP.N ---
Hospitalist Note Repeat HH 6.9, will request additional 1 u PRBC.
[2023-07-03] VITALS (9 sets, daily range): BP systolic 108–145; BP diastolic 54–74; PULSE 83–101; RESP 16; TEMP 36.1–36.6; O2SAT 93–98; BMI 36.5
[2023-07-03 06:02] LABS: Bedside Glucose 168 mg/dL (74-106)
[2023-07-03 06:22] LABS: Absolute Lymphocyte Count 1.68 X10^3/uL (0.83-4.51); Absolute Neutrophil Count 9.3 X10^3/uL (2.0-7.7); Basophil# 0.05 X10^3/uL; Basophil% 0.4 % (0-1); Eosinophil# 0.06 X10^3/uL; Eosinophils% 0.5 % (0-5); Hematocrit 22.7 % (40-54); Hemoglobin 7.5 g/dL (13.0-16.5); Lymphocyte # 1.68 X10^3/ul (0.83-4.51); Lymphocyte % 13.9 % (19-41); Mean Corpuscular Hgb 29.9 pg (27.0-32.0); Mean Corpuscular Volume 90.4 fL (80-94); Mean Platelet Vol. 9.7 fl (6.2-12.0); Monocyte# 0.83 X10^3/uL; Monocyte% 6.9 % (0-10); NRBC Flagged by Analyzer 0.3 % (0-5); Neutrophil # 9.31 X10^3/uL (2.7-7.7); Neutrophil % 77.1 % (47-70); Platelet Count 337 K/mm3 (150-450); RBC Distribution Width CV 16.1 % (11.6-14.6); RBC Distribution Width SD 52.4 fl (35.1-43.9); Red Blood Count 2.51 M/mm3 (4.6-6.2); White Blood Count 12.1 K/mm3 (4.4-11.0)
[2023-07-03 06:52] LABS: ALB/GLOB Ratio 1.1 RATIO (0.9-2.4); AST(SGOT) 13 U/L (15-37); Alanine Aminotransfer ALT/SGPT 15 U/L (16-61); Albumin, Serum 2.7 g/dL (3.2-5.0); Alkaline Phosphatase 74 U/L (45-117); Anion Gap 5 (5-15); BUN 31 mg/dL (7-18); BUN/Creat Ratio 18.8 RATIO (10-20); Calcium,Total 8.3 mg/dL (8.5-10.1); Chloride 109 mmol/L (98-107); Creatinine, Serum 1.65 mg/dL (0.70-1.30); EST Glomerular Filtration Rate 43 mL/min (>60); Est Glom Filt Rate - Afr Amer 52 mL/min (>60); Estimated Creatinine Clearance 44.15 ml/min; Globulin 2.5 g/dL (2.2-4.2); Glucose 181 mg/dL (74-106); Potassium 3.8 mmol/L (3.5-5.1); Protein, Total 5.2 g/dL (6.4-8.2); Sodium Level 138 mmol/L (136-145)
--- NOTE | 2023-07-03 07:50 | PCM.PN.HOSP ---
Reason for Visit Reason for Visit: Diagnoses Diverticulosis of large intestine without perforation or abscess without bleeding (06/30/23) Gastrointestinal hemorrhage, unspecified (06/30/23) Objective Data Objective Data Vital Signs: Vital Signs Temp Pulse Resp BP Pulse Ox O2 Del Method O2 Flow Rate 97 F L 98 16 144/74 H 98 Room Air 3 07/03/23 02:20 07/03/23 02:20 07/03/23 02:20 07/03/23 02:20 07/03/23 02:20 07/03/23 02:20 07/02/23 14:20 Oxygen Flow Rate (L/min) 3 Oxygen Delivery Method Room Air Weight: 240 lb 1.334 oz Body Mass Index (BMI) 36.5 Intake & Output: Intake and Output for Last 24 Hours 07/01/23 07/02/23 07/03/23 23:59 23:59 23:59 Intake Total 221 / 221 1726.83 / 2206.83 1060 / 1060 Output Total 420 / 420 1000 / 1450 450 / 450 Balance -199 / -199 726.83 / 756.83 610 / 610 Lab / Micro Data 07/03/23 05:45 07/03/23 05:45 Labs: Laboratory Results - last 24 hr 06/30/23 03:59: Crossmatch See Detail 06/30/23 03:59: Crossmatch See Detail 07/02/23 16:17: POC Glucose 185 H 07/02/23 20:28: POC Glucose 173 H 07/02/23 20:40: Hgb 6.9 L, Hct 21.2 L 07/03/23 05:42: POC Glucose 168 H 07/03/23 05:45: WBC 12.1 H, RBC 2.51 L, Hgb 7.5 L, Hct 22.7 L, MCV 90.4, MCH 29.9, MCHC 33.0, RDW Std Deviation 52.4 H, RDW Coeff of Myron 16.1 H, Plt Count 337, MPV 9.7, Immature Gran % (Auto) 1.200 H, Neut % (Auto) 77.1 H, Lymph % (Auto) 13.9 L, [place] % (Auto) 6.9, Eos % (Auto) 0.5, Baso % (Auto) 0.4, Absolute Neuts (auto) 9.3 H, Absolute Lymphs (auto) 1.68, Nucleated RBC % 0.3, Sodium 138, Potassium 3.8, Chloride 109 H, Carbon Dioxide 24.0, Anion Gap 5, BUN 31 H, Creatinine 1.65 H, Estim Creat Clear Calc 44.15, Est GFR (MDRD) Af Amer 52 L, Est GFR (MDRD) Non-Af 43 L, BUN/Creatinine Ratio 18.8, Glucose 181 H, Calcium 8.3 L, Total Bilirubin 1.10 H, AST 13 L, ALT 15 L, Alkaline Phosphatase 74, Total Protein 5.2 L, Albumin 2.7 L, Globulin 2.5, Albumin/Globulin Ratio 1.1 Micro: Microbiology 06/30/23 05:00 Stool Stool Occult Blood (RENAN) - Final Occult Blood Positive Physical Exam Narrative Seen and examined. Patient hemoglobin is 7.5. Patient was taken to EGD and colonoscopy but colon was not clean and blood throughout the colon. Since patient is still bleeding Shortness of breath and blood pressure better. The patient admitted for GI bleed, dyspnea on exertion due to anemia on the top of multiple chronic heart disease. Patient had total of 4 units of PRBC transfusion. Physical exam General: Alert, Oriented x3, Cooperative. Obesity grade 335.1 kg/m? HEENT: Bilateral hard of hearing. Pale conjunctiva. Atraumatic, PERRLA, EOMI, Normocephalic Oral: Oral mucosa moist. No Gingival or Mucosal Lesions/ Ulcerations Neck: Supple, No JVD, Negative Carotid Bruits Chest wall/Lungs: Air entry diminished in bilateral lung bases. Dyspnea/SOB better. No crepitation/rhonchi Cardiovascular: CABG scar. Regular rate, Regular Rhythm, Normal S1, Normal S2, systolic murmur present in the right second ICS. Abdomen: Bowel Sounds Present, Soft, Non Tender, mild abdominal distention : No dysuria. No renal angle tenderness. No suprapubic tenderness. Extremities:2 pitting + edema, Capillary Refill Less than 3 Seconds Skin: No rashes, No breakdown Musculoskeletal: No Tenderness to Palpation of Joints or Extremities Neurological: Cranial nerves II-XII grossly intact, DTR 2+/4. No acute focal neurological deficit. Psych/Mental Status: Flat affect. Assessment & Plan Assessment/Plan (1) Acute lower gastrointestinal bleeding: (2) Colonic diverticular disease: PLAN: Plan 78-year-old gentleman being admitted for dyspnea on exertion, severe anemia and acute lower GI bleed bright red as described by patient and his . 1. Acute blood loss anemia most likely due to lower GI bleed: Patient is being admitted to PCU. Hemoglobin dropped from 11.3 g to 7.3 g. 2 units of PRBC has been ordered but will transfuse 1 today and check hemoglobin. Keep NPO. 07/01: Patient is still having lower GI bleed. CBC stat. Discussed with GI admission below. If patient gets hypotensive will need transfer to ICU. 07/02: Hemoglobin dropped down to 6.5. 1 unit PRBC ordered. Leukocytosis better. 07/03: Patient had total of 4 units of PRBC transfusion. Hemoglobin yesterday was 7.5. Repeat H&H is 12 PM today and if hemoglobin less than 7 g will need transfusion. 2. Recurrent lower GI suspected to be diverticular: Check NM GI bleeding scan to confirm suspicion. GI is consulted. 07/01: Bleeding scan negative. Plan for colonoscopy tomorrow. Patient was given 1 dose of MiraLAX and started having large blood per rectal with tachycardia walking to bathroom. BP 127/64. Will hold further colon prep as patient has chronic heart disease as mentioned below. 07/02: Discussed with Dr. Panda. Plan for colonoscopy today although patient is at high risk in view of history of CAD status post CABG, chronic heart failure/HFpEF history of craniotomy, seizures and CVA. Patient is sensitive to hemodynamic fluid shift. 07/03: EGD and colonoscopy reviewed as mentioned below. Colonoscopy prep was not optimal with stool present. Blood in the entire colon. Plan for repeat colonoscopy today. EGD on 07/02/2023 Impression: - Normal esophagus. - No gross lesions in the entire stomach. - No gross lesions in the third portion of the duodenum. Colonoscopy Impression: - Non-bleeding internal hemorrhoids. - Stool in the rectum, in the recto-sigmoid colon, in the sigmoid colon and in the descending colon. - Blood in the entire examined colon. - No specimens collected. Recommendation: - - Clear liquid diet. - Continue present medications. - Repeat colonoscopy tomorrow. 3. History of LGIB due to hemorrhoids (2022) with chronic anemia; followed by Dr. Panda of gastroenterology - Noted. 4. Essential hypertension -blood pressure 147/75. Slightly better than admission. Titrate antihypertensive medication. 5. Hyperlipidemia - Resume statin after endoscopic evaluation. 6. Obesity grade 3 with BMI of 35.6 this admission - Weight loss will be recommended. 7. ZAHIDA; on CPAP - Continue CPAP as previous. 8. DM-2; with hyperglycemia- Keep NPO for the time being. Fingerstick blood sugars every 6 hours + scale insulin of the lowest intensity. Glucose 193 in BMP. 07/01: Glucose is high about 220. Patient put back on glipizide 10 mg daily and Lantus insulin. Hold metformin. Accu-Cheks AC_insulin sliding scale. 9. CAD; s/p CABG (2018) -no chest pain. 10. Chronic diastolic CHF; with preserved LVEF - Stable. Restart home regimen after bleeding has resolved. 07/01: Patient put back on his home medications including carvedilol, Imdur, atorvastatin but will hold baby aspirin because of severe anemia. 07/02: Continue heart medication. Maintain hydration and avoid hypotension and severe anemia. Patient put on IV fluid normal saline 75 mill per hour. 07/03: BP has improved. 145/64. Heart rate 94/min. Pulse ox 96% on room air. Shortness of breath also improved. Will discontinue IV fluid as patient is at risk for going into acute heart failure. 11. RC on CKD stage 3A: Patient baseline creatinine runs around 55 mill per minute. Creatinine increased from 1.41 on admission to 1.93. Hold Lasix, potassium supplement. Monitor kidney function. 07/03: Creatinine improved to 1.65. Monitor kidney function. 12. History of craniotomy after trauma with remote history of seizures (1990), history of CVA (2017) - Noted. 13. History of tobacco abuse - Noted. 14. Depression - Continue current treatment with venlafaxine after bleeding has resolved. 15. History of laparoscopic cholecystectomy (2021) - Noted. 16. History of bile leak; s/p ERCP - Noted. 17. DVT prophylaxis - SCD's only with very recent GI bleeding. Living will/advanced directive/end of life care: Patient does have living will or advanced directive. His is power of trust and estates attorney for health. After discussion of benefits/risks procedures involved with full code, DNR CC arrest and DNR CC, the patient opted for full code. After discussion to the patient's , patient does want artificial life support including intubation, tube feed, ventilator and/chest compression, central venous catheter, vasopressor and DC shock if needed. Patient is states that she takes care of him at home, doctor's visit and wanted everything possible to restore his health. Total time spent in [id number] encounter in discussion of advanced directive 17 minutes. Total time of the visit including total time spent in counseling or coordination of care, (more than 50% of the total time, spent in obtaining medical information from nurses and other ancillary care providers,explaining to the patient about labs, imaging, diagnosis and management of active complex medical conditions), discussion with the claim examiner, review of labs and imaging, EGD and colonoscopy findings and clinical update given to patient's near the bedside is 40 minutes. Charges/Coding Visit Charges Inpatient E&M: 39735 Subs Hosp L3
[2023-07-03] MEDS: Isosorbide Mononitrate 30 MG Tablet PO (08:26)
[2023-07-03] MEDS: Carvedilol 6.25 MG Tablet PO ×2 (08:26→19:48)
[2023-07-03] MEDS: Ursodiol 250 MG Tablet PO ×2 (08:26→22:05)
[2023-07-03] MEDS: 0.9% Normal Saline (1000mL) 1,000 ML 75 ML IV (09:56)
[2023-07-03] MEDS: Pantoprazole Sodium 40 MG in 0.9% Normal Saline (100mL MB+) 100 ML 330 MG IV ×2 (10:01→19:44)
[2023-07-03 11:28] LABS: Bedside Glucose 161 mg/dL (74-106)
[2023-07-03] MEDS: Lactated Ringers 1,000 ML 15 ML IV (13:19)
--- NOTE | 2023-07-03 14:39 | OP.COLON_ITS ---
Patient Name: Tor Longoria Procedure Date: 07/03/2023 1:57 PM Date of : 1945 Age: 78 Procedure: Colonoscopy Indications: Hematochezia Providers: Valentin Panda DO Medicines: Monitored Anesthesia Care Patient Profile: This is a 78 year old male. Refer to note in patient chart for documentation of history and physical. Last Colonoscopy: 1 week ago. Complications: No immediate complications. Procedure: Pre-Anesthesia Assessment: - Prior to the procedure, a History and Physical was performed, and patient medications and allergies were reviewed. The patient is competent. The risks and benefits of the procedure and the sedation options and risks were discussed with the patient. All questions were answered and informed consent was obtained. Patient identification and proposed procedure were verified by the physician. Mental Status Examination: normal. CV Examination: normal. Prophylactic Antibiotics: The patient does not require prophylactic antibiotics. Prior Anticoagulants: The patient has taken no anticoagulant or antiplatelet agents. After reviewing the risks and benefits, the patient was deemed in satisfactory condition to undergo the procedure. The anesthesia plan was to use monitored anesthesia care (MAC). Immediately prior to administration of medications, the patient was re-assessed for adequacy to receive sedatives. The heart rate, respiratory rate, oxygen saturations, blood pressure, adequacy of pulmonary ventilation, and response to care were monitored throughout the procedure. The physical status of the patient was re-assessed after the procedure. After I obtained informed consent, the scope was passed under direct vision. Throughout the procedure, the patient's blood pressure, pulse, and oxygen saturations were monitored continuously. The colonoscope was introduced through the anus and advanced to the cecum, identified by appendiceal orifice and ileocecal valve. The colonoscopy was performed without difficulty. The patient tolerated the procedure well. The quality of the bowel preparation was adequate. The ileocecal valve, appendiceal orifice, and rectum were photographed. Scope In: 2:13:03 PM Scope Withdrawal Time 0 hours 15 minutes 38 seconds Scope Out: 2:30:53 PM Total Procedure Duration Time 0 hours 17 minutes 50 seconds Findings: The perianal and digital rectal examinations were normal. Multiple large-mouthed diverticula were found in the entire colon. The exam was otherwise without abnormality. Impression: - Diverticulosis in the entire examined colon. - The examination was otherwise normal. - No specimens collected. Recommendation: - Discharge patient to home. - Cardiac diet today. - No aspirin, ibuprofen, naproxen, or other non-steroidal anti-inflammatory drugs for 4 weeks. - Repeat colonoscopy in 1 year for surveillance. Procedure Code(s): --- Professional --- 13874, Colonoscopy, flexible; diagnostic, including collection of specimen(s) by brushing or washing, when performed (separate procedure) CPT copyright 2021 [employer]. All rights reserved. The codes documented in this report are preliminary and upon hot stick man review may be revised to meet current compliance requirements. Valentin Panda DO 07/03/2023 2:39:03 PM This report has been signed electronically. Number of Addenda: 0 Note Initiated On: 07/03/2023 1:57 PM
--- NOTE | 2023-07-03 14:39 | OP.CCLET_ITS ---
07/03/2023 Frankie Shaver MD [address] [place] [address] Re : Colonoscopy procedure for Tor Longoria Dear Dr. Shaver This procedure was performed on June. My impressions and recommendations are as follows: Impressions : - Diverticulosis in the entire examined colon. - The examination was otherwise normal. - No specimens collected. Recommendations : - Discharge patient to home. - Cardiac diet today. - No aspirin, ibuprofen, naproxen, or other non-steroidal anti-inflammatory drugs for 4 weeks. - Repeat colonoscopy in 1 year for surveillance. My findings are described in the full procedure note, which is enclosed. If I can be of further assistance, please feel free to contact me at . Sincerely, Valentin Friend, 07/03/2023 2:39:03 PM This report has been signed electronically.
[2023-07-03 16:04] LABS: Bedside Glucose 145 mg/dL (74-106)
[2023-07-03] MEDS: 0.9% Saline Lock 10 ML Syringe IV (19:44)
[2023-07-03] MEDS: Atorvastatin Calcium 40 MG Tablet PO (19:48)
[2023-07-03] MEDS: Insulin Lispro 100 UNIT/ML INSULN.PEN SC (19:48)
[2023-07-03 19:59] LABS: Bedside Glucose 278 mg/dL (74-106)
[2023-07-03 20:14] LABS: Hematocrit 21.1 % (40-54)
[2023-07-04 03:22] VITALS: BMI 36.6
[2023-07-04 03:30] VITALS: BP 163/75; PULSE 94; RESP 16; TEMP 36.3; O2SAT 95
[2023-07-04 06:07] LABS: Absolute Neutrophil Count 7.1 X10^3/uL (2.0-7.7); Basophil# 0.01 X10^3/uL; Basophil% 0.1 % (0-1); Eosinophil# 0.11 X10^3/uL; Eosinophils% 1.2 % (0-5); Hematocrit 21.2 % (40-54); Hemoglobin 6.8 g/dL (13.0-16.5); Mean Corp Hgb Conc 32.1 g/dL (32-36); Mean Corpuscular Hgb 28.9 pg (27.0-32.0); Mean Corpuscular Volume 90.2 fL (80-94); Mean Platelet Vol. 9.6 fl (6.2-12.0); Monocyte# 0.69 X10^3/uL; Monocyte% 7.4 % (0-10); NRBC Flagged by Analyzer 0 % (0-5); Neutrophil # 7.05 X10^3/uL (2.7-7.7); Neutrophil % 75.8 % (47-70); Platelet Count 364 K/mm3 (150-450); RBC Distribution Width CV 15.9 % (11.6-14.6); RBC Distribution Width SD 50.5 fl (35.1-43.9); Red Blood Count 2.35 M/mm3 (4.6-6.2); White Blood Count 9.3 K/mm3 (4.4-11.0)
[2023-07-04 06:15] LABS: International Normalized Ratio 1.1; Prothrombin Time (Protime)PT. 14.7 SECONDS (11.7-14.9)
[2023-07-04 06:16] LABS: Partial Thromboplast Time 34.3 Seconds (24.1-36.2)
[2023-07-04] MEDS: Insulin Lispro 100 UNIT/ML INSULN.PEN SC ×2 (06:16→11:28)
[2023-07-04 06:32] LABS: Bedside Glucose 202 mg/dL (74-106)
[2023-07-04 06:36] LABS: Anion Gap 4 (5-15); BUN 20 mg/dL (7-18); Chloride 109 mmol/L (98-107); Creatinine, Serum 1.43 mg/dL (0.70-1.30); EST Glomerular Filtration Rate 51 mL/min (>60); Est Glom Filt Rate - Afr Amer 62 mL/min (>60); Estimated Creatinine Clearance 51.02 ml/min; Glucose 222 mg/dL (74-106); Potassium 3.7 mmol/L (3.5-5.1); Sodium Level 138 mmol/L (136-145)
--- NOTE | 2023-07-04 07:33 | PCM.PN.HOSP ---
Reason for Visit Reason for Visit: Diagnoses Diverticulosis of large intestine without perforation or abscess without bleeding (06/30/23) Gastrointestinal hemorrhage, unspecified (06/30/23) Objective Data Objective Data Vital Signs: Vital Signs Temp Pulse Resp BP Pulse Ox O2 Del Method O2 Flow Rate 97.4 F L 94 16 163/75 H 95 Room Air 3 07/04/23 03:30 07/04/23 03:30 07/04/23 03:30 07/04/23 03:30 07/04/23 03:30 07/04/23 03:30 07/02/23 14:20 Oxygen Flow Rate (L/min) 3 Oxygen Delivery Method Room Air Weight: 240 lb 11.916 oz Body Mass Index (BMI) 36.6 Intake & Output: Intake and Output for Last 24 Hours 07/02/23 07/03/23 07/04/23 23:59 23:59 23:59 Intake Total 1726.83 / 2206.83 2772.5 / 2772.5 Output Total 1000 / 1450 1150 / 1150 300 / 300 Balance 726.83 / 756.83 1622.5 / 1622.5 -300 / -300 Lab / Micro Data 07/04/23 05:40 07/04/23 05:40 Labs: Laboratory Results - last 24 hr 07/03/23 11:10: POC Glucose 161 H 07/03/23 15:46: POC Glucose 145 H 07/03/23 19:40: POC Glucose 278 H 07/03/23 20:02: Hgb 7.0 L, Hct 21.1 L 07/04/23 05:40: WBC 9.3, RBC 2.35 L, Hgb 6.8 L, Hct 21.2 L, MCV 90.2, MCH 28.9, MCHC 32.1, RDW Std Deviation 50.5 H, RDW Coeff of Myron 15.9 H, Plt Count 364, MPV 9.6, Immature Gran % (Auto) 1.500 H, Neut % (Auto) 75.8 H, Lymph % (Auto) 14.0 L, [place] % (Auto) 7.4, Eos % (Auto) 1.2, Baso % (Auto) 0.1, Absolute Neuts (auto) 7.1, Absolute Lymphs (auto) 1.30, Nucleated RBC % 0, PT 14.7, INR 1.1, APTT 34.3, Sodium 138, Potassium 3.7, Chloride 109 H, Carbon Dioxide 25.0, Anion Gap 4 L, BUN 20 H, Creatinine 1.43 H, Estim Creat Clear Calc 51.02, Est GFR (MDRD) Af Amer 62, Est GFR (MDRD) Non-Af 51 L, BUN/Creatinine Ratio 14.0, Glucose 222 H, Calcium 8.0 L 07/04/23 06:13: POC Glucose 202 H Micro: Microbiology 06/30/23 05:00 Stool Stool Occult Blood (RENAN) - Final Occult Blood Positive Physical Exam Narrative Seen and examined. Patient hemoglobin is 7.5. Patient was taken to EGD and colonoscopy but colon was not clean and blood throughout the colon. Since patient is still bleeding Shortness of breath and blood pressure better. The patient admitted for GI bleed, dyspnea on exertion due to anemia on the top of multiple chronic heart disease. Patient had total of 4 units of PRBC transfusion. Physical exam General: Alert, Oriented x3, Cooperative. Obesity grade 335.1 kg/m? HEENT: Bilateral hard of hearing. Pale conjunctiva. Atraumatic, PERRLA, EOMI, Normocephalic Oral: Oral mucosa moist. No Gingival or Mucosal Lesions/ Ulcerations Neck: Supple, No JVD, Negative Carotid Bruits Chest wall/Lungs: Air entry diminished in bilateral lung bases. Dyspnea/SOB better. No crepitation/rhonchi Cardiovascular: CABG scar. Regular rate, Regular Rhythm, Normal S1, Normal S2, systolic murmur present in the right second ICS. Abdomen: Bowel Sounds Present, Soft, Non Tender, mild abdominal distention : No dysuria. No renal angle tenderness. No suprapubic tenderness. Extremities:2 pitting + edema, Capillary Refill Less than 3 Seconds Skin: No rashes, No breakdown Musculoskeletal: No Tenderness to Palpation of Joints or Extremities Neurological: Cranial nerves II-XII grossly intact, DTR 2+/4. No acute focal neurological deficit. Psych/Mental Status: Flat affect. Assessment & Plan Assessment/Plan (1) Acute lower gastrointestinal bleeding: (2) Colonic diverticular disease: PLAN: Plan 78-year-old gentleman being admitted for dyspnea on exertion, severe anemia and acute lower GI bleed bright red as described by patient and his . 1. Acute blood loss anemia most likely due to lower GI bleed: Patient is being admitted to PCU. Hemoglobin dropped from 11.3 g to 7.3 g. 2 units of PRBC has been ordered but will transfuse 1 today and check hemoglobin. Keep NPO. 07/01: Patient is still having lower GI bleed. CBC stat. Discussed with GI admission below. If patient gets hypotensive will need transfer to ICU. 07/02: Hemoglobin dropped down to 6.5. 1 unit PRBC ordered. Leukocytosis better. 07/03: Patient had total of 4 units of PRBC transfusion. Hemoglobin yesterday was 7.5. Repeat H&H is 12 PM today and if hemoglobin less than 7 g will need transfusion. 07/04: H&H 6.8/21.2%. Transfuse 1 unit of PRBC. 2. Recurrent lower GI suspected to be diverticular: Check NM GI bleeding scan to confirm suspicion. GI is consulted. 07/01: Bleeding scan negative. Plan for colonoscopy tomorrow. Patient was given 1 dose of MiraLAX and started having large blood per rectal with tachycardia walking to bathroom. BP 127/64. Will hold further colon prep as patient has chronic heart disease as mentioned below. 07/02: Discussed with Dr. Panda. Plan for colonoscopy today although patient is at high risk in view of history of CAD status post CABG, chronic heart failure/HFpEF history of craniotomy, seizures and CVA. Patient is sensitive to hemodynamic fluid shift. 07/03: EGD and colonoscopy reviewed as mentioned below. Colonoscopy prep was not optimal with stool present. Blood in the entire colon. Plan for repeat colonoscopy today. 07/04: Repeat colonoscopy was done on as mentioned below. Diverticulosis in the entire examined colon. Exam otherwise normal. Impression: - Diverticulosis in the entire examined colon. - The examination was otherwise normal. - No specimens collected. Recommendation: - No aspirin, ibuprofen, naproxen, or other non-steroidal anti-inflammatory drugs for 4 weeks. - Repeat colonoscopy in 1 year for surveillance. EGD on 07/02/2023 Impression: - Normal esophagus. - No gross lesions in the entire stomach. - No gross lesions in the third portion of the duodenum. Colonoscopy Impression: - Non-bleeding internal hemorrhoids. - Stool in the rectum, in the recto-sigmoid colon, in the sigmoid colon and in the descending colon. - Blood in the entire examined colon. - No specimens collected. Recommendation: - - Clear liquid diet. - Continue present medications. - Repeat colonoscopy tomorrow. 3. History of LGIB due to hemorrhoids (2022) with chronic anemia; followed by Dr. Panda of gastroenterology - Noted. 4. Essential hypertension -blood pressure 147/75. Slightly better than admission. Titrate antihypertensive medication. 5. Hyperlipidemia - Resume statin after endoscopic evaluation. 6. Obesity grade 3 with BMI of 35.6 this admission - Weight loss will be recommended. 7. ZAHIDA; on CPAP - Continue CPAP as previous. 8. DM-2; with hyperglycemia- Keep NPO for the time being. Fingerstick blood sugars every 6 hours + scale insulin of the lowest intensity. Glucose 193 in BMP. 07/01: Glucose is high about 220. Patient put back on glipizide 10 mg daily and Lantus insulin. Hold metformin. Accu-Cheks AC_insulin sliding scale. 9. CAD; s/p CABG (2018) -no chest pain. 10. Chronic diastolic CHF; with preserved LVEF - Stable. Restart home regimen after bleeding has resolved. 07/01: Patient put back on his home medications including carvedilol, Imdur, atorvastatin but will hold baby aspirin because of severe anemia. 07/02: Continue heart medication. Maintain hydration and avoid hypotension and severe anemia. Patient put on IV fluid normal saline 75 mill per hour. 07/03: BP has improved. 145/64. Heart rate 94/min. Pulse ox 96% on room air. Shortness of breath also improved. Will discontinue IV fluid as patient is at risk for going into acute heart failure. 07/04: BP is creeping up 163/75. Resume losartan but at lower dose losartan 25 mg daily. Usually takes losartan 50 mg daily. 11. RC on CKD stage 3A: Patient baseline creatinine runs around 55 mill per minute. Creatinine increased from 1.41 on admission to 1.93. Hold Lasix, potassium supplement. Monitor kidney function. 07/03: Creatinine improved to 1.65. Monitor kidney function. 07/04: Creatinine 1. 4 3. Creatinine trends from 1.4 and back to 1.43. Seems his baseline is around 1.25. 12. History of craniotomy after trauma with remote history of seizures (1990), history of CVA (2017) - Noted. 13. History of tobacco abuse - Noted. 14. Depression - Continue current treatment with venlafaxine after bleeding has resolved. 15. History of laparoscopic cholecystectomy (2021) - Noted. 16. History of bile leak; s/p ERCP - Noted. 17. DVT prophylaxis - SCD's only with very recent GI bleeding. Living will/advanced directive/end of life care: Patient does have living will or advanced directive. His is power of disability attorney for health. After discussion of benefits/risks procedures involved with full code, DNR CC arrest and DNR CC, the patient opted for full code. After discussion to the patient's , patient does want artificial life support including intubation, tube feed, ventilator and/chest compression, central venous catheter, vasopressor and DC shock if needed. Patient is states that she takes care of him at home, doctor's visit and wanted everything possible to restore his health. Total time spent in [id number] encounter in discussion of advanced directive 17 minutes. 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
--- NOTE | 2023-07-04 08:00 | DCINST_ITS ---
Discharge Instructions Diet Discharge Diet: 1800 Calorie Control Diet, 8 Cup Fluid Restriction and 2000 mg Sodium Diet Activity Discharge Activity: Return to Normal Activity Weight Bearing Status: Weight bearing as tolerated Dressing / Incision Call your doctor if you observe: Fever of 101 or Higher, Coldness, Increased Pain, Numbness or Tingling, Change in Color, Inability to urinate, Inability to have a bowel movement, Shortness of breath, Dizziness, Fainting spells, Swelling in the ankles, Chest pain, Prolonged hiccupping, Increased palpitations (irregular heartbeat) and Calf discomfort Follow Up Care When: IN 2 WEEKS Test Results: Test results from this visit will be discussed in further detail at your follow- up appointment, if applicable. Discharge Plan Admission Admit Date/Time: 06/30/23 06:25 Attending Provider: Yon Penn Primary Care Provider: Frankie Shaver [facility] Providers: Paresh Adame Instructions Additional Instructions / Restrictions: Acute blood loss anemia secondary to lower GI bleed. Discharge Orders/Prescriptions Prescriptions: New pantoprazole [Protonix] 40 mg tablet,delayed release (DR/EC) 40 mg PO DAILY Qty: 30 1RF ferrous sulfate 325 mg (65 mg iron) tablet 325 mg PO QODAY Qty: 30 2RF ascorbic acid (vitamin C) 500 mg tablet 500 mg PO BID Qty: 60 2RF Continued metformin 1,000 mg tablet 1,000 mg PO BID atorvastatin 40 mg tablet 40 mg PO DAILY isosorbide mononitrate 30 mg tablet extended release 24 hr 30 mg PO DAILY glipizide 10 mg tablet extended release 24hr 10 mg PO DAILY Patient Comments: TAKE 1 TABLET BY MOUTH TWICE DAILY furosemide 40 mg tablet 40 mg PO DAILY Patient Comments: TAKE 1 TABLET BY MOUTH ONCE DAILY IN THE MORNING FOR 30 DAYS venlafaxine 75 mg tablet 75 mg PO DAILY albuterol sulfate 90 mcg/actuation HFA aerosol inhaler 2 puff inhalation Q6H PRN (Reason: shortness of breath or wheezing) Toujeo Max U-300 SoloStar 300 unit/mL (3 mL) insulin pen 36 unit subcut DAILY nitroglycerin 0.4 mg tablet, sublingual 0.4 mg sublingual Q5-15M PRN (Reason: Chest Pain) Qty: 25 3RF potassium chloride 20 mEq tablet,ER particles/crystals 20 meq PO DAILY Patient Comments: TAKE 1 TABLET BY MOUTH ONCE DAILY carvedilol 12.5 mg tablet 12.5 mg PO BID Qty: 180 3RF Rx Instructions: must administer with a meal/food ursodiol 250 mg tablet 250 mg PO BID Qty: 60 5RF Patient Comments: TAKE 1 TABLET BY MOUTH TWICE DAILY Changed losartan 50 mg tablet 25 mg PO DAILY 30 Days Qty: 30 11RF Held aspirin 81 mg tablet,delayed release (DR/EC) 81 mg PO DAILY Hold Instructions: To resume from 07/07/2023 Referrals / Follow Up: Mary Ann Bowers DO [Med Staff - Consulting] - Within 1 Month (FOR CKD) Lorelei Goodson MD [Med Staff - Active Staff] - Within 1 Month (For severe anemia.) Valentin Panda DO [Med Staff - Active Staff] - Within 1 Month Frankie Shaver Chi, MD [Primary Care Provider] - 07/07/23 2:40 pm Disposition Disposition (needs filled in before D/C Order can be placed): Home, Self Care
--- NOTE | 2023-07-04 08:01 | DS.PCM_ITS ---
Providers Date of Admission: 06/30/23 Date of Discharge: 07/04/23 Primary Care Physician: Dr. Frankie Shaver MD Consultations 06/30/23 06:57 Consult: Gastroenterology Routine Consulting Provider: [facility] Reason for Consult: Recurrent lower GI bleed with hemoglobin of 7.3 present on admission EMERGENT Consult: No MD Notified: Yes Date Notified: 06/30/23 Time Notified: 08:22 Method of Notification: Text Reason For Visit: GI BLEED, ANEMIA Diagnosis Discharge Diagnosis (1) Acute lower gastrointestinal bleeding: Status: Acute Code(s): K92.2 - Gastrointestinal hemorrhage, unspecified (2) Colonic diverticular disease: Status: Acute Code(s): K57.30 - Diverticulosis of large intestine without perforation or abscess without bleeding Plan 78-year-old gentleman being admitted for dyspnea on exertion, severe anemia and acute lower GI bleed bright red as described by patient and his . 1. Acute blood loss anemia most likely due to lower GI bleed: Patient is being admitted to PCU. Hemoglobin dropped from 11.3 g to 7.3 g. 2 units of PRBC has been ordered but will transfuse 1 today and check hemoglobin. Keep NPO. 07/01: Patient is still having lower GI bleed. CBC stat. Discussed with GI admission below. If patient gets hypotensive will need transfer to ICU. 07/02: Hemoglobin dropped down to 6.5. 1 unit PRBC ordered. Leukocytosis bett er. 07/03: Patient had total of 4 units of PRBC transfusion. Hemoglobin yesterday was 7.5. Repeat H&H is 12 PM today and if hemoglobin less than 7 g will need transfusion. 07/04: H&H 6.8/21.2%. Transfuse 1 unit of PRBC, that will be total 5 units of PRBC during this hospital course. Expected hemoglobin may be around 7.5. Discussed with patient's and she wanted to be discharged after PRBC transfusion. She stated she would take care of him. Baby aspirin was held during hospital stay there for total 5 days, 3 more days therefore resume on 07/07/2023. Patient is high risk for IL, stroke therefore cannot hold aspirin for long. Given prescription for pantoprazole for GI protection. 2. Recurrent lower GI suspected to be diverticular: Check NM GI bleeding scan to confirm suspicion. GI is consulted. 07/01: Bleeding scan negative. Plan for colonoscopy tomorrow. Patient was given 1 dose of MiraLAX and started having large blood per rectal with tachycardia walking to bathroom. BP 127/64. Will hold further colon prep as patient has chronic heart disease as mentioned below. 07/02: Discussed with Dr. Panda. Plan for colonoscopy today although patient is at high risk in view of history of CAD status post CABG, chronic heart failure/HFpEF history of craniotomy, seizures and CVA. Patient is sensitive to hemodynamic fluid shift. 07/03: EGD and colonoscopy reviewed as mentioned below. Colonoscopy prep was not optimal with stool present. Blood in the entire colon. Plan for repeat colonoscopy today. 07/04: Repeat colonoscopy was done on 07/03/as mentioned below. Diverticulosis in the entire examined colon. Exam otherwise normal. Patient discharged on pantoprazole 40 mg daily. Impression: - Diverticulosis in the entire examined colon. - The examination was otherwise normal. - No specimens collected. Recommendation: - No aspirin, ibuprofen, naproxen, or other non-steroidal anti-inflammatory drugs for 4 weeks. - Repeat colonoscopy in 1 year for surveillance. EGD on 07/02/2023 Impression: - Normal esophagus. - No gross lesions in the entire stomach. - No gross lesions in the third portion of the duodenum. Colonoscopy Impression: - Non-bleeding internal hemorrhoids. - Stool in the rectum, in the recto-sigmoid colon, in the sigmoid colon and in the descending colon. - Blood in the entire examined colon. - No specimens collected. Recommendation: - - Clear liquid diet. - Continue present medications. - Repeat colonoscopy tomorrow. 3. History of LGIB due to hemorrhoids (2022) with chronic anemia; followed by Dr. Panda of gastroenterology - Noted. 4. Essential hypertension -blood pressure 147/75. Slightly better than admission. Titrate antihypertensive medication. 5. Hyperlipidemia - Resume statin after endoscopic evaluation. 6. Obesity grade 3 with BMI of 35.6 this admission - Weight loss will be recommended. 7. ZAHIDA; on CPAP - Continue CPAP as previous. 8. DM-2; with hyperglycemia- Keep NPO for the time being. Fingerstick blood sugars every 6 hours + scale insulin of the lowest intensity. Glucose 193 in BMP. 07/01: Glucose is high about 220. Patient put back on glipizide 10 mg daily and Lantus insulin. Hold metformin. Accu-Cheks AC_insulin sliding scale. 07/04: Glucose is 227. Metformin and glipizide resumed. Patient also on Lantus insulin. Follow with PCP. 9. CAD; s/p CABG (2018) -no chest pain. 10. Chronic diastolic CHF; with preserved LVEF - Stable. Restart home regimen after bleeding has resolved. 07/01: Patient put back on his home medications including carvedilol, Imdur, atorvastatin but will hold baby aspirin because of severe anemia. 07/02: Continue heart medication. Maintain hydration and avoid hypotension and severe anemia. Patient put on IV fluid normal saline 75 mill per hour. 07/03: BP has improved. 145/64. Heart rate 94/min. Pulse ox 96% on room air. Shortness of breath also improved. Will discontinue IV fluid as patient is at risk for going into acute heart failure. 07/04: BP is creeping up 163/75. Resume losartan but at lower dose losartan 25 mg daily. Usually takes losartan 50 mg daily. Overall hemodynamically patient looks better with no chest pain or shortness of breath. 11. RC on CKD stage 3A: Patient baseline creatinine runs around 55 mill per minute. Creatinine increased from 1.41 on admission to 1.93. Hold Lasix, potassium supplement. Monitor kidney function. 07/03: Creatinine improved to 1.65. Monitor kidney function. 07/04: Creatinine 1. 43. Creatinine trends from 1.4 and back to 1.43. Seems his baseline is around 1.25. Referred to resourcing consultant, Dr. Bowers. Since patient does not follow resourcing consultant. 12. History of craniotomy after trauma with remote history of seizures (1990), history of CVA (2017) - Noted. 13. History of tobacco abuse - Noted. 14. Depression - Continue current treatment with venlafaxine after bleeding has resolved. 15. History of laparoscopic cholecystectomy (2021) - Noted. 16. History of bile leak; s/p ERCP - Noted. 17. DVT prophylaxis - SCD's only with very recent GI bleeding. Living will/advanced directive/end of life care: Patient does have living will or advanced directive. His is power of litigation attorney associate for health. After d iscussion of benefits/risks procedures involved with full code, DNR CC arrest and DNR CC, the patient opted for full code. After discussion to the patient's , patient does want artificial life s upport including intubation, tube feed, ventilator and/chest compression, central venous catheter, vasopressor and DC shock if needed. Patient is states that she takes care of him at home, doctor's visit and wanted everything possible to restore his health. Discharge medication reconciliation done. Discharge follow-up instructions completed. Discharge process discussed with the patient and all questions were answered to patient's satisfaction. Follow with PCP in 1 to 2 weeks Total time spent, exact 35 minutes on discharge meds reconciliation, examination, coordination of care with nurses and ancillary staff, review of imaging and blood test and discussion with the patient on follow-up instructions. Medications at Discharge Home Medications aspirin 81 mg tablet,delayed release 81 mg PO DAILY heart health 09/15/19 atorvastatin 40 mg tablet 40 mg PO DAILY cholesterol 09/15/19 isosorbide mononitrate 30 mg tablet,extended release 24 hr 30 mg PO DAILY heart 09/15/19 metformin 1,000 mg tablet 1,000 mg PO BID diabetes 09/15/19 glipizide 10 mg tablet, extended release 24 hr 10 mg PO DAILY diabetes 12/28/20 furosemide 40 mg tablet 40 mg PO DAILY diuretic 11/27/21 venlafaxine 75 mg tablet 75 mg PO DAILY mental health 11/27/21 albuterol sulfate 90 mcg/actuation aerosol inhaler 2 puff inhalation Q6H PRN s hortness of breath or wheezing 05/21/22 insulin glargine U-300 conc 300 unit/mL (3 mL) subcutaneous pen (Toujeo Max U- 300 SoloStar) 36 unit subcut DAILY diabetes 11/20/22 nitroglycerin 0.4 mg sublingual tablet 0.4 mg sublingual Q5-15M PRN Chest Pain #25 tabs 11/20/22 carvedilol 12.5 mg tablet 12.5 mg PO BID blood pressure #180 tabs 12/17/22 potassium chloride 20 mEq tablet,extended release(part/cryst) 20 meq PO DAILY supplement 12/25/22 ursodiol 250 mg tablet 250 mg PO BID cirrhosis #60 tabs 06/09/23 ascorbic acid (vitamin C) 500 mg tablet 500 mg PO BID #60 tabs 07/04/23 ferrous sulfate 325 mg (65 mg iron) tablet 325 mg PO QODAY #30 tabs 07/04/23 losartan 50 mg tablet 25 mg (1/2 x 50 mg) PO DAILY 30 days #30 tabs 07/04/23 pantoprazole 40 mg tablet,delayed release (Protonix) 40 mg PO DAILY #30 tabs 07/04/23 Physical Exam Narrative Seen and examined. Patient hemoglobin dropped to 6.8 g%. Hemodynamically patient does not have shortness of breath chest pain or pressure. No dizziness. BP 135/78. Monitor PRBC transfusion ordered. Patient's wanted to take home. Had colonoscopy yesterday and described in assessment plan. Physical exam General: Alert, Oriented x3, Cooperative. Obesity grade 335.1 kg/m? HEENT: Bilateral hard of hearing. Pale conjunctiva. Atraumatic, PERRLA, EOMI, Normocephalic Oral: Oral mucosa moist. No Gingival or Mucosal Lesions/ Ulcerations Neck: Supple, No JVD, Negative Carotid Bruits Chest wall/Lungs: Air entry diminished in bilateral lung bases. Dyspnea/SOB better. No crepitation/rhonchi Cardiovascular: CABG scar. Regular rate, Regular Rhythm, Normal S1, Normal S2, systolic murmur present in the right second ICS. Abdomen: Bowel Sounds Present, Soft, Non Tender, mild abdominal distention : No dysuria. No renal angle tenderness. No suprapubic tenderness. Extremities:2 pitting + edema, Capillary Refill Less than 3 Seconds Skin: No rashes, No breakdown Musculoskeletal: No Tenderness to Palpation of Joints or Extremities Neurological: Cranial nerves II-XII grossly intact, DTR 2+/4. No acute focal neurological deficit. Psych/Mental Status: Flat affect. Weight / BMI Weight Weight: 240 lb 11.916 oz Body Mass Index (BMI) 36.6 ABG / Lab / Microbiology Data 07/04/23 05:40 07/04/23 05:40 Laboratory: Laboratory Results - last 24 hr 07/03/23 11:10: POC Glucose 161 H 07/03/23 15:46: POC Glucose 145 H 07/03/23 19:40: POC Glucose 278 H 07/03/23 20:02: Hgb 7.0 L, Hct 21.1 L 07/04/23 05:40: WBC 9.3, RBC 2.35 L, Hgb 6.8 L, Hct 21.2 L, MCV 90.2, MCH 28.9, MCHC 32.1, RDW Std Deviation 50.5 H, RDW Coeff of Myron 15.9 H, Plt Count 364, MPV 9.6, Immature Gran % (Auto) 1.500 H, Neut % (Auto) 75.8 H, Lymph % (Auto) 14.0 L , Irion % (Auto) 7.4, Eos % (Auto) 1.2, Baso % (Auto) 0.1, Absolute Neuts (auto) 7.1, Absolute Lymphs (auto) 1.30, Nucleated RBC % 0, PT 14.7, INR 1.1, APTT 34.3, Sodium 138, Potassium 3.7, Chloride 109 H, Carbon Dioxide 25.0, Anion Gap 4 L, BUN 20 H, Creatinine 1.43 H, Estim Creat Clear Calc 51.02, Est GFR (MDRD) Af Amer 62, Est GFR (MDRD) Non-Af 51 L, BUN/Creatinine Ratio 14.0, Glucose 222 H , Calcium 8.0 L 07/04/23 06:13: POC Glucose 202 H Microbiology: Microbiology 06/30/23 05:00 Stool Stool Occult Blood (RENAN) - Final Occult Blood Positive Meaningful Use Info Meaningful Use Diagnoses (Choose all that apply): None applicable Discharge Plan Admission Admit Date/Time: 06/30/23 06:25 Attending Provider: Yon Penn Primary Care Provider: Frankie Shaver Chi Consulting Providers: Paresh Adame Instructions Additional Instructions / Restrictions: Acute blood loss anemia secondary to lower GI bleed. Discharge Orders/Prescriptions Prescriptions: New pantoprazole [Protonix] 40 mg tablet,delayed release (DR/EC) 40 mg PO DAILY Qty: 30 1RF ferrous sulfate 325 mg (65 mg iron) tablet 325 mg PO QODAY Qty: 30 2RF ascorbic acid (vitamin C) 500 mg tablet 500 mg PO BID Qty: 60 2RF Continued metformin 1,000 mg tablet 1,000 mg PO BID atorvastatin 40 mg tablet 40 mg PO DAILY isosorbide mononitrate 30 mg tablet extended release 24 hr 30 mg PO DAILY glipizide 10 mg tablet extended release 24hr 10 mg PO DAILY Patient Comments: TAKE 1 TABLET BY MOUTH TWICE DAILY furosemide 40 mg tablet 40 mg PO DAILY Patient Comments: TAKE 1 TABLET BY MOUTH ONCE DAILY IN THE MORNING FOR 30 DAYS venlafaxine 75 mg tablet 75 mg PO DAILY albuterol sulfate 90 mcg/actuation HFA aerosol inhaler 2 puff inhalation Q6H PRN (Reason: shortness of breath or wheezing) insulin glargine U-300 conc [Toujeo Max U-300 SoloStar] 300 unit/mL (3 mL) insulin pen 36 unit subcut DAILY nitroglycerin 0.4 mg tablet, sublingual 0.4 mg sublingual Q5-15M PRN (Reason: Chest Pain) Qty: 25 3RF potassium chloride 20 mEq tablet,ER particles/crystals 20 meq PO DAILY Patient Comments: TAKE 1 TABLET BY MOUTH ONCE DAILY carvedilol 12.5 mg tablet 12.5 mg PO BID Qty: 180 3RF Rx Instructions: must administer with a meal/food ursodiol 250 mg tablet 250 mg PO BID Qty: 60 5RF Patient Comments: TAKE 1 TABLET BY MOUTH TWICE DAILY Changed losartan 50 mg tablet 25 mg PO DAILY 30 Days Qty: 30 11RF Held aspirin 81 mg tablet,delayed release (DR/EC) 81 mg PO DAILY Hold Instructions: To resume from 07/07/2023 Referrals / Follow Up: Mary Ann Bowers DO [Med Staff - Consulting] - Within 1 Month (FOR CKD office closed at time of discharge. Please call to schedule follow up appointment.) Lorelei Goodson MD [Med Staff - Active Staff] - Within 1 Month (For severe anemia. The office will call to schedule your appointment.) Valentin Panda DO [Med Staff - Active Staff] - 07/23/23 3:30 pm Frankie Shaver Chi, MD [Primary Care Provider] - 07/07/23 2:40 pm Disposition Disposition (needs filled in before D/C Order can be placed): Home, Self Care Charges/Coding Visit Charges Inpatient E&M: 79404 Disch Hosp >30min
[2023-07-04 08:19] VITALS: O2SAT 94
[2023-07-04 09:30] VITALS: BP 125/71; PULSE 98; RESP 16; TEMP 36.6; O2SAT 94
--- NOTE | 2023-07-04 09:57 | CASEMGMT ---
STEFANIE spoke with patient's Kathie and she said she is taking patient home now. Kathie spoke with her neighbors and some friends and everyone is willing to come and help. Kathie did ask for home health. STEFANIE notified SOLANGE DRIVER. Fanny MANDUJANO
--- NOTE | 2023-07-04 10:01 | CASEMGMT ---
Addendum entered by Eve Lopez 07/04/23 13:37: SOLANGE DRIVER updated by discharge seaport planning manager that patient was accepted by [facility] with planned start of care for Friday or Friday. SOLANGE DRIVER updated the . had no further questions or concerns at this time. Addendum entered by Eve Lopez 07/04/23 10:55: SOLANGE DRIVER updated by therapy that patient is good to return home with [facility]. SOLANGE DRIVER received call back from Dr. Shaver's office, and Dr. Shaver will not sign for C until he sees the patient. SOLANGE DRIVER scheduled appt for Friday07/07/22 at 240pm. SOLANGE DRIVER received call back from [facility] and patient is outside service area. SOLANGE DRIVER updated about appointment and HHC. states she has no preferences for HHC and agreeable to send multiple referrals to see who can accept the patient. Original Note: SOLANGE DRIVER updated by SW that would like to take patient home with [facility]. SOLANGE DRIVER in to discuss discharge planning with . RN VILLA reviewed progress with therapy, recommending SNF. states that daughter, family, and neighbors are available to help with care. reviewed HHC list and prefers, [facility], [facility], and [facility] for [facility]. denies further needs or concerns at this time. SOLANGE DRIVER called and made referral to [facility], awaiting acceptance. SOLANGE DRIVER called Dr. Shaver's office to inquire if he would sign for [facility] prior to seeing patient for follow-up, awaiting response. CM will continue to follow this patient and plan for a safe discharge.
--- NOTE | 2023-07-04 10:24 | CASEMGMT ---
Addendum entered by Loretta Faust 07/04/23 10:58: [place] and [facility] declined referral. New referral sent to [facility], [facility], [facility], [facility], [facility], [place], and [place]. *correction to earlier note, [facility] (not [facility]) was updated that patient will return home. Original Note: Discharge Planning HH referral sent via [facility] to [place] and [facility]. [facility] updated that patient will return home. Loretta Faust, Discharge Planning Asst.
[2023-07-04] MEDS: Ursodiol 250 MG Tablet PO (10:38)
[2023-07-04] MEDS: Losartan Potassium 25 MG Tablet PO (10:38)
[2023-07-04] MEDS: Isosorbide Mononitrate 30 MG Tablet PO (10:38)
[2023-07-04] MEDS: Insulin Glargine-YFGN 100 UNIT/ML Pen 30 UNIT SC (10:39)
[2023-07-04] MEDS: Venlafaxine HCl 75 MG Tablet PO (10:39)
[2023-07-04] MEDS: Carvedilol 6.25 MG Tablet PO (10:39)
[2023-07-04] MEDS: Pantoprazole Sodium 40 MG in 0.9% Normal Saline (100mL MB+) 100 ML 330 MG IV (11:28)
[2023-07-04 11:57] VITALS: BP 125/63; PULSE 100; RESP 14; TEMP 36.6; O2SAT 93
[2023-07-04 11:58] LABS: Bedside Glucose 227 mg/dL (74-106)
[2023-07-04 12:12] VITALS: BP 135/78; PULSE 102; RESP 14; TEMP 36.4; O2SAT 96
--- NOTE | 2023-07-04 12:24 | PN.GI_ITS ---
Subjective Subjective Patient underwent colonoscopy yesterday. He had a lot of blood in his diverticuli. He had no bleeding overnight. Objective Data Objective Data Vital Signs: Vital Signs Temp Pulse Resp BP Pulse Ox O2 Del Method O2 Flow Rate 97.5 F L 102 H 14 135/78 H 96 Room Air 3 07/04/23 12:12 07/04/23 12:12 07/04/23 12:12 07/04/23 12:12 07/04/23 12:12 07/04/23 12:12 07/02/23 14:20 Oxygen Flow Rate (L/min) 3 Oxygen Delivery Method Room Air Weight: 240 lb 11.916 oz Body Mass Index (BMI) 36.6 Intake & Output: Intake and Output for Last 24 Hours 07/02/23 07/03/23 07/04/23 23:59 23:59 23:59 Intake Total 1726.83 / 2206.83 2772.5 / 2772.5 913.74 / 913.74 Output Total 1000 / 1450 1150 / 1150 600 / 600 Balance 726.83 / 756.83 1622.5 / 1622.5 313.74 / 313.74 Lab / Micro Data 07/04/23 05:40 07/04/23 05:40 Labs: Laboratory Results - last 24 hr 07/03/23 15:46: POC Glucose 145 H 07/03/23 19:40: POC Glucose 278 H 07/03/23 20:02: Hgb 7.0 L, Hct 21.1 L 07/04/23 05:40: WBC 9.3, RBC 2.35 L, Hgb 6.8 L, Hct 21.2 L, MCV 90.2, MCH 28.9, MCHC 32.1, RDW Std Deviation 50.5 H, RDW Coeff of Myron 15.9 H, Plt Count 364, MPV 9.6, Immature Gran % (Auto) 1.500 H, Neut % (Auto) 75.8 H, Lymph % (Auto) 14.0 L , Carlton % (Auto) 7.4, Eos % (Auto) 1.2, Baso % (Auto) 0.1, Absolute Neuts (auto) 7.1, Absolute Lymphs (auto) 1.30, Nucleated RBC % 0, PT 14.7, INR 1.1, APTT 34.3, Sodium 138, Potassium 3.7, Chloride 109 H, Carbon Dioxide 25.0, Anion Gap 4 L, BUN 20 H, Creatinine 1.43 H, Estim Creat Clear Calc 51.02, Est GFR (MDRD) Af Amer 62, Est GFR (MDRD) Non-Af 51 L, BUN/Creatinine Ratio 14.0, Glucose 222 H , Calcium 8.0 L 07/04/23 06:13: POC Glucose 202 H 07/04/23 08:05: Blood Type O POSITIVE, Antibody Screen NEGATIVE, Crossmatch See Detail 07/04/23 11:27: POC Glucose 227 H Micro: Microbiology 06/30/23 05:00 Stool Stool Occult Blood (RENAN) - Final Occult Blood Positive Physical Exam Narrative Seen and examined. Patient admitted for GI bleed, dyspnea on exertion due to anemia. Patient also hard of hearing. Patient had 2 units of PRBC transfusion. Patient is still having not having any bleeding at this time. Physical exam General: Alert, Oriented x3, Cooperative HEENT: Pale conjunctiva. Atraumatic, PERRLA, EOMI, Normocephalic Oral: Oral mucosa dry. No Gingival or Mucosal Lesions/ Ulcerations Neck: Supple, No JVD, Negative Carotid Bruits Chest wall/Lungs: Air entry diminished in bilateral lung bases. ALFREDO. No crepitation/rhonchi Cardiovascular: CABG scar. Regular rate, Regular Rhythm, Normal S1, Normal S2, No M/G/R Abdomen: Bowel Sounds Present, Soft, Non Tender, Non-Distended : No dysuria. No renal angle tenderness. No suprapubic tenderness. Extremities: Mild 1+ edema, Capillary Refill Less than 3 Seconds Skin: No rashes, No breakdown Musculoskeletal: No Tenderness to Palpation of Joints or Extremities Neurological: Cranial nerves II-XII grossly intact, DTR 2+/4. No acute focal neurological deficit. Psych/Mental Status: Flat affect. Assessment & Plan Assessment/Plan (1) Bright red rectal bleeding: PLAN: Plan #1. Bright red rectal bleeding-his bleeding was likely diverticular in nature. His hemoglobin is at 6.8 which I suspect is secondary to his previous GI bleed and he currently has equilibration. I agree with iron transfusions. He will need capsule endoscopy as an outpatient. #2 Atherosclerotic heart disease-complicates care, medical course, recovery and prognosis. Recommend to hold aspirin for 7 days. #3 type 2 diabetes-patient's basal insulin will be held at this time, sliding scale insulin will be given based on fingerstick blood sugars. #4 chronic depression-patient is on Effexor #5 essential hypertension-patient will remain on Coreg and losartan Charges/Coding Visit Charges Inpatient E&M: 77755 Subs Hosp L3
--- NOTE | 2023-07-04 13:04 | PHA.DC_ITS ---
Pharmacy [facility] Service has performed discharge medication reconciliation and counseling for this patient. The patient's discharge medication list was reviewed for discrepancies and discrepancies were resolved. The patient was counseled on the following discharge medications and changes in medications for homegoing were reviewed. The Reason for Use, instructions for use, and potential side effects were reviewed for all new medications. The patient's questions regarding all of their medications were answered. 1. Ascorbic acid 500 mg PO BID 2. Pantoprazole 40 mg PO daily 3. Ferrous sulfate 325 mg PO QOD The patient was able to verbally demonstrate an understanding of their discharge medications. The patient was counselled on new medications by pharmacy service associate Fredis. Medications at Discharge Home Medications aspirin 81 mg tablet,delayed release 81 mg PO DAILY heart health 09/15/19 atorvastatin 40 mg tablet 40 mg PO DAILY cholesterol 09/15/19 isosorbide mononitrate 30 mg tablet,extended release 24 hr 30 mg PO DAILY heart 09/15/19 metformin 1,000 mg tablet 1,000 mg PO BID diabetes 09/15/19 glipizide 10 mg tablet, extended release 24 hr 10 mg PO DAILY diabetes 12/28/20 furosemide 40 mg tablet 40 mg PO DAILY diuretic 11/27/21 venlafaxine 75 mg tablet 75 mg PO DAILY mental health 11/27/21 albuterol sulfate 90 mcg/actuation aerosol inhaler 2 puff inhalation Q6H PRN shortness of breath or wheezing 05/21/22 insulin glargine U-300 conc 300 unit/mL (3 mL) subcutaneous pen (Toujeo Max U- 300 SoloStar) 36 unit subcut DAILY diabetes 11/20/22 nitroglycerin 0.4 mg sublingual tablet 0.4 mg sublingual Q5-15M PRN Chest Pain #25 tabs 11/20/22 carvedilol 12.5 mg tablet 12.5 mg PO BID blood pressure #180 tabs 12/17/22 potassium chloride 20 mEq tablet,extended release(part/cryst) 20 meq PO DAILY supplement 12/25/22 ursodiol 250 mg tablet 250 mg PO BID cirrhosis #60 tabs 06/09/23 ascorbic acid (vitamin C) 500 mg tablet 500 mg PO BID #60 tabs 07/04/23 ferrous sulfate 325 mg (65 mg iron) tablet 325 mg PO QODAY #30 tabs 07/04/23 losartan 50 mg tablet 25 mg (1/2 x 50 mg) PO DAILY 30 days #30 tabs 07/04/23 pantoprazole 40 mg tablet,delayed release (Protonix) 40 mg PO DAILY #30 tabs 24
[2023-07-04 13:12] VITALS: BP 132/71; PULSE 103; RESP 14; TEMP 35.9; O2SAT 94
== END 2023-07-04 14:58 | disposition home health service (06) | DRG 378 ==
LOC: ED 05:45 → PCU 07:11
PROVIDERS: Family Medicine; Internal Medicine Gastroenterology; Admitting Provider Internal Medicine; Emergency Provider Emergency Medicine; PCP Family Medicine Geriatric Medicine; Visit Provider Internal Medicine
PROC: 0DJD8ZZ Inspection of Lower Intestinal Tract, Via Natural or Artificial Opening Endoscopic (ICD-10-PCS; CPT 45378; principal; 2023-07-02 12:40)
DX: K92.2 Gastrointestinal hemorrhage, unspecified (principal); I50.32 Chronic diastolic (congestive) heart failure; I13.0 Hypertensive heart and chronic kidney disease with heart failure and stage 1 through stage 4 chronic kidney disease, or unspecified chronic kidney disease; N17.9 Acute kidney failure, unspecified; D62 Acute posthemorrhagic anemia; E11.22 Type 2 diabetes mellitus with diabetic chronic kidney disease; E11.51 Type 2 diabetes mellitus with diabetic peripheral angiopathy without gangrene; N18.31 Chronic kidney disease, stage 3a; E11.65 Type 2 diabetes mellitus with hyperglycemia; Z79.4 Long term (current) use of insulin; F32.A Depression, unspecified; E78.00 Pure hypercholesterolemia, unspecified; F17.220 Nicotine dependence, chewing tobacco, uncomplicated; I25.10 Atherosclerotic heart disease of native coronary artery without angina pectoris; G47.33 Obstructive sleep apnea (adult) (pediatric); K64.0 First degree hemorrhoids; K57.30 Diverticulosis of large intestine without perforation or abscess without bleeding; Z68.35 Body mass index [BMI] 35.0-35.9, adult; E66.9 Obesity, unspecified; Z99.89 Dependence on other enabling machines and devices; Z95.1 Presence of aortocoronary bypass graft; Z86.73 Personal history of transient ischemic attack (TIA), and cerebral infarction without residual deficits; Z90.49 Acquired absence of other specified parts of digestive tract; Z79.82 Long term (current) use of aspirin; Z79.899 Other long term (current) drug therapy; Z79.84 Long term (current) use of oral hypoglycemic drugs
CPT/HCPCS: 36415; 78278; 80048; 80053; 82274; 82962; 83735; 84100; 84443; 85014; 85018; 85025; 85610; 85730; 86644; 86850; 86900; 86901; 86920; 86922; 93005; 94668; 97162; 97166; 97530; 97535; 99285; A9560; J7030; J7040; J7120; P9016; A4216; J1940; J2405

== ENCOUNTER → 2023-07-07 | Outpatient (CLI) | payer MEDICARE, SELFPAY ==
[2023-07-07 16:15] LABS: Basophil# 0.05 X10^3/uL; Basophil% 0.5 % (0-1); Eosinophil# 0.12 X10^3/uL; Eosinophils% 1.1 % (0-5); Hematocrit 23.6 % (40-54); Hemoglobin 7.4 g/dL (13.0-16.5); Lymphocyte % 16.3 % (19-41); Mean Corp Hgb Conc 31.4 g/dL (32-36); Mean Corpuscular Volume 89.4 fL (80-94); Mean Platelet Vol. 9.8 fl (6.2-12.0); Monocyte# 0.97 X10^3/uL; Monocyte% 8.8 % (0-10); NRBC Flagged by Analyzer 0 % (0-5); Neutrophil # 7.99 X10^3/uL (2.7-7.7); Neutrophil % 72.5 % (47-70); Platelet Count 510 K/mm3 (150-450); RBC Distribution Width CV 16.9 % (11.6-14.6); RBC Distribution Width SD 54.6 fl (35.1-43.9); Red Blood Count 2.64 M/mm3 (4.6-6.2)
[2023-07-07 17:00] LABS: Iron 23 ug/dL (65-175)
== END | disposition home or self-care (01) ==
LOC: POLAB3 15:58
PROVIDERS: PCP Family Medicine Geriatric Medicine; Visit Provider Family Medicine Geriatric Medicine
DX: D50.9 Iron deficiency anemia, unspecified (principal)
CPT/HCPCS: 36415; 83540; 85025

== ENCOUNTER 2023-07-08 11:25 | Outpatient (CLI) | payer MEDICARE, SELFPAY ==
[2023-07-08] VITALS (8 sets, daily range): BP systolic 110–158; BP diastolic 55–85; PULSE 90–102; RESP 15–18; TEMP 35.8–37; O2SAT 95–99
[2023-07-08 13:29] LABS: Bedside Glucose 163 mg/dL (74-106)
[2023-07-08] MEDS: Furosemide 20 MG/2 ML VIAL IV (16:51)
== END 2023-07-08 19:31 | disposition home or self-care (01) ==
LOC: MEDOUTP 11:26 → MS3 11:55
PROVIDERS: PCP Family Medicine Geriatric Medicine; Referring Provider Family Medicine Geriatric Medicine; Visit Provider Family Medicine Geriatric Medicine
DX: D62 Acute posthemorrhagic anemia (principal)
CPT/HCPCS: 96374; 36415; 36430; 82962; 86850; 86900; 86901; 86920; 86922; J7040; P9016; J1940

== ENCOUNTER 2023-07-09 21:55 | Observation (INO) | payer MEDICARE, SELFPAY ==
[2023-07-09 21:56] VITALS: BP 157/104; PULSE 108; RESP 16; TEMP 36.4; O2SAT 95; BMI 35.4
--- NOTE | 2023-07-09 22:21 | ED.VIS.GI ---
HPI HPI - GI History of Present Illness Chief Complaint: GI Bleed Narrative Narrative: 78-year-old male presenting with GI bleeding. He states he had blood in his stool today. He also has some dark black stools as well. Recently seen by Dr. Panda and had colonoscopy with cauterization of bleeding areas. He is not on any blood thinners and is not on any antiplatelet drugs patient states has been short of breath and lightheaded but nothing is changed in that regard. He has not had a bowel movement with blood in it for couple of days. Patient lives at home with his . He does get lightheaded when he stands but this is not new either. Denies chest pain or shortness of breath. [facility] Medical History (HFpEF) heart failure with preserved ejection fraction Adjustment disorder with depressed mood Anemia Atherosclerosis of coronary artery without angina pectoris Cardiology follow-up encounter Chewing tobacco use Colonic diverticular disease CPAP (continuous positive airway pressure) dependence Disturbance of memory Essential hypertension Generalized osteoarthritis GIB (gastrointestinal bleeding) History of CVA (cerebrovascular accident) (03/31/18) History of echocardiogram History of stress test Hyperlipidemia Kidney disease Loss of hearing Pain in thoracic spine Peripheral vascular disease, unspecified Pure hypercholesterolemia, unspecified Restless legs Seizures Wears dentures Home Medications atorvastatin 40 mg tablet 40 mg PO DAILY cholesterol 09/15/19 [History Last Taken 12/24/22] isosorbide mononitrate 30 mg tablet,extended release 24 hr 30 mg PO DAILY heart 09/15/19 [History Last Taken 12/24/22] metformin 1,000 mg tablet 1,000 mg PO BID diabetes 09/15/19 [History Last Taken 12/24/22] glipizide 10 mg tablet, extended release 24 hr 10 mg PO DAILY diabetes 12/28/20 [History Last Taken 12/24/22] furosemide 40 mg tablet 40 mg PO DAILY diuretic 11/27/21 [History Last Taken 12/24/22] venlafaxine 75 mg tablet 75 mg PO DAILY mental health 11/27/21 [History Last Taken 12/24/22] albuterol sulfate 90 mcg/actuation aerosol inhaler 2 puff inhalation Q6H PRN shortness of breath or wheezing 05/21/22 [History Last Taken 12/23/22] insulin glargine U-300 conc 300 unit/mL (3 mL) subcutaneous pen (Toujeo Max U-300 SoloStar) 36 unit subcut DAILY diabetes 11/20/22 [History Last Taken 12/25/22] nitroglycerin 0.4 mg sublingual tablet 0.4 mg sublingual Q5-15M PRN Chest Pain #25 tabs 11/20/22 [Rx Last Taken Unknown] carvedilol 12.5 mg tablet 12.5 mg PO BID blood pressure #180 tabs 12/17/22 [Rx Last Taken 12/24/22] potassium chloride 20 mEq tablet,extended release(part/cryst) 20 meq PO DAILY supplement 12/25/22 [History Last Taken 12/24/22] ursodiol 250 mg tablet 250 mg PO BID cirrhosis #60 tabs 06/09/23 [Rx Last Taken Unknown] ascorbic acid (vitamin C) 500 mg tablet 500 mg PO BID #60 tabs 07/04/23 [Rx Last Taken Unknown] ferrous sulfate 325 mg (65 mg iron) tablet 325 mg PO QODAY #30 tabs 07/04/23 [Rx Last Taken Unknown] pantoprazole 40 mg tablet,delayed release (Protonix) 40 mg PO DAILY #30 tabs 07/04/23 [Rx Last Taken Unknown] losartan 50 mg tablet 50 mg PO DAILY 07/09/23 [History Last Taken Unknown] Allergy/AdvReac Type Severity Reaction Status Date / Time dapagliflozin [From [facility]] Allergy Rash Verified 06/30/23 03:44 Family History Mother Heart disease Father Heart disease Surgical History H/O arthroscopic knee surgery H/O coronary artery bypass surgery (10/25/18) H/O resection of small bowel H/O varicose vein ligation History of appendectomy History of cataract surgery History of colonoscopy History of craniotomy (1990) History of ERCP History of left heart catheterization (10/13/18) Hx laparoscopic cholecystectomy S/P ERCP S/P laparoscopic cholecystectomy (~01/2022) Social History Smoking Status: Current every day smoker tobacco type: smokeless tobacco Smokeless tobacco user: chewing tobacco alcohol intake: former year quit: h/o substance use type: does not use ROS ROS ED Constitutional Constitutional ED: Denies chills, fever(s) or sweats Eyes Eyes: Denies blurry vision or change in vision ENT ENT ED: Denies ear pain or sore throat Cardiovascular Cardiovascular: Denies chest pain, palpitations or racing heartbeat Respiratory/Chest Respiratory/Chest: Denies cough, dyspnea or sputum Gastrointestinal Gastrointestinal: Reports other Details: Blood in stool ; Denies abdominal pain, constipation, diarrhea, nausea or vomiting Genitourinary Genitourinary ED: Denies dysuria, hematuria or urinary frequency Musculoskeletal Musculoskeletal: Denies arthralgias, myalgias or neck pain Integumentary Denies abscess, Abrasions or rash Neurologic Neurologic: Denies headache(s), paresthesias or weakness Psychiatric Psychiatric: Denies anxiety, depression, suicidal ideation or suicidal thoughts Endocrine Endocrinology: Denies polydipsia or polyuria EXAM Physical Exam Const Vital Signs: 07/09/23 21:56 07/09/23 23:17 Temperature 97.6 F L 97.8 F Temperature Source Temporal Pulse Rate 108 H 94 Respiratory Rate 16 19 H Blood Pressure 157/104 H 150/72 H Blood Pressure Mean 121 98 Pulse Ox 95 95 Oxygen Delivery Method Room Air Positive well nourished General Appearance ED: NAD; Negative for pallor HEENT Reports moist mucous membranes normocephalic and atraumatic Eyes PERRL and EOMs intact bilaterally Resp normal respiratory effort and clear to auscultation bilaterally Auscultation: Negative for rales, rhonchi or wheezes Cardio regular rate and regular rhythm GI non-tender and non-distended Neuro CN's II-XII intact bilaterally Sensorium / Orientation: alert Psych mental status grossly normal and thought process normal Skin no wounds General Skin Exam: Negative for jaundice or pallor MDM MDM MDM Narrative Medical decision making narrative: Patient presenting with blood in stool. He states he had 1 bloody bowel movement this evening. He generally has some weakness and shortness of breath which is not new. He denies any abdominal pain. He is not on any blood thinners or antiplatelet drugs. He is recently had 2 colonoscopies and states he was cauterized to stop the bleeding. Upper endoscopy was normal. Vital signs stable he is afebrile. Abdominal exam is benign. CBC was obtained to assess white blood cell count, hemoglobin, platelets. CMP to assess liver function, renal function, electrolytes, glucose. Patient was typed and screened. CBC shows normal white blood cell count 10.4. Hemoglobin is 9.2 and he was 7.42 days ago. Creatinine is 1.4 near baseline. BUN not significantly elevated. Glucose 158 without anion gap. Otherwise LFTs unremarkable. Given patient's bleeding tonight I will talk to Dr. Panda about the patient. Patient remained hemodynamically stable. Spoke with Dr. Panda regarding the patient he recommended admission for serial H&H's and to make sure that he is stable. Discussed with hospitalist for admission. Impression: 1. Acute GI bleed Lab Data Attestation: I reviewed the patient's lab results. Labs: Laboratory Results - last 24 hr 07/09/23 22:17 WBC 10.4 RBC 3.36 L Hgb 9.2 L Hct 28.7 L MCV 85.4 MCH 27.4 MCHC 32.1 RDW Std Deviation 53.6 H RDW Coeff of Myron 17.2 H Plt Count 434 MPV 10.2 Immature Gran % (Auto) 0.800 Neut % (Auto) 71.4 H Lymph % (Auto) 17.8 L [place] % (Auto) 8.2 Eos % (Auto) 1.3 Baso % (Auto) 0.5 Absolute Neuts (auto) 7.4 Absolute Lymphs (auto) 1.84 Nucleated RBC % 0 Differential Comment SCANNED Sodium 134 L Potassium 4.3 Chloride 104 Carbon Dioxide 21.0 Anion Gap 9 BUN 22 H Creatinine 1.40 H Estim Creat Clear Calc 51.25 Est GFR (MDRD) Af Amer 63 Est GFR (MDRD) Non-Af 52 L BUN/Creatinine Ratio 15.7 Glucose 158 H Calcium 8.7 Total Bilirubin 0.70 AST 25 ALT 21 Alkaline Phosphatase 77 Total Protein 6.3 L Albumin 3.0 L Globulin 3.3 Albumin/Globulin Ratio 0.9 Discharge Plan Triage Chief Complaint: GI Bleed ED Provider: Linden Taylor Dx/Rx/DC Orders Prescriptions: No Action metformin 1,000 mg tablet 1,000 mg PO BID atorvastatin 40 mg tablet 40 mg PO DAILY isosorbide mononitrate 30 mg tablet extended release 24 hr 30 mg PO DAILY glipizide 10 mg tablet extended release 24hr 10 mg PO DAILY Patient Comments: TAKE 1 TABLET BY MOUTH TWICE DAILY furosemide 40 mg tablet 40 mg PO DAILY Patient Comments: TAKE 1 TABLET BY MOUTH ONCE DAILY IN THE MORNING FOR 30 DAYS venlafaxine 75 mg tablet 75 mg PO DAILY albuterol sulfate 90 mcg/actuation HFA aerosol inhaler 2 puff inhalation Q6H PRN (Reason: shortness of breath or wheezing) insulin glargine U-300 conc [Toujeo Max U-300 SoloStar] 300 unit/mL (3 mL) insulin pen 36 unit subcut DAILY nitroglycerin 0.4 mg tablet, sublingual 0.4 mg sublingual Q5-15M PRN (Reason: Chest Pain) Qty: 25 3RF potassium chloride 20 mEq tablet,ER particles/crystals 20 meq PO DAILY Patient Comments: TAKE 1 TABLET BY MOUTH ONCE DAILY pantoprazole [Protonix] 40 mg tablet,delayed release (DR/EC) 40 mg PO DAILY Qty: 30 1RF ferrous sulfate 325 mg (65 mg iron) tablet 325 mg PO QODAY Qty: 30 2RF ascorbic acid (vitamin C) 500 mg tablet 500 mg PO BID Qty: 60 2RF losartan 50 mg tablet 50 mg PO DAILY carvedilol 12.5 mg tablet 12.5 mg PO BID Qty: 180 3RF Rx Instructions: must administer with a meal/food ursodiol 250 mg tablet 250 mg PO BID Qty: 60 5RF Patient Comments: TAKE 1 TABLET BY MOUTH TWICE DAILY Primary Care Provider: Frankie Shaver Chi Referrals: Frankie Shaver Chi, MD [Primary Care Provider] -
[2023-07-09 22:36] LABS: Absolute Lymphocyte Count 1.84 X10^3/uL (0.83-4.51); Absolute Neutrophil Count 7.4 X10^3/uL (2.0-7.7); Basophil# 0.05 X10^3/uL; Basophil% 0.5 % (0-1); Eosinophil# 0.13 X10^3/uL; Eosinophils% 1.3 % (0-5); Hematocrit 28.7 % (40-54); Hemoglobin 9.2 g/dL (13.0-16.5); Lymphocyte # 1.84 X10^3/ul (0.83-4.51); Lymphocyte % 17.8 % (19-41); Mean Corp Hgb Conc 32.1 g/dL (32-36); Mean Corpuscular Hgb 27.4 pg (27.0-32.0); Mean Corpuscular Volume 85.4 fL (80-94); Mean Platelet Vol. 10.2 fl (6.2-12.0); Monocyte# 0.85 X10^3/uL; Monocyte% 8.2 % (0-10); NRBC Flagged by Analyzer 0 % (0-5); Neutrophil # 7.41 X10^3/uL (2.7-7.7); Neutrophil % 71.4 % (47-70); POSITIVE COUNT YES; Platelet Count 434 K/mm3 (150-450); RBC Distribution Width CV 17.2 % (11.6-14.6); RBC Distribution Width SD 53.6 fl (35.1-43.9); Red Blood Count 3.36 M/mm3 (4.6-6.2); White Blood Count 10.4 K/mm3 (4.4-11.0)
[2023-07-09 22:55] LABS: Differential Indicated SCAN CRITERIA MET
[2023-07-09 22:58] LABS: ALB/GLOB Ratio 0.9 RATIO (0.9-2.4); AST(SGOT) 25 U/L (15-37); Alanine Aminotransfer ALT/SGPT 21 U/L (16-61); Alkaline Phosphatase 77 U/L (45-117); Anion Gap 9 (5-15); BUN 22 mg/dL (7-18); BUN/Creat Ratio 15.7 RATIO (10-20); Calcium,Total 8.7 mg/dL (8.5-10.1); Chloride 104 mmol/L (98-107); EST Glomerular Filtration Rate 52 mL/min (>60); Est Glom Filt Rate - Afr Amer 63 mL/min (>60); Estimated Creatinine Clearance 51.25 ml/min; Globulin 3.3 g/dL (2.2-4.2); Glucose 158 mg/dL (74-106); Potassium 4.3 mmol/L (3.5-5.1); Protein, Total 6.3 g/dL (6.4-8.2); Sodium Level 134 mmol/L (136-145)
[2023-07-09 22:59] LABS: Differential Comment SCANNED
[2023-07-09 23:17] VITALS: BP 150/72; PULSE 94; RESP 19; TEMP 36.6; O2SAT 95
--- NOTE | 2023-07-09 23:23 | PCM.HP.STD ---
[facility] - General General Date of Admission: 07/09/23 Date of Service: 07/09/23 Chief Complaint: Recurrent LGIB. [facility] Narrative JONY MELENDEZ, is a 78 M with a past medical history of essential hypertension, hyperlipidemia, obesity; with BMI of 35.4 this admission, ZAHIDA; on CPAP, DM-2; of unknown control, CAD; s/p CABG (2018), chronic diastolic CHF; with preserved LVEF, history of craniotomy after trauma with remote history of seizures (1990), history of CVA (2017), chronic anemia, history of tobacco abuse, depression, history of laparoscopic cholecystectomy (2021), history of bile leak; s/p ERCP and history of recurrent LGIB due to hemorrhoids; followed by Dr. Panda of gastroenterology with recent admission here from June 30, 2023 to July 04, 2023 where he underwent colonoscopy with cauterization who presents to [facility] ER complaining of another LGIB. Mr. Melendez reports his symptoms began approximately 1 days ago when he came to the ER after a large amount of bleeding with dark blood from his rectal area in his adult diaper but because his hemoglobin was stable at 9.2 g/dL as he was sent home after 2 units PRBC's transfused yesterday as an outpatient (and his hemoglobin was 7.4 g/dL 2 days ago). He denies feeling sick but he does admit to unchanged chronic intermittent lightheadedness. He denies associated fever, chills, nausea or vomiting and he also denies being on any blood thinners or antiplatelet agents at this time. The ER physician spoke to the patient advocate on-call who recommended patient be admitted under observation status overnight with serialized CBCs to ensure patient is not actively bleeding. In the ER he was diagnosed with recurrent lower GI suspected to be diverticular in origin and he was then admitted to the CDU under observation status for ongoing care for stay that is expected to be less than 48 hours. [facility] Medical History (Updated 07/10/23 @ 06:[address] Paresh Adame DO) (HFpEF) heart failure with preserved ejection fraction Adjustment disorder with depressed mood Anemia Atherosclerosis of coronary artery without angina pectoris Cardiology follow-up encounter Chewing tobacco use Colonic diverticular disease Congestive heart failure (CHF) CPAP (continuous positive airway pressure) dependence Disturbance of memory Essential hypertension Generalized osteoarthritis GIB (gastrointestinal bleeding) History of CVA (cerebrovascular accident) (03/31/18) History of echocardiogram History of stress test Hyperlipidemia Kidney disease Loss of hearing Pain in thoracic spine Peripheral vascular disease, unspecified Pure hypercholesterolemia, unspecified Restless legs Seizures Wears dentures Home Medications atorvastatin 40 mg tablet 40 mg PO DAILY cholesterol 09/15/19 [History Last Taken 12/24/22] isosorbide mononitrate 30 mg tablet,extended release 24 hr 30 mg PO DAILY heart 09/15/19 [History Last Taken 12/24/22] metformin 1,000 mg tablet 1,000 mg PO BID diabetes 09/15/19 [History Last Taken 12/24/22] glipizide 10 mg tablet, extended release 24 hr 10 mg PO DAILY diabetes 12/28/20 [History Last Taken 12/24/22] furosemide 40 mg tablet 40 mg PO DAILY diuretic 11/27/21 [History Last Taken 12/24/22] venlafaxine 75 mg tablet 75 mg PO DAILY mental health 11/27/21 [History Last Taken 12/24/22] albuterol sulfate 90 mcg/actuation aerosol inhaler 2 puff inhalation Q6H PRN shortness of breath or wheezing 05/21/22 [History Last Taken 12/23/22] insulin glargine U-300 conc 300 unit/mL (3 mL) subcutaneous pen (Toujeo Max U-300 SoloStar) 36 unit subcut DAILY diabetes 11/20/22 [History Last Taken 12/25/22] nitroglycerin 0.4 mg sublingual tablet 0.4 mg sublingual Q5-15M PRN Chest Pain #25 tabs 11/20/22 [Rx Last Taken Unknown] carvedilol 12.5 mg tablet 12.5 mg PO BID blood pressure #180 tabs 12/17/22 [Rx Last Taken 12/24/22] potassium chloride 20 mEq tablet,extended release(part/cryst) 20 meq PO DAILY supplement 12/25/22 [History Last Taken 12/24/22] ursodiol 250 mg tablet 250 mg PO BID cirrhosis #60 tabs 06/09/23 [Rx Last Taken Unknown] ascorbic acid (vitamin C) 500 mg tablet 500 mg PO BID #60 tabs 07/04/23 [Rx Last Taken Unknown] ferrous sulfate 325 mg (65 mg iron) tablet 325 mg PO QODAY #30 tabs 07/04/23 [Rx Last Taken Unknown] pantoprazole 40 mg tablet,delayed release (Protonix) 40 mg PO DAILY #30 tabs 07/04/23 [Rx Last Taken Unknown] losartan 50 mg tablet 50 mg PO DAILY 07/09/23 [History Last Taken Unknown] Allergy/AdvReac Type Severity Reaction Status Date / Time dapagliflozin [From [facility]] Allergy Rash Verified 06/30/23 03:44 Family History Mother Heart disease Father Heart disease Surgical History H/O arthroscopic knee surgery H/O coronary artery bypass surgery (10/25/18) H/O resection of small bowel H/O varicose vein ligation History of appendectomy History of cataract surgery History of colonoscopy History of craniotomy (1990) History of ERCP History of left heart catheterization (10/13/18) Hx laparoscopic cholecystectomy S/P ERCP S/P laparoscopic cholecystectomy (~01/2022) Social History Smoking Status: Current every day smoker tobacco type: smokeless tobacco Smokeless tobacco user: chewing tobacco alcohol intake: former year quit: h/o substance use type: does not use ROS ROS Narrative Review of systems: General: Patient denies fever or chills HENT: Denies headache, denies stuffy nose, denies sore throat EYES: Denies changes in vision or discharge from eyes Resp: Denies cough, denies shortness of breath Cardiac: Denies chest pain or palpitations GI: Denies abdominal pain, denies changes in bowel, denies nausea or vomiting. He states he has not had a bowel movement with blood for at least 2 days according to HPI. : Denies changes in urination Extremity: Denies swelling Musculoskeletal: Feels somewhat generally weak and unwell Neuro: Denies any numbness/tingling, headache or focal neurologic deficits Heme: Patient admits to bleeding from his rectum with maroon-colored blood Skin: Denies rashes Psychiatric: No complaints voiced related to uncontrolled depression or anxiety Endocrine: No polyuria, polydipsia or polyphagia The rest of the 14 point ROS was negative except for positives in HPI. Vital Signs Vital Signs Vital Signs: 07/09/23 21:56 07/09/23 23:17 Temperature 97.6 F L 97.8 F Temperature Source Temporal Pulse Rate 108 H 94 Respiratory Rate 16 19 H Blood Pressure 157/104 H 150/72 H Blood Pressure Mean 121 98 Pulse Ox 95 95 Oxygen Delivery Method Room Air Weight Weight: 233 lb Body Mass Index (BMI) 35.4 Physical Exam Const alert, oriented x3 and no apparent distress General Appearance: cooperative HEENT normocephalic, head/scalp atraumatic, hearing grossly normal bilaterally and moist oral mucous membranes Eyes PERRL and EOMs intact bilaterally Neck no lymphadenopathy and supple Resp normal respiratory effort, no retractions, no use of accessory muscles and clear to auscultation bilaterally Cardio regular rate and regular rhythm GI normal to inspection, nondistended, normoactive bowel sounds, soft to palpation, non-tender and non-distended Extremity normal to inspection, full ROM and no clubbing, cyanosis or edema Skin Skin Narrative: Patient has no evidence of pallor, jaundice or rash. Neuro oriented x3, CN's II-XII intact bilaterally, moves all extremities and no focal motor deficits Sensorium / Orientation: awake, alert, oriented to person, oriented to place and oriented to time Speech: speech normal Motor Exam: strength 5/5 throughout Results Medical Records Data Attestation: I reviewed the patient's medical records Lab / Micro Data Attestation: I reviewed the patient's lab results. 07/09/23 22:17 07/09/23 22:17 Labs: Laboratory Results - last 24 hr 07/09/23 22:17: WBC 10.4, RBC 3.36 L, Hgb 9.2 L, Hct 28.7 L, MCV 85.4, MCH 27.4, MCHC 32.1, RDW Std Deviation 53.6 H, RDW Coeff of Myron 17.2 H, Plt Count 434, MPV 10.2, Immature Gran % (Auto) 0.800, Neut % (Auto) 71.4 H, Lymph % (Auto) 17.8 L, [place] % (Auto) 8.2, Eos % (Auto) 1.3, Baso % (Auto) 0.5, Absolute Neuts (auto) 7.4, Absolute Lymphs (auto) 1.84, Nucleated RBC % 0, Differential Comment SCANNED, Sodium 134 L, Potassium 4.3, Chloride 104, Carbon Dioxide 21.0, Anion Gap 9, BUN 22 H, Creatinine 1.40 H, Estim Creat Clear Calc 51.25, Est GFR (MDRD) Af Amer 63, Est GFR (MDRD) Non-Af 52 L, BUN/Creatinine Ratio 15.7, Glucose 158 H, Calcium 8.7, Total Bilirubin 0.70, AST 25, ALT 21, Alkaline Phosphatase 77, Total Protein 6.3 L, Albumin 3.0 L, Globulin 3.3, Albumin/Globulin Ratio 0.9 Assessment & Plan Assessment/Plan (1) LGI bleed: PLAN: 1. Suspected recurrent lower GI suspected to be diverticular in origin causing #1 - Check NM GI bleeding scan to confirm suspicion. Type and screen blood and transfuse for hemoglobin less than 7 g/dL. Finally, we will consult Dr. Panda of gastroenterology to see the patient on rounds in the a.m. with help appreciated in advance. 2. Recent transfusion of 2 units of packed red blood cells for hemoglobin of 7.4 g/dL at that time now up to 9.2 g/dL present on admission - Noted. Recheck CBC in the a.m. to ensure continued stability. 3. Recent admission here from June 30, 2023 to July 04, 2023 where he underwent colonoscopy with cauterization in the setting of a history of LGIB due to hemorrhoids (2022) with chronic anemia; followed by Dr. Panda of gastroenterology - Noted. 4. Essential hypertension - Hold scheduled antihypertensives in light of #1. 5. Hyperlipidemia - Continue statin. 6. Obesity; with BMI of 35.4 this admission - Weight loss will be recommended. 7. ZAHIDA; on CPAP - Continue CPAP as previous. 8. DM-2; of unknown control - Keep NPO for the time being. Fingerstick blood sugars every 6 hours + scale insulin of the lowest intensity. 9. CAD; s/p CABG (2018) - Stable. 10. Chronic diastolic CHF; with preserved LVEF - Stable. Restart home regimen after bleeding has resolved. 11. History of craniotomy after trauma with remote history of seizures (1990) - Noted. 12. History of CVA (2017) - Noted. 13. History of tobacco abuse - Noted. 14. Depression - Continue current treatment with venlafaxine after bleeding has resolved. 15. History of laparoscopic cholecystectomy (2021) - Noted. 16. History of bile leak; s/p ERCP - Noted. 17. DVT prophylaxis - SCD's only with very recent GI bleeding. Total time: Approximately 55 minutes. (2) Anemia: Charges/Coding Visit Charges Inpatient E&M: 72153 Init Hosp L2
[2023-07-10 00:08] VITALS: BP 156/80; PULSE 87; RESP 16; TEMP 35.9; O2SAT 98; BMI 35.1
--- NOTE | 2023-07-10 00:09 | NM_ITS ---
We are attempting to reach an attending provider to discuss findings. An addendum with communication details will be sent when the communication is complete. CLINICAL: 78-year-old male with history of gastrointestinal hemorrhage. LABELED BLOOD POOL GASTROINTESTINAL BLEEDING STUDY COMPARISON: Previous labeled blood pool gastrointestinal hemorrhage examination dated 06/30/2023, CT of the abdomen-pelvis 06/26/2023 FINDINGS: Following the intravenous administration of 29.0 mCi of 99m Tc Ultratag labeled RBCs, image acquisitions of the anterior-abdomen and pelvis for a total of 60 minutes reveal: 1. Review of static and cine 1 minute acquisitions of the anterior abdomen and pelvis demonstrate a focal increase in radiotracer concentration noted at approximately 15-16 minutes post radiopharmaceutical injection in the mid abdominal mesentery with apparent both retrograde and antegrade progression to include distribution to the probable small bowel jejunum and ileum respectively. 2. Physiologic tracer uptake is noted in the hepatic and splenic, cardiac and major vascular blood pool. NM/GI Bleed Scan IMPRESSION: 1. ABNORMAL 99m Tc ULTRATAG LABELED BLOOD POOL GASTROINTESTINAL BLEEDING EXAMINATION. 2. There is increased tracer uptake noted in the distribution of the small bowel with apparent retrograde and antegrade progression consistent with acute gastrointestinal hemorrhage. 3. Overall compared to the examination dated 06/30/2023, there is current demonstration of acute gastrointestinal hemorrhage. Electronically Signed: Freddy Moody DO at 11:56 EST ,
[2023-07-10] MEDS: 0.9% Normal Saline (1000mL) 1,000 ML 50 ML IV (00:52)
[2023-07-10 06:00] VITALS: BMI 35.1
[2023-07-10 08:00] VITALS: BP 137/80; PULSE 85; RESP 16; TEMP 36.9; O2SAT 98
--- NOTE | 2023-07-10 08:15 | PN.HOSP_ITS ---
Reason for Visit Reason for Visit: Diagnoses Anemia, unspecified (07/09/23) Gastrointestinal hemorrhage, unspecified (07/09/23) Subjective Subjective Had some bleeding this AM. Feels well Objective Data Objective Data Vital Signs: Vital Signs Temp Pulse Resp BP Pulse Ox O2 Del Method 36.9 C 85 16 137/80 H 98 Room Air 07/10/23 08:00 07/10/23 08:00 07/10/23 08:00 07/10/23 08:00 07/10/23 08:00 07/10/23 08:06 Oxygen Delivery Method Room Air Weight: 104.7 kg Body Mass Index (BMI) 35.1 Lab / Micro Data 07/10/23 08:30 07/10/23 08:30 Labs: Laboratory Results - last 24 hr 07/09/23 22:17: WBC 10.4, RBC 3.36 L, Hgb 9.2 L, Hct 28.7 L, MCV 85.4, MCH 27.4, MCHC 32.1, RDW Std Deviation 53.6 H, RDW Coeff of Myron 17.2 H, Plt Count 434, MPV 10.2, Immature Gran % (Auto) 0.800, Neut % (Auto) 71.4 H, Lymph % (Auto) 17.8 L, [place] % (Auto) 8.2, Eos % (Auto) 1.3, Baso % (Auto) 0.5, Absolute Neuts (auto) 7.4, Absolute Lymphs (auto) 1.84, Nucleated RBC % 0, Differential Comment SCANNED, Sodium 134 L, Potassium 4.3, Chloride 104, Carbon Dioxide 21.0, Anion Gap 9, BUN 22 H, Creatinine 1.40 H, Estim Creat Clear Calc 51.25, Est GFR (MDRD) Af Amer 63, Est GFR (MDRD) Non-Af 52 L, BUN/Creatinine Ratio 15.7, Glucose 158 H , Calcium 8.7, Total Bilirubin 0.70, AST 25, ALT 21, Alkaline Phosphatase 77, Total Protein 6.3 L, Albumin 3.0 L, Globulin 3.3, Albumin/Globulin Ratio 0.9 Physical Exam Const alert and no apparent distress Constitutional Narrative: pale appearance. HEENT head/scalp atraumatic and moist oral mucous membranes Resp normal respiratory effort, no retractions, no use of accessory muscles and clear to auscultation bilaterally Cardio regular rate, regular rhythm, S1 normal heart sound and S2 normal heart sound GI normal to inspection, nondistended, normoactive bowel sounds, soft to palpation, non-tender and non-distended Psych affect normal Assessment & Plan Assessment/Plan (1) LGI bleed: (2) Anemia: PLAN: Plan GI bleed * Bleeding scan + with active small bowel bleeding. * DW Dr. Panda, he will evaluate to see if there is something that he could address with endoscopy. Patient has patient has been just in the meantime, I have notified the family that patient should be transferred for interventional radiology. The preference would be for [place]. Reached out to [facility] and [facility]. They said that he did not have any beds available at this time and would suspect there this would be not until he July 10. * EGD 07/02: WNL * Colonoscopy 07/02: non-bleeding internal hemorrhoids. Blood in entire colon. 07/03: diverticulosis in entire colon. * Admission notes mentions cauterization, but I do not see in the operative reports that was actually done. Anemia * Hemoglobin dropped from 9.2-8.4. Recheck hemoglobin. * TF for Hg 7 or less. Chronic conditions: * Essential hypertension - Hold scheduled antihypertensives in light of #1. * hyperlipidemia - Continue statin. * Obesity; with BMI of 35.4 this admission - Weight loss will be recommended. * ZAHIDA; on CPAP - Continue CPAP as previous. * DM-2; of unknown control - Keep NPO for the time being. Fingerstick blood sugars every 6 hours + scale insulin of the lowest intensity. * CAD; s/p CABG (2018) - Stable. ASA on hold. * Chronic diastolic CHF; with preserved LVEF - Stable. Restart home regimen after bleeding has resolved. * History of craniotomy after trauma with remote history of seizures (1990) * History of CVA (2017) * History of tobacco abuse * Depression - Continue current treatment with venlafaxine after bleeding has resolved. * History of laparoscopic cholecystectomy (2021) * History of bile leak; s/p ERCP DVT prophylaxis - SCD's only with very recent GI bleeding. Greater than 55 minutes of which greater than 50% of time was discussing with the patient and his about the recommendations for transfer, discussing with Dr. Panda about the nuclear medicine study and also discussing with the outside hospitals about transfer. Charges/Coding Visit Charges Inpatient E&M: 69603 Subs Hosp L3
[2023-07-10 08:27] VITALS: O2SAT 94
[2023-07-10 08:38] LABS: Absolute Lymphocyte Count 1.43 X10^3/uL (0.83-4.51); Absolute Neutrophil Count 5.7 X10^3/uL (2.0-7.7); Basophil# 0.03 X10^3/uL; Basophil% 0.4 % (0-1); Eosinophils% 1.2 % (0-5); Hematocrit 25.6 % (40-54); Hemoglobin 8.3 g/dL (13.0-16.5); Lymphocyte # 1.43 X10^3/ul (0.83-4.51); Lymphocyte % 17.6 % (19-41); Mean Corp Hgb Conc 32.4 g/dL (32-36); Mean Corpuscular Hgb 27.2 pg (27.0-32.0); Mean Corpuscular Volume 83.9 fL (80-94); Mean Platelet Vol. 9.3 fl (6.2-12.0); Monocyte# 0.76 X10^3/uL; Monocyte% 9.4 % (0-10); NRBC Flagged by Analyzer 0 % (0-5); Neutrophil # 5.73 X10^3/uL (2.7-7.7); Neutrophil % 70.7 % (47-70); Platelet Count 404 K/mm3 (150-450); RBC Distribution Width CV 16.6 % (11.6-14.6); RBC Distribution Width SD 50.9 fl (35.1-43.9); Red Blood Count 3.05 M/mm3 (4.6-6.2); White Blood Count 8.1 K/mm3 (4.4-11.0)
[2023-07-10 09:21] LABS: ALB/GLOB Ratio 0.9 RATIO (0.9-2.4); AST(SGOT) 12 U/L (15-37); Alanine Aminotransfer ALT/SGPT 18 U/L (16-61); Albumin, Serum 2.7 g/dL (3.2-5.0); Alkaline Phosphatase 72 U/L (45-117); Anion Gap 6 (5-15); BUN 21 mg/dL (7-18); BUN/Creat Ratio 19.1 RATIO (10-20); Calcium,Total 8.3 mg/dL (8.5-10.1); Chloride 108 mmol/L (98-107); EST Glomerular Filtration Rate 69 mL/min (>60); Est Glom Filt Rate - Afr Amer 83 mL/min (>60); Estimated Creatinine Clearance 64.91 ml/min; Glucose 103 mg/dL (74-106); Magnesium 1.4 mg/dL (1.6-2.6); Potassium 3.5 mmol/L (3.5-5.1); Protein, Total 5.7 g/dL (6.4-8.2); Sodium Level 138 mmol/L (136-145)
--- NOTE | 2023-07-10 12:42 | CHAPLAIN ---
Type of Pastoral Visit _x__ Initial Visit ___ Follow-up Visit ___ On-call Visit ___ General Patient Visit ___ Spiritual Assessment ___ Family Conference ___ Bereavement ___ Rapid Response ___ Code Blue ___ Other (describe below) Pastoral Care Referral From _x__ Patient _x__ Family ___ Nurse ___ Physician ___ Quill Stripper ___ Linotype Machinist Apprentice ___ Other (describe below) Sacrament/Intervention _x__ Active listening ___ Anointing ___ Orthodox ___ Bereavement ___ Communion _x__ Debra exploration ___ _x__ Life review _x__ Prayer ___ Reconciliation ___ Sacrament of Sick ___ Supportive presence ___ Wedding ___ Other (describe below) Pastoral Comments Initially the patient was out of the room but his spouse was there waiting for him; spouse gives information about medical needs of pt and that he had just been hospitalized last week; pt was then brought back to the room from his procedure and able to interact with this armor senior sergeant as well; both are welcoming of time to talk, to learn about his situation, debra beliefs, and a moment of prayer
[2023-07-10 13:17] LABS: Absolute Lymphocyte Count 1.51 X10^3/uL (0.83-4.51); Absolute Neutrophil Count 6.7 X10^3/uL (2.0-7.7); Basophil# 0.04 X10^3/uL; Basophil% 0.4 % (0-1); Eosinophil# 0.08 X10^3/uL; Eosinophils% 0.9 % (0-5); Hematocrit 27.5 % (40-54); Hemoglobin 8.9 g/dL (13.0-16.5); Lymphocyte # 1.51 X10^3/ul (0.83-4.51); Lymphocyte % 16.3 % (19-41); Mean Corp Hgb Conc 32.4 g/dL (32-36); Mean Corpuscular Hgb 27.5 pg (27.0-32.0); Mean Corpuscular Volume 84.9 fL (80-94); Mean Platelet Vol. 9.2 fl (6.2-12.0); Monocyte# 0.86 X10^3/uL; Monocyte% 9.3 % (0-10); NRBC Flagged by Analyzer 0 % (0-5); Neutrophil # 6.72 X10^3/uL (2.7-7.7); Neutrophil % 72.2 % (47-70); Platelet Count 462 K/mm3 (150-450); RBC Distribution Width CV 16.7 % (11.6-14.6); RBC Distribution Width SD 51.6 fl (35.1-43.9); Red Blood Count 3.24 M/mm3 (4.6-6.2); White Blood Count 9.3 K/mm3 (4.4-11.0)
[2023-07-10 14:31] VITALS: BP 156/103; PULSE 81; RESP 16; TEMP 36.9; O2SAT 100
--- NOTE | 2023-07-10 14:43 | CASEMGMT ---
Insurance review for hospitals In-network with [facility] insurance if transfer is recommended is as follows:?[facility], [place], [facility], [facility], [facility], [facility], [facility]), [place], [place], [facility] and . Loretta Faust, Discharge Planning Asst.
[2023-07-10 18:16] LABS: Hematocrit 30.4 % (40-54); Hemoglobin 9.7 g/dL (13.0-16.5); Mean Corp Hgb Conc 31.9 g/dL (32-36); Mean Corpuscular Hgb 26.9 pg (27.0-32.0); Mean Corpuscular Volume 84.4 fL (80-94); Mean Platelet Vol. 9.2 fl (6.2-12.0); Platelet Count 618 K/mm3 (150-450); RBC Distribution Width CV 16.7 % (11.6-14.6); RBC Distribution Width SD 51.2 fl (35.1-43.9); White Blood Count 12.9 K/mm3 (4.4-11.0)
[2023-07-10 18:35] VITALS: O2SAT 100
[2023-07-10] MEDS: LORazepam 1 MG Tablet PO (18:50)
--- NOTE | 2023-07-10 19:03 | CON.PCM.GI_ITS ---
HPI Consult Data Date of Consult: 07/10/23 HPI Narrative HPI Narrative: JONY LONGORIA, is a 78 M with a past medical history of essential hypertension, hyperlipidemia, obesity; with BMI of 35.4 this admission, ZAHIDA; on CPAP, DM-2; of unknown control, CAD; s/p CABG (2018), chronic diastolic CHF; with preserved LVEF, history of craniotomy after trauma with remote history of seizures (1990), history of CVA (2017), chronic anemia, history of tobacco abuse, depression, history of laparoscopic cholecystectomy (2021), history of bile leak; s/p ERCP and history of recurrent LGIB due to hemorrhoids; He was recently here for GI bleed on June 30, 2023 to July 04, 2023 where he underwent colonoscopy with cauterization who presents to [facility] ER complaining of another LGIB. Mr. Longoria reports his symptoms began approximately 1 days ago when he came to the ER after a large amount of bleeding with dark blood from his rectal area in his adult diaper but because his hemoglobin was stable at 9.2 g/dL as he was sent home after 2 units PRBC's transfused yesterday as an outpatient (and his hemoglobin was 7.4 g/dL 2 days ago). He denies feeling sick but he does admit to unchanged chronic intermittent lightheadedness. He denies associated fever, chills, nausea or vomiting and he also denies being on any blood thinners or antiplatelet agents at this time. The ER physician spoke to the light industrial on-call who recommended patient be admitted under observation status overnight with serialized CBCs to ensure patient is not actively bleeding. He had a bleeding scan and the results as follows : 1. ABNORMAL 99m Tc ULTRATAG LABELED BLOOD POOL GASTROINTESTINAL BLEEDING EXAMINATION. 2. There is increased tracer uptake noted in the distribution of the small bowel with apparent retrograde and antegrade progression consistent with acute gastrointestinal hemorrhage. 3. Overall compared to the examination dated 06/30/2023, there is current demonstration of acute gastrointestinal hemorrhage [facility] Medical History (Updated 07/10/23 @ 06:[address] Paresh Adame DO) (HFpEF) heart failure with preserved ejection fraction Adjustment disorder with depressed mood Anemia Atherosclerosis of coronary artery without angina pectoris Cardiology follow-up encounter Chewing tobacco use Colonic diverticular disease Congestive heart failure (CHF) CPAP (continuous positive airway pressure) dependence Disturbance of memory Essential hypertension Generalized osteoarthritis GIB (gastrointestinal bleeding) History of CVA (cerebrovascular accident) (03/31/18) History of echocardiogram History of stress test Hyperlipidemia Kidney disease Loss of hearing Pain in thoracic spine Peripheral vascular disease, unspecified Pure hypercholesterolemia, unspecified Restless legs Seizures Wears dentures Home Medications atorvastatin 40 mg tablet 40 mg PO DAILY cholesterol 09/15/19 [History Last Taken 12/24/22] isosorbide mononitrate 30 mg tablet,extended release 24 hr 30 mg PO DAILY heart 09/15/19 [History Last Taken 12/24/22] metformin 1,000 mg tablet 1,000 mg PO BID diabetes 09/15/19 [History Last Taken 12/24/22] glipizide 10 mg tablet, extended release 24 hr 10 mg PO DAILY diabetes 12/28/20 [History Last Taken 12/24/22] furosemide 40 mg tablet 40 mg PO DAILY diuretic 11/27/21 [History Last Taken 12/24/22] venlafaxine 75 mg tablet 75 mg PO DAILY mental health 11/27/21 [History Last Taken 12/24/22] albuterol sulfate 90 mcg/actuation aerosol inhaler 2 puff inhalation Q6H PRN shortness of breath or wheezing 05/21/22 [History Last Taken 12/23/22] insulin glargine U-300 conc 300 unit/mL (3 mL) subcutaneous pen (Toujeo Max U- 300 SoloStar) 36 unit subcut DAILY diabetes 11/20/22 [History Last Taken 12/25/22] nitroglycerin 0.4 mg sublingual tablet 0.4 mg sublingual Q5-15M PRN Chest Pain #25 tabs 11/20/22 [Rx Last Taken Unknown] carvedilol 12.5 mg tablet 12.5 mg PO BID blood pressure #180 tabs 12/17/22 [Rx Last Taken 12/24/22] potassium chloride 20 mEq tablet,extended release(part/cryst) 20 meq PO DAILY supplement 12/25/22 [History Last Taken 12/24/22] ursodiol 250 mg tablet 250 mg PO BID cirrhosis #60 tabs 06/09/23 [Rx Last Taken Unknown] ascorbic acid (vitamin C) 500 mg tablet 500 mg PO BID #60 tabs 07/04/23 [Rx Last Taken Unknown] ferrous sulfate 325 mg (65 mg iron) tablet 325 mg PO QODAY #30 tabs 07/04/23 [Rx Last Taken Unknown] pantoprazole 40 mg tablet,delayed release (Protonix) 40 mg PO DAILY #30 tabs 07/04/23 [Rx Last Taken Unknown] losartan 50 mg tablet 50 mg PO DAILY 07/09/23 [History Last Taken Unknown] Allergy/AdvReac Type Severity Reaction Status Date / Time dapagliflozin [From [facility]] Allergy Rash Verified 06/30/23 03:44 Family History Mother Heart disease Father Heart disease Surgical History H/O arthroscopic knee surgery H/O coronary artery bypass surgery (10/25/18) H/O resection of small bowel H/O varicose vein ligation History of appendectomy History of cataract surgery History of colonoscopy History of craniotomy (1990) History of ERCP History of left heart catheterization (10/13/18) Hx laparoscopic cholecystectomy S/P ERCP S/P laparoscopic cholecystectomy (~01/2022) Social History Smoking Status: Current every day smoker tobacco type: smokeless tobacco Smokeless tobacco user: chewing tobacco alcohol intake: former year quit: h/o substance use type: does not use ROS ROS Narrative Review of systems: General: Patient denies fever or chills HENT: Denies headache, denies stuffy nose, denies sore throat EYES: Denies changes in vision or discharge from eyes Resp: Denies cough, denies shortness of breath Cardiac: Denies chest pain or palpitations GI: Denies abdominal pain, denies changes in bowel, denies nausea or vomiting. He states he has not had a bowel movement with blood for at least 2 days according to HPI. : Denies changes in urination Extremity: Denies swelling Musculoskeletal: Feels somewhat generally weak and unwell Neuro: Denies any numbness/tingling, headache or focal neurologic deficits Heme: Patient admits to bleeding from his rectum with maroon-colored blood Skin: Denies rashes Psychiatric: No complaints voiced related to uncontrolled depression or anxiety Endocrine: No polyuria, polydipsia or polyphagia The rest of the 14 point ROS was negative except for positives in HPI. Physical Exam Const alert and no apparent distress Constitutional Narrative: pale appearance. HEENT head/scalp atraumatic and moist oral mucous membranes Resp normal respiratory effort, no retractions, no use of accessory muscles and clear to auscultation bilaterally Cardio regular rate, regular rhythm, S1 normal heart sound and S2 normal heart sound GI normal to inspection, nondistended, normoactive bowel sounds, soft to palpation, non-tender and non-distended Psych affect normal Lab / Micro Data 07/10/23 18:00 07/10/23 08:30 Labs: Laboratory Results - last 24 hr 07/09/23 22:17: WBC 10.4, RBC 3.36 L, Hgb 9.2 L, Hct 28.7 L, MCV 85.4, MCH 27.4, MCHC 32.1, RDW Std Deviation 53.6 H, RDW Coeff of Myron 17.2 H, Plt Count 434, MPV 10.2, Immature Gran % (Auto) 0.800, Neut % (Auto) 71.4 H, Lymph % (Auto) 17.8 L, Hill % (Auto) 8.2, Eos % (Auto) 1.3, Baso % (Auto) 0.5, Absolute Neuts (auto) 7.4, Absolute Lymphs (auto) 1.84, Nucleated RBC % 0, Differential Comment SCANNED, Sodium 134 L, Potassium 4.3, Chloride 104, Carbon Dioxide 21.0, Anion Gap 9, BUN 22 H, Creatinine 1.40 H, Estim Creat Clear Calc 51.25, Est GFR (MDRD) Af Amer 63, Est GFR (MDRD) Non-Af 52 L, BUN/Creatinine Ratio 15.7, Glucose 158 H , Calcium 8.7, Total Bilirubin 0.70, AST 25, ALT 21, Alkaline Phosphatase 77, Total Protein 6.3 L, Albumin 3.0 L, Globulin 3.3, Albumin/Globulin Ratio 0.9 07/10/23 08:30: WBC 8.1, RBC 3.05 L, Hgb 8.3 L, Hct 25.6 L, MCV 83.9, MCH 27.2, MCHC 32.4, RDW Std Deviation 50.9 H, RDW Coeff of Myron 16.6 H, Plt Count 404, MPV 9.3, Immature Gran % (Auto) 0.700, Neut % (Auto) 70.7 H, Lymph % (Auto) 17.6 L, Hill % (Auto) 9.4, Eos % (Auto) 1.2, Baso % (Auto) 0.4, Absolute Neuts (auto) 5.7, Absolute Lymphs (auto) 1.43, Nucleated RBC % 0, Sodium 138, Potassium 3.5, Chloride 108 H, Carbon Dioxide 24.0, Anion Gap 6, BUN 21 H, Creatinine 1.10, Estim Creat Clear Calc 64.91, Est GFR (MDRD) Af Amer 83, Est GFR (MDRD) Non-Af 69, BUN/Creatinine Ratio 19.1, Glucose 103, Calcium 8.3 L, Phosphorus 3.0, Magnesium 1.4 L, Total Bilirubin 0.70, AST 12 L, ALT 18, Alkaline Phosphatase 72, Total Protein 5.7 L, Albumin 2.7 L, Globulin 3.0, Albumin/Globulin Ratio 0.9 07/10/23 13:08: WBC 9.3, RBC 3.24 L, Hgb 8.9 L, Hct 27.5 L, MCV 84.9, MCH 27.5, MCHC 32.4, RDW Std Deviation 51.6 H, RDW Coeff of Myron 16.7 H, Plt Count 462 H, MPV 9.2, Immature Gran % (Auto) 0.900, Neut % (Auto) 72.2 H, Lymph % (Auto) 16.3 L, Hill % (Auto) 9.3, Eos % (Auto) 0.9, Baso % (Auto) 0.4, Absolute Neuts (auto) 6.7, Absolute Lymphs (auto) 1.51, Nucleated RBC % 0 07/10/23 18:00: WBC 12.9 H, RBC 3.60 L, Hgb 9.7 L, Hct 30.4 L, MCV 84.4, MCH 26.9 L, MCHC 31.9 L, RDW Std Deviation 51.2 H, RDW Coeff of Myron 16.7 H, Plt Count 618 H, MPV 9.2 Imaging Radiology Impression GI Bleed Scan Nuclear Medicine 07/10/23 00:09 IMPRESSION: 1. ABNORMAL 99m Tc ULTRATAG LABELED BLOOD POOL GASTROINTESTINAL BLEEDING EXAMINATION. 2. There is increased tracer uptake noted in the distribution of the small bowel with apparent retrograde and antegrade progression consistent with acute gastrointestinal hemorrhage. 3. Overall compared to the examination dated 06/30/2023, there is current demonstration of acute gastrointestinal hemorrhage. Electronically Signed: Freddy Moody DO at 11:56 EST , ADDENDUM: 07/10/23 1411 IMPRESSION: 1. ABNORMAL 99m Tc ULTRATAG LABELED BLOOD POOL GASTROINTESTINAL BLEEDING EXAMINATION. 2. There is increased tracer uptake noted in the distribution of the small bowel with apparent retrograde and antegrade progression consistent with acute gastrointestinal hemorrhage. 3. Overall compared to the examination dated 06/30/2023, there is current demonstration of acute gastrointestinal hemorrhage. N.B. : The above Results were Read Back by Freddy Moody DO to Shavon Del Castillo RN, and understanding confirmed on 07/10/2023 14:04:07 (ET). Electronically Signed: Freddy Moody DO at 11:56 EST , Assessment & Plan Assessment/Plan (1) Bright red rectal bleeding: PLAN: Plan #1. Bright red rectal bleeding-his bleeding was diverticular previously and is currently in the small bowel. His hemoglobin is at 6.8 and he received blood transfusions with got his hemoglobin up to 8.5. He does not seem to be showing any signs of bleeding at this time. Agree with transfer to high-level care for IR guided therapy. #2 Atherosclerotic heart disease-complicates care, medical course, recovery and prognosis. #3 type 2 diabetes-patient's basal insulin will be held at this time, sliding scale insulin will be given based on fingerstick blood sugars. #4 chronic depression-patient is on Effexor #5 essential hypertension-patient will remain on Coreg and losartan Charges/Coding Visit Charges Inpatient E&M: 60704 Init Hosp L3
[2023-07-10 19:30] VITALS: BP 128/80; PULSE 97; RESP 16; TEMP 36.6; O2SAT 99
--- NOTE | 2023-07-10 21:10 | NURSING ---
Report called in to [facility], spoke with Renetta who will be receiving patient. Per nurse, it is ok for patient's to accompany patient as they do not have visiting hours. Pt's will ride with patient transportation. Assessment completed and vitals obtained. Pt lethargic following administration of ativan for anxiety. Pt with 2 bloody stools today.
== END 2023-07-10 20:15 | disposition short-term general hospital (02) ==
LOC: ED 22:44 → PCU 23:50
PROVIDERS: Admitting Provider Internal Medicine; Emergency Provider Student in an Organized Health Care Education/Training Program; PCP Family Medicine Geriatric Medicine
DX: K92.2 Gastrointestinal hemorrhage, unspecified (principal); I11.0 Hypertensive heart disease with heart failure; I50.32 Chronic diastolic (congestive) heart failure; E11.9 Type 2 diabetes mellitus without complications; Z79.4 Long term (current) use of insulin; E78.00 Pure hypercholesterolemia, unspecified; D64.9 Anemia, unspecified; R53.1 Weakness; F17.220 Nicotine dependence, chewing tobacco, uncomplicated; I25.10 Atherosclerotic heart disease of native coronary artery without angina pectoris; E66.9 Obesity, unspecified; Z79.84 Long term (current) use of oral hypoglycemic drugs; Z68.35 Body mass index [BMI] 35.0-35.9, adult; Z87.19 Personal history of other diseases of the digestive system; F32.A Depression, unspecified
CPT/HCPCS: 36415; 78278; 80053; 83735; 84100; 85025; 85027; 97162; 97166; 99221; 99283; A9560; J7030; A4216; G0378

== ENCOUNTER → 2023-07-24 | Outpatient (CLI) | payer MEDICARE, SELFPAY ==
[2023-07-24 11:09] LABS: Absolute Lymphocyte Count 1.39 X10^3/uL (0.83-4.51); Absolute Neutrophil Count 6.3 X10^3/uL (2.0-7.7); Basophil# 0.03 X10^3/uL; Basophil% 0.3 % (0-1); Eosinophils% 1.2 % (0-5); Hematocrit 30.2 % (40-54); Hemoglobin 9.4 g/dL (13.0-16.5); Lymphocyte # 1.39 X10^3/ul (0.83-4.51); Lymphocyte % 16.1 % (19-41); Mean Corp Hgb Conc 31.1 g/dL (32-36); Mean Corpuscular Hgb 25.7 pg (27.0-32.0); Mean Corpuscular Volume 82.5 fL (80-94); Mean Platelet Vol. 9.9 fl (6.2-12.0); Monocyte# 0.78 X10^3/uL; NRBC Flagged by Analyzer 0 % (0-5); Neutrophil # 6.28 X10^3/uL (2.7-7.7); Neutrophil % 72.5 % (47-70); Platelet Count 343 K/mm3 (150-450); RBC Distribution Width CV 15.4 % (11.6-14.6); RBC Distribution Width SD 46.4 fl (35.1-43.9); Red Blood Count 3.66 M/mm3 (4.6-6.2); White Blood Count 8.7 K/mm3 (4.4-11.0)
== END | disposition home or self-care (01) ==
LOC: POLAB3 10:16
PROVIDERS: PCP Family Medicine Geriatric Medicine; Visit Provider Family Medicine Geriatric Medicine
DX: E11.22 Type 2 diabetes mellitus with diabetic chronic kidney disease (principal); I10 Essential (primary) hypertension
CPT/HCPCS: 36415; 85025

== ENCOUNTER → 2023-08-20 | Outpatient (CLI) | payer MEDICARE, SELFPAY ==
[2023-08-20 12:10] LABS: Hemoglobin 9.1 g/dL (13.0-16.5)
== END | disposition home or self-care (01) ==
LOC: POLAB3 11:21
PROVIDERS: PCP Family Medicine Geriatric Medicine; Visit Provider Family Medicine Geriatric Medicine
DX: D50.9 Iron deficiency anemia, unspecified (principal)
CPT/HCPCS: 36415; 85014; 85018

== ENCOUNTER → 2023-09-09 | Outpatient (CLI) | payer MEDICARE, SELFPAY ==
--- NOTE | 2023-09-09 07:58 | MRI_ITS ---
EXAM: MR KIDNEYS WITHOUT AND WITH INTRAVENOUS CONTRAST CLINICAL INDICATION: LEFT KIDNEY MASS TECHNIQUE: Multiplanar and multisequence MR images of the abdomen without and with intravenous contrast. CONTRAST: IV 21ml Clariscan COMPARISON: CT of the abdomen pelvis of 07/15/2023 FINDINGS: LIVER: Partially visualized. No focal mass. GALLBLADDER AND BILE DUCTS: Status post cholecystectomy. Simple cyst adjacent to the gallbladder fossa. No intra- or extrahepatic biliary ductal dilation. PANCREAS: No focal cystic or solid mass. SPLEEN: Normal size without focal cystic or solid mass. ADRENALS: Unremarkable. No nodules. KIDNEYS AND URETERS: 2.6 cm exophytic solid mass in the lower pole of the right kidney. No significant enhancement is seen. Malignancy however, cannot be excluded. Correlation with PET scan is recommended. No hydronephrosis. INTRAPERITONEAL SPACE: No ascites or other fluid collection. No free air. VASCULATURE: Unremarkable. Abdominal aorta is non-dilated. LYMPH NODES: No enlarged lymph nodes. MRI/MRI Abd WITH and W/O Contrast IMPRESSION: 2.6 cm exophytic solid mass in the lower pole of the left kidney. Malignancy cannot be excluded. Correlation with PET scan is recommended. Electronically Signed: Fer Cyr MD at 11:24 EDT ,
[2023-09-09 08:56] LABS: CREATININE FINGERSTICK 1.2 mg/dL (0.70-1.30); EGFR FINGERSTICK > 60.0000 mL/min (>60)
== END | disposition home or self-care (01) ==
LOC: MRI 07:51
PROVIDERS: PCP Family Medicine Geriatric Medicine; Referring Provider Family Medicine Geriatric Medicine; Visit Provider Family Medicine Geriatric Medicine
DX: N28.89 Other specified disorders of kidney and ureter (principal)
CPT/HCPCS: 74183; A9575

== ENCOUNTER → 2023-09-15 | Outpatient (CLI) | payer MEDICARE, SELFPAY ==
[2023-09-15 12:45] LABS: Absolute Lymphocyte Count 1.44 X10^3/uL (0.83-4.51); Absolute Neutrophil Count 5.4 X10^3/uL (2.0-7.7); Basophil# 0.03 X10^3/uL; Basophil% 0.4 % (0-1); Eosinophil# 0.07 X10^3/uL; Eosinophils% 0.9 % (0-5); Hematocrit 31.3 % (40-54); Hemoglobin 9.4 g/dL (13.0-16.5); Lymphocyte # 1.44 X10^3/ul (0.83-4.51); Lymphocyte % 18.8 % (19-41); Mean Corpuscular Hgb 23.9 pg (27.0-32.0); Mean Corpuscular Volume 79.4 fL (80-94); Mean Platelet Vol. 9.8 fl (6.2-12.0); Monocyte# 0.63 X10^3/uL; Monocyte% 8.2 % (0-10); NRBC Flagged by Analyzer 0 % (0-5); Neutrophil % 70.5 % (47-70); Platelet Count 372 K/mm3 (150-450); RBC Distribution Width CV 18.8 % (11.6-14.6); Red Blood Count 3.94 M/mm3 (4.6-6.2); White Blood Count 7.7 K/mm3 (4.4-11.0)
[2023-09-15 13:05] LABS: Hemoglobin A1c 6.8 % (3.8-5.6)
[2023-09-15 13:10] LABS: Vitamin D,25 Hydroxy 21.7 ng/mL
[2023-09-15 13:17] LABS: Cholesterol 129 mg/dL (200); High Density Lipoprotein 37 mg/dL; Thyroid Stim Hormone (TSH) 1.32 uIU/mL (0.358-3.74); Triglycerides 241 mg/dL; Very Low Density Lipoprotein 48 mg/dL (5-40)
[2023-09-16 09:30] LABS: AST(SGOT) 11 U/L (15-37); Alanine Aminotransfer ALT/SGPT 16 U/L (16-61); Albumin, Serum 3.6 g/dL (3.2-5.0); Alkaline Phosphatase 90 U/L (45-117); Anion Gap 10 (5-15); BUN 17 mg/dL (7-18); BUN/Creat Ratio 13.9 RATIO (10-20); Calcium,Total 9.4 mg/dL (8.5-10.1); Chloride 101 mmol/L (98-107); Creatinine, Serum 1.22 mg/dL (0.70-1.30); EST Glomerular Filtration Rate 61 mL/min (>60); Est Glom Filt Rate - Afr Amer 74 mL/min (>60); Globulin 3.6 g/dL (2.2-4.2); Glucose 167 mg/dL (74-106); Protein, Total 7.2 g/dL (6.4-8.2); Sodium Level 135 mmol/L (136-145)
== END | disposition home or self-care (01) ==
LOC: LAB 11:30
PROVIDERS: PCP Family Medicine Geriatric Medicine; Referring Provider Family Medicine Geriatric Medicine; Visit Provider Family Medicine Geriatric Medicine
DX: E78.5 Hyperlipidemia, unspecified (principal); E11.22 Type 2 diabetes mellitus with diabetic chronic kidney disease; I10 Essential (primary) hypertension; E55.9 Vitamin D deficiency, unspecified; D62 Acute posthemorrhagic anemia
CPT/HCPCS: 36415; 80053; 80061; 82306; 83036; 84443; 85025

== ENCOUNTER → 2023-09-24 | Outpatient (CLI) | payer MEDICARE, SELFPAY ==
--- NOTE | 2023-09-24 15:38 | RAD_ITS ---
STUDY: X-RAY CHEST REASON FOR EXAM: Male, 78 years old. CP TECHNIQUE: PA and lateral views of the chest. COMPARISON: None. FINDINGS: Status post median sternotomy. The lungs are clear and expanded. Tiny left pleural effusion. Normal size heart. Normal mediastinum and jennifer. Normal visualized pulmonary arteries. Normal visualized aortic arch and descending thoracic aorta. Normal visualized thoracic spine. Normal visualized ribs, clavicles, and shoulders. There is no demonstrated abnormality of the visualized soft tissue structures of the upper abdomen. RAD/Chest PA and Lateral IMPRESSION: Tiny left pleural effusion. Electronically Signed: Freddy Omer MD at 19:19 EDT ,
[2023-09-24 16:19] LABS: Absolute Lymphocyte Count 2.27 X10^3/uL (0.83-4.51); Absolute Neutrophil Count 6.9 X10^3/uL (2.0-7.7); Basophil# 0.06 X10^3/uL; Basophil% 0.6 % (0-1); Eosinophil# 0.13 X10^3/uL; Eosinophils% 1.3 % (0-5); Hematocrit 32.1 % (40-54); Hemoglobin 9.6 g/dL (13.0-16.5); Lymphocyte # 2.27 X10^3/ul (0.83-4.51); Lymphocyte % 22.1 % (19-41); Mean Corp Hgb Conc 29.9 g/dL (32-36); Mean Corpuscular Hgb 23.6 pg (27.0-32.0); Mean Corpuscular Volume 79.1 fL (80-94); Mean Platelet Vol. 9.8 fl (6.2-12.0); Monocyte# 0.78 X10^3/uL; Monocyte% 7.6 % (0-10); NRBC Flagged by Analyzer 0 % (0-5); Neutrophil # 6.92 X10^3/uL (2.7-7.7); Neutrophil % 67.4 % (47-70); Platelet Count 405 K/mm3 (150-450); RBC Distribution Width CV 19.9 % (11.6-14.6); RBC Distribution Width SD 55.7 fl (35.1-43.9); Red Blood Count 4.06 M/mm3 (4.6-6.2); White Blood Count 10.3 K/mm3 (4.4-11.0)
[2023-09-24 16:45] LABS: AST(SGOT) 8 U/L (15-37); Alanine Aminotransfer ALT/SGPT 18 U/L (16-61); Albumin, Serum 3.7 g/dL (3.2-5.0); Alkaline Phosphatase 96 U/L (45-117); Anion Gap 11 (5-15); BUN 18 mg/dL (7-18); BUN/Creat Ratio 12.8 RATIO (10-20); CPK Total, Creatine Kinase 114 U/L (39-308); Calcium,Total 9.5 mg/dL (8.5-10.1); Chloride 100 mmol/L (98-107); Creatinine, Serum 1.41 mg/dL (0.70-1.30); EST Glomerular Filtration Rate 52 mL/min (>60); Est Glom Filt Rate - Afr Amer 63 mL/min (>60); Globulin 3.7 g/dL (2.2-4.2); Glucose 230 mg/dL (74-106); Potassium 3.8 mmol/L (3.5-5.1); Protein, Total 7.4 g/dL (6.4-8.2); Sodium Level 134 mmol/L (136-145); Troponin-I HS 14 pg/mL (3.0-78.0)
[2023-09-24 17:09] LABS: BNP,B-Type NATRIURETIC PEPTIDE 63.5 pg/mL (0-100)
== END | disposition home or self-care (01) ==
LOC: RAD 15:33
PROVIDERS: PCP Family Medicine Geriatric Medicine; Referring Provider Family Medicine Geriatric Medicine; Visit Provider Family Medicine Geriatric Medicine
DX: R07.9 Chest pain, unspecified (principal); I50.30 Unspecified diastolic (congestive) heart failure; D50.9 Iron deficiency anemia, unspecified; E78.5 Hyperlipidemia, unspecified
CPT/HCPCS: 36415; 71046; 80053; 82550; 83880; 84484; 85025

== ENCOUNTER → 2023-09-25 | Outpatient (CLI) | payer MEDICARE, SELFPAY | END | disposition home or self-care (01) | LOC: LABSPEC 11:02 | PROVIDERS: PCP Family Medicine Geriatric Medicine; Referring Provider Family Medicine Geriatric Medicine; Visit Provider Family Medicine Geriatric Medicine | DX: R07.9 Chest pain, unspecified (principal); I50.30 Unspecified diastolic (congestive) heart failure; D50.9 Iron deficiency anemia, unspecified; E78.5 Hyperlipidemia, unspecified | CPT/HCPCS: 36415; 82274; 82550; 83874; 84484; 93005 ==

== ENCOUNTER → 2023-09-25 | Outpatient (CLI) | payer MEDICARE, SELFPAY ==
--- NOTE | 2023-09-25 11:56 | EKG12_ITS ---
Test Reason : PRE OP Blood Pressure : / mmHG Vent. Rate : 093 BPM Atrial Rate : 093 BPM P-R Int : 162 ms QRS Dur : 106 ms QT Int : 384 ms P-R-T Axes : 020 -05 034 degrees QTc Int : 477 ms Normal sinus rhythm Septal infarct , age undetermined Abnormal ECG Confirmed by Isaac Romero ([id number]), tape editor CALOS VICTORIA ([id number]) on 09/29/2023 10:00:44 AM Referred By: Frankie Shaver Confirmed By:Isaac Romero
[2023-09-25 14:09] LABS: CPK Total, Creatine Kinase 117 U/L (39-308); Troponin-I HS 12 pg/mL (3.0-78.0)
[2023-09-27 03:07] LABS: Myoglobin, Serum 95 ng/mL (28-72)
== END | disposition home or self-care (01) ==
PROVIDERS: PCP Family Medicine Geriatric Medicine; Referring Provider Family Medicine Geriatric Medicine; Visit Provider Family Medicine Geriatric Medicine
DX: R07.9 Chest pain, unspecified (principal); I50.30 Unspecified diastolic (congestive) heart failure
CPT/HCPCS: 36415; 82550; 83874; 84484; 93005

== ENCOUNTER → 2023-09-26 | Outpatient (CLI) | payer MEDICARE, SELFPAY ==
[2023-09-26 10:49] LABS: Fibrinogen 382 mg/dl (203-444)
[2023-09-26 11:03] LABS: D-Dimer Quantitative (DVT/PE) 0.36 FEU/ug/m (0.27-0.49)
== END | disposition home or self-care (01) ==
LOC: LAB 09:59
PROVIDERS: PCP Family Medicine Geriatric Medicine; Referring Provider Family Medicine Geriatric Medicine; Visit Provider Family Medicine Geriatric Medicine
DX: I50.30 Unspecified diastolic (congestive) heart failure (principal); R07.9 Chest pain, unspecified
CPT/HCPCS: 36415; 85379; 85384

== ENCOUNTER → 2023-09-30 | Outpatient (CLI) | payer MEDICARE, SELFPAY ==
--- NOTE | 2023-09-30 10:30 | PET_ITS ---
EXAMINATION: FDG PET/CT ? INDICATIONS: 78-year-old male with a history of renal mass formation, presenting for initial staging examination. ? COMPARISON EXAMINATION: Magnetic Resonance Imaging of the abdomen report dated 09/09/2023. ? INDEX LESION SIZE SUV INTERPRETATION Inferior pole mass, left kidney 19.2 mm, largest 3.0 max Fulfills quantitative criteria for viable neoplasm ? Left hemithorax pleural interface ? 1.5 max Quantitative criteria for viable neoplasm are not fulfilled ? TECHNIQUE: Following the intravenous administration of 15.26 mCi of F-18 deoxyglucose via the right hand, multiplanar image acquisitions of the head, neck, chest, abdomen and pelvis to the level of the midthigh, obtained at one-hour post radiopharmaceutical administration contemporaneously interpreted with the current CT of the chest, abdomen and pelvis dated 09/30/2023 and prior? Magnetic Resonance Imaging of the abdomen report dated 09/09/2023 via coregistration reveal: SERUM GLUCOSE LEVEL:? 182 mg/dL? HEIGHT:?? 69 inches WEIGHT:?? 242 pounds ? FINDINGS: ? HEAD/NECK:? There is no evidence of abnormal increased glucose metabolism in the pharyngeal mucosal space, parapharyngeal space, oropharynx, bilateral-lateral and anterior neck, hypopharynx and distribution of the larynx. ? The visualized portion of the cerebral cortical-subcortical structures demonstrate symmetric and preserved glucose metabolism. ? CHEST: Facilitated uptake is noted in the left lateral hemithorax at the pleural interface. The calculated standard uptake value is 1.5. Quantitative criteria for viable neoplasm are not fulfilled. ? CT of the chest demonstrates the following anatomic characteristics: There is evidence of prior median sternotomy. Atherosclerotic calcification is defined in the thoracic aorta without evidence of dilatation, aneurysm formation. Coronary artery calcification is observed. A left hemithorax pleural effusion demonstrates no evidence of quantitatively significant increased FDG uptake. ? ABDOMEN/PELVIS:? Enhanced glucose concentration is defined in the abdominal retroperitoneum involving the exophytic mass of the inferior pole of the left kidney. The calculated standard uptake value is 3.0. The maximal axial diameter of the metabolic, morphologic abnormality is 19.2 mm AP.? Normal physiologic distribution of the radiopharmaceutical is identified in the hepatic (4.1) and splenic parenchyma, the right renal unit, urinary bladder, and visualized intestinal tract. ? CT of the abdomen and pelvis is remarkable for the following: Atherosclerotic calcification is defined in the abdominal aorta without evidence of dilatation, aneurysm formation. Pelvic arterial calcification is observed. Bilateral fat containing inguinal soft tissue densities are ametabolic. The is apparent cholelithiasis. ? SKELETAL:? There is no evidence of quantitatively significant enhanced glucose metabolism on meticulous inspection of the appendicular and axial skeletal structures. ? Degenerative changes defined in the thoracic and lumbar spine demonstrate no evidence of increased glucose metabolism. There are no sclerotic, mixed sclerotic-lytic, or primarily lytic changes defined in the axial skeletal structures with evidence of increased FDG uptake. ? PET/PET/CT Tumor Base -Thigh Init IMPRESSION: 1. ABNORMAL EXAMINATION INDICATIVE OF MALIGNANT-VIABLE NEOPLASM. 2. Increased radiopharmaceutical concentration defined in the inferior pole of the left kidney fulfills quantitative criteria for malignant transformation. Histopathologic sampling is recommended.? 3. The increased labeled glucose uptake noted in the left hemithorax corresponding to pleural thickening does not fulfill quantitative criteria for viable neoplasm. (Meraz, et al, Chest 122:1918, 2002). Electronic Signature Freddy Moody D.O. Accurate Quantification of SUVs for this report are calculated using the exclusive [employer]. ([place]. Patent No. [id number] B2 [phone] [place] patent [phone]). Standardization and correction of the FDG SUV metric via [employer] technology allow for vendor non-specific objective quantitative examination comparison and optimization of the sensitivity and specificity of the FDG PET-CT examination. . [email or web address] Electronically Signed: Freddy Moody DO at 22:38 EDT ,
== END | disposition home or self-care (01) ==
PROVIDERS: PCP Family Medicine Geriatric Medicine; Referring Provider Family Medicine Geriatric Medicine; Visit Provider Family Medicine Geriatric Medicine
DX: R93.422 Abnormal radiologic findings on diagnostic imaging of left kidney (principal)
CPT/HCPCS: 78815; A9552

== ENCOUNTER → 2023-10-09 | Outpatient (CLI) | payer MEDICARE, SELFPAY | END | disposition home or self-care (01) | LOC: PSN 12:09 | PROVIDERS: PCP Family Medicine Geriatric Medicine; Referring Provider Family Medicine Geriatric Medicine; Visit Provider Family Medicine Geriatric Medicine | DX: R06.02 Shortness of breath (principal) | CPT/HCPCS: 94060; 94726; 94729 ==

== ENCOUNTER → 2023-12-15 | Outpatient (CLI) | payer MEDICARE, SELFPAY ==
[2023-12-15 12:20] LABS: Absolute Neutrophil Count 7.3 X10^3/uL (2.0-7.7); Basophil# 0.07 X10^3/uL; Basophil% 0.7 % (0-1); Hematocrit 32.8 % (40-54); Hemoglobin 10.1 g/dL (13.0-16.5); Lymphocyte % 17.7 % (19-41); Mean Corp Hgb Conc 30.8 g/dL (32-36); Mean Corpuscular Hgb 24.4 pg (27.0-32.0); Mean Corpuscular Volume 79.2 fL (80-94); Mean Platelet Vol. 10.2 fl (6.2-12.0); Monocyte# 0.82 X10^3/uL; Monocyte% 8.1 % (0-10); NRBC Flagged by Analyzer 0 % (0-5); Neutrophil # 7.28 X10^3/uL (2.7-7.7); Neutrophil % 71.5 % (47-70); Platelet Count 433 K/mm3 (150-450); RBC Distribution Width CV 19.6 % (11.6-14.6); RBC Distribution Width SD 54.9 fl (35.1-43.9); Red Blood Count 4.14 M/mm3 (4.6-6.2); White Blood Count 10.2 K/mm3 (4.4-11.0)
[2023-12-15 12:40] LABS: Hemoglobin A1c 8.1 % (3.8-5.6)
[2023-12-15 12:48] LABS: Vitamin D,25 Hydroxy 24.5 ng/mL
[2023-12-15 13:01] LABS: ALB/GLOB Ratio 0.9 RATIO (0.9-2.4); AST(SGOT) 12 U/L (15-37); Alanine Aminotransfer ALT/SGPT 21 U/L (16-61); Albumin, Serum 3.5 g/dL (3.2-5.0); Alkaline Phosphatase 98 U/L (45-117); Anion Gap 12 (5-15); BUN 15 mg/dL (7-18); BUN/Creat Ratio 10.1 RATIO (10-20); Calcium,Total 9.1 mg/dL (8.5-10.1); Chloride 101 mmol/L (98-107); Cholesterol 149 mg/dL (200); Creatinine, Serum 1.49 mg/dL (0.70-1.30); EST Glomerular Filtration Rate 48 mL/min (>60); Est Glom Filt Rate - Afr Amer 59 mL/min (>60); Globulin 3.9 g/dL (2.2-4.2); Glucose 210 mg/dL (74-106); High Density Lipoprotein 35 mg/dL; Protein, Total 7.4 g/dL (6.4-8.2); Sodium Level 136 mmol/L (136-145); Thyroid Stim Hormone (TSH) 1.32 uIU/mL (0.358-3.74); Triglycerides 302 mg/dL; Very Low Density Lipoprotein 60 mg/dL (5-40)
== END | disposition home or self-care (01) ==
LOC: POLAB3 11:52
PROVIDERS: PCP Family Medicine Geriatric Medicine; Visit Provider Family Medicine Geriatric Medicine
DX: I10 Essential (primary) hypertension (principal); E11.65 Type 2 diabetes mellitus with hyperglycemia; E55.9 Vitamin D deficiency, unspecified; E78.5 Hyperlipidemia, unspecified
CPT/HCPCS: 36415; 80053; 80061; 82306; 83036; 84443; 85025

== ENCOUNTER → 2024-01-19 | Outpatient (CLI) | payer MEDICARE, SELFPAY ==
--- NOTE | 2024-01-19 11:36 | CT_ITS ---
STUDY: CT ABDOMEN AND PELVIS WITH CONTRAST REASON FOR EXAM: Male, 78 years old. Chest pain/pressure RADIATION DOSAGE (If Supplied By Facility): CTDIvol = ( 20.29 ) mGy, DLP = ( 1298.36 ) mGycm TECHNIQUE: Transaxial images were obtained from the dome of the diaphragm to the symphysis pubis with oral contrast. Oral and amp; IV Gastrografin and amp; 100mL Isovue-370 was administered. Sagittal and coronal images were reconstructed. Individualized dose optimization techniques were used for this CT. COMPARISON: None. FINDINGS: Chronic interstitial changes in the lung bases with small free-flowing bilateral pleural effusions and bibasilar atelectasis more advanced than the left lung base on the right.. There has been a remote CABG Normal liver. There are surgical clips in the gallbladder fossa consistent with a prior cholecystectomy. Normal spleen. Normal pancreas. Normal bilateral adrenal glands. No obstructive uropathy, there is a stable 2.6 cm exophytic lesion in the left kidney unchanged since the previous study and likely a complex cyst. Normal visualized stomach. Nondistended fluid-filled small and large bowel loops throughout the abdomen consistent with diffuse enteritis. Scattered colonic diverticula with nonspecific subtle thickening of some parts of the colon that are suggestive of sequela from previous diverticular disease. Appendix not visualized There is diffuse atherosclerotic calcification of the abdominal aorta, without a demonstrated aneurysm. Normal inferior vena cava. Normal retroperitoneum. Normal urinary bladder. Normal abdominal wall. There are diffuse degenerative changes of the visualized lumbar spine. CT/Abdomen/Pelvis WITH Contrast IMPRESSION: Nondistended fluid-filled small and large bowel loops suggest diffuse enteritis. There are areas of submucosal thickening within parts of the colon suggesting sequela from previous diverticular disease. Stable likely complex cyst in the lower pole of the left kidney. No specific follow-up needed No free intraperitoneal fluid, air, or suspicious adenopathy Electronically Signed: Dewayne Valdez MD at 14:05 EDT ,
[2024-01-19 11:43] LABS: Absolute Neutrophil Count 7.1 X10^3/uL (2.0-7.7); Basophil# 0.04 X10^3/uL; Basophil% 0.4 % (0-1); Hematocrit 33.7 % (40-54); Hemoglobin 10.3 g/dL (13.0-16.5); Lymphocyte % 16.5 % (19-41); Mean Corp Hgb Conc 30.6 g/dL (32-36); Mean Corpuscular Hgb 25.1 pg (27.0-32.0); Mean Platelet Vol. 9.9 fl (6.2-12.0); Monocyte# 0.73 X10^3/uL; Monocyte% 7.5 % (0-10); NRBC Flagged by Analyzer 0 % (0-5); Neutrophil % 73.6 % (47-70); Platelet Count 394 K/mm3 (150-450); RBC Distribution Width CV 19.8 % (11.6-14.6); RBC Distribution Width SD 58.1 fl (35.1-43.9); Red Blood Count 4.11 M/mm3 (4.6-6.2); White Blood Count 9.7 K/mm3 (4.4-11.0)
[2024-01-19 12:41] LABS: ALB/GLOB Ratio 0.9 RATIO (0.9-2.4); AST(SGOT) 11 U/L (15-37); Alanine Aminotransfer ALT/SGPT 19 U/L (16-61); Albumin, Serum 3.6 g/dL (3.2-5.0); Alkaline Phosphatase 98 U/L (45-117); Amylase 17 U/L (25-115); Anion Gap 13 (5-15); BUN 17 mg/dL (7-18); Calcium,Total 9.7 mg/dL (8.5-10.1); Chloride 102 mmol/L (98-107); Creatinine, Serum 1.42 mg/dL (0.70-1.30); EST Glomerular Filtration Rate 51 mL/min (>60); Est Glom Filt Rate - Afr Amer 62 mL/min (>60); Globulin 3.8 g/dL (2.2-4.2); Glucose 205 mg/dL (74-106); Lipase 21 U/L (13-75); Potassium 3.8 mmol/L (3.5-5.1); Protein, Total 7.4 g/dL (6.4-8.2); Sodium Level 138 mmol/L (136-145)
== END | disposition home or self-care (01) ==
PROVIDERS: PCP Family Medicine Geriatric Medicine; Referring Provider Family Medicine Geriatric Medicine; Visit Provider Family Medicine Geriatric Medicine
DX: K57.32 Diverticulitis of large intestine without perforation or abscess without bleeding (principal); I10 Essential (primary) hypertension; K85.90 Acute pancreatitis without necrosis or infection, unspecified; R10.9 Unspecified abdominal pain
CPT/HCPCS: 36415; 74177; 80053; 82150; 83690; 85025; Q9967

== ENCOUNTER 2024-01-20 09:46 | Outpatient (CLI) | payer MEDICARE, SELFPAY ==
[2024-01-20 09:54] LABS: Bacteria 0 SEEN /hpf (None Seen); Mucous, Urine 0 SEEN /hpf (<or=2+); Red Blood Cells-Urine 0 SEEN /hpf (0-5); Squamous Epithelial Cells - UA 0 SEEN /hpf (0-5); White Blood Cells 0 SEEN /hpf (0-5)
[2024-01-20 10:38] LABS: Color, Urine Yellow (Yellow); Glucose, Dipstick Normal (Normal); Ketone-Dipstick 5 mg/dl (Negative); Leukocyte Esterase-Dipstick Negative /ul (Negative); Nitrite-Dipstick Negative (Negative); Occult Blood-Urine Negative /ul (Negative); Protein-Dipstick 100 mg/dl (Negative); Urine Bilirubin Dipstick Negative (Negative); Urine Clarity Clear (Clear); Urine Urobilinogen Normal (Normal)
[2024-01-20 10:45] VITALS: BP 168/72; PULSE 85; RESP 16; TEMP 36.3; O2SAT 96; BMI 36.8
[2024-01-20] MEDS: 0.9% Normal Saline (1000mL) 1,000 ML 999 ML IV (11:01)
[2024-01-20] MEDS: 0.9% NaCl Peripheral Flush Adult/Peds IV (11:02)
[2024-01-20 12:14] VITALS: BP 153/60; PULSE 86
== END 2024-01-20 23:59 | disposition home or self-care (01) ==
LOC: MEDOUTP 09:47
PROVIDERS: PCP Family Medicine Geriatric Medicine; Referring Provider Family Medicine Geriatric Medicine; Visit Provider Family Medicine Geriatric Medicine
DX: E86.0 Dehydration (principal); R53.1 Weakness; R19.7 Diarrhea, unspecified
CPT/HCPCS: 96360; 81001; 82274; 83630; 87177; 87209; 87329; 87493; J7030; A4216

== ENCOUNTER → 2024-02-24 | Outpatient (CLI) | payer MEDICARE, SELFPAY ==
[2024-02-24 17:08] LABS: Absolute Lymphocyte Count 1.75 X10^3/uL (0.83-4.51); Absolute Neutrophil Count 6.4 X10^3/uL (2.0-7.7); Basophil# 0.03 X10^3/uL; Basophil% 0.3 % (0-1); Eosinophil# 0.11 X10^3/uL; Eosinophils% 1.2 % (0-5); Hemoglobin 10.7 g/dL (13.0-16.5); Lymphocyte # 1.75 X10^3/ul (0.83-4.51); Lymphocyte % 19.1 % (19-41); Mean Corp Hgb Conc 30.6 g/dL (32-36); Mean Corpuscular Hgb 25.2 pg (27.0-32.0); Mean Corpuscular Volume 82.5 fL (80-94); Mean Platelet Vol. 10.1 fl (6.2-12.0); Monocyte# 0.79 X10^3/uL; Monocyte% 8.6 % (0-10); NRBC Flagged by Analyzer 0 % (0-5); Neutrophil % 69.8 % (47-70); Platelet Count 398 K/mm3 (150-450); RBC Distribution Width SD 57.2 fl (35.1-43.9); Red Blood Count 4.24 M/mm3 (4.6-6.2); White Blood Count 9.2 K/mm3 (4.4-11.0)
[2024-02-24 17:32] LABS: ALB/GLOB Ratio 0.9 RATIO (0.9-2.4); AST(SGOT) 8 U/L (15-37); Alanine Aminotransfer ALT/SGPT 19 U/L (16-61); Albumin, Serum 3.4 g/dL (3.2-5.0); Alkaline Phosphatase 82 U/L (45-117); Anion Gap 8 (5-15); BUN 14 mg/dL (7-18); BUN/Creat Ratio 8.8 RATIO (10-20); Chloride 103 mmol/L (98-107); EST Glomerular Filtration Rate 45 mL/min (>60); Est Glom Filt Rate - Afr Amer 54 mL/min (>60); Globulin 3.7 g/dL (2.2-4.2); Glucose 341 mg/dL (74-106); Potassium 3.8 mmol/L (3.5-5.1); Protein, Total 7.1 g/dL (6.4-8.2); Sodium Level 134 mmol/L (136-145)
== END | disposition home or self-care (01) ==
LOC: LAB 16:39
PROVIDERS: PCP Family Medicine Geriatric Medicine; Referring Provider Family Medicine Geriatric Medicine; Visit Provider Family Medicine Geriatric Medicine
DX: I10 Essential (primary) hypertension (principal); R10.9 Unspecified abdominal pain; N39.0 Urinary tract infection, site not specified
CPT/HCPCS: 36415; 80053; 85025

== ENCOUNTER → 2024-02-25 | Outpatient (CLI) | payer MEDICARE, SELFPAY ==
--- NOTE | 2024-02-25 08:48 | CT_ITS ---
EXAM: CT ABDOMEN AND PELVIS WITH INTRAVENOUS CONTRAST CLINICAL INDICATION: ABD PAIN TECHNIQUE: Helically acquired images were obtained of the abdomen and pelvis with intravenous contrast. This CT exam was performed using one or more of the following dose reduction techniques: automated exposure control, adjustment of the mA and/or kV according to patient size, and/or use of iterative reconstruction technique. CONTRAST: Oral and amp; IV Readi-CAT and amp; 100mL Isovue-370 RADIATION DOSE: CTDIvol = 16.83 mGy, DLP = 1262.95 mGy-cm COMPARISON: 01/19/2024. Also compared to PET scan 09/30/2023. FINDINGS: LOWER THORAX: Stable small loculated pleural effusion in the posterior left lung base. No cardiomegaly. ABDOMEN: LIVER: Stable fatty infiltration of the liver with hepatomegaly. GALLBLADDER AND BILE DUCTS: Cholecystectomy. No intra- or extrahepatic biliary ductal dilation. PANCREAS: Unremarkable. No focal cystic or solid mass. SPLEEN: Unremarkable. Normal size without focal cystic or solid mass. ADRENALS: Unremarkable. No nodules. KIDNEYS AND URETERS: Stable. No acute abnormality. Probable complex cyst of the lower pole left kidney measuring 3.1 cm. No hydronephrosis. STOMACH AND BOWEL: Cannot exclude stomach wall thickening. No dilated loops of bowel or evidence for obstruction. Cannot exclude segmental thickening of the lynn of the small or large bowel. Cannot exclude enteritis or colitis. Moderate diffuse fecal retention. Diverticulosis without definite diverticulitis. Appendix within normal limits. PELVIS: APPENDIX: No evidence of acute appendicitis. BLADDER: Unremarkable. REPRODUCTIVE: Unremarkable as visualized. No mass. ABDOMEN and PELVIS: INTRAPERITONEAL SPACE: Unremarkable. No ascites or other fluid collection. No free air. BONES/JOINTS: Degenerative changes of the spine. No suspicious lytic or blastic abnormality. SOFT TISSUES: Unremarkable. No discrete abdominal or pelvic wall hernia. VASCULATURE: Tortuous calcified aorta with no aneurysm. LYMPH NODES: Unremarkable. No enlarged lymph nodes. CT/Abdomen/Pelvis WITH Contrast IMPRESSION: 1. No significant changes or acute abnormalities. 2. Fatty liver with hepatomegaly. 3. Fecal retention throughout the colon. 4. Stable 3.1 cm complex cyst of lower pole of the left kidney. Electronically Signed: Nader Sidhu MD at 22:24 EDT ,
[2024-02-25 09:25] LABS: Color, Urine Yellow (Yellow); Glucose, Dipstick 250 mg/dl (Normal); Ketone-Dipstick Negative (Negative); Leukocyte Esterase-Dipstick 25 /ul (Negative); Nitrite-Dipstick Negative (Negative); Occult Blood-Urine Negative /ul (Negative); Protein-Dipstick 100 mg/dl (Negative); Specific Gravity, Urine 1.025 (1.002-1.030); Urine Bilirubin Dipstick Negative (Negative); Urine Clarity Clear (Clear); Urine Urobilinogen Normal (Normal)
== END | disposition home or self-care (01) ==
PROVIDERS: PCP Family Medicine Geriatric Medicine; Referring Provider Family Medicine Geriatric Medicine; Visit Provider Family Medicine Geriatric Medicine
DX: R10.9 Unspecified abdominal pain (principal); N39.0 Urinary tract infection, site not specified
CPT/HCPCS: 74177; 81002; 87086; 87088; Q9967

== ENCOUNTER → 2024-03-23 | Outpatient (CLI) | payer MEDICARE, SELFPAY ==
[2024-03-23 11:34] LABS: Absolute Lymphocyte Count 1.65 X10^3/uL (0.83-4.51); Absolute Neutrophil Count 6.3 X10^3/uL (2.0-7.7); Basophil# 0.02 X10^3/uL; Basophil% 0.2 % (0-1); Eosinophil# 0.09 X10^3/uL; Hemoglobin 10.6 g/dL (13.0-16.5); Lymphocyte # 1.65 X10^3/ul (0.83-4.51); Lymphocyte % 18.6 % (19-41); Mean Corp Hgb Conc 31.2 g/dL (32-36); Mean Corpuscular Hgb 25.9 pg (27.0-32.0); Mean Corpuscular Volume 82.9 fL (80-94); Mean Platelet Vol. 10.1 fl (6.2-12.0); Monocyte# 0.74 X10^3/uL; Monocyte% 8.4 % (0-10); NRBC Flagged by Analyzer 0 % (0-5); Neutrophil % 71.1 % (47-70); Platelet Count 350 K/mm3 (150-450); RBC Distribution Width CV 18.4 % (11.6-14.6); RBC Distribution Width SD 55.3 fl (35.1-43.9); White Blood Count 8.9 K/mm3 (4.4-11.0)
[2024-03-23 12:04] LABS: Vitamin D,25 Hydroxy 17.3 ng/mL
[2024-03-23 12:14] LABS: AST(SGOT) 7 U/L (15-37); Alanine Aminotransfer ALT/SGPT 15 U/L (16-61); Albumin, Serum 3.6 g/dL (3.2-5.0); Alkaline Phosphatase 95 U/L (45-117); Anion Gap 9 (5-15); BUN 13 mg/dL (7-18); BUN/Creat Ratio 10.5 RATIO (10-20); Chloride 103 mmol/L (98-107); Cholesterol 135 mg/dL (200); Creatinine, Serum 1.24 mg/dL (0.70-1.30); EST Glomerular Filtration Rate 60 mL/min (>60); Est Glom Filt Rate - Afr Amer 72 mL/min (>60); Globulin 3.7 g/dL (2.2-4.2); Glucose 263 mg/dL (74-106); High Density Lipoprotein 36 mg/dL; Potassium 3.9 mmol/L (3.5-5.1); Protein, Total 7.3 g/dL (6.4-8.2); Sodium Level 136 mmol/L (136-145); Triglycerides 271 mg/dL; Very Low Density Lipoprotein 54 mg/dL (5-40)
== END | disposition home or self-care (01) ==
LOC: POLAB3 10:58
PROVIDERS: PCP Family Medicine Geriatric Medicine; Visit Provider Family Medicine Geriatric Medicine
DX: E78.5 Hyperlipidemia, unspecified (principal); E11.65 Type 2 diabetes mellitus with hyperglycemia; I10 Essential (primary) hypertension; E55.9 Vitamin D deficiency, unspecified
CPT/HCPCS: 36415; 80053; 80061; 82306; 83036; 84443; 85025

== ENCOUNTER → 2024-05-26 | Outpatient (CLI) | payer MEDICARE, SELFPAY ==
[2024-05-26 16:27] LABS: Absolute Lymphocyte Count 1.94 X10^3/uL (0.83-4.51); Absolute Neutrophil Count 7.9 X10^3/uL (2.0-7.7); Basophil# 0.04 X10^3/uL; Basophil% 0.4 % (0-1); Eosinophil# 0.14 X10^3/uL; Eosinophils% 1.3 % (0-5); Hematocrit 35.7 % (40-54); Hemoglobin 11.4 g/dL (13.0-16.5); Lymphocyte # 1.94 X10^3/ul (0.83-4.51); Lymphocyte % 17.7 % (19-41); Mean Corp Hgb Conc 31.9 g/dL (32-36); Mean Corpuscular Volume 84.4 fL (80-94); Mean Platelet Vol. 10.1 fl (6.2-12.0); Monocyte# 0.83 X10^3/uL; Monocyte% 7.6 % (0-10); NRBC Flagged by Analyzer 0 % (0-5); Neutrophil # 7.93 X10^3/uL (2.7-7.7); Neutrophil % 72.2 % (47-70); Platelet Count 405 K/mm3 (150-450); RBC Distribution Width CV 18.5 % (11.6-14.6); RBC Distribution Width SD 55.7 fl (35.1-43.9); Red Blood Count 4.23 M/mm3 (4.6-6.2)
--- NOTE | 2024-05-26 16:30 | RAD_ITS ---
EXAM: XR ABDOMEN, 2 VIEWS CLINICAL INDICATION: Fecal impaction TECHNIQUE: Frontal view of the abdomen/pelvis with upright view of the abdomen. COMPARISON: No relevant prior studies available. FINDINGS: LOWER THORAX: No acute pathology. INTRAPERITONEAL SPACE: No free air. GASTROINTESTINAL TRACT: Unremarkable. Non-obstructive. No bowel or stomach distention. ORGANS: Unremarkable as visualized. No organomegaly. No abnormal calcifications. BONES/JOINTS: No acute pathology. SOFT TISSUES: No acute pathology. RAD/Abd Inc Decub and/or Erect IMPRESSION: Unremarkable abdominal series. Electronically Signed: Patel Irene MD at 23:54 EST ,
[2024-05-26 17:07] LABS: AST(SGOT) 8 U/L (15-37); Alanine Aminotransfer ALT/SGPT 19 U/L (16-61); Albumin, Serum 3.7 g/dL (3.2-5.0); Alkaline Phosphatase 113 U/L (45-117); Anion Gap 11 (5-15); BUN 18 mg/dL (7-18); BUN/Creat Ratio 10.9 RATIO (10-20); Calcium,Total 9.2 mg/dL (8.5-10.1); Chloride 99 mmol/L (98-107); Creatinine, Serum 1.65 mg/dL (0.70-1.30); EST Glomerular Filtration Rate 43 mL/min (>60); Est Glom Filt Rate - Afr Amer 52 mL/min (>60); Globulin 3.7 g/dL (2.2-4.2); Glucose 191 mg/dL (74-106); Potassium 3.8 mmol/L (3.5-5.1); Protein, Total 7.4 g/dL (6.4-8.2); Sodium Level 134 mmol/L (136-145)
== END | disposition home or self-care (01) ==
PROVIDERS: PCP Family Medicine Geriatric Medicine; Referring Provider Family Medicine Geriatric Medicine; Visit Provider Family Medicine Geriatric Medicine
DX: D50.9 Iron deficiency anemia, unspecified (principal); K56.41 Fecal impaction; I10 Essential (primary) hypertension
CPT/HCPCS: 36415; 74019; 80053; 85025

== ENCOUNTER → 2024-06-23 | Outpatient (CLI) | payer MEDICARE, SELFPAY ==
[2024-06-23 11:40] LABS: Absolute Neutrophil Count 6.8 X10^3/uL (2.0-7.7); Basophil# 0.04 X10^3/uL; Basophil% 0.4 % (0-1); Eosinophils% 1.1 % (0-5); Hemoglobin 11.1 g/dL (13.0-16.5); Mean Corp Hgb Conc 32.6 g/dL (32-36); Mean Corpuscular Hgb 27.6 pg (27.0-32.0); Mean Corpuscular Volume 84.6 fL (80-94); Mean Platelet Vol. 9.9 fl (6.2-12.0); Monocyte# 0.71 X10^3/uL; Monocyte% 7.5 % (0-10); NRBC Flagged by Analyzer 0 % (0-5); Neutrophil # 6.84 X10^3/uL (2.7-7.7); Neutrophil % 72.3 % (47-70); Platelet Count 358 K/mm3 (150-450); RBC Distribution Width CV 17.2 % (11.6-14.6); RBC Distribution Width SD 53.2 fl (35.1-43.9); Red Blood Count 4.02 M/mm3 (4.6-6.2); White Blood Count 9.5 K/mm3 (4.4-11.0)
[2024-06-23 12:18] LABS: Vitamin D,25 Hydroxy 9.4 ng/mL
[2024-06-23 12:26] LABS: ALB/GLOB Ratio 0.9 RATIO (0.9-2.4); AST(SGOT) 8 U/L (15-37); Alanine Aminotransfer ALT/SGPT 21 U/L (16-61); Albumin, Serum 3.6 g/dL (3.2-5.0); Alkaline Phosphatase 95 U/L (45-117); Anion Gap 10 (5-15); BUN 18 mg/dL (7-18); BUN/Creat Ratio 12.1 RATIO (10-20); Calcium,Total 8.9 mg/dL (8.5-10.1); Chloride 101 mmol/L (98-107); Creatinine, Serum 1.49 mg/dL (0.70-1.30); EST Glomerular Filtration Rate 48 mL/min (>60); Est Glom Filt Rate - Afr Amer 59 mL/min (>60); Globulin 3.8 g/dL (2.2-4.2); Glucose 234 mg/dL (74-106); Potassium 3.8 mmol/L (3.5-5.1); Protein, Total 7.4 g/dL (6.4-8.2); Sodium Level 134 mmol/L (136-145)
== END | disposition home or self-care (01) ==
LOC: LAB 11:19
PROVIDERS: PCP Family Medicine Geriatric Medicine; Referring Provider Family Medicine Geriatric Medicine; Visit Provider Family Medicine Geriatric Medicine
DX: E11.65 Type 2 diabetes mellitus with hyperglycemia (principal); I10 Essential (primary) hypertension; E55.9 Vitamin D deficiency, unspecified
CPT/HCPCS: 36415; 80053; 82306; 84443; 85025

== ENCOUNTER → 2024-07-12 | Outpatient (CLI) | payer MEDICARE, SELFPAY ==
--- NOTE | 2024-07-12 12:05 | VDLE_ITS ---
Reason For Study Reason For Study: Swelling RIGHT LEFT CFV is compressible, spontaneous, phasic, competent Pt stated hx of GSV vein ablation. and demonstrates normal augmentation. CFV is compressible, spontaneous, phasic, competent, Procedure and demonstrates normal augmentation. This is a venous duplex using B-mode, color flow and FV is compressible, spontaneous, phasic, competent spectral Doppler. and demonstrates normal augmentation. Exam performed in department. POP V is compressible, spontaneous, phasic, competent A preliminary report was called and/or faxed to [facility] and demonstrates normal augmentation. Tom Shaver MD. T/P Trunk is compressible. PTV is compressible. LT PerV is compressible. VL/Venous Duplex US, Unilateral Interpretation Summary Deep veins of the left lower extremity are patent and compressible segmentally. There is no evidence of left lower extremity deep vein thrombosis. Ordering Physician: Frankie Shaver Chi Referring Physician: Frankie Shaver Chi Performed By: Eve Murguia RVT and Student
[2024-07-12 12:41] LABS: Absolute Lymphocyte Count 1.76 X10^3/uL (0.83-4.51); Absolute Neutrophil Count 7.3 X10^3/uL (2.0-7.7); Basophil# 0.04 X10^3/uL; Basophil% 0.4 % (0-1); Eosinophil# 0.13 X10^3/uL; Eosinophils% 1.3 % (0-5); Hematocrit 34.4 % (40-54); Lymphocyte # 1.76 X10^3/ul (0.83-4.51); Lymphocyte % 17.5 % (19-41); Mean Corpuscular Hgb 27.4 pg (27.0-32.0); Mean Corpuscular Volume 85.6 fL (80-94); Mean Platelet Vol. 10.5 fl (6.2-12.0); Monocyte# 0.77 X10^3/uL; Monocyte% 7.7 % (0-10); NRBC Flagged by Analyzer 0 % (0-5); Neutrophil # 7.31 X10^3/uL (2.7-7.7); Neutrophil % 72.6 % (47-70); Platelet Count 386 K/mm3 (150-450); RBC Distribution Width CV 17.4 % (11.6-14.6); RBC Distribution Width SD 54.2 fl (35.1-43.9); Red Blood Count 4.02 M/mm3 (4.6-6.2); White Blood Count 10.1 K/mm3 (4.4-11.0)
--- NOTE | 2024-07-12 13:55 | CT_ITS ---
PROCEDURE: ABDOMEN/PELVIS WITH CONTRAST REASON FOR EXAM: ABD PAIN TECHNIQUE: Abdomen and pelvis CT with intravenous contrast. Multiplanar reformats were generated. COMPARISON: 02/25/2024. FINDINGS: Lung bases: Similar small chronic left pleural effusion with pleural thickening and adjacent likely atelectasis/scarring. Sternotomy. Coronary atherosclerosis and/or stents. Aortic and mitral annular calcification. Liver: Steatosis. Gallbladder: Cholecystectomy with a similar small cystic foci in the gallbladder fossa presumably reflecting gallbladder remnants. Spleen: Unremarkable. Pancreas: Atrophic.. Adrenals: Unremarkable. Kidneys: Partially solid mostly exophytic mass at the left lower pole has enlarged, now 3.9 x 3.4 cm, previously roughly 3.5 x 2.8 cm measured similarly. Bladder: Underdistended and suboptimally evaluated, grossly unremarkable.. Reproductive Organs: Prostatomegaly. Small area of subtle focal hyperenhancement in the midline posterior prostate gland. Bowel: Tiny periampullary duodenal diverticulum. Diverticulosis. Appendix: Not identified. No convincing inflammatory changes in the right lower quadrant. . Lymph nodes: Unremarkable. Vasculature: Atherosclerosis. At least moderate stenosis along the proximal SMA and at least mild stenosis along the proximal celiac artery, suboptimally evaluated given non angiographic technique. Peritoneum: Unremarkable. Bones: Demineralization. Multilevel spondylosis. Findings suggestive of diffuse idiopathic skeletal hyperostosis. Body wall: Operative changes. Tiny fat containing midline likely incisional hernias. CT/Abdomen/Pelvis WITH Contrast IMPRESSION: 1. No acute abnormality identified. 2. Enlarging now 3.9 cm left lower pole renal mass suspicious for neoplasm. Re commend outpatient urology consultation and consideration of tissue sampling unless previously performed. 3. Prostatomegaly with focal hyper enhancement posteriorly along the midline, a t least mildly suspicious for possible prostatic neoplasm but not well evaluated by CT. Correlate with PSA and consider dedic ed outpatient prostate MRI as indicated. 4. Hepatic steatosis. Correlate for clinical and laboratory evidence of chronic liver disease. 5. Appendix not identified, however there are no convincing inflammatory change s in the right lower quadrant. 6. Additional description as above. Reading Location: [id number]
[2024-07-12 14:02] LABS: ALB/GLOB Ratio 1.4 RATIO (0.9-2.4); AST(SGOT) 17 U/L (<=37); Alanine Aminotransfer ALT/SGPT 12 U/L (<=46); Albumin, Serum 4.2 g/dL (3.4-4.8); Alkaline Phosphatase 90 U/L (40-129); Anion Gap 17 (5-15); BUN 13 mg/dL (4-19); BUN/Creat Ratio 9.6 RATIO (10-20); Calcium 8.6 mg/dL (7.6-11.0); Carbon Dioxide 20.8 mmol/L (22.0-29.0); Chloride 99 mmol/L (96-108); EST Glomerular Filtration Rate 56 (>60); Ferritin 15 ng/mL (37-417); Glucose 79 mg/dL (70-99); Iron 40 ug/dL (65-175); Iron Binding Capacity,Total 344 ug/dL (250-450); Iron Binding Capacity,Unsat 304 ug/dL (228-428); Potassium 4.1 mmol/L (3.3-5.1); Protein, Total 7.2 g/dL (5.9-8.4); Sodium Level 137 mmol/L (133-145); Total Bilirubin 0.64 mg/dL (0.00-1.30)
== END | disposition home or self-care (01) ==
LOC: CT 12:05
PROVIDERS: PCP Family Medicine Geriatric Medicine; Referring Provider Family Medicine Geriatric Medicine; Visit Provider Family Medicine Geriatric Medicine
DX: M79.89 Other specified soft tissue disorders (principal); D50.9 Iron deficiency anemia, unspecified; R10.9 Unspecified abdominal pain
CPT/HCPCS: 36415; 74177; 80053; 82728; 83540; 83550; 85025; 93971; Q9967

== ENCOUNTER → 2024-07-13 | Outpatient (CLI) | payer MEDICARE, SELFPAY ==
[2024-07-13 13:10] LABS: Mucous, Urine 0 SEEN /hpf (<or=2+)
[2024-07-13 13:31] LABS: Color, Urine Straw (Yellow); Glucose, Dipstick Normal (Normal); Ketone-Dipstick Negative (Negative); Leukocyte Esterase-Dipstick Negative /ul (Negative); Nitrite-Dipstick Negative (Negative); Occult Blood-Urine Negative /ul (Negative); Protein-Dipstick 100 mg/dl (Negative); Specific Gravity, Urine 1.015 (1.002-1.030); Urine Bilirubin Dipstick Negative (Negative); Urine Clarity Sl. Cloudy (Clear); Urine Urobilinogen 1 mg/dl (Normal)
[2024-07-13 14:05] LABS: Bacteria 1+ /hpf (None Seen); Red Blood Cells-Urine 0-5 SEEN /hpf (0-5); Squamous Epithelial Cells - UA 0-5 SEEN /hpf (0-5); White Blood Cells 0-5 SEEN /hpf (0-5)
== END | disposition home or self-care (01) ==
LOC: POLAB3 13:08
PROVIDERS: PCP Family Medicine Geriatric Medicine; Visit Provider Family Medicine Geriatric Medicine
DX: N18.32 Chronic kidney disease, stage 3b (principal)
CPT/HCPCS: 81001; 87086

== ENCOUNTER → 2024-07-20 | Outpatient (CLI) | payer MEDICARE, SELFPAY ==
--- NOTE | 2024-07-20 12:00 | RAD_ITS ---
PROCEDURE: CHEST PA AND LATERAL (RADCXR), 07/20/2024 REASON FOR EXAM: PNEUMONIA, UNSPECIFIED ORGANISM TECHNIQUE: PA and lateral views of the chest were obtained. COMPARISON: 09/24/2023. Images only are available for review; the report is not available at the time of dictation. FINDINGS: Heart: Similar mild cardiomegaly. Mediastinum: Sternotomy. Atherosclerosis. Similarly tortuous aorta; unable to exclude ectasia/aneurysm. Lungs/pleura: Grossly similar left greater than right basilar atelectasis/scarring. No effusion or visible pneumothorax. Bones: Degenerative changes of the AC joints. Suspect demineralization and diffuse idiopathic skeletal hyperostosis.. Lines and support devices: None. RAD/Chest PA and Lateral IMPRESSION: 1. No visible acute cardiopulmonary findings. Grossly similar basilar likely a telectasis/scarring. If unexplained symptoms persist, consider CT. 2. Additional description as above. Reading Location: [id number]
[2024-07-20 12:49] LABS: Absolute Lymphocyte Count 1.75 X10^3/uL (0.83-4.51); Absolute Neutrophil Count 6.4 X10^3/uL (2.0-7.7); Basophil# 0.04 X10^3/uL; Basophil% 0.4 % (0-1); Eosinophil# 0.13 X10^3/uL; Eosinophils% 1.4 % (0-5); Hematocrit 33.8 % (40-54); Hemoglobin 10.8 g/dL (13.0-16.5); Lymphocyte # 1.75 X10^3/ul (0.83-4.51); Lymphocyte % 19.4 % (19-41); Mean Corpuscular Hgb 27.5 pg (27.0-32.0); Mean Platelet Vol. 10.2 fl (6.2-12.0); Monocyte# 0.69 X10^3/uL; Monocyte% 7.6 % (0-10); NRBC Flagged by Analyzer 0 % (0-5); Neutrophil # 6.38 X10^3/uL (2.7-7.7); Neutrophil % 70.6 % (47-70); Platelet Count 389 K/mm3 (150-450); RBC Distribution Width CV 17.2 % (11.6-14.6); RBC Distribution Width SD 54.1 fl (35.1-43.9); Red Blood Count 3.93 M/mm3 (4.6-6.2)
[2024-07-20 13:17] LABS: Anion Gap 16 (5-15); BUN 12 mg/dL (4-19); BUN/Creat Ratio 9.8 RATIO (10-20); Calcium,Total 9.1 mg/dL (7.6-11.0); Carbon Dioxide 21.3 mmol/L (21.0-32.0); Chloride 102 mmol/L (98-108); Creatinine, Serum 1.24 mg/dL (0.70-1.20); EST Glomerular Filtration Rate 59 (>60); Glucose 113 mg/dL (70-99); Potassium 3.7 mmol/L (3.3-5.1); Sodium Level 139 mmol/L (133-145)
== END | disposition home or self-care (01) ==
PROVIDERS: PCP Family Medicine Geriatric Medicine; Referring Provider Family Medicine Geriatric Medicine; Visit Provider Family Medicine Geriatric Medicine
DX: J18.9 Pneumonia, unspecified organism (principal); E11.65 Type 2 diabetes mellitus with hyperglycemia
CPT/HCPCS: 36415; 71046; 80048; 85025

== ENCOUNTER → 2024-09-22 | Outpatient (CLI) | payer MEDICARE, SELFPAY ==
[2024-09-22 11:38] LABS: Absolute Neutrophil Count 5.9 X10^3/uL (2.0-7.7); Basophil# 0.04 X10^3/uL; Basophil% 0.5 % (0-1); Eosinophil# 0.14 X10^3/uL; Eosinophils% 1.6 % (0-5); Hematocrit 31.5 % (40-54); Hemoglobin 10.1 g/dL (13.0-16.5); Mean Corp Hgb Conc 32.1 g/dL (32-36); Mean Corpuscular Hgb 26.8 pg (27.0-32.0); Mean Corpuscular Volume 83.6 fL (80-94); Mean Platelet Vol. 9.7 fl (6.2-12.0); Monocyte# 0.68 X10^3/uL; Monocyte% 7.9 % (0-10); NRBC Flagged by Analyzer 0 % (0-5); Neutrophil # 5.89 X10^3/uL (2.7-7.7); Neutrophil % 68.5 % (47-70); Platelet Count 339 K/mm3 (150-450); RBC Distribution Width CV 17.2 % (11.6-14.6); RBC Distribution Width SD 52.1 fl (35.1-43.9); Red Blood Count 3.77 M/mm3 (4.6-6.2); White Blood Count 8.6 K/mm3 (4.4-11.0)
[2024-09-22 13:10] LABS: ALB/GLOB Ratio 1.5 RATIO (0.9-2.4); AST(SGOT) 20 U/L (<=37); Alanine Aminotransfer ALT/SGPT 14 U/L (<=46); Albumin, Serum 4.1 g/dL (3.4-4.8); Alkaline Phosphatase 94 U/L (40-129); Anion Gap 15 (5-15); BUN 15 mg/dL (4-19); BUN/Creat Ratio 10.7 RATIO (10-20); Calcium,Total 8.1 mg/dL (7.6-11.0); Carbon Dioxide 21.3 mmol/L (21.0-32.0); Chloride 98 mmol/L (98-108); Creatinine, Serum 1.37 mg/dL (0.70-1.20); EST Glomerular Filtration Rate 52 (>60); Globulin 2.8 g/dL (2.2-4.2); Glucose 125 mg/dL (70-99); Potassium 3.9 mmol/L (3.3-5.1); Protein, Total 6.9 g/dL (5.9-8.4); Sodium Level 135 mmol/L (133-145); Total Bilirubin 0.59 mg/dL (0.00-1.30)
[2024-09-22 13:16] LABS: Vitamin D,25 Hydroxy 15.4 ng/mL (30-100)
== END | disposition home or self-care (01) ==
LOC: LAB 11:05
PROVIDERS: PCP Family Medicine Geriatric Medicine; Referring Provider Family Medicine Geriatric Medicine; Visit Provider Family Medicine Geriatric Medicine
DX: E11.65 Type 2 diabetes mellitus with hyperglycemia (principal); I10 Essential (primary) hypertension; E55.9 Vitamin D deficiency, unspecified
CPT/HCPCS: 36415; 80053; 82306; 84443; 85025

== ENCOUNTER → 2024-11-04 | Outpatient (CLI) | payer MEDICARE, SELFPAY ==
--- NOTE | 2024-11-04 16:05 | MRI_ITS ---
PROCEDURE: MRI ABD WITH AND W/O CONTRAST 11/04/2024 REASON FOR EXAM: LEFT RCC, EVAL DISEASE EXTENT TECHNIQUE: MRI ABD WITH AND W/O CONTRAST Multiplanar and multisequence images were obtained. CONTRAST: VOLUME: mL FINDINGS: Liver: Unremarkable Biliary: Unremarkable as seen. Gallbladder is not well visualized. Pancreas: Not seen well on all sequences, but grossly unremarkable as seen. Spleen: Unremarkable in visualized portions. Adrenals: Unremarkable as seen. Kidneys: The right kidney demonstrates no solid mass or sizable cyst. Emanating from the lower pole of the left kidney there is an exophytic partially solid, partially cystic 4 cm mass. The solid portion takes up half or more of the lesion and so the inner margins appear lobulated. This is at least a Bosniak 3 if not a Bosniak 4 lesion for which surgical removal is recommended Bones: No aggressive lesion is seen in the limited included images of the lumbar and lower thoracic spine MRI/MRI Abd WITH and W/O Contrast IMPRESSION: Complex cystic/solid mass of the left kidney measuring 4 cm for which surgical removal is recommended. Reading Location[facility]
[2024-11-04 16:56] LABS: CREATININE FINGERSTICK 1.8 mg/dL (0.70-1.30)
== END | disposition home or self-care (01) ==
LOC: OPMRI 15:40
PROVIDERS: PCP Family Medicine Geriatric Medicine; Referring Provider Student in an Organized Health Care Education/Training Program; Visit Provider Student in an Organized Health Care Education/Training Program
DX: C64.2 Malignant neoplasm of left kidney, except renal pelvis (principal)
CPT/HCPCS: 74183

== ENCOUNTER 2024-11-15 14:00 | Inpatient (IN) | payer MEDICARE, SELFPAY ==
[2024-11-15 14:19] VITALS: BP 123/76; PULSE 82; RESP 16; TEMP 36.9; O2SAT 96; BMI 35.6
--- NOTE | 2024-11-15 18:40 | HP.PCM_ITS ---
HPI - General General Date of Admission: 11/15/24 Date of Service: 11/15/24 Chief Complaint: Here for rehabilitation. HPI Narrative JONY MELENDEZ, is a 79 Male who presents with followin11/11/2024 Admit to [facility] with encephalopathy. Brought in by family for acute change in mental status, worsening in the past 2 weeks, Family suspects he may have dementia. The patient was recently diagnosed with renal cancer and he was supposed to undergo radiation therapy but currently on hold. Family unsure if they want to pursue aggressive treatment of the cancer. CT of brain showed no acute changes. Infectious and metabolic workup were unremarkable. MRI brain was recommended but unable due to restlessness. Change Diabetes regimen to long and short acting insulin. Start IV fluids for mild dehydration. PT/OT for SNF. 11/12/2024 Progressive weakness and mental status changes improved with IV fluid hydration. MRI brain intolerable, does not want to pursue further. Mild dehydration improved with IV fluids. PT/OT for SNF. 11/15/2024 Admit to TCU with debility, here for rehabilitation, strengthening, prior to discharge home with . Patient confused. [facility] Medical History Asthma Cancer of kidney Congestive heart failure (CHF) Colonic diverticular disease Cardiology follow-up encounter History of echocardiogram History of stress test Wears dentures Loss of hearing Restless legs Kidney disease CPAP (continuous positive airway pressure) dependence Seizures History of CVA (cerebrovascular accident) (03/31/18) (HFpEF) heart failure with preserved ejection fraction Anemia Atherosclerosis of coronary artery without angina pectoris Hyperlipidemia GIB (gastrointestinal bleeding) Chewing tobacco use Essential hypertension Pure hypercholesterolemia, unspecified Generalized osteoarthritis Peripheral vascular disease, unspecified Disturbance of memory Adjustment disorder with depressed mood Pain in thoracic spine Home Medications ?Medication ?Instructions ?Recorded ?Last Taken ?Type atorvastatin 40 mg tablet 40 mg PO DAILY cholesterol 0 09/15/19 12/24/22 History isosorbide mononitrate 30 mg 30 mg PO DAILY heart 05/0 10/2912/24/22 History tablet,extended release 24 hr metformin 1,000 mg tablet 1,000 mg PO BID diabetes 10/2912/24/22 History glipizide 10 mg tablet, extended 10 mg PO DAILY diabet es 12/28/20 12/24/22 History release 24 hr furosemide 40 mg tablet 20 mg PO DAILY diuretic 11/0912/24/22 History venlafaxine 75 mg tablet 75 mg PO DAILY mental health 11/27/21 12/24/22 History albuterol sulfate 90 mcg/actuation 2 puff inhalation Q 6H PRN 05/21/22 12/23/22 History aerosol inhaler shortness of breath or wheez ing insulin glargine U-300 conc 300 36 unit subcut DAILY d iabetes 11/20/22 12/25/22 History unit/mL (3 mL) subcutaneous pen (Toujeo Max U-300 SoloStar) nitroglycerin 0.4 mg sublingual 0.4 mg sublingual Q5-1 5M PRN Chest 11/20/22 Unknown Rx tablet Pain #25 tabs potassium chloride 20 mEq 20 meq PO DAILY supplement 0 12/25/22 12/24/22 History tablet,extended release(part/cryst) losartan 50 mg tablet 50 mg PO DAILY BP 07/09/23 U nknown History aspirin 81 mg tablet,delayed 81 mg PO DAILY blood thin ner 12/16/23 Unknown History release (Adult Aspirin Regimen) carvedilol 12.5 mg tablet 12.5 mg PO BID blood pressur e #180 12/29/23 Unknown Rx tabs ursodiol 250 mg tablet 250 mg PO BID gallstones #18 0 10/11/24 Unknown Rx TABLETS acetaminophen 325 mg capsule 650 mg PO Q8H PRN PRN duong n 11/15/24 Unknown History Allergy/AdvReac Type Severity Reaction Status Date / Time dapagliflozin (From [facility]) Allergy Rash Verified 10/29/24 09:02 Family History Mother Heart disease Father Heart disease Surgical History History of ERCP Hx laparoscopic cholecystectomy S/P ERCP S/P laparoscopic cholecystectomy (~01/2022) History of left heart catheterization (10/13/18) H/O arthroscopic knee surgery H/O varicose vein ligation History of appendectomy History of cataract surgery History of craniotomy (1990) H/O resection of small bowel History of colonoscopy H/O coronary artery bypass surgery (06/16/19) Social History (Updated 11/15/24 @ 18:[address] Frankie Shaver MD) household members: spouse Smoking Status: Current every day smoker tobacco type: smokeless tobacco Smokeless tobacco user: chewing tobacco alcohol intake: former year quit: h/o substance use type: does not use ROS Constitutional Constitutional: Reports weakness; Denies chills, fever(s) or weight gain ENT HEENT: Denies headache(s), nasal congestion or nasal discharge Cardiovascular Cardiovascular: Denies chest pain or palpitations Respiratory/Chest Respiratory/Chest: Denies cough, excessive phlegm production or shortness of breath with exertion Gastrointestinal Gastrointestinal: Denies abdominal pain, nausea or vomiting Genitourinary Genitourinary: Denies dysuria Musculoskeletal Musculoskeletal: Denies joint pain or joint swelling Integumentary Integumentary: Denies rash or wounds Neurologic Neurologic: Denies focal weakness, numbness or tingling Psychiatric Psychiatric: Denies anxiety, auditory hallucinations, depression, homicidal ideation or suicidal ideation Vital Signs Vital Signs Vital Signs: 11/15/24 14:19 11/15/24 14:19 Temperature 98.5 F Temperature Source Temporal Pulse Rate 82 Pulse Rhythm Regular Pulse Strength Normal (2+) Respiratory Rate 16 Respiratory Effort Normal Non-Labored Respiratory Depth Normal Respiratory Pattern Normal Blood Pressure 123/76 H Blood Pressure Mean 91 Blood Pressure Source Monitor Blood Pressure Position Sitting Blood Pressure Location Left Arm Pulse Ox 96 Oxygen Delivery Method Room Air Room Air Weight Weight: 106.141 kg Body Mass Index (BMI) 35.6 Physical Exam Const alert General Appearance: cooperative HEENT normocephalic Eyes PERRL and EOMs intact bilaterally Neck supple, no JVD and no carotid bruits Resp normal respiratory effort, normal air movement and clear to auscultation bilaterally Cardio regular rate and regular rhythm GI normal to inspection, nondistended, normoactive bowel sounds, non-tender and non-distended Extremity normal capillary refill General Extremity: Negative for edema Skin no rashes or lesions noted General Skin Exam: no breakdown Psych affect normal Appearance: appropriate Results Lab / Micro Data Labs: Laboratory Results - last 24 hr 11/15/24 16:13: POC Glucose 196 H Assessment & Plan Assessment/Plan (1) Debility: (2) Encephalopathy: (3) Renal cell carcinoma of left kidney: (4) Coronary artery disease: (5) Stroke: (6) Hyperlipidemia: (7) Chronic heart failure with preserved ejection fraction (HFpEF): (8) Type 2 diabetes mellitus with hyperglycemia: (9) Hypokalemia: (10) Choledocholithiasis: (11) Depression: PLAN: Plan 79 year old male with below past medical history hospitalized for encephalopathy, etiology unclear, admitted to TCU with debility, here for rehabilitation, strengthening, prior to discharge home with . * Debility - PT/OT. * Cognition - ST. * Pain - Tylenol 1000mg q6 prn pain (1-10). * Bowel - senna/colace 2 tablets bid, Magnesium citrate 300mL daily prn. * Adult immunization - Administer pneumonia vaccine, covid vaccine, flu vaccine as appropriate. * DVT prophylaxis - Lovenox 40mg sc daily. * Coronary artery disease - Coreg 12.5mg bid, Losartan 50mg daily, Imdur 30mg daily, Aspirin 81mg daily, NTG 0.4mg sl q5m prn. * Hyperlipidemia Atorvastatin 40mg qhs. * Chronic HFpEF - Coreg 12.5mg bid, Losartan 50mg daily, Imdur 30mg daily, Furosemide 20mg daily. * Diabetes Mellitus II - Glargine 36 units qhs. * Hypokalemia - KCL 20meq daily. * Choledocholithiasis - Ursodiol 250mg bid. The following psychotropic medication is being started or the dose in being increased: Lorazepam 1mg po x 1 prn. Psychotropic medication therapy is indicated for a diagnosis of: Anxiety. In my professional judgement, medication is necessary because the resident?s symptoms cause significant distress to the resident or a danger to the resident or others. Evaluation for underlying causes including medical illness and pain has been considered. The benefits of the medication are felt to outweigh potential harm. Nonpharmacologic/behavior interventions have been attempted but have not been effective or nonpharmacologic interventions are contraindicated for this patient. Potential benefits and risks of treatment and alternatives have been reviewed with resident/family and the resident/family have accepted psychotropic medication treatment. Please see nursing documentation. The following psychotropic medication was present on admission: Venlafaxine 75mg daily. Psychotropic medication therapy is indicated for a diagnosis of: Major Depression. Based on my clinical evaluation, continuation of the medication is necessary at this time. Gradual dose reduction plan (select one): ____ GDR will be attempted. Will monitor patient symptoms and behaviors in response to GDR. __x__ GRD contraindicated. 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
[2024-11-15] MEDS: Insulin Glargine-YFGN 100 UNIT/ML Pen 36 UNIT SC (23:11)
[2024-11-15] MEDS: Senna/Docusate Sodium 1 Tablet 2 TABLET PO (23:13)
[2024-11-16 05:54] LABS: Hematocrit 34.0 % (40-54); Hemoglobin 11.0 g/dL (13.0-16.5); Immature Granulocytes Count 0.040 X10^3/uL (0.0-0.0); Mean Corp Hgb Conc 32.4 g/dL (32-36); Mean Corpuscular Volume 81.7 fL (80-94); Mean Platelet Vol. 9.9 fl (6.2-12.0); NRBC Flagged by Analyzer 0 % (0-5); Platelet Count 335 K/mm3 (150-450); RBC Distribution Width CV 17.5 % (11.6-14.6); RBC Distribution Width SD 51.8 fl (35.1-43.9); Red Blood Count 4.16 M/mm3 (4.6-6.2); White Blood Count 7.5 K/mm3 (4.4-11.0)
[2024-11-16 06:23] LABS: Anion Gap 12 (5-15); BUN 17 mg/dL (4-19); BUN/Creat Ratio 12.5 RATIO (10-20); Calcium,Total 9.2 mg/dL (7.6-11.0); Carbon Dioxide 20.7 mmol/L (21.0-32.0); Chloride 104 mmol/L (98-108); Estimated Creatinine Clearance 51.26 ml/min (50-250); Glucose 173 mg/dL (70-99); Potassium 3.9 mmol/L (3.3-5.1)
[2024-11-16] MEDS: Aspirin E.C. 81 MG Tablet PO (08:29)
[2024-11-16] MEDS: Potassium Chloride Oral Tablet 20 MEQ PO (08:30)
[2024-11-16] MEDS: Senna/Docusate Sodium 1 Tablet 2 TABLET PO ×2 (08:32→21:38)
[2024-11-16 10:00] VITALS: BP 177/80; PULSE 84; RESP 16; TEMP 36.5; O2SAT 96
[2024-11-16] MEDS: Tuberculin,Purif.prot.deriv. 50 TU/ML Vial 0.1 ML ID (10:05)
[2024-11-16 14:47] VITALS: BMI 35.4
--- NOTE | 2024-11-16 16:17 | CHAPLAIN ---
Type of Pastoral Visit ___ Initial Visit ___ Follow-up Visit ___ On-call Visit ___ General Patient Visit ___ Spiritual Assessment ___ Family Conference ___ Bereavement ___ Rapid Response ___ Code Blue ___ Other (describe below) Pastoral Care Referral From ___ Patient ___ Family ___ Nurse ___ Physician ___ Mobile Homes Repairer ___ Permit Specialist ___ Other (describe below) Sacrament/Intervention ___ Active listening ___ Anointing ___ Alevism ___ Bereavement ___ Communion ___ Debra exploration ___ ___ Life review ___ Prayer ___ Reconciliation ___ Sacrament of Sick ___ Supportive presence ___ Wedding ___ Other (describe below) Pastoral Comments patient was asleep in bed and was at bedside; said that it would be better to let pt rest and so a visit was postponed
--- NOTE | 2024-11-16 18:56 | CASEMGMT ---
Social Work SW phoned to complete initial assessment as pt confused and unable to answer questions. Introduced self and role. Verified contacts. Discussed code status and stated pt's wishes would to be a DNR-CCA, no intubation. SW notified nursing. SW inquired about advance directives. stated sports attorney is in the process of getting documents completed. SW inquired further, as pt is not cognitively intact to sign documents. aware of pt's cognitive capacity, as PCP was exploring dx of Dementia. SW explained [facility] phillips noted pt scored 3/30 on MOCA, thus, incompetent to make decisions, and signing legal documents. Wif expressed understanding. SW encouraged to contact sports attorney to notify of incompetence. Offered for sports attorney to contact this worker with further questions. [facility] and continued stay is not guaranteed with each review; provide a 3-day notice for DC date. SW inquired about DC plan. stated she can take pt home if she can have some help. SW offered to provide resources for assistance, such as private duty MANAGER GROUP HOME, [place], MOW. agreed and requested this worker leave resources in pt's room for her retrievable. SW agreed. inquired about assistance given by hospice care. SW educated to assistance with medical stabilization and comfort care, and though there is an aide to assist with personal care, all disciplines are 2-3x/wk, pending pt's needs, and it would not provide 24/7 care. expressed understanding. SW offered ongoing assistance with DC planning and support. - SW presented to pt's room some time after conversation with and was present. was on the phone with her gdtr. Both asked additional questions. stated she does not foresee being able to care for pt at home and pt will likely need a SNF. SW educated to difference between skilled and intermediate care. Insurance covering skilled care and part B therapies, but OOP cost for LTC room and board, until pt is spent down by Medicaid. and gdtr unaware of the lack of LTC coverage. SW empathized with family. SW offered to provide DENISE checklist screening tool for SW to assist with further information on DENISE elgibility. agreed. SW provided, along with contact information for to follow up. appreciative. SW will continue to follow. Heather Gallego AGRICULTURAL PRODUCE PACKER CYTOPATHOLOGIST
--- NOTE | 2024-11-16 18:56 | CASEMGMT ---
Social Work SW phoned to complete initial assessment as pt confused and unable to answer questions. Introduced self and role. Verified contacts. Discussed code status and stated pt's wishes would to be a DNR-CCA, no intubation. SW notified nursing. SW inquired about advance directives. stated employment attorney is in the process of getting documents completed. SW inquired further, as pt is not cognitively intact to sign documents. aware of pt's cognitive capacity, as PCP was exploring dx of Dementia. SW explained ST phillips noted pt scored 3/30 on MOCA, thus, incompetent to make decisions, and signing legal documents. Wif expressed understanding. SW encouraged to contact employment attorney to notify of incompetence. Offered for employment attorney to contact this worker with further questions. [facility] and continued stay is not guaranteed with each review; provide a 3-day notice for DC date. SW inquired about DC plan. stated she can take pt home if she can have some help. SW offered to provide resources for assistance, such as private duty OUTSIDE MACHINIST SUPERVISOR, [employer], MOW. agreed and requested this worker leave resources in pt's room for her retrievable. SW agreed. inquired about assistance given by hospice care. SW educated to assistance with medical stabilization and comfort care, and though there is an aide to assist with personal care, all disciplines are 2-3x/wk, pending pt's needs, and it would not provide 24/7 care. expressed understanding. SW offered ongoing assistance with DC planning and support. - SW presented to pt's room some time after conversation with and was present. was on the phone with her gdtr. Both asked additional questions. stated she does not foresee being able to care for pt at home and pt will likely need a SNF. SW educated to difference between skilled and intermediate care. Insurance covering skilled care and part B therapies, but OOP cost for LTC room and board, until pt is spent down by Medicaid. and gdtr unaware of the lack of LTC coverage. SW empathized with family. SW offered to provide DENISE checklist screening tool for SW to assist with further information on DENISE elgibility. agreed. SW provided, along with contact information for to follow up. appreciative. SW will continue to follow. Heather Gallego IT SYSTEMS ANALYST CONSULTANT CIRCUIT BOARD REPAIR TECHNICIAN
[2024-11-16] MEDS: Insulin Glargine-YFGN 100 UNIT/ML Pen 36 UNIT SC (21:35)
[2024-11-17] MEDS: Aspirin E.C. 81 MG Tablet PO (08:14)
[2024-11-17] MEDS: Potassium Chloride Oral Tablet 20 MEQ PO (08:15)
[2024-11-17] MEDS: Senna/Docusate Sodium 1 Tablet 2 TABLET PO ×2 (08:21→20:50)
--- NOTE | 2024-11-17 12:47 | NURSING ---
Activity Coordinate Note; Activity Asset: Complete Tor was not able to communicate his activity wishes to me at this time. He us yes or no answers to a few questions. Tor said yes to therapy dog and turnaround engineer, no to and he watches baseball. Staff will offer in room activities, 1.1 room visits along w/day room activities and respect his right to say no.
--- NOTE | 2024-11-17 12:47 | NURSING ---
Activity Coordinate Note; Activity Asset: Complete Tor was not able to communicate his activity wishes to me at this time. He us yes or no answers to a few questions. Tor said yes to therapy dog and pet trainer, no to and he watches baseball. Staff will offer in room activities, 1.1 room visits along w/day room activities and respect his right to say no.
--- NOTE | 2024-11-17 14:32 | CHAPLAIN ---
Type of Pastoral Visit _x__ Initial Visit ___ Follow-up Visit ___ On-call Visit ___ General Patient Visit ___ Spiritual Assessment ___ Family Conference ___ Bereavement ___ Rapid Response ___ Code Blue ___ Other (describe below) Pastoral Care Referral From ___ Patient _x__ Family ___ Nurse ___ Physician ___ Supervisor [employer] ___ Manager Staffing ___ Other (describe below) Sacrament/Intervention ___ Active listening ___ Anointing ___ Mormonism ___ Bereavement ___ Communion _x__ Debra exploration ___ ___ Life review _x__ Prayer ___ Reconciliation ___ Sacrament of Sick _x__ Supportive presence ___ Wedding ___ Other (describe below) Pastoral Comments patient is awake but is limited in his ability to speak; pt does answer with simple words and looks of the eyes; spouse is with him and gives interpretations, consolation on his inabilities; spouse speaks of their debra in God and good connection to a local gnosticist; pt agrees to a prayer; offer of support and affirmation of pt's effort to get better
--- NOTE | 2024-11-17 14:32 | CHAPLAIN ---
Type of Pastoral Visit _x__ Initial Visit ___ Follow-up Visit ___ On-call Visit ___ General Patient Visit ___ Spiritual Assessment ___ Family Conference ___ Bereavement ___ Rapid Response ___ Code Blue ___ Other (describe below) Pastoral Care Referral From ___ Patient _x__ Family ___ Nurse ___ Physician ___ Chief Procurement Officer ___ Vmware Administrator ___ Other (describe below) Sacrament/Intervention ___ Active listening ___ Anointing ___ Rastafari ___ Bereavement ___ Communion _x__ Debra exploration ___ ___ Life review _x__ Prayer ___ Reconciliation ___ Sacrament of Sick _x__ Supportive presence ___ Wedding ___ Other (describe below) Pastoral Comments patient is awake but is limited in his ability to speak; pt does answer with simple words and looks of the eyes; spouse is with him and gives interpretations, consolation on his inabilities; spouse speaks of their debra in God and good connection to a local presybeterian; pt agrees to a prayer; offer of support and affirmation of pt's effort to get better
[2024-11-17 16:00] VITALS: BP 122/69; PULSE 93; RESP 18; TEMP 36.6; O2SAT 93
[2024-11-17 20:00] VITALS: PULSE 91; RESP 16; O2SAT 93
[2024-11-17] MEDS: Insulin Glargine-YFGN 100 UNIT/ML Pen 36 UNIT SC (20:51)
[2024-11-18 00:48] VITALS: PULSE 66; RESP 18; O2SAT 96
[2024-11-18] MEDS: Aspirin E.C. 81 MG Tablet PO (07:58)
[2024-11-18] MEDS: Potassium Chloride Oral Tablet 20 MEQ PO (07:58)
[2024-11-18] MEDS: Senna/Docusate Sodium 1 Tablet 2 TABLET PO ×2 (07:59→21:33)
[2024-11-18 16:00] VITALS: BP 127/77; PULSE 87; RESP 18; TEMP 36.6; O2SAT 94
--- NOTE | 2024-11-18 19:17 | NURSING ---
is requesting a 2 handled cup with a lid to help patient with meals. informed dietary.
--- NOTE | 2024-11-18 19:17 | NURSING ---
is requesting a 2 handled cup with a lid to help patient with meals. informed dietary.
[2024-11-18] MEDS: Insulin Glargine-YFGN 100 UNIT/ML Pen 36 UNIT SC (21:33)
[2024-11-19 09:04] VITALS: BP 142/70; PULSE 93; RESP 16; TEMP 36.9; O2SAT 93
[2024-11-19] MEDS: Senna/Docusate Sodium 1 Tablet 2 TABLET PO ×2 (09:08→22:55)
[2024-11-19] MEDS: Aspirin E.C. 81 MG Tablet PO (09:08)
[2024-11-19] MEDS: Potassium Chloride Oral Tablet 20 MEQ PO (09:08)
[2024-11-19 18:00] VITALS: BP 155/91; PULSE 84
--- NOTE | 2024-11-19 22:48 | PCM.PN.DRR ---
Documented by User: Carmen Oconnor 11/19/24 23:39 TCU RX Drug Regimen Review Subjective/Objective Subjective/Objective Subjective: TCU Admission. 79 YOM presented to the outside ER with encephalopathy. Hospitalized for encephalopathy, etiology unclear. Admitted to TCU with debility for strengthening and rehabilitation. Objective: Allergies dapagliflozin (From [facility]) Allergy (Verified 10/29/24 09:02) Rash Current Medications Generic Name Dose Route Start Last Admin Trade Name Freq PRN Reason Stop Dose Admin Acetaminophen 1,000 mg 11/15/24 18:50 11/16/24 13:18 Acetaminophen 500 Mg Tablet PO 1,000 mg Q6H PRN PRN Administration Pain Score 1-10 Aspirin 81 mg 11/16/24 08:00 11/19/24 09:08 Aspirin E.C. 81 Mg Tablet PO 81 mg BREAKFAST GABRIELLA Administration Atorvastatin Calcium 40 mg 11/15/24 22:00 11/18/24 21:33 Atorvastatin Calcium 40 Mg Tablet PO 40 mg QHS GABRIELLA Administration Carvedilol 12.5 mg 11/15/24 17:00 11/19/24 18:03 Carvedilol 12.5 Mg Tablet PO 12.5 mg BIDCM GABRIELLA Administration Protocol Enoxaparin Sodium 40 mg 11/16/24 06:00 11/19/24 05:36 Enoxaparin 40 Mg/0.4 Ml Syringe SC 40 mg DAILY@0600 GABRIELLA Administration Furosemide 20 mg 11/16/24 10:00 11/19/24 09:08 Furosemide 20 Mg Tablet PO 20 mg DAILY GABRIELLA Administration Protocol Sodium Chloride 250 mls @ 15 mls/hr 11/15/24 14:20 IV .[id number] PRN Saline Flush Sodium Chloride 250 mls @ 15 mls/hr 11/15/24 14:20 IV .[id number] PRN Additional IVPB Infusion Insulin Glargine 36 unit 11/15/24 22:00 11/18/24 21:33 Insulin Glargine-Yfgn 100 Unit/Ml Pen SC 36 unit QHS GABRIELLA Administration Insulin Human Lispro 5 unit 11/16/24 11:45 11/19/24 17:59 Insulin Lispro 100 Unit/Ml Insuln.Pen SC 5 u TIDAC GABRIELLA Administration Isosorbide Mononitrate 30 mg 11/16/24 10:00 11/19/24 09:08 Isosorbide Mononitrate 30 Mg Tablet PO 30 mg DAILY GABRIELLA Administration Protocol Lorazepam 1 mg 11/15/24 17:36 11/16/24 13:14 Lorazepam 1 Mg Tablet PO 1 mg X1 PRN Administration RESTLESSNESS Losartan Potassium 100 mg 11/17/24 10:00 11/19/24 09:08 Losartan Potassium 100 Mg Tablet PO 100 mg DAILY GABRIELLA Administration Protocol Magnesium Citrate 300 ml 11/15/24 15:02 Magnesium Citrate 300 Ml PO X1 PRN Constipation Nitroglycerin 0.4 mg 11/15/24 15:00 Nitroglycerin (Inpatient Use) 0.4 Mg Tab.Subl SL Q5M PRN CARDIAC/CHEST PAIN Potassium Chloride 20 meq 11/16/24 08:00 11/19/24 09:08 Potassium Chloride Oral Tablet 20 Meq PO 20 meq DAILYCM GABRIELLA Administration Senna/Docusate Sodium 2 tablet 11/15/24 22:00 11/19/24 09:08 Senna/Docusate Sodium 1 Tablet PO 2 tablet BID GABRIELLA Administration Sodium Chloride 10 - 40 ml 11/15/24 14:20 0.9% Saline Lock 10 Ml Syringe IV UD PRN SALINE FLUSH Tuberculin PPD 0.1 ml 11/23/24 10:00 Tuberculin,Purif.Prot.Deriv. 50 Tu/Ml Vial ID 11/23/24 10:01 X1 ONE Ursodiol 250 mg 11/15/24 22:00 11/19/24 09:10 Ursodiol 250 Mg Tablet PO 250 mg BID GABRIELLA Administration Venlafaxine HCl 75 mg 11/16/24 10:00 11/19/24 09:08 Venlafaxine Hcl 75 Mg Tablet PO 75 mg DAILY GABRIELLA Administration Problem List (Updated 11/15/24 @ 18:[address] Frankie Shaver MD) Depression (Acute) Choledocholithiasis (Acute) Hypokalemia (Acute) Type 2 diabetes mellitus with hyperglycemia (Acute) Chronic heart failure with preserved ejection fraction (HFpEF) (Acute) Stroke (Acute) Coronary artery disease (Acute) Encephalopathy (Acute) Debility (Acute) Renal cell carcinoma of left kidney (Acute) Hyperlipidemia (Chronic) Vital Signs Temp Pulse Resp BP Pulse Ox O2 Del Method 98.4 F 84 16 155/91 H 93 Room Air 11/19/24 09:04 11/19/24 18:00 11/19/24 09:04 11/19/24 18:00 11/19/24 09:04 11/19/24 14:04 Oxygen Delivery Method Room Air Weight: 106.186 kg Body Mass Index (BMI) 35.4 Sodium 136 mmol/L (133-145) 11/16/24 05:15 Potassium 3.9 mmol/L (3.3-5.1) 11/16/24 05:15 Chloride 104 mmol/L (98-108) 11/16/24 05:15 Carbon Dioxide 20.7 mmol/L (21.0-32.0) L 11/16/24 05:15 Anion Gap 12 (5-15) 11/16/24 05:15 BUN 17 mg/dL (4-19) 11/16/24 05:15 Creatinine 1.38 mg/dL (0.70-1.20) H 11/16/24 05:15 Est GFR (MDRD) Non-Af 52 (>60) L 11/16/24 05:15 BUN/Creatinine Ratio 12.5 RATIO (10-20) 11/16/24 05:15 Glucose 173 mg/dL (70-99) H 11/16/24 05:15 Assessment/Plan: 1. Pain: acetaminophen 1000mg PO Q6H PRN pain 1-10. Resident has had 1 dose for a pain score of 3 in the buttock. Please continue to monitor for increased pain, PRN usage and LFTs. 2. Bowel: senna/docusate 2T PO BID and magnesium citrate 300mL PO daily PRN constipation. No PRN doses given. Please continue to monitor for constipation and PRN usage. Last documented bowel movement was 11/19/24. 3. DVT prophylaxis: enoxaparin 40mg SC daily. Please continue to monitor for S/S of bleeding/DVT, platelets (last 335,000), hemoglobin (last 11g/dL) and renal function. 4. CAD/chronic HFpEF: carvedilol 12.5mg PO BID, losartan 100mg PO daily (increased from 50mg 11/17), isosorbide mononitrate 30mg PO daily, aspirin 81mg PO daily, nitroglycerin 0.4mg SL Q5M PRN chest pain and furosemide 20mg PO daily. Please continue to monitor HR (range 66-93), BP (range 122-177/69-91), potassium (last 3.9mmol/L), renal function, S/S of bleeding, hemoglobin (last 11g/dL), chest pain, PRN usage, facial flushing, headache, edema. 5. Hyperlipidemia: atorvastatin 40mg PO QHS. Please continue to monitor for muscle pain and LFTs (last 09/22/24). Last lipid panel 03/23/24. 6. Diabetes mellitus II: insulin glargine 36units SC QHS and insulin lispro 5units SC TIDAC. Please continue to monitor for S/S of hypoglycemia, glucose (range 137mg/dL - 266 mg/dL). Last hemoglobin A1c was from 03/23/24 but since Resident is going home with hospice would not recommend getting a new level. 7. Hypokalemia: potassium chloride 20mEq PO daily. Please continue to monitor potassium (last 3.9mmol/L). 8. Choledocholithiasis: ursodiol 250mg PO BID. Please continue to monitor for GI side effects. Assessment/Plan for indications treated with psychotropic medications: 1. Anxiety/restlessness: lorazepam 1mg PO x1 PRN restlessness. Resident did have the x1 dose on 11/16. Please see physician note. GDR not appropriate at this time. Monitor for sedation, mental status and cognition. Monitor for falls (risk factor for falls) and implement fall prevention strategies. Monitor for respiratory depression. RR range since admission =66-93. Monitor prn usage and efficacy of prn doses including resident symptoms, behaviors and indications of distress. Monitor for tolerability including mental status, cognition, excessive sleepiness, withdrawal or decreased participation in activities and decline in physical functioning. Maximize use of nonpharmacologic/behavior interventions to minimize use of prn medication. Prn psychotropic order must be renewed at 14 days per policy. Evaluate continued need for medication, effect of prn medication on resident?s symptoms/distress and tolerability to determine the appropriateness of order renewal. 2. Major depression: venlafaxine 75mg PO daily. Please see physician note regarding GDR. Monitor for diarrhea, nausea, appetite/weight loss, anxiety or drowsiness, suicidal thoughts or behaviors (Boxed Warning), symptoms of bleeding, symptoms of serotonin syndrome (including agitation, confusion, hyperreflexia, rigidity/myoclonus, tremor, tachycardia, tachypnea), sodium levels (last Na = add result and date). Monitor blood pressure. BP range since admission =66-93. Monitor for orthostatic hypotension, including postural dizziness, syncope or falls. Check orthostatic vital signs if suspicion of orthostasis. Monitor for hepatotoxicity (abdominal pain, nausea, jaundice, dark urine, AST/ALT as clinically indicated). AST/ALT = 09/22/24. Monitor for efficacy including resident symptoms, behaviors and indications of distress. Monitor for tolerability including mental status, cognition, excessive sleepiness, withdrawal or decreased participation in activities and decline in physical functioning. Maximize use of nonpharmacologic/behavioral interventions to facilitate dose reduction or discontinuation as appropriate. Please evaluate the appropriateness of GDR unless contraindicated. If appropriate, GDR should be attempted in 2 separate quarters within the first year of use or admission to TCU. If GDR attempted, monitor resident symptoms/behaviors. Medical chart and medication regimen reviewed. The following medication irregularities or issues were identified: None Date Date of Note: 11/19/24 Documented by User: Dr. Frankie Shaver MD 11/20/24 10:00 TCU RX Drug Regimen Review Provider Comments Provider responsibility Provider Comments to Recommendations by Pharmacy Agree
[2024-11-19] MEDS: Insulin Glargine-YFGN 100 UNIT/ML Pen 36 UNIT SC (22:55)
[2024-11-20] MEDS: Potassium Chloride Oral Tablet 20 MEQ PO (07:55)
[2024-11-20] MEDS: Aspirin E.C. 81 MG Tablet PO (07:55)
[2024-11-20] MEDS: Senna/Docusate Sodium 1 Tablet 2 TABLET PO (07:56)
[2024-11-20 15:59] VITALS: PULSE 70; RESP 18; TEMP 36.6; O2SAT 90
[2024-11-20 20:56] VITALS: PULSE 82; RESP 18; O2SAT 96
[2024-11-20] MEDS: Insulin Glargine-YFGN 100 UNIT/ML Pen 36 UNIT SC (21:00)
[2024-11-21 03:36] VITALS: RESP 18
[2024-11-21] MEDS: Aspirin E.C. 81 MG Tablet PO (07:56)
[2024-11-21] MEDS: Potassium Chloride Oral Tablet 20 MEQ PO (07:56)
[2024-11-21 10:24] VITALS: BP 140/68; PULSE 91; RESP 18; TEMP 36.5; O2SAT 93
[2024-11-21] MEDS: Senna/Docusate Sodium 1 Tablet 2 TABLET PO (20:48)
[2024-11-21] MEDS: Insulin Glargine-YFGN 100 UNIT/ML Pen 36 UNIT SC (21:33)
--- NOTE | 2024-11-22 08:42 | NURSING ---
Assemblies And Installations Inspector Note; MDS for 11/22/2024 Complete
--- NOTE | 2024-11-22 08:42 | NURSING ---
Circuit Manager Note; MDS for 11/22/2024 Complete
[2024-11-22] MEDS: Potassium Chloride Oral Tablet 20 MEQ PO (09:24)
[2024-11-22] MEDS: Aspirin E.C. 81 MG Tablet PO (09:24)
[2024-11-22] MEDS: Senna/Docusate Sodium 1 Tablet 2 TABLET PO ×2 (09:25→22:01)
--- NOTE | 2024-11-22 10:38 | NURSING ---
Offered covid vaccine, states he is up to date.
--- NOTE | 2024-11-22 10:38 | NURSING ---
Offered covid vaccine, states he is up to date.
[2024-11-22 16:00] VITALS: BP 142/72; PULSE 89; RESP 18; TEMP 36.2; O2SAT 94
[2024-11-22 19:59] VITALS: PULSE 81; RESP 16; O2SAT 95
[2024-11-22] MEDS: Insulin Glargine-YFGN 100 UNIT/ML Pen 36 UNIT SC (22:01)
[2024-11-23 05:34] VITALS: PULSE 80; RESP 18; O2SAT 92
[2024-11-23 05:55] LABS: Hematocrit 37.4 % (40-54); Hemoglobin 11.9 g/dL (13.0-16.5); Immature Granulocytes Count 0.070 X10^3/uL (0.0-0.0); Mean Corp Hgb Conc 31.8 g/dL (32-36); Mean Corpuscular Volume 81.7 fL (80-94); Mean Platelet Vol. 9.9 fl (6.2-12.0); NRBC Flagged by Analyzer 0 % (0-5); Platelet Count 363 K/mm3 (150-450); RBC Distribution Width CV 18.2 % (11.6-14.6); RBC Distribution Width SD 53.3 fl (35.1-43.9); Red Blood Count 4.58 M/mm3 (4.6-6.2); White Blood Count 9.0 K/mm3 (4.4-11.0)
[2024-11-23 06:14] LABS: Anion Gap 13 (5-15); BUN 24 mg/dL (4-19); BUN/Creat Ratio 16.0 RATIO (10-20); Calcium,Total 9.2 mg/dL (7.6-11.0); Carbon Dioxide 19.7 mmol/L (21.0-32.0); Chloride 107 mmol/L (98-108); Estimated Creatinine Clearance 46.55 ml/min (50-250); Glucose 159 mg/dL (70-99); Potassium 3.9 mmol/L (3.3-5.1)
[2024-11-23 08:44] VITALS: BP 141/71; PULSE 86; RESP 18; TEMP 36.6; O2SAT 98
[2024-11-23] MEDS: Senna/Docusate Sodium 1 Tablet 2 TABLET PO ×2 (08:46→20:37)
[2024-11-23] MEDS: Aspirin E.C. 81 MG Tablet PO (08:46)
[2024-11-23] MEDS: Potassium Chloride Oral Tablet 20 MEQ PO (08:46)
--- NOTE | 2024-11-23 09:34 | CASEMGMT ---
Addendum entered by Heather Gallego 11/23/24 15:42: Received call from Hospice that they are meeting with pt's and family this evening about 1730. Nursing updated. Original Note: Social Work SW completed BIMS (07/24) and PHQ-9 () however, some questions pt did not provide a response for - for MDS assessment. - SW observed getting emotional during BIMS. After assessment, SW offered to speak with outside of pt's room. agreed. SW and spoke in [facility]. apologized for being tearful but stated pt has declined so much since admission. stated pt was writing checks prior to admission. SW validated 's feelings and provided emotional support. SW revisited conversation had with Dr. Shaver. inquired about hospice services. SW educated to comfort focused treatment, no life sustaining treatment, no hospitalizations unless family revokes hospice, and no therapy. conflicted with what avenue to puruse with pt - home vs SNF. SW educated to both options and insurance coverage. 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 shared additional financial information with this worker and pt would need to spend down additional assets. wants pt to return home with assistance. SW explained the assistance pt would need, but mainly during the day. pt can remain in bed during the night with an alarm/alert given to if he moves in the bed. Discussed hiring aides to assist during the day. interested in that option and will begin searching for help. SW offered to refer to hospice and a nurse can meet with and family to get further information, prior to making decision. agreed and appreciative. POC meeting is tomorrow and get IDT information. SW will continue to follow. - SW sent referral to [facility] via email. Heather Gallego POLICE SERGEANT ENGLISH LANGUAGE ARTS TEACHER
--- NOTE | 2024-11-23 09:34 | CASEMGMT ---
Addendum entered by Heather Gallego 11/23/24 15:42: Received call from Hospice that they are meeting with pt's and family this evening about 1730. Nursing updated. Original Note: Social Work SW completed BIMS (07/24) and PHQ-9 () however, some questions pt did not provide a response for - for MDS assessment. - SW observed getting emotional during BIMS. After assessment, SW offered to speak with outside of pt's room. agreed. SW and spoke in [facility]. apologized for being tearful but stated pt has declined so much since admission. stated pt was writing checks prior to admission. SW validated 's feelings and provided emotional support. SW revisited conversation had with Dr. Shaver. inquired about hospice services. SW educated to comfort focused treatment, no life sustaining treatment, no hospitalizations unless family revokes hospice, and no therapy. conflicted with what avenue to puruse with pt - home vs SNF. SW educated to both options and insurance coverage. 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 shared additional financial information with this worker and pt would need to spend down additional assets. wants pt to return home with assistance. SW explained the assistance pt would need, but mainly during the day. pt can remain in bed during the night with an alarm/alert given to if he moves in the bed. Discussed hiring aides to assist during the day. interested in that option and will begin searching for help. SW offered to refer to hospice and a nurse can meet with and family to get further information, prior to making decision. agreed and appreciative. POC meeting is tomorrow and get IDT information. SW will continue to follow. - SW sent referral to [facility] via email. Heather Gallego POULTRY FARM SUPERVISOR SPEARER
[2024-11-23] MEDS: Tuberculin,Purif.prot.deriv. 50 TU/ML Vial 0.1 ML ID (12:20)
[2024-11-23] MEDS: Insulin Glargine-YFGN 100 UNIT/ML Pen 36 UNIT SC (21:10)
[2024-11-24 08:25] VITALS: BP 165/91; PULSE 77; RESP 18; TEMP 35.9; O2SAT 94
[2024-11-24] MEDS: Potassium Chloride Oral Tablet 20 MEQ PO (08:28)
[2024-11-24] MEDS: Aspirin E.C. 81 MG Tablet PO (08:28)
[2024-11-24] MEDS: Senna/Docusate Sodium 1 Tablet 2 TABLET PO ×2 (08:29→21:56)
[2024-11-24 10:00] VITALS: PULSE 90; RESP 18; O2SAT 97
--- NOTE | 2024-11-24 11:27 | CASEMGMT ---
Social Work IDT met with patient, and dtr for care plan meeting. Discussed patient's progress in PT/OT/ST/SN/RDN. Educated to [facility] insurance with [facility] 11/22 and continued stay is not guaranteed with each review. Provided pt/family with written communication of insurance process and copay coverage during stay. SW inquired about how the conversation with hospice went yesterday. confirmed election. SW offered to set DC date at 's choosing. and dtr prefer DC 11/26. SW agreed and will coordinate transport. appreciative. - SW updated [facility] of DC date. SW phoned [facility] and scheduled cot transport for 1100. IDT updated. Plan: DC home with 11/26, [facility] Heather MCDERMOTTW
--- NOTE | 2024-11-24 13:42 | MDS.RN ---
Information for the MDS was obtained from review of the clinical record, interview of resident, staff, and direct observation of resident?s care.
--- NOTE | 2024-11-24 13:42 | MDS.RN ---
Information for the MDS was obtained from review of the clinical record, interview of resident, staff, and direct observation of resident?s care.
[2024-11-24 17:57] VITALS: BP 164/89; PULSE 91
--- NOTE | 2024-11-24 21:01 | DS.PCM_ITS ---
Providers Date of Admission: 11/15/24 Primary Care Physician: Dr. Frankie Shaver MD Reason For Visit: ALTERED MENTAL STATUS Diagnosis Discharge Diagnosis (1) Debility: Status: Acute Code(s): R53.81 - Other malaise (2) Encephalopathy: Status: Acute Code(s): G93.40 - Encephalopathy, unspecified (3) Renal cell carcinoma of left kidney: Status: Acute Code(s): C64.2 - Malignant neoplasm of left kidney, except renal pelvis (4) Coronary artery disease: Status: Acute Code(s): I25.10 - Atherosclerotic heart disease of [place] coronary artery without angina pectoris (5) Stroke: Status: Acute Code(s): I63.9 - Cerebral infarction, unspecified (6) Hyperlipidemia: Status: Chronic Code(s): E78.5 - Hyperlipidemia, unspecified (7) Chronic heart failure with preserved ejection fraction (HFpEF): Status: Acute Code(s): I50.32 - Chronic diastolic (congestive) heart failure (8) Type 2 diabetes mellitus with hyperglycemia: Status: Acute Code(s): E11.65 - Type 2 diabetes mellitus with hyperglycemia (9) Hypokalemia: Status: Acute Code(s): E87.6 - Hypokalemia (10) Choledocholithiasis: Status: Acute Code(s): K80.50 - Calculus of bile duct without cholangitis or cholecystitis without obstruction (11) Depression: Status: Acute Code(s): F32.A - Depression, unspecified Plan 79 year old male with below past medical history hospitalized for encephalopathy, etiology unclear, admitted to TCU with debility, here for rehabilitation, strengthening, prior to discharge home with . * Debility - PT/OT. * Cognition - ST. * Pain - Tylenol 1000mg q6 prn pain (1-10). * Bowel - senna/colace 2 tablets bid, Magnesium citrate 300mL daily prn. * Adult immunization - Administer pneumonia vaccine, covid vaccine, flu vaccine as appropriate. * DVT prophylaxis - Lovenox 40mg sc daily. * Coronary artery disease - Coreg 12.5mg bid, Losartan 50mg daily, Imdur 30mg daily, Aspirin 81mg daily, NTG 0.4mg sl q5m prn. * Hyperlipidemia Atorvastatin 40mg qhs. * Chronic HFpEF - Coreg 12.5mg bid, Losartan 50mg daily, Imdur 30mg daily, Furosemide 20mg daily. * Diabetes Mellitus II - Glargine 36 units qhs. * Hypokalemia - KCL 20meq daily. * Choledocholithiasis - Ursodiol 250mg bid. The following psychotropic medication is being started or the dose in being increased: Lorazepam 1mg po x 1 prn. Psychotropic medication therapy is indicated for a diagnosis of: Anxiety. In my professional judgement, medication is necessary because the resident?s symptoms cause significant distress to the resident or a danger to the resident or others. Evaluation for underlying causes including medical illness and pain has been considered. The benefits of the medication are felt to outweigh potential harm. Nonpharmacologic/behavior interventions have been attempted but have not been effective or nonpharmacologic interventions are contraindicated for this patient. Potential benefits and risks of treatment and alternatives have been reviewed with resident/family and the resident/family have accepted psychotropic medication treatment. Please see nursing documentation. The following psychotropic medication was present on admission: Venlafaxine 75mg daily. Psychotropic medication therapy is indicated for a diagnosis of: Major Depression. Based on my clinical evaluation, continuation of the medication is necessary at this time. Gradual dose reduction plan (select one): ____ GDR will be attempted. Will monitor patient symptoms and behaviors in response to GDR. __x__ GRD contraindicated. 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 Hospital Course Operations None Procedures None Summary of Care Provided Minutes Spent on Discharge: 35 Hospital Course: 79 year old male with below past medical history hospitalized for encephalopathy, etiology unclear, admitted to TCU with debility, here for rehabilitation, strengthening, prior to discharge home with . Bowen is dying. Discharge home with 11/26/2024, [facility]. Physical Exam Const alert General Appearance: cooperative HEENT normocephalic Eyes PERRL and EOMs intact bilaterally Neck supple, no JVD and no carotid bruits Resp normal respiratory effort, normal air movement and clear to auscultation bilaterally Cardio regular rate and regular rhythm GI normal to inspection, nondistended, normoactive bowel sounds, non-tender and non-distended Extremity normal capillary refill General Extremity: Negative for edema Skin no rashes or lesions noted General Skin Exam: no breakdown Psych affect normal Appearance: appropriate Weight / BMI Weight Weight: 106.186 kg Body Mass Index (BMI) 35.4 ABG / Lab / Microbiology Data 11/23/24 05:18 11/23/24 05:18 Laboratory: Laboratory Results - last 24 hr 11/24/24 06:12: POC Glucose 159 H 11/24/24 11:26: POC Glucose 171 H 11/24/24 17:19: POC Glucose 143 H D/C Instructions Discharge Activity: Return to Normal Activity Weight Bearing Status: Weight bearing as tolerated DC O2, CPAP, BIPAP Needs Home O2 Discharge instructions: No Additional Instructions: Discharge home with 11/26/2024, [facility]. Meaningful Use Info Meaningful Use Meaningful Use Diagnoses (Choose all that apply): Ischemic CVA CVA Therapy Assessed for PT,OT and/or ST?: Yes Ischemic Stroke Antithrombotic order at d/c?: No Reason antithrombotic not ordered: Hospice Dx of Atrial fib/flutter?: No Statins at discharge?: No Reason Statin not ordered: Hospice Primary Dx Acute Ischemic CVA?: No Discharge Plan Admission Admit Date/Time: 11/15/24 14:00 Primary Reason for Your Visit: Debility. Attending Provider: Frankie Shaver Chi Primary Care Provider: Frankie Shaver Chi Instructions Additional Instructions / Restrictions: Discharge home with 11/26/2024, [facility]. Discharge Orders/Prescriptions Prescriptions: Discontinued metformin 1,000 mg tablet 1,000 mg PO BID atorvastatin 40 mg tablet 40 mg PO DAILY isosorbide mononitrate 30 mg tablet extended release 24 hr 30 mg PO DAILY glipizide 10 mg tablet extended release 24hr 10 mg PO DAILY Patient Comments: TAKE 1 TABLET BY MOUTH TWICE DAILY furosemide 40 mg tablet 20 mg PO DAILY Patient Comments: TAKE 1 TABLET BY MOUTH ONCE DAILY IN THE MORNING FOR 30 DAYS venlafaxine 75 mg tablet 75 mg PO DAILY albuterol sulfate 90 mcg/actuation HFA aerosol inhaler 2 puff inhalation Q6H PRN (Reason: shortness of breath or wheezing) insulin glargine U-300 conc [Toujeo Max U-300 SoloStar] 300 unit/mL (3 mL) insulin pen 36 unit subcut DAILY nitroglycerin 0.4 mg tablet, sublingual 0.4 mg sublingual Q5-15M PRN (Reason: Chest Pain) Qty: 25 3RF aspirin [Adult Aspirin Regimen] 81 mg tablet,delayed release (DR/EC) 81 mg PO DAILY potassium chloride 20 mEq tablet,ER particles/crystals 20 meq PO DAILY Patient Comments: TAKE 1 TABLET BY MOUTH ONCE DAILY losartan 50 mg tablet 50 mg PO DAILY acetaminophen 325 mg capsule 650 mg PO Q8H PRN PRN (Reason: pain) carvedilol 12.5 mg tablet 12.5 mg PO BID Qty: 180 3RF Rx Instructions: must administer with a meal/food ursodiol 250 mg tablet 250 mg PO BID Qty: 180 1RF Referrals / Follow Up: Frankie Shaver Chi, MD [Primary Care Provider] - Disposition Disposition (needs filled in before D/C Order can be placed): Hospice in Home
[2024-11-24] MEDS: Insulin Glargine-YFGN 100 UNIT/ML Pen 36 UNIT SC (21:54)
[2024-11-25 08:40] VITALS: BP 171/91; PULSE 86; RESP 18; TEMP 36.5; O2SAT 95
[2024-11-25] MEDS: Potassium Chloride Oral Tablet 20 MEQ PO (08:44)
[2024-11-25] MEDS: Aspirin E.C. 81 MG Tablet PO (08:44)
[2024-11-25] MEDS: Senna/Docusate Sodium 1 Tablet 2 TABLET PO ×2 (08:44→20:56)
[2024-11-25] MEDS: Insulin Glargine-YFGN 100 UNIT/ML Pen 36 UNIT SC (20:58)
[2024-11-26 06:41] VITALS: PULSE 80; RESP 17; O2SAT 98
[2024-11-26] MEDS: Senna/Docusate Sodium 1 Tablet 2 TABLET PO (08:20)
[2024-11-26] MEDS: Aspirin E.C. 81 MG Tablet PO (08:21)
[2024-11-26] MEDS: Potassium Chloride Oral Tablet 20 MEQ PO (08:21)
[2024-11-26 10:28] VITALS: BP 157/64; PULSE 94; RESP 18; TEMP 36.4; O2SAT 98
--- NOTE | 2024-11-26 13:45 | CASEMGMT ---
Social Work SW completed BIMS (07/24) and PHQ-9 () for MDS assessment. Heather Gallego MARKETING INTELLIGENCE MANAGER COOK SUPERVISOR
--- NOTE | 2024-11-26 13:45 | CASEMGMT ---
Social Work SW completed BIMS (07/24) and PHQ-9 () for MDS assessment. Heather Gallego MAINTENANCE HELPER MONOMER PURIFICATION OPERATOR
== END 2024-11-26 15:00 | disposition hospice, home (50) | DRG 687 ==
PROVIDERS: Admitting Provider Family Medicine Geriatric Medicine; PCP Family Medicine Geriatric Medicine; Referring Provider Family Medicine Geriatric Medicine; Visit Provider Family Medicine Geriatric Medicine
DX: C64.2 Malignant neoplasm of left kidney, except renal pelvis (principal); I50.32 Chronic diastolic (congestive) heart failure; K80.50 Calculus of bile duct without cholangitis or cholecystitis without obstruction; I11.0 Hypertensive heart disease with heart failure; E11.51 Type 2 diabetes mellitus with diabetic peripheral angiopathy without gangrene; F32.9 Major depressive disorder, single episode, unspecified; E87.6 Hypokalemia; I25.10 Atherosclerotic heart disease of native coronary artery without angina pectoris; E78.00 Pure hypercholesterolemia, unspecified; F41.9 Anxiety disorder, unspecified; E11.65 Type 2 diabetes mellitus with hyperglycemia; F17.220 Nicotine dependence, chewing tobacco, uncomplicated; Z79.899 Other long term (current) drug therapy; Z79.84 Long term (current) use of oral hypoglycemic drugs; Z79.82 Long term (current) use of aspirin; R41.82 Altered mental status, unspecified; Z86.73 Personal history of transient ischemic attack (TIA), and cerebral infarction without residual deficits; R94.02 Abnormal brain scan
CPT/HCPCS: 36415; 80048; 82962; 85025; 92507; 92523; 92526; 92610; 97110; 97116; 97162; 97166; 97530; 97535; 97802

== ENCOUNTER → 2024-11-16 | Outpatient (CLI) | payer MEDICARE, SELFPAY ==
--- NOTE | 2024-11-16 13:00 | MRI_ITS ---
PROCEDURE: BRAIN WITHOUT CONTRAST 11/16/2024 REASON FOR EXAM: DX STROKE TECHNIQUE: Multiplanar and multisequential MRI of the brain was performed without contrast. COMPARISON: CT head 08/18/2020. FINDINGS: Small area of restricted diffusion compatible with acute infarct involving the anterior right frontal lobe piedra radiata white matter. No additional areas of acute infarct. No evidence of acute intracranial hemorrhage/hemorrhagic conversion, extra-axial collection, mass effect, or other acute findings. Moderate generalized brain parenchymal volume loss with ex vacuo ventricular enlargement. Moderate-advanced chronic microangiopathic changes in the supratentorial white matter, somewhat confluent along the periventricular region. T2 FLAIR sequence significantly degraded by patient motion. Chronic encephalomalacia and gliosis involving the anterolateral left temporal lobe, may be related to prior infarct or remote trauma. Postoperative changes of left craniotomy. Preserved major intracranial vascular flow voids. Absent hoopa ocular lenses. Well-aerated visualized paranasal sinuses and bilateral mastoid air cells. MRI/Brain without Contrast IMPRESSION: 1. Small area of acute infarct in the anterior right frontal lobe piedra radiat a white matter. 2. Moderate volume loss and chronic small-vessel ischemic-gliotic changes elsew here in the supratentorial white matter. Chronic left temporal lobe encephalomalacia/gliosis. Reading Location: [id number]
== END | disposition home or self-care (01) ==
LOC: OPMRI 03-23 11:58
PROVIDERS: PCP Family Medicine Geriatric Medicine; Referring Provider Family Medicine Geriatric Medicine; Visit Provider Family Medicine Geriatric Medicine
DX: I63.9 Cerebral infarction, unspecified (principal)
CPT/HCPCS: 70551